=== PATIENT | female | born 1940 | race Caucasian/White ===

== ENCOUNTER 2016-09-21 10:21 | Inpatient (IN) | payer OTHER, MEDICARE ==
[~2016-09-21] VITALS: Ht 167.6 cm; Wt 81.1 kg
[2016-09-21] VITALS (14 sets, daily range): BP systolic 104–143; BP diastolic 53–82; PULSE 64–81; TEMP 36.2–36.9; O2SAT 94–100; Ht 167.6 cm; Wt 81.1 kg
[~2016-09-21 10:21] MED LIST: CTP/1 PO; DILT-119 PO; FLAXSEED OIL PO; FOLI400T41 PO; FURO40TA3 PO; LISI5TAB PO; METO-596 PO; MULTTAB PO; POTA10CA28 PO; RIVA1.5T PO; SPIR25TA89 PO; TRMCR130WC TOP
[2016-09-21] MEDS ORDERED: ONDANSETRON INJ 2 MG/ML 2 ML VIAL IV STA (10:37)
[2016-09-21] MEDS ORDERED: PANTOprazole INJ 80 MG in DEXTROSE 5% 100ML IV SCH (11:00)
[2016-09-21 11:07] LABS: INR 1.3 (0.9-1.1); PARTIAL THROMBOPLASTIN RATIO 1.5; PROTHROMBIN TIME (PATIENT) 14.5 SECONDS (9.0-12.0)
[2016-09-21 11:15] LABS: ALT/SGPT 18 U/L (12-78); AST/SGOT 12 U/L (15-37); BLOOD UREA NITROGEN 35 mg/dl (7-18); BUN/CREATININE RATIO 21.9 (10-20); CALCIUM 8.9 mg/dl (8.5-10.1); CARBON DIOXIDE 28 mmol/L (21-32); CHLORIDE 100 mmol/L (98-107); GLUCOSE 135 mg/dl (70-99); POTASSIUM 3.7 mmol/L (3.5-5.1); SODIUM 139 mmol/L (136-145)
[2016-09-21 11:20] LABS: ALKALINE PHOSPHATASE 65 U/L (45-117)
--- NOTE | 2016-09-21 11:25 | DIAGNOSTIC IMAGING REPORT ---
CHEST ONE VIEW PORTABLE CLINICAL HISTORY: EVALUATE GI BLEED dyspnea COMPARISON STUDY: 07/13/2012 FINDINGS: Improved parenchymal infiltrate left base. Minimal like atelectasis both lung bases. Lungs otherwise appear clear. Diaphragms smooth. IMPRESSION: No acute process. Electronically signed by: Everton Valle M.D. 09/21/2016 11:23 AM Dictated Date/Time: 09/21/2016 11:22 AM
[2016-09-21] MEDS ORDERED: PANTOprazole INJ 40 MG in DEXTROSE 5% 100ML IV SCH (11:30)
[2016-09-21] MEDS ORDERED: ASPI1TAB83 PO (11:38)
[2016-09-21] MEDS ORDERED: FOLI1TAB7 PO (11:38)
[2016-09-21] MEDS ORDERED: MULTCHW PO (11:38)
[2016-09-21] MEDS ORDERED: METO5TAB5 PO (11:38)
[2016-09-21] MEDS ORDERED: FLAX12003 PO (11:38)
[2016-09-21] MEDS ORDERED: CALC1CAP36 PO (11:38)
[2016-09-21 11:45] LABS: ANISOCYTOSIS PRESENT; BASO % 0.1 %; BASO ABS # 0.02 K/uL (0-0.2); COMPLETE YES; EOS % 0.5 %; HYPERSEGMENTED POLYS 1+; IG% 1.3 %; LARGE PLATELETS 1+; LYMPH % 7.4 %; LYMPH ABS # 1.12 K/uL (1.2-3.4); MEAN CELL VOLUME 95.5 fL (80-100); MEAN CORPUSCULAR HGB CONC 31.4 g/dl (32-36); MEAN PLATELET VOLUME 8.9 fL (7.4-10.4); MICROCYTOSIS PRESENT; MONO % 8.7 %; PLATELET COUNT 469 K/uL (130-400); POLYCHROMASIA 1+; WHITE BLOOD COUNT 15.19 K/uL (4.8-10.8)
[2016-09-21] MEDS ORDERED: ONDANSETRON INJ 2 MG/ML 2 ML VIAL IV PRN (13:00)
[2016-09-21] MEDS ORDERED: ALUMINUM/MAGNESIUM/SIMETH (MAALOX MAX) 30 ML UDC PO PRN (13:00)
[2016-09-21] MEDS ORDERED: ACETAMINOPHEN 325 MG TAB PO PRN (13:00)
[2016-09-21] MEDS ORDERED: MAGNESIUM HYDROXIDE SUSP 30 ML UDC PO PRN (13:00)
[2016-09-21] MEDS ORDERED: POLYETHYLENE (MIRALAX) 17 GM PACK PO PRN (13:00)
--- NOTE | 2016-09-21 13:19 | History and Physical ---
History & Physical Date & Time of Service: Sep 21, 2016 at 12:27 Chief Complaint: Weakness, Diarrhea-Blood In Stools Primary Care Physician: Michel Quintero M.D. (MEDICAL) History of Present Illness Source: patient, family Ms. 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 Patient was getting ready for taoism and had an urge to move her bowels which revealed black diarrhea. She states she didn't have many episodes but discontinued for 2 days then disappeared. This black diarrhea restarted yesterday. Her generalized weakness worsened which resulting in her collapsing to her knees when she tried to get out of her vehicle this morning. She denies further injury, hitting her head, or LOC. Associated BRBPR with wiping only which is noticed on the toilet tissue. Associated abdominal cramping that was worse yesterday and somewhat improved. Associated dry heaves without productive emesis. She has chronic anemia and has undergone 3 iron infusions last month with the most recent 2 weeks ago. Her daughter, iron stores have not improved. She is on several toe and ASA with last dose of Zaroxolyn last night and last dose of aspirin yesterday morning. Patient underwent colonoscopy in the past which was normal. She states she is normally constipated. She denies chronic NSAID use other than ASA, denies excessive alcohol use, denies known liver dysfunction. She denies personal or family history of colon cancer or known PUD. In the ED, patient is afebrile and normotensive. Hemoglobin 6.6. Leukocytosis of 15.19. Creatinine 1.6 which appears baseline. PTT 39.8. Protonix gtt initiated. She was transfused 2 units PRBCs. She will be admitted to telemetry for GI bleed. Past Medical/Surgical History Medical Problems: (1) ASCVD Status: Chronic (2) Atherosclerotic renal artery stenosis Status: Resolved (3) Benign hypertension Status: Chronic (4) Renal artery stenosis Status: Chronic Family History Heart disease Hypertension Social History Smoking Status: Current Every Day Smoker Drug Use: none Occupational Status: retired Immunizations History of Influenza Vaccine: Yes Influenza Vaccine Date: May 25, 2012 History of Tetanus Vaccine?: Yes History of Pneumococcal: No History of Hepatitis B Vaccine: No Multi-Drug Resistant Organisms History of MDRO: No Allergies Coded Allergies: Latex1 -Allergic Contact Dermititis (Verified Allergy, Mild, POWDER IN LATEX GLOVES CAUSES RED, ITCHY SKIN, 09/21/16) Home Medications Scheduled Aspirin (Aspirin), 1 TAB PO DAILY Calcitriol (Calcitriol), 1 CAP PO 2XWK Clonidine Hcl (Catapres), 0.1 MG PO HS Diltiazem Hcl Ext Rel (Tiazac), 360 MG PO DAILY Flaxseed (Linseed) (Flaxseed Oil), 450 MG PO QPM Folic Acid (Folvite), 400 MCG PO QPM Metolazone (Zaroxolyn), 5 MG PO QAM Metoprolol Tartrate (Lopressor), 0.5 TAB PO AMPM Multiple Vitamins W/ Minerals (Centrum Silver), 1 TAB PO QPM Rivaroxaban (Xarelto), 15 MG PO DAILY Spironolactone (Aldactone), 25 MG PO BID Review of Systems REVIEW OF SYSTEMS: General/Constitutional: +generalized weakness; Denies fever/chills, weight gain/ loss ENT: Denies visual changes, nasal drainage, hearing loss, sore throat, trouble swallowing Cardiovascular: Denies chest pain, palpitations, edema Respiratory: Denies cough, sputum, SOB, wheezing, orthopnea GI: +nausea, +dry heaves, +cramping abdominal pain, +melena and hematochezia; Denies vomiting, constipation, diarrhea Musculoskeletal: Denies joint/muscle aches, weakness, swelling Neurologic: Denies dizziness/lightheadedness, numbness/tingling, weakness Psychiatric: Deferred Endocrine: Deferred Hematologic/Lymphatic: Denies bleeding/clotting abnormalities Skin: Denies rash, itch, new skin changes, easy bruising Allergy/Immunologic: Deferred Physical Exam Vital Signs Date Time Temp Pulse Resp B/P Pulse Ox O2 Delivery O2 Flow Rate FiO2 09/21/16 11:37 73 20 122/65 100 Room Air 09/21/16 11:14 75 09/21/16 10:24 36.4 84 20 122/63 100 Room Air PHYSICAL EXAM:: General Appearance: WDWN in NAD who is A&O x 3 HEENT: Head is normocephalic/atraumatic; EOMI; PERRLA; Hearing grossly intact; Mucous membranes moist; Pharynx negative for exudate/lesions Neck: Supple; Trachea midline; Neg JVD; Neg lymphadenopathy Heart: Irregularly irregular with systolic murmur with radiation to upper left chest; no G/R Lungs: CTA in all lung bettencourt bilaterally; Respirations unlabored; Neg accessory muscle use Abdomen: Soft, non-tender, non-distended; Positive BS x 4 quadrants; Neg organomegaly Extremities: Capillary refill < 2 seconds; Neg cyanosis or edema Neurological: Speech clear with mild mumbling (H/O CVA - chronic) Gross motor/ sensory function intact; Neg focal neurologic deficits Psychiatric: Appropriate mood/affect Skin: Normal Color; Warm/Dry; Neg rashes, ecchymosis, lacerations/ulcerations Diagnostics Laboratory Results Results Past 24 Hours Test 09/21/16 10:45 Range/Units White Blood Count 15.19 4.8-10.8 K/uL Red Blood Count 2.20 4.2-5.4 M/uL Hemoglobin 6.6 12.0-16.0 g/dL Hematocrit 21.0 37-47 % Mean Corpuscular Volume 95.5 80-100 fL Mean Corpuscular Hemoglobin 30.0 25-34 pg Mean Corpuscular Hemoglobin Concent 31.4 32-36 g/dl Platelet Count 469 130-400 K/uL Mean Platelet Volume 8.9 7.4-10.4 fL Neutrophils (%) (Auto) 82.0 % Lymphocytes (%) (Auto) 7.4 % Monocytes (%) (Auto) 8.7 % Eosinophils (%) (Auto) 0.5 % Basophils (%) (Auto) 0.1 % Neutrophils # (Auto) 12.46 1.4-6.5 K/uL Lymphocytes # (Auto) 1.12 1.2-3.4 K/uL Monocytes # (Auto) 1.32 0.11-0.59 K/uL Eosinophils # (Auto) 0.08 0-0.5 K/uL Basophils # (Auto) 0.02 0-0.2 K/uL RDW Standard Deviation 80.8 36.4-46.3 fL RDW Coefficient of Variation 24.4 11.5-14.5 % Immature Granulocyte % (Auto) 1.3 % Immature Granulocyte # (Auto) 0.19 0.00-0.02 K/uL Nucleated RBC Absolute Count (auto) 0.09 0-0 K/uL Nucleated Red Blood Cells % 0.6 % Hypersegmented Polys 1+ Large Platelets 1+ Polychromasia 1+ Anisocytosis PRESENT Microcytosis PRESENT Prothrombin Time 14.5 9.0-12.0 SECONDS Prothromb Time International Ratio 1.3 0.9-1.1 Activated Partial Thromboplast Time 39.8 21.0-31.0 SECONDS Partial Thromboplastin Ratio 1.5 Sodium Level 139 136-145 mmol/L Potassium Level 3.7 3.5-5.1 mmol/L Chloride Level 100 98-107 mmol/L Carbon Dioxide Level 28 21-32 mmol/L Anion Gap 11.0 3-11 mmol/L Blood Urea Nitrogen 35 7-18 mg/dl Creatinine 1.60 0.60-1.20 mg/dl Estimated GFR () 35.7 Estimated GFR (Non- 30.8 BUN/Creatinine Ratio 21.9 10-20 Random Glucose 135 70-99 mg/dl Calcium Level 8.9 8.5-10.1 mg/dl Total Bilirubin 0.4 0.2-1 mg/dl Direct Bilirubin 0.1 0-0.2 mg/dl Aspartate Amino Transf (AST/SGOT) 12 15-37 U/L Alanine Aminotransferase (ALT/SGPT) 18 12-78 U/L Alkaline Phosphatase 65 45-117 U/L Troponin I < 0.015 0-0.045 ng/ml Total Protein 6.5 6.4-8.2 gm/dl Albumin 3.3 3.4-5.0 gm/dl Lipase 247 73-393 U/L Diagnostic Radiology CHEST ONE VIEW PORTABLE CLINICAL HISTORY: EVALUATE GI BLEED dyspnea COMPARISON STUDY: 07/13/2012 FINDINGS: Improved parenchymal infiltrate left base. Minimal like atelectasis both lung bases. Lungs otherwise appear clear. Diaphragms smooth. IMPRESSION: No acute process. EKG Atrial fibrillation Nonspecific ST and T wave abnormality Prolonged QT Abnormal ECG When compared with ECG of 12-SEP-2014 07:25, Atrial fibrillation has replaced Atrial flutter Impression Assessment and Plan Ms. 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 Hemoglobin 6.6. 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 Y/N: Yes Risk Level: Moderate Given or contraindicated: T.E.D. Stockings, SCD's, Contraindicated (GI Bleed)
[2016-09-21] MEDS ORDERED: ONDANSETRON INJ 2 MG/ML 2 ML VIAL ONE (14:02)
[2016-09-21] MEDS: SODIUM CHLORIDE 0.9% 1000ML 1,000 ML IV SCH (15:15)
--- NOTE | 2016-09-21 15:40 | Gastrointestinal Consultation ---
Gastrointestinal Consultation Date of Consultation: Sep 21, 2016 Attending Physician: Elva Lacey PA-C Consulting Physician: Dr. Shaw/KAYLENE Moreno Reason for Consultation: Melena History of Present Illness Patient is a 75 year old female with a history of atherosclerotic cardiovascular disease, atrial fibrillation, and renal artery stenosis on chronic anticoagulation therapy with Xarelto and ASA presenting to the ER with progressive weakness and family reports of increased respiratory effort. Upon arrival, she was noted to be profoundly anemic with a H&H of 6.6 and 21.0. BUN was noted to be 35 and creatinine 1.60. Liver panel was negative as was her troponin. She has received 1 of 2 units of PRBCs ordered. Patient has been placed on a NPO status although she has been drinking sips of clear liquids at present. In regard to symptoms, the patient reports a history of mid-abdominal discomfort associated with a "sick feeling" and intermittent "dry heaves" which has been ongoing for several weeks. The patient has been treating symptoms with Tums and saltines. She states that on Sunday, however, she developed a sudden onset of diarrhea which was very dark x 1 episode. She was okay on Sunday but on Sunday had returning diarrhea x 5 episodes. Again, the stool was very dark. Since that time, she has not had any further fecal output but was hemoccult tested in the ER as positive. The only other symptoms she reports is of the weakness as noted above. She denies any shortness of breath or CABALLERO at present, no chest pain, palpitations, melena at present, BRBPR, or hematemesis. She does have a history of chronic constipation and takes MiraLAX daily but has not taken any MiraLAX since the onset of the diarrhea. Past Medical/Surgical History Past Medical History: 1. Atherosclerotic cardiovascular disease 2. Renal artery stenosis 3. Benign hypertension 4. Atrial fibrillation Past Surgical History: 1. Complete colonoscopy 2. EGD Family History Heart disease Hypertension Negative for GI malignancy or IBD Social History Smoking Status: Never Smoker Alcohol Use: occasionally Drug Use: none Housing Status: lives with family Occupation Status: retired Allergies Coded Allergies: Latex1 -Allergic Contact Dermititis (Verified Allergy, Mild, POWDER IN LATEX GLOVES CAUSES RED, ITCHY SKIN, 09/21/16) Current Medications Home Meds and Scripts Medications Dose Route/Sig Max Daily Dose Days Date Category Dose Instructions Centrum Silver (Multiple Vitamins W/ Minerals) 1 Chw Chw 1 Tab PO QPM 09/21/16 Reported Folvite (Folic Acid) 1 Mg Tab 400 Mcg PO QPM 09/21/16 Reported Flaxseed Oil (Flaxseed (Linseed)) 1 Cap Cap 450 Mg PO QPM 09/21/16 Reported Calcitriol 0.25 Mcg Cap 1 Cap PO 2XWK 09/21/16 Reported TUES/FRI Zaroxolyn (Metolazone) 5 Mg Tab 5 Mg PO QAM 09/21/16 Reported Aspirin 81 Mg Tab 1 Tab PO DAILY 09/21/16 Reported Aldactone (Spironolactone) 25 Mg Tab 25 Mg PO BID 09/12/14 Reported Lopressor (Metoprolol Tartrate) 100 Mg Tab 0.5 Tab PO AMPM 09/12/14 Reported Catapres (Clonidine Hcl) 0.1 Mg Tab 0.1 Mg PO HS 09/12/14 Reported Xarelto (Rivaroxaban) 15 Mg Tab 15 Mg PO DAILY 09/12/14 Reported Tiazac (Diltiazem HCl) 360 Mg Capcr 360 Mg PO DAILY 09/12/14 Reported Review of Systems Constitutional: + see HPI, No chills, No fever Eyes: No problem reported ENT: No problem reported Respiratory: + see HPI Cardiac: + see HPI Abdomen: + see HPI Musculoskeletal: No problem reported Female : No problem reported Neuro: No problem reported Psych: No problem reported Endo: No problem reported Skin: No problem reported Physical Exam Date Time Temp Pulse Resp B/P Pulse Ox O2 Delivery O2 Flow Rate FiO2 09/21/16 14:21 09/21/16 13:50 36.8 76 20 135/55 98 09/21/16 13:35 36.8 74 18 135/53 94 09/21/16 13:35 36.8 75 18 135/53 94 09/21/16 13:20 36.9 72 18 123/57 97 09/21/16 12:34 77 18 136/84 99 09/21/16 11:37 73 20 122/65 100 Room Air 09/21/16 11:14 75 09/21/16 10:24 36.4 84 20 122/63 100 Room Air General Appearance: WD/WN, no apparent distress Eyes: EOMI ENT: hearing grossly normal Neck: supple Respiratory/Chest: lungs clear, normal breath sounds, no respiratory distress Cardiovascular: no gallop, no murmur, + irregularly irregular Abdomen: normal bowel sounds, non tender, soft Extremities: no pedal edema Neurologic/Psych: alert, normal mood/affect, oriented x 3 Skin: warm/dry Laboratory Results Last 24 Hours Test 09/21/16 10:45 White Blood Count 15.19 K/uL Red Blood Count 2.20 M/uL Hemoglobin 6.6 g/dL Hematocrit 21.0 % Mean Corpuscular Volume 95.5 fL Mean Corpuscular Hemoglobin 30.0 pg Mean Corpuscular Hemoglobin Concent 31.4 g/dl Platelet Count 469 K/uL Mean Platelet Volume 8.9 fL Neutrophils (%) (Auto) 82.0 % Lymphocytes (%) (Auto) 7.4 % Monocytes (%) (Auto) 8.7 % Eosinophils (%) (Auto) 0.5 % Basophils (%) (Auto) 0.1 % Neutrophils # (Auto) 12.46 K/uL Lymphocytes # (Auto) 1.12 K/uL Monocytes # (Auto) 1.32 K/uL Eosinophils # (Auto) 0.08 K/uL Basophils # (Auto) 0.02 K/uL RDW Standard Deviation 80.8 fL RDW Coefficient of Variation 24.4 % Immature Granulocyte % (Auto) 1.3 % Immature Granulocyte # (Auto) 0.19 K/uL Nucleated RBC Absolute Count (auto) 0.09 K/uL Nucleated Red Blood Cells % 0.6 % Hypersegmented Polys 1+ Large Platelets 1+ Polychromasia 1+ Anisocytosis PRESENT Microcytosis PRESENT Erythrocyte Sedimentation Rate 12 mm/hr Prothrombin Time 14.5 SECONDS Prothromb Time International Ratio 1.3 Activated Partial Thromboplast Time 39.8 SECONDS Partial Thromboplastin Ratio 1.5 Sodium Level 139 mmol/L Potassium Level 3.7 mmol/L Chloride Level 100 mmol/L Carbon Dioxide Level 28 mmol/L Anion Gap 11.0 mmol/L Blood Urea Nitrogen 35 mg/dl Creatinine 1.60 mg/dl Estimated GFR () 35.7 Estimated GFR (Non- 30.8 BUN/Creatinine Ratio 21.9 Random Glucose 135 mg/dl Calcium Level 8.9 mg/dl Total Bilirubin 0.4 mg/dl Direct Bilirubin 0.1 mg/dl Aspartate Amino Transf (AST/SGOT) 12 U/L Alanine Aminotransferase (ALT/SGPT) 18 U/L Alkaline Phosphatase 65 U/L Troponin I < 0.015 ng/ml Total Protein 6.5 gm/dl Albumin 3.3 gm/dl Lipase 247 U/L Impression Patient is a 75 year old female with a history of atherosclerotic cardiovascular disease and atrial fibrillation on chronic anticoagulation therapy admitted with profound anemia, heme positive stool and melena which has since resolved. Plan 1. Agree with holding Xarelto for now. 2. Continue supportive care with blood transfusions as ordered. 3. NPO except for sips of clears tonight and then strict NPO after midnight 4. Protonix ggt at 5 mg/hr. 5. EGD tomorrow with Dr. Shaw for further evaluation of symptoms. 6. Additional recommendations pending results of testing. Thank you for allowing us to participate in the care of this pleasant patient. If you have any questions or concerns, please do not hesitate to contact us. Agree with KAYLENE Moreno as above Abd: Soft, Tender, ND, +BS NPO after midnight EGD in AM Continue PPI gtt
[2016-09-21] MEDS: PANTOprazole INJ 40 MG in DEXTROSE 5% 100ML 100 ML IV SCH ×2 (16:18→21:25)
--- NOTE | 2016-09-21 16:52 | EMERGENCY ROOM VISIT NOTE ---
History Report prepared by Lupeibbenja: Saskia Simpson Under the Supervision of: Dr. Nixon Cabrera M.D. First contact with patient: 10:27 Chief Complaint: WEAKNESS Stated Complaint: WEAKNESS, DIARRHEA-BLOOD IN STOOLS History of Present Illness The patient is a 75 year old female who presents to the Emergency Room with complaints of worsening weakness that began 4 days ago. Her daughter states that the patient collapsed onto her knees when she got out of the vehicle this morning due to her weakness. She did not obtain any injuries or hit her head at that time. The patient also complains of dry heaves and black diarrhea. She had diarrhea 4 days ago, and started with it again yesterday. When she wiped, she noticed blood on the tissue. Her daughter states that she has not had a large amount of diarrhea. She has not had any productive emesis. Yesterday, she developed abdominal pain which she describes as cramping. Currently, she has minimal abdominal discomfort. This morning, the patient's daughter called her PCP and the patient was referred to the ED. The patient has a history of stroke and a-fib and is on Xarelto and baby aspirin. She did not take them this morning. Her most recent dose of Xarelto was last night. Her daughter states that the patient had 3 iron infusions last month, most recently two weeks ago. Denies fever, chest pain, or other complaints. She has not been on antibiotics recently. Source of History: patient, family (daughter) Onset: 4 days ago Position: other (global) Quality: other (weakness) Timing: worsening Associated Symptoms: + abdominal pain (cramping), + diarrhea (black), No chest pain, No fevers Note: Other symptoms: dry heaves Review of Systems See HPI for pertinent positives & negatives. A total of 10 systems reviewed and were otherwise negative. Past Medical & Surgical Medical Problems: (1) ASCVD (2) Asthma, Unspecified (3) Atherosclerotic renal artery stenosis (4) Atrial Fibrillation (5) Benign hypertension (6) Congestive Heart Failure Nos (7) Esophageal Reflux (8) Hypertension Nos (9) Melena (10) Renal artery stenosis Family History Heart disease Hypertension Social History Smoking Status: Current Every Day Smoker Alcohol Use: occasionally Drug Use: none Housing Status: lives with family Occupation Status: retired Current/Historical Medications Scheduled Aspirin (Aspirin), 1 TAB PO DAILY Calcitriol (Calcitriol), 1 CAP PO 2XWK Clonidine Hcl (Catapres), 0.1 MG PO HS Diltiazem Hcl Ext Rel (Tiazac), 360 MG PO DAILY Flaxseed (Linseed) (Flaxseed Oil), 450 MG PO QPM Folic Acid (Folvite), 400 MCG PO QPM Metolazone (Zaroxolyn), 5 MG PO QAM Metoprolol Tartrate (Lopressor), 0.5 TAB PO AMPM Multiple Vitamins W/ Minerals (Centrum Silver), 1 TAB PO QPM Rivaroxaban (Xarelto), 15 MG PO DAILY Spironolactone (Aldactone), 25 MG PO BID Allergies Coded Allergies: Latex1 -Allergic Contact Dermititis (Verified Allergy, Mild, POWDER IN LATEX GLOVES CAUSES RED, ITCHY SKIN, 09/21/16) Physical Exam Vital Signs Date Time Temp Pulse Resp B/P Pulse Ox O2 Delivery O2 Flow Rate FiO2 09/21/16 14:35 36.5 81 18 115/81 100 09/21/16 14:21 09/21/16 14:05 36.2 80 16 129/82 100 09/21/16 13:50 36.8 76 20 135/55 98 09/21/16 13:35 36.8 74 18 135/53 94 09/21/16 13:35 36.8 75 18 135/53 94 09/21/16 13:20 36.9 72 18 123/57 97 09/21/16 12:34 77 18 136/84 99 09/21/16 11:37 73 20 122/65 100 Room Air 09/21/16 11:14 75 09/21/16 10:24 36.4 84 20 122/63 100 Room Air Physical Exam Constitutional: Vital signs reviewed. Eyes: Pupils are equal round reactive to light. Conjunctiva are noninjected. ENT: Pharynx is clear without erythema or exudate. Mucous membranes are moist. Neck supple without meningeal signs. Respiratory: Clear to auscultation bilaterally. Breath sounds are equal bilaterally. Cardiovascular: Irregularly irregular rhythm, normal rate. No rubs or gallops. GI: Soft, nondistended and nontender. Bowel sounds are present. Rectal: Guaiac positive brown stool. Musculoskeletal: No peripheral edema. No lower extremity tenderness. Integumentary: No cyanosis. Neurological: The patient is awake and alert. No focal deficits. Psychiatric: Normal affect. Medical Decision & Procedures ER Provider Diagnostic Interpretation: Radiology results as stated below per my review and the radiologist's interpretation: CHEST ONE VIEW PORTABLE CLINICAL HISTORY: EVALUATE GI BLEED dyspnea COMPARISON STUDY: 07/13/2012 FINDINGS: Improved parenchymal infiltrate left base. Minimal like atelectasis both lung bases. Lungs otherwise appear clear. Diaphragms smooth. IMPRESSION: No acute process. Electronically signed by: Everton Valle M.D. 09/21/2016 11:23 AM Dictated Date/Time: 09/21/2016 11:22 AM Laboratory Results 09/21/16 10:45 Red Blood Count 2.20, Mean Corpuscular Volume 95.5, Mean Corpuscular Hemoglobin 30.0, Mean Corpuscular Hemoglobin Concent 31.4, Mean Platelet Volume 8.9, Neutrophils (%) (Auto) 82.0, Lymphocytes (%) (Auto) 7.4, Monocytes (%) (Auto) 8.7, Eosinophils (%) (Auto) 0.5, Basophils (%) (Auto) 0.1, Neutrophils # (Auto) 12.46, Lymphocytes # (Auto) 1.12, Monocytes # (Auto) 1.32, Eosinophils # (Auto) 0.08, Basophils # (Auto) 0.02 09/21/16 10:45 Test 09/21/16 10:45 White Blood Count 15.19 K/uL (4.8-10.8) Red Blood Count 2.20 M/uL (4.2-5.4) Hemoglobin 6.6 g/dL (12.0-16.0) Hematocrit 21.0 % (37-47) Mean Corpuscular Volume 95.5 fL (80-100) Mean Corpuscular Hemoglobin 30.0 pg (25-34) Mean Corpuscular Hemoglobin Concent 31.4 g/dl (32-36) Platelet Count 469 K/uL (130-400) Mean Platelet Volume 8.9 fL (7.4-10.4) Neutrophils (%) (Auto) 82.0 % Lymphocytes (%) (Auto) 7.4 % Monocytes (%) (Auto) 8.7 % Eosinophils (%) (Auto) 0.5 % Basophils (%) (Auto) 0.1 % Neutrophils # (Auto) 12.46 K/uL (1.4-6.5) Lymphocytes # (Auto) 1.12 K/uL (1.2-3.4) Monocytes # (Auto) 1.32 K/uL (0.11-0.59) Eosinophils # (Auto) 0.08 K/uL (0-0.5) Basophils # (Auto) 0.02 K/uL (0-0.2) RDW Standard Deviation 80.8 fL (36.4-46.3) RDW Coefficient of Variation 24.4 % (11.5-14.5) Immature Granulocyte % (Auto) 1.3 % Immature Granulocyte # (Auto) 0.19 K/uL (0.00-0.02) Nucleated RBC Absolute Count (auto) 0.09 K/uL (0-0) Nucleated Red Blood Cells % 0.6 % Hypersegmented Polys 1+ Large Platelets 1+ Polychromasia 1+ Anisocytosis PRESENT Microcytosis PRESENT Erythrocyte Sedimentation Rate 12 mm/hr (0-21) Prothrombin Time 14.5 SECONDS (9.0-12.0) Prothromb Time International Ratio 1.3 (0.9-1.1) Activated Partial Thromboplast Time 39.8 SECONDS (21.0-31.0) Partial Thromboplastin Ratio 1.5 Anion Gap 11.0 mmol/L (3-11) Estimated GFR () 35.7 Estimated GFR (Non- 30.8 BUN/Creatinine Ratio 21.9 (10-20) Calcium Level 8.9 mg/dl (8.5-10.1) Total Bilirubin 0.4 mg/dl (0.2-1) Direct Bilirubin 0.1 mg/dl (0-0.2) Aspartate Amino Transf (AST/SGOT) 12 U/L (15-37) Alanine Aminotransferase (ALT/SGPT) 18 U/L (12-78) Alkaline Phosphatase 65 U/L (45-117) Troponin I < 0.015 ng/ml (0-0.045) Total Protein 6.5 gm/dl (6.4-8.2) Albumin 3.3 gm/dl (3.4-5.0) Lipase 247 U/L (73-393) Laboratory results as reviewed by me. Medications Administered Medications (Trade) Dose Ordered Sig/Veronica Route Start Time Stop Time Status Last Admin Dose Admin Ondansetron HCl 4 mg 4 mg NOW STAT IV 09/21/16 10:37 09/21/16 10:40 DC 09/21/16 11:07 4 MG Pantoprazole Sodium 80 mg/ Dextrose 120 ml @ 480 mls/hr 1100 IV 09/21/16 11:00 09/21/16 11:14 DC 09/21/16 11:07 480 MLS/HR Pantoprazole Sodium/Dextrose (Protonix Inj/D5 100ml) 100 ml @ 20 mls/hr Q5H IV 09/21/16 11:30 09/21/16 16:29 DC 09/21/16 11:32 20 MLS/HR Ondansetron HCl (Zofran Inj) 4 mg Q6H PRN IV 09/21/16 13:00 10/21/16 12:59 09/21/16 14:18 4 MG ECG Indication: weakness Rate (beats per minute): 88 Rhythm: atrial fibrillation Findings: prolonged QT, other (some nonspecific ST-T wave changes inferiorly and laterally) Comparison ECG Date: 09/12/14 Change: no significant change ED Course 1028: The patient was evaluated in room B8. A complete history and physical exam was performed. 1037: Ordered Protonix Bolus/Drip 1 ea IV, Zofran Inj 4 mg IV. 1100: Ordered Pantoprazole Sodium 80 mg/Dextrose 120 ml @ 480 mls/hr IV. 1130: Ordered Pantoprazole Sodium 40 mg/Dextrose 100 ml @ 20 mls/hr IV. 1205: I reassessed the patient. She was hemodynamically stable. I obtained blood consent after discussing test results with the patient and her daughter. 1209: I discussed the case with Dr. Rivers - [facility] Hospitalist. The patient will be evaluated for further management. 1335: I reassessed the patient. She was receiving her first transfusion. She has no complaints at this time. Her vital signs are stable. Medical Decision This is a 75-year-old female who presents with rectal bleeding and weakness. Differential diagnosis includes GI bleed, anemia, cardiac, metabolic derangement , dehydration. I did perform a limited focused review of portions of the patient's old chart on the electronic medical record. The patient has had no recent pertinent visits to this hospital. I did evaluate the patient as noted above. Rectal examination shows guaiac positive brown stool. There was no gross blood. One portion of the stool appeared red but does not turn blue with guaiac testing. IV access was established. The patient was placed on a continuous rn cardiac. I did order and personally review the patient's 12-lead EKG and chest x-ray as described above. I did order and review the patient's blood work as noted in the electronic medical record. She is severely anemic. I did discuss the test results with the patient and her daughter. I did obtain written and verbal consent for blood. I did order 2 units of crossmatched blood for transfusion. I did reassess her. She did remain hemodynamically stable. Her transfusion was initiated in the emergency department. She did not develop any symptoms from it. I did discuss the case with the hospitalist and case loader operator. She was admitted to the hospital. Consults Time Called: 1207 Consulting Physician: Dr. Silvestre CRUZ Hospitalist Returned Call: 1209 I discussed the case with her. The patient will be evaluated for further management. Impression Primary Impression: GI bleed Additional Impressions: Symptomatic anemia A-fib Anticoagulated Critical Care I have personally spent greater than 35 minutes of critical care time in the direct management of this patient. This includes bedside care, interpretation of diagnostic studies, and testing, discussion with consultants, patient, and family members, and other required patient management activities. This 35 minutes is in excess of all separately billable procedures. Scribe Attestation The scribe's documentation has been prepared under my direct and personally reviewed by me in its entirety. I confirm that the note above accurately reflects all work, treatment, procedures, and medical decision making performed by me. Departure Information Dispostion Being Evaluated By Hospitalist Referrals Michel Quintero M.D. (MEDICAL) (PCP) Patient Instructions My [facility] Problem Qualifiers Primary Impression: GI bleed GI bleed type/associated pathology: unspecified gastrointestinal hemorrhage type Qualified Codes: K92.2 - Gastrointestinal hemorrhage, unspecified Additional Impressions: A-fib Atrial fibrillation type: chronic Qualified Codes: I48.2 - Chronic atrial fibrillation
[2016-09-21 17:09] LABS: HEMATOCRIT 23.9 % (37-47)
[2016-09-21] MEDS: FoLIC ACID TAB 400 MCG TAB PO SCH (21:24)
[2016-09-21] MEDS: METOPROLOL TARTRATE 50 MG TAB PO SCH (21:24)
[2016-09-21] MEDS: CLONIDINE HCL 0.1 MG TAB PO SCH (21:25)
[2016-09-21 23:29] LABS: HEMATOCRIT 23.5 % (37-47)
[2016-09-22] VITALS (8 sets, daily range): BP systolic 105–130; BP diastolic 62–85; PULSE 57–89; TEMP 36.4–36.8; O2SAT 94–99
[2016-09-22 00:06] LABS: URINE APPEARANCE CLOUDY (CLEAR); URINE BILIRUBIN NEG (NEG); URINE COLOR YELLOW; URINE EPITHELIAL CELL AUTO 0-5 /lpf (0-5); URINE NITRITE NEG (NEG); URINE PH 5.5 (4.5-7.5); URINE SPECIFIC GRAVITY 1.015 (1.000-1.030); UROBILINOGEN NEG (NEG); ZZUR CULT IF INDIC CLEAN CATCH YES
[2016-09-22 00:08] LABS: MANUAL MICROSCOPIC REQUIRED? NO; REVIEW REQ? NO
[2016-09-22] MEDS: PANTOprazole INJ 40 MG in DEXTROSE 5% 100ML 100 ML IV SCH ×3 (03:04→13:02)
[2016-09-22 06:01] LABS: HEMATOCRIT 24.7 % (37-47); MEAN CELL VOLUME 89.5 fL (80-100); MEAN CORPUSCULAR HGB CONC 32.4 g/dl (32-36); MEAN PLATELET VOLUME 9.2 fL (7.4-10.4); PLATELET COUNT 327 K/uL (130-400); RED BLOOD COUNT 2.76 M/uL (4.2-5.4); WHITE BLOOD COUNT 9.42 K/uL (4.8-10.8)
[2016-09-22 06:06] LABS: INR 1.1 (0.9-1.1); PARTIAL THROMBOPLASTIN RATIO 1.1; PROTHROMBIN TIME (PATIENT) 11.7 SECONDS (9.0-12.0)
[2016-09-22] MEDS: SODIUM CHLORIDE 0.9% 1000ML 1,000 ML IV SCH (06:21)
[2016-09-22 06:37] LABS: BUN/CREATININE RATIO 24.1 (10-20); CALCIUM 7.9 mg/dl (8.5-10.1); CREATININE 1.4 mg/dl (0.60-1.20); MAGNESIUM 1.8 mg/dl (1.8-2.4); POTASSIUM 3.1 mmol/L (3.5-5.1)
[2016-09-22] MEDS: DILTIAZEM HCL (TIAzac) 180 MG CAPCR PO SCH (08:03)
[2016-09-22] MEDS: METOPROLOL TARTRATE 50 MG TAB PO SCH ×2 (08:04→21:28)
[2016-09-22] MEDS ORDERED: CALCITRIOL 0.25 MCG CAP PO SCH (09:00)
--- NOTE | 2016-09-22 09:17 | Clinical Documentation Query ---
CLINICAL DOCUMENTATION QUERY 75 year old female with chronic afib on Xarelto who presents with anemia 2/2 GIB. In your clinical opinion is this patient being managed for: ( x ) possible Xarelto associated GIB treated with DC of Xarelto and 2 units of PRBC's ( ) Other explanation of clinical findings (Please Explain) ( ) Unable to determine (Please Define) ( ) Need to Discuss ( ) Not Agree The medical record reflects the following clinical findings, treatment, and risk factors. Clinical Indicators: GIB, Hgb 6.6, Hct 21.0, +FOCB Treatment: Xarelto on hold, 2 units of PRBC's, Risk Factors: anticoagulation therapy Please clarify and document your clinical opinion in the progress notes and discharge summary. Terms such as "probable", "suspected", "likely", "questionable", "possible", or "still to be ruled out" are acceptable. IF IN AGREEMENT, YOU MUST DOCUMENT ABOVE DIAGNOSTIC STATEMENT IN DAILY PROGRESS NOTES AND DISCHARGE SUMMARY. This document is not part of the patient's record. Thank You, Odin Lacey, RN [phone]
[2016-09-22] MEDS ORDERED: MIDAZOLAM HCL 1 MG/ML 2ML VIAL ONE (11:31)
[2016-09-22] MEDS ORDERED: LIDOCAINE HCL 2% 2 ML VIAL (20MG/ML) ONE (11:32)
[2016-09-22] MEDS ORDERED: ONDANSETRON INJ 2 MG/ML 2 ML VIAL ONE (11:32)
[2016-09-22] MEDS ORDERED: PROPOFOL IV EMULSION 10 MG/ML 20 ML VIAL IV ONE (11:32)
--- NOTE | 2016-09-22 11:45 | GI REPORT ---
Procedure Date: 09/22/2016 11:09 AM Procedure: Upper GI endoscopy Indications: Acute post hemorrhagic anemia, Melena Medicines: Monitored Anesthesia Care Complications: No immediate complications. Estimated Blood Loss: Estimated blood loss: none. Procedure: Pre-Anesthesia Assessment: - Prior to the procedure, a History and Physical was performed, and patient medications and allergies were reviewed. The patient's tolerance of previous anesthesia was also reviewed. The risks and benefits of the procedure and the sedation options and risks were discussed with the patient. All questions were answered, and informed consent was obtained. Prior Anticoagulants: The patient last took aspirin 2 days and Xarelto (rivaroxaban) 2 days prior to the procedure. ASA Grade Assessment: III - A patient with severe systemic disease. After reviewing the risks and benefits, the patient was deemed in satisfactory condition to undergo the procedure. After obtaining informed consent, the endoscope was passed under direct vision. Throughout the procedure, the patient's blood pressure, pulse, and oxygen saturations were monitored continuously. The scope was introduced through the mouth, and advanced to the second part of duodenum. The upper GI endoscopy was accomplished without difficulty. The patient tolerated the procedure well. Findings: The esophagus was normal. A small hiatus hernia was present. Two non-bleeding cratered gastric ulcers with no stigmata of bleeding were found in the gastric antrum. The largest lesion was 4 mm in largest dimension. Biopsies were taken with a cold forceps for Helicobacter pylori testing. The examined duodenum was normal. Impression: - Normal esophagus. - Small hiatus hernia. - Non-bleeding gastric ulcers with no stigmata of bleeding. Biopsied. - Normal examined duodenum. Recommendation: - Resume previous diet. - Continue present medications. - Await pathology results. - Return to GI office as previously scheduled. Jatin Shaw DO 09/22/2016 11:44:37 AM This report has been signed electronically. Note Initiated On: 09/22/2016 11:09 AM I attest to the content of the Intraoperative Record and orders documented therein, exceptions below
--- NOTE | 2016-09-22 12:23 | Anesthesiology Progress Note ---
Anesthesia Post Op Note Date & Time Sep 22, 2016 at 12:22 Vital Signs Pain Intensity: 0 Vital Signs Past 12 Hours Date Time Temp Pulse Resp B/P Pulse Ox O2 Delivery O2 Flow Rate FiO2 09/22/16 12:06 80 16 131/60 95 Room Air 09/22/16 11:55 80 18 128/65 95 Room Air 09/22/16 11:45 82 18 108/65 99 Room Air 09/22/16 10:55 36.6 80 20 173/79 96 Room Air 09/22/16 08:00 Room Air 09/22/16 07:24 36.8 89 16 116/75 94 Room Air 09/22/16 04:00 98 Room Air 09/22/16 04:00 36.4 69 18 127/71 98 Room Air 09/22/16 02:52 Room Air Notes Mental Status: alert / awake / arousable, participated in evaluation Pt Amnestic to Procedure: Yes Nausea / Vomiting: adequately controlled Pain: adequately controlled Airway Patency, RR, SpO2: stable & adequate BP & HR: stable & adequate Hydration State: stable & adequate Anesthetic Complications: no major complications apparent Pt doing well.
[2016-09-22] MEDS ORDERED: CEPHALEXIN MONOHYDRATE 500 MG CAP PO ONE (14:00)
[2016-09-22] MEDS ORDERED: POTASSIUM CHLORIDE 20 MEQ TABCR PO ONE (14:00)
--- NOTE | 2016-09-22 14:02 | Progress Note ---
Subjective Date of Service: Sep 22, 2016. Subjective Pt evaluation today including: conversation w/ patient, conversation w/ family , physical exam, chart review, lab review, review of studies, review of inpatient medication list Had EGD done, feeling hungry, no complaining, denied dizziness or chest pain Problem List Medical Problems: (1) A-fib Status: Acute (2) Anticoagulated Status: Acute (3) GI bleed Status: Acute (4) Symptomatic anemia Status: Acute Review of Systems Constitutional: No chills, No fatigue, No fever, No problem reported, No sweats , No weakness, No weight loss Eyes: No diplopia, No discharge, No eye pain, No redness, No worsening of vision ENT: No dental problems, No hearing loss, No nasal symptoms, No sore throat, No tinnitus, No trouble swallowing, No unusual epistaxis Respiratory: No cough, No dyspnea at rest, No dyspnea on exertion, No hemoptysis, No shortness of breath, No sputum, No wheezing Cardiac: No PND, No chest pain, No claudication, No edema, No orthopnea, No palpitations Abdomen: No constipation, No diarrhea, No nausea, No pain, No vomiting Musculoskeletal: No calf pain, No joint pain, No muscle pain, No swelling Female : No abnormal vaginal bleeding, No dysuria, No hematuria, No incontinence, No urinary frequency, No vaginal discharge Neurologic: No balance problems, No memory loss, No numbness/tingling, No paralysis, No vertigo, No weakness Psychiatric: No anhedonism, No anxiety, No depression symptoms, No insomnia, No substance abuse Heme: No abnormal bleeding/bruising, No clotting problems, No night sweats, No swollen lymph nodes Endo: No excessive thirst, No excessive urination, No fatigue Skin: No bleeding, No color change, No itch, No new/changing skin lesions, No rash Objective Vital Signs Date Time Temp Pulse Resp B/P Pulse Ox O2 Delivery O2 Flow Rate FiO2 09/22/16 13:00 36.4 86 18 130/72 96 Room Air 09/22/16 13:00 36.4 86 18 130/72 96 Room Air 09/22/16 12:06 80 16 131/60 95 Room Air 09/22/16 12:00 Room Air 09/22/16 11:55 80 18 128/65 95 Room Air 09/22/16 11:45 82 18 108/65 99 Room Air 09/22/16 10:55 36.6 80 20 173/79 96 Room Air 09/22/16 08:00 Room Air 09/22/16 07:24 36.8 89 16 116/75 94 Room Air 09/22/16 04:00 98 Room Air 09/22/16 04:00 36.4 69 18 127/71 98 Room Air 09/22/16 02:52 Room Air 09/22/16 00:00 96 Room Air 09/21/16 23:51 36.5 73 16 104/55 96 Room Air 09/21/16 20:10 36.7 78 18 134/75 96 Room Air 09/21/16 20:00 Room Air 09/21/16 18:20 36.7 71 18 143/76 95 09/21/16 17:00 36.9 69 18 125/69 97 09/21/16 16:30 36.6 74 18 135/70 100 09/21/16 16:27 36.6 67 18 130/71 Room Air 09/21/16 16:11 36.6 75 18 130/71 97 09/21/16 16:08 36.8 67 20 123/63 98 Room Air 09/21/16 15:05 36.2 64 18 127/77 100 09/21/16 14:35 36.5 81 18 115/81 100 09/21/16 14:21 09/21/16 14:05 36.2 80 16 129/82 100 Physical Exam General Appearance: WD/WN, no apparent distress Eyes: normal inspection, PERRL, EOMI, sclerae normal ENT: normal ENT inspection, hearing grossly normal, pharynx normal Neck: supple, no adenopathy, thyroid normal, no JVD, no carotid bruits, trachea midline Respiratory/Chest: chest non-tender, lungs clear, normal breath sounds, no respiratory distress, no accessory muscle use Cardiovascular: regular rate, rhythm, no edema, no gallop, no JVD, no murmur Abdomen: normal bowel sounds, non tender, soft, no organomegaly, no pulsatile mass Extremities: normal range of motion, non-tender, normal inspection, no pedal edema, no calf tenderness, normal capillary refill, pelvis stable Neurologic/Psychiatric: 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 II-XII nml as tested, no motor/sensory deficits, alert, normal mood/affect, oriented x 3 Skin: normal color, warm/dry, no rash Lymphatic: no adenopathy Laboratory Results Last 24 Hours Test 09/21/16 16:05 09/21/16 23:05 09/21/16 23:30 09/22/16 05:37 Hemoglobin 7.8 g/dL 7.8 g/dL 8.0 g/dL Hematocrit 23.9 % 23.5 % 24.7 % Urine Color YELLOW Urine Appearance CLOUDY Urine pH 5.5 Urine Specific [place] 1.015 Urine Protein NEG Urine Glucose (UA) NEG Urine Ketones NEG Urine Occult Blood NEG Urine Nitrite NEG Urine Bilirubin NEG Urine Urobilinogen NEG Urine Leukocyte Esterase LARGE Urine WBC (Auto) >30 /hpf Urine RBC (Auto) 0-4 /hpf Urine Hyaline Casts (Auto) 1-5 /lpf Urine Epithelial Cells (Auto) 0-5 /lpf Urine Bacteria (Auto) 2+ White Blood Count 9.42 K/uL Red Blood Count 2.76 M/uL Mean Corpuscular Volume 89.5 fL Mean Corpuscular Hemoglobin 29.0 pg Mean Corpuscular Hemoglobin Concent 32.4 g/dl RDW Standard Deviation 70.1 fL RDW Coefficient of Variation 21.8 % Platelet Count 327 K/uL Mean Platelet Volume 9.2 fL Nucleated RBC Absolute Count (auto) 0.03 K/uL Nucleated Red Blood Cells % 0.4 % Prothrombin Time 11.7 SECONDS Prothromb Time International Ratio 1.1 Activated Partial Thromboplast Time 29.3 SECONDS Partial Thromboplastin Ratio 1.1 Sodium Level 139 mmol/L Potassium Level 3.1 mmol/L Chloride Level 101 mmol/L Carbon Dioxide Level 32 mmol/L Anion Gap 6.0 mmol/L Blood Urea Nitrogen 34 mg/dl Creatinine 1.40 mg/dl Est Creatinine Clear Calc Drug Dose 35.9 ml/min Estimated GFR () 41.9 Estimated GFR (Non- 36.2 BUN/Creatinine Ratio 24.1 Random Glucose 99 mg/dl Calcium Level 7.9 mg/dl Magnesium Level 1.8 mg/dl Assessment and Plan 75-year-old white female with admitted on 09/21/2016 because of abd pain and melena Possible Xarelto related GI bleeding, blood transfusion 2 unit, hemoglobin improved from 6.6-8, follow-up H&H Acute blood loss anemia: Possible from GI bleeding EGD was done today 09/22/2016, results in below - Normal esophagus. - Small hiatus hernia. - Non-bleeding gastric ulcers with no stigmata of bleeding. Biopsied. - Normal examined duodenum. Recommendation: - Resume previous diet. - Continue present medications. - Await pathology results. - Return to GI office as previously scheduled. UTI with Leukocytosis which is supported by urinary studies Follow-up urine culture blood culture Start Keflex by mouth Chronic kidney disease stage III, stable in baseline Keep nothing by mouth midnight, patient was seen by Dr. 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
[2016-09-22] MEDS: CLONIDINE HCL 0.1 MG TAB PO SCH (21:28)
[2016-09-22] MEDS: CEPHALEXIN MONOHYDRATE 500 MG CAP PO SCH (21:28)
[2016-09-22] MEDS: FoLIC ACID TAB 400 MCG TAB PO SCH (21:28)
--- NOTE | 2016-09-22 22:28 | DIAGNOSTIC IMAGING REPORT ---
CT SCAN OF THE ABDOMEN AND PELVIS WITHOUT IV CONTRAST CLINICAL HISTORY: Generalized abdominal pain. Melena. COMPARISON STUDY: Renal ultrasound dated 11/26/2014. TECHNIQUE: CT scan of the abdomen and pelvis is performed from the lung bases to the proximal femora. Images are reviewed in the axial, sagittal, and coronal planes. IV contrast was not administered for this examination as per the referring clinician. Note that the examination was performed in significantly suboptimal fashion without oral and IV contrast. The examination is also degraded by motion artifact. Automated dose control exposure was utilized. CT DOSE: 462.67 mGy.cm FINDINGS: Lung bases: The heart is mildly enlarged and without pericardial effusion. The coronary arteries and mitral annulus are densely calcified. Linear atelectasis versus scarring is present the lung bases. No airspace consolidation or pleural effusion is seen. There is a tiny hiatal hernia. Liver: The unenhanced liver is normal in size, contour, and attenuation. There is no intrahepatic biliary ductal dilatation. Gallbladder: Unremarkable. Spleen: Normal in size and attenuation. Pancreas: The unenhanced pancreas is atrophic and grossly unremarkable. Adrenal glands: Unremarkable. Kidneys: The unenhanced kidneys are atrophic and without hydronephrosis. There are no renal calculi identified. There is no evidence of contour deforming renal mass lesion. Abdominal vasculature: The abdominal aorta is normal in course and caliber noting advanced atherosclerotic calcification. Bowel: The small bowel and colon are normal in course and caliber. The appendix is well-visualized and normal. Peritoneum: There is no intraperitoneal free air or abdominal ascites. There is a small fat-containing umbilical hernia. Lymphadenopathy: None. Pelvic viscera: The bladder is normal as visualized. The uterus is surgically absent. No adnexal lesion is seen. Skeletal structures: The skeletal structures are osteopenic. There is mild lumbosacral spondylosis and scoliosis. No lytic or blastic lesions are seen. IMPRESSION: 1. Significantly suboptimal examination without oral and IV contrast. The examination is also degraded by motion artifact. 2. There are no acute infectious or inflammatory findings in the abdomen or pelvis. 3. Cardiomegaly. Electronically signed by: Wilber Albarran M.D. 09/22/2016 10:26 PM Dictated Date/Time: 09/22/2016 10:21 PM
[2016-09-23 04:45] VITALS: BP 126/65; PULSE 68; TEMP 36.3; O2SAT 97
[2016-09-23 06:03] LABS: HEMATOCRIT 22.9 % (37-47); MEAN CELL VOLUME 90.5 fL (80-100); MEAN CORPUSCULAR HEMOGLOBIN 29.6 pg (25-34); MEAN CORPUSCULAR HGB CONC 32.8 g/dl (32-36); MEAN PLATELET VOLUME 9.3 fL (7.4-10.4); PLATELET COUNT 329 K/uL (130-400); RED BLOOD COUNT 2.53 M/uL (4.2-5.4); WHITE BLOOD COUNT 7.94 K/uL (4.8-10.8)
[2016-09-23 06:31] LABS: BUN/CREATININE RATIO 18.1 (10-20); CALCIUM 8.4 mg/dl (8.5-10.1); CREATININE 1.4 mg/dl (0.60-1.20); MAGNESIUM 1.8 mg/dl (1.8-2.4); POTASSIUM 3.4 mmol/L (3.5-5.1)
[2016-09-23 07:26] VITALS: BP 113/56; PULSE 59; TEMP 37.1; O2SAT 93
[2016-09-23] MEDS ORDERED: POTASSIUM CHLORIDE 10 MEQ TABCR PO STA (07:39)
[2016-09-23] MEDS: CEPHALEXIN MONOHYDRATE 500 MG CAP PO SCH ×2 (08:05→20:44)
[2016-09-23] MEDS: METOPROLOL TARTRATE 50 MG TAB PO SCH ×2 (08:06→20:44)
[2016-09-23] MEDS: DILTIAZEM HCL (TIAzac) 180 MG CAPCR PO SCH (08:06)
[2016-09-23] MEDS: PANTOprazole INJ 40 MG in SYRINGE 0 ML IV SCH (11:07)
[2016-09-23 12:06] VITALS: BP 111/62; PULSE 80; TEMP 37; O2SAT 96
--- NOTE | 2016-09-23 12:52 | Progress Note ---
Subjective Date of Service: Sep 23, 2016. Subjective Pt evaluation today including: conversation w/ patient, conversation w/ family , physical exam, chart review, lab review, review of studies, conversation w/ actuarial consultant, review of inpatient medication list Feeling well, tolerate diet, no complaining Problem List Medical Problems: (1) A-fib Status: Acute (2) Anticoagulated Status: Acute (3) GI bleed Status: Acute (4) Symptomatic anemia Status: Acute Review of Systems Constitutional: No chills, No fatigue, No fever, No problem reported, No sweats , No weakness, No weight loss Eyes: No diplopia, No discharge, No eye pain, No redness, No worsening of vision ENT: No dental problems, No hearing loss, No nasal symptoms, No sore throat, No tinnitus, No trouble swallowing, No unusual epistaxis Respiratory: No cough, No dyspnea at rest, No dyspnea on exertion, No hemoptysis, No shortness of breath, No sputum, No wheezing Cardiac: No PND, No chest pain, No claudication, No edema, No orthopnea, No palpitations Abdomen: No constipation, No diarrhea, No nausea, No pain, No vomiting Musculoskeletal: No calf pain, No joint pain, No muscle pain, No swelling Female : No abnormal vaginal bleeding, No dysuria, No hematuria, No incontinence, No urinary frequency, No vaginal discharge Neurologic: No balance problems, No memory loss, No numbness/tingling, No paralysis, No vertigo, No weakness Psychiatric: No anhedonism, No anxiety, No depression symptoms, No insomnia, No substance abuse Heme: No abnormal bleeding/bruising, No clotting problems, No night sweats, No swollen lymph nodes Endo: No excessive thirst, No excessive urination, No fatigue Skin: No bleeding, No color change, No itch, No new/changing skin lesions, No rash Objective Vital Signs Date Time Temp Pulse Resp B/P Pulse Ox O2 Delivery O2 Flow Rate FiO2 09/23/16 12:06 37.0 80 20 111/62 96 09/23/16 08:00 Room Air 09/23/16 07:26 37.1 59 18 113/56 93 CPAP 09/23/16 04:45 36.3 68 20 126/65 97 Room Air 09/23/16 04:00 Room Air 09/23/16 00:00 Room Air 09/22/16 23:56 36.7 63 18 110/71 99 Room Air 09/22/16 21:26 64 09/22/16 20:00 Room Air 09/22/16 19:47 36.5 57 20 105/62 97 Room Air 09/22/16 16:00 Room Air 09/22/16 15:39 36.6 77 18 122/85 95 Room Air 09/22/16 13:00 36.4 86 18 130/72 96 Room Air 09/22/16 13:00 36.4 86 18 130/72 96 Room Air Physical Exam General Appearance: WD/WN, no apparent distress Eyes: normal inspection, PERRL, EOMI, sclerae normal ENT: normal ENT inspection, hearing grossly normal, pharynx normal Neck: supple, no adenopathy, thyroid normal, no JVD, no carotid bruits, trachea midline Respiratory/Chest: chest non-tender, lungs clear, normal breath sounds, no respiratory distress, no accessory muscle use Cardiovascular: regular rate, rhythm, no edema, no gallop, no JVD, no murmur Abdomen: normal bowel sounds, non tender, soft, no organomegaly, no pulsatile mass Extremities: normal range of motion, non-tender, normal inspection, no pedal edema, no calf tenderness, normal capillary refill, pelvis stable Neurologic/Psychiatric: 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, no motor/sensory deficits, alert, normal mood/affect, oriented x 3 Skin: normal color, warm/dry, no rash Lymphatic: no adenopathy Laboratory Results Last 24 Hours Test 09/23/16 05:35 White Blood Count 7.94 K/uL Red Blood Count 2.53 M/uL Hemoglobin 7.5 g/dL Hematocrit 22.9 % Mean Corpuscular Volume 90.5 fL Mean Corpuscular Hemoglobin 29.6 pg Mean Corpuscular Hemoglobin Concent 32.8 g/dl RDW Standard Deviation 71.2 fL RDW Coefficient of Variation 21.4 % Platelet Count 329 K/uL Mean Platelet Volume 9.3 fL Sodium Level 141 mmol/L Potassium Level 3.4 mmol/L Chloride Level 103 mmol/L Carbon Dioxide Level 29 mmol/L Anion Gap 9.0 mmol/L Blood Urea Nitrogen 25 mg/dl Creatinine 1.40 mg/dl Est Creatinine Clear Calc Drug Dose 35.9 ml/min Estimated GFR () 41.9 Estimated GFR (Non- 36.2 BUN/Creatinine Ratio 18.1 Random Glucose 100 mg/dl Calcium Level 8.4 mg/dl Magnesium Level 1.8 mg/dl Assessment and Plan 75-year-old white female with admitted on 09/21/2016 because of abd pain and melena Possible Xarelto related GI bleeding, blood transfusion 2 unit, hemoglobin improved from 6.6 to 8 yesterday on 09/22/2016 Today's hemoglobin is 7.5 Patient has no complaint no more abdominal pain Acute blood loss anemia: Possible from GI bleeding EGD was done today 09/22/2016, results in below - Normal esophagus. - Small hiatus hernia. - Non-bleeding gastric ulcers with no stigmata of bleeding. Biopsied. - Normal examined duodenum. Recommendation: - Resume previous diet. - Continue present medications. - Await pathology results. - Return to GI office as previously scheduled. discussed Dr. Mathew on 09/22/2016, Dr. mathew recs protonix po daily, continue hold ASA, and Xarelto, for 1 days, watch for 1 days more, and can be discharge home on sunday, can restart Xarelto and asa upon discharge. Because hemoglobin drop to 7.5 this morning, I ordered for p.m. lab to see hemoglobin level, if <7.5, will consider transfusion and notified Dr. 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
[2016-09-23 15:15] VITALS: BP 137/73; PULSE 71; TEMP 36.9; O2SAT 98
[2016-09-23 16:02] LABS: HEMATOCRIT 23.7 % (37-47)
[2016-09-23 19:48] VITALS: BP 145/77; PULSE 70; TEMP 36.6; O2SAT 94
[2016-09-23] MEDS: CLONIDINE HCL 0.1 MG TAB PO SCH (20:44)
[2016-09-23] MEDS: FoLIC ACID TAB 400 MCG TAB PO SCH (20:44)
[2016-09-24 00:18] VITALS: BP 108/59; PULSE 67; TEMP 36.8; O2SAT 97
[2016-09-24 04:00] VITALS: BP 141/71; PULSE 74; TEMP 36.4; O2SAT 99
[2016-09-24 05:29] LABS: HEMATOCRIT 24.7 % (37-47); MEAN CELL VOLUME 92.2 fL (80-100); MEAN CORPUSCULAR HEMOGLOBIN 29.9 pg (25-34); MEAN CORPUSCULAR HGB CONC 32.4 g/dl (32-36); MEAN PLATELET VOLUME 9.2 fL (7.4-10.4); PLATELET COUNT 357 K/uL (130-400); RED BLOOD COUNT 2.68 M/uL (4.2-5.4)
[2016-09-24 05:52] LABS: BUN/CREATININE RATIO 15.6 (10-20); CALCIUM 8.4 mg/dl (8.5-10.1); CREATININE 1.4 mg/dl (0.60-1.20); MAGNESIUM 1.8 mg/dl (1.8-2.4); POTASSIUM 3.6 mmol/L (3.5-5.1)
[2016-09-24 07:23] VITALS: BP 138/81; PULSE 71; TEMP 36.5; O2SAT 98
[2016-09-24] MEDS: METOPROLOL TARTRATE 50 MG TAB PO SCH (08:12)
[2016-09-24] MEDS: DILTIAZEM HCL (TIAzac) 180 MG CAPCR PO SCH (08:13)
[2016-09-24] MEDS: CEPHALEXIN MONOHYDRATE 500 MG CAP PO SCH (08:13)
[2016-09-24 11:19] VITALS: BP 124/78; PULSE 74; TEMP 36.5; O2SAT 94
[2016-09-24] MEDS: PANTOprazole INJ 40 MG in SYRINGE 0 ML IV SCH (11:41)
[2016-09-24] MEDS ORDERED: KFL500 PO (14:55)
--- NOTE | 2016-09-24 14:59 | Discharge Instructions ---
Discharge Instructions Date of Service Sep 24, 2016. Admission Reason for Admission: Melena Discharge Discharge Diagnosis / Problem: Possible Xarelto related GI bleeding, gastric ulceration Discharge Goals Goal(s): Decrease discomfort, Improve function, Increase independence, Improve disease control, Improve nutritional status, Learn about illness, Diagnostic testing, Therapeutic intervention, Prevent Disease Progression, Specific goals Activity Recommendations Activity Limitations: resume your previous activity . Instructions / Follow-Up Instructions / Follow-Up you have Possible Xarelto related GI bleeding/gastric ulceration Acute blood loss anemia: Possible from GI bleeding you had EDG done, need ot follow up with Dr. Shaw in 2-3 week we resume ASA, and Xarelto, but there is risks of GI bleeding again, you need to call pcp if have dizziness, rectal bleeding, you have Escherichia coli UTI, we are giving you Keflex for 4 days more - you need to follow up with your primary care physician in 1 week, - take medication as instructed, never overdose or any misuse, or take with alcohol, because misuse of medicine may cause organ damage or , call your primary care physician if have questions of medicaitons. - call your primary care physician OR go to local emergency room if has any fever/chill, chest pain, shortness of breathing, nausea/vomiting/abdominal pain , facial droop/slurry speech/local weakness, or if has any questions. - fall precaution - diet as instructed - you need to follow up with your subspecialist - you should understand that it is important to follow up the above instruction , and "not following the above instruction" may cause delayed or missed care of your medical conditions which may cause permanent organ damage and even . Current Hospital Diet Patient's current hospital diet: AHA Diet (Heart Healthy) Discharge Diet Recommended Diet: AHA Diet (Heart Healthy) Procedures Procedures Performed: EGD Pending Studies Studies pending at discharge: no Medical Emergencies . Who to Call and When: Medical Emergencies: If at any time you feel your situation is an emergency, please call 911 immediately. . Non-Emergent Contact Non-Emergency issues call your: Primary Care Provider, Gate Clerk . . "Provider Documentation" section prepared by Amauri Raphael. VTE Core Measure Inpt VTE Proph given/why not?: T.E.D. Stockings, SCD's, Contraindicated (GI Bleed)
[2016-09-24 15:15] VITALS: BP 124/78; PULSE 74; TEMP 36.5; O2SAT 94
--- NOTE | 2016-09-27 12:38 | Discharge Summary ---
Discharge Summary Date of Service Sep 27, 2016. Discharge Summary Admission Date: Sep 21, 2016 at 14:48 Discharge Date: Sep 24, 2016 Discharge Disposition: Home Principal Diagnosis: Possible Xarelto related GI bleeding/gastric ulceration Problems/Secondary Diagnoses: Acute blood loss anemia: Possible from GI bleeding Escherichia coli UTI, Immunizations: Have You Had Influenza Vaccine: Yes Influenza Vaccine Date: May 25, 2012 History of Tetanus Vaccine?: Yes History of Pneumococcal: No History of Hepatitis B Vaccine: No Procedures: EGD Consultations: GI Medication Reconciliation New Medications: Cephalexin Monohydrate (Cephalexin) 500 Mg Cap 500 MG PO Q12@0800,2000 for 4 Days, CAP Continued Medications: Aspirin (Aspirin) 81 Mg Tab 1 TAB PO DAILY, TAB Calcitriol (Calcitriol) 0.25 Mcg Cap 1 CAP PO 2XWK TUES/FRI Clonidine Hcl (Catapres) 0.1 Mg Tab 0.1 MG PO HS, TAB Diltiazem Hcl Ext Rel (Tiazac) 360 Mg Capcr 360 MG PO DAILY, CAP Flaxseed (Linseed) (Flaxseed Oil) 1 Cap Cap 450 MG PO QPM Folic Acid (Folvite) 1 Mg Tab 400 MCG PO QPM, TAB Metolazone (Zaroxolyn) 5 Mg Tab 5 MG PO QAM, TAB Metoprolol Tartrate (Lopressor) 100 Mg Tab 0.5 TAB PO AMPM, TAB Multiple Vitamins W/ Minerals (Centrum Silver) 1 Chw Chw 1 TAB PO QPM Rivaroxaban (Xarelto) 15 Mg Tab 15 MG PO DAILY, TAB Spironolactone (Aldactone) 25 Mg Tab 25 MG PO BID, TAB Discharge Exam doing well, no c/o, no dizziness, no blood in stool Review of Systems: Constitutional: No chills, No fatigue, No fever, No problem reported, No sweats, No weakness, No weight loss Eyes: No diplopia, No discharge, No eye pain, No problem reported, No redness, No worsening of vision ENT: No dental problems, No hearing loss, No nasal symptoms, No problem reported, No sore throat, No tinnitus, No trouble swallowing, No unusual epistaxis Respiratory: No cough, No dyspnea at rest, No dyspnea on exertion, No hemoptysis, No problem reported, No shortness of breath, No sputum, No wheezing Cardiovascular: No PND, No chest pain, No claudication, No edema, No orthopnea, No palpitations, No problem reported Abdomen: No GI bleeding, No constipation, No diarrhea, No nausea, No pain, No problem reported, No vomiting Musculoskeletal: No calf pain, No joint pain, No muscle pain, No problem reported, No swelling Genitourinary - Female: No dysmenorrhea, No dysuria, No hematuria, No menorrhagia, No metrorrhagia, No , No problem reported, No rash, No urinary frequency, No urinary incontinence, No urinary retention, No urinary urgency, No vaginal bleeding, No vaginal discharge, No vaginal itching, No vulvodynia Neurologic: No balance problems, No memory loss, No numbness/tingling, No paralysis, No problem reported, No vertigo, No weakness Psychiatric: No anhedonism, No anxiety, No depression symptoms, No insomnia , No problem reported, No substance abuse Endocrine: No excessive thirst, No excessive urination, No fatigue, No problem reported Hematologic / Lymphatic: No abnormal bleeding/bruising, No clotting problems , No night sweats, No problem reported, No swollen lymph nodes Integumentary: No bleeding, No color change, No itch, No new/changing skin lesions, No problem reported, No rash Physical Exam: General Appearance: WD/WN, no apparent distress Eyes: normal inspection, PERRL, EOMI ENT: normal ENT inspection, hearing grossly normal, TMs normal Neck: supple, no adenopathy, thyroid normal Respiratory/Chest: chest non-tender, normal breath sounds, no respiratory distress, no accessory muscle use, + decreased breath sounds Cardiovascular: regular rate, rhythm, no edema, no gallop, no JVD, no murmur , normal peripheral pulses Abdomen / GI: normal bowel sounds, non tender, soft, no organomegaly, no pulsatile mass Extremities: normal inspection, no calf tenderness, normal capillary refill 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 - Small hiatus hernia. - Non-bleeding gastric ulcers with no stigmata of bleeding. Biopsied. - Normal examined duodenum. Recommendation: - Resume previous diet. - Continue present medications. - Await pathology results. - Return to GI office as previously scheduled. discussed Dr. Mathew on 09/22/2016, Dr. mathew recs protonix po daily, continue hold ASA, and Xarelto, for 1 days, watch for 1 days more, and can be discharge home on sunday, which is today can restart Xarelto and asa upon discharge. 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 Mathew in 2-3 week we resume ASA, and Xarelto, but there is risks of GI bleeding again, you need to call pcp if have dizziness, rectal bleeding, you have Escherichia coli UTI, we are giving you Keflex for 4 days more - you need to follow up with your primary care physician in 1 week, - take medication as instructed, never overdose or any misuse, or take with alcohol, because misuse of medicine may cause organ damage or , call your primary care physician if have questions of medicaitons. - call your primary care physician OR go to local emergency room if has any fever/chill, chest pain, shortness of breathing, nausea/vomiting/abdominal pain , facial droop/slurry speech/local weakness, or if has any questions. - fall precaution - diet as instructed - you need to follow up with your subspecialist - you should understand that it is important to follow up the above instruction , and "not following the above instruction" may cause delayed or missed care of your medical conditions which may cause permanent organ damage and even . Total Time Spent: Less than 30 minutes This includes examination of the patient, discharge planning, medication reconciliation, and communication with other providers. Discharge Instructions Please refer to the electronic Patient Visit Report (Discharge Instructions) for additional information. Additional Copies To Michel Quintero M.D. (MEDICAL); Jatin Mathew D.O.
== END 2016-09-24 16:00 | disposition home or self-care (01) | DRG 813 ==
LOC: ENRESERVTM → ENRESERVDT → C.EDB 10:23 → C.MED 14:48
PROVIDERS: ADMIT Hospitalist; ATTEND Hospitalist
PROC: 0DB68ZX Excision of Stomach, Via Natural or Artificial Opening Endoscopic, Diagnostic (ICD-10-PCS; principal; 2016-09-22 10:48)
DX: D68.32 Hemorrhagic disorder due to extrinsic circulating anticoagulants (principal); K92.2 Gastrointestinal hemorrhage, unspecified; D62 Acute posthemorrhagic anemia; I48.92 Unspecified atrial flutter; N39.0 Urinary tract infection, site not specified; K25.9 Gastric ulcer, unspecified as acute or chronic, without hemorrhage or perforation; J45.909 Unspecified asthma, uncomplicated; K21.9 Gastro-esophageal reflux disease without esophagitis; I48.2 Chronic atrial fibrillation; D63.1 Anemia in chronic kidney disease; D72.829 Elevated white blood cell count, unspecified; I12.9 Hypertensive chronic kidney disease with stage 1 through stage 4 chronic kidney disease, or unspecified chronic kidney disease; N18.3 Chronic kidney disease, stage 3 (moderate); I25.10 Atherosclerotic heart disease of native coronary artery without angina pectoris; I70.1 Atherosclerosis of renal artery; F17.200 Nicotine dependence, unspecified, uncomplicated; K59.00 Constipation, unspecified; B96.20 Unspecified Escherichia coli [E. coli] as the cause of diseases classified elsewhere; K44.9 Diaphragmatic hernia without obstruction or gangrene; T45.515A Adverse effect of anticoagulants, initial encounter; Y92.9 Unspecified place or not applicable

== ENCOUNTER 2017-08-19 14:39 | Emergency (ER) | payer OTHER, MEDICARE ==
[~2017-08-19] VITALS: Ht 157.5 cm; Wt 83.0 kg
[~2017-08-19 14:39] MED LIST changes: +ASPI1TAB83 PO; +CALC1CAP36 PO; +FLAX12003 PO; -FLAXSEED OIL PO; +FOLI1TAB8 PO; -FOLI400T41 PO; -FURO40TA3 PO; +KFL500 PO; -LISI5TAB PO; +METO5TAB5 PO; +MULTCHW PO; -MULTTAB PO; -POTA10CA28 PO; -TRMCR130WC TOP
[2017-08-19 14:40] VITALS: TEMP 36.6; Ht 157.5 cm; Wt 83.0 kg
[2017-08-19] MEDS ORDERED: OXYMETAZOLINE HCL 0.05% NA SPR 15 ML BTL ONE (15:00)
[2017-08-19] MEDS ORDERED: ASPI81TA28 PO (15:06)
[2017-08-19] MEDS ORDERED: SPIR50TA PO (15:06)
[2017-08-19] MEDS ORDERED: METO100T44 PO (15:06)
[2017-08-19] MEDS ORDERED: ATOR10TA82 PO (15:09)
[2017-08-19] MEDS ORDERED: ALLO100T PO (15:09)
[2017-08-19] MEDS ORDERED: DILT-115 PO (15:09)
[2017-08-19] MEDS ORDERED: METO50TA16 PO (15:09)
[2017-08-19] MEDS ORDERED: PANT40TA PO (15:10)
--- NOTE | 2017-08-19 15:38 | EMERGENCY ROOM VISIT NOTE ---
History First contact with patient: 14:53 Chief Complaint: NOSE BLEED (MINOR) Stated Complaint: BLOODY NOSE History of Present Illness The patient is a 76 year old female who presents to the Emergency Room with complaints of nosebleed. The patient states that she has been bleeding out of her left nostril for approximately 7 hours today. The patient states that stopped when she got to the emergency room. The patient is on Xaralto and a baby aspirin daily. The patient denies any trauma to her nose. The patient states that she has been getting 3-4 nosebleeds per week for the last 6 weeks. She states that her mouth also gets dry at night. Review of Systems 6 system review was performed and was negative unless stated otherwise in history of present illness. Past Medical/Surgical History Medical Problems: (1) ASCVD (2) Asthma, Unspecified (3) Atherosclerotic renal artery stenosis (4) Atrial Fibrillation (5) Benign hypertension (6) Congestive Heart Failure Nos (7) Esophageal Reflux (8) Hypertension Nos (9) Melena (10) Renal artery stenosis Family History Heart disease Hypertension Social History Smoking Status: Never Smoker Alcohol Use: occasionally Drug Use: none Housing Status: lives with family Occupation Status: retired Current/Historical Medications Scheduled Allopurinol (Zyloprim), 100 MG PO BID Aspirin (Aspirin Ec), 81 MG PO DAILY Atorvastatin (Lipitor), 10 MG PO DAILY Calcitriol (Calcitriol), 1 CAP PO 2XWK Clonidine Hcl (Catapres), 0.1 MG PO HS Diltiazem Hcl Ext Rel (Tiazac), 240 MG PO DAILY Flaxseed (Linseed) (Flaxseed Oil), 450 MG PO QPM Folic Acid (Folvite), 400 MCG PO QPM Hctz/Spironolactone 25MG/25MG (Aldactazide 25MG/25MG), 1 TAB PO BID Metolazone (Zaroxolyn), 5 MG PO QAM Metoprolol Tartrate (Lopressor) (Lopressor), 50 MG PO BID Multiple Vitamins W/ Minerals (Centrum Silver), 1 TAB PO QPM Pantoprazole (Protonix), 40 MG PO DAILY Rivaroxaban (Xarelto), 15 MG PO DAILY Physical Exam Vital Signs Date Time Temp Pulse Resp B/P (MAP) Pulse Ox O2 Delivery O2 Flow Rate FiO2 08/19/17 14:40 36.6 73 18 126/79 98 Room Air Physical Exam GENERAL: 76-year-old white female appears in no acute distress. MENTAL STATUS: Alert and oriented 3. NOSE: There was a nasal clip and placed upon evaluation of the patient. Nasal clip was removed. Left nostril with some dried blood and some fresh blood noted. Right nostril is clear. Medical Decision & Procedures ED Course Patient was evaluated. Afrin was placed in the left nostril and nasal clamp placed back on the nose. The nose clamp was removed. Using a nasal assistant auditor and a saline swab to remove the dried blood I examined the left nostril. I cannot visualize any area of active bleeding. The patient was independently evaluated by Dr. Gaxiola who agree with treatment plan. The patient was discharged home in stable condition. Medical Decision Since patient has been having recurrent nasal bleeds I feel that an ENT evaluation is warranted. The patient is in agreement. [place] Drug Monitoring Program Search Results: patient reviewed within database Medication Reconcilliation Current Medication List: was personally reviewed by me Blood Pressure Screening Patient's blood pressure: Normal blood pressure Impression Primary Impression: Epistaxis Departure Information Dispostion Home / Self-Care Condition GOOD Referrals Michel Quintero M.D. (MEDICAL) (PCP) Logan Gallardo M.D. Forms HOME CARE DOCUMENTATION FORM, IMPORTANT VISIT INFORMATION, WORK / SCHOOL INSTRUCTIONS Patient Instructions My [facility] Additional Instructions Recommend putting Neosporin or triple antibiotic ointment in each nostril in the evening daily. Also do not blow your nose forcefully. If you have any recurrent nosebleeds place the clamp on your nose for 10 minutes. If bleeding does not stop use 1 spray of the Afrin in the nostril and reapply the nasal clamp. Keep nasal Clamp in place for 15 minutes. If bleeding does not stop come to the ER. Call Dr. Gallardo tomorrow for follow-up appointment for further evaluation of your recurrent nosebleeds.
[2017-08-19 15:56] VITALS: BP 154/82; PULSE 65; O2SAT 97
[2017-08-21] MEDS ORDERED: PANT40TA PO (09:11)
== END 2017-08-19 16:00 | disposition home or self-care (01) ==
LOC: C.EDB 14:40 → C.EDD 16:00
DX: R04.0 Epistaxis (principal); I25.10 Atherosclerotic heart disease of native coronary artery without angina pectoris; I48.91 Unspecified atrial fibrillation; I11.0 Hypertensive heart disease with heart failure; I50.9 Heart failure, unspecified; J45.909 Unspecified asthma, uncomplicated; I70.1 Atherosclerosis of renal artery; K21.9 Gastro-esophageal reflux disease without esophagitis; Z79.82 Long term (current) use of aspirin; Z79.01 Long term (current) use of anticoagulants; Z82.49 Family history of ischemic heart disease and other diseases of the circulatory system

== ENCOUNTER → 2017-08-27 | Day surgery (SDC) | payer OTHER, MEDICARE ==
[2017-08-21 09:12] VITALS: BMI 29.0
[~2017-08-27] VITALS: Ht 162.6 cm; Wt 77.3 kg
[~2017-08-27] MED LIST changes: +ALLO100T PO; -ASPI1TAB83 PO; +ASPI81TA28 PO; +ATOR10TA82 PO; +DILT-115 PO; -DILT-119 PO; -KFL500 PO; +LIDOCAINE HCL 2% 2 ML VIAL (20MG/ML) ONE; -METO-596 PO; +METO50TA16 PO; +MIDAZOLAM HCL 1 MG/ML 2ML VIAL ONE; +ONDANSETRON INJ 2 MG/ML 2 ML VIAL ONE; +PANT40TA PO; +PROPOFOL IV EMULSION 10 MG/ML 20 ML VIAL IV ONE; +SODIUM CHLORIDE 0.9% 500ML 500 ML IV ONE; -SPIR25TA89 PO; +SPIR50TA PO
[2017-08-27 08:39] VITALS: Ht 162.6 cm; Wt 77.3 kg
--- NOTE | 2017-08-27 09:06 | Endo History and Physical ---
History & Physical Date of Service: Aug 27, 2017. Chief Complaint: AKI Referring Physician: DR. ROBINSON BARAKAT History of Present Illness Pt with anemia Past Medical History Atrial Fibrillation, Angioplasty/Stent, Asthma, Heart Disease, CHF, Hypertension , CVA/TIA Past Surgical History Hx Cardiac Surgery: No Hx Internal Defibrillator: No Hx Pacemaker: No Hx Abdominal Surgery: Yes (HYSTERECTOMY) Hx of Implantable Prosthesis: No Hx Post-Op Nausea and Vomiting: No Hx Cancer Surgery: No Hx Thoracic Surgery: No Hx Orthopedic: Yes (RT/LEFT TKA) Hx Urinary Tract Surgery: Yes (BLADDER REPAIR/CYSTOCELE) Family History None Social History Smoking Status: Current Some Day Smoker Hx Substance Use: No Hx Alcohol Use: Yes (OCCASIONALLY) Allergies Coded Allergies: NO KNOWN DRUG ALLERGIES (Verified Allergy, Unknown, ., 08/21/17) Current Medications Reported Home Medications Medications Dose Route/Sig Max Daily Dose Days Date Category Dose Instructions Protonix (Pantoprazole Sodium) 40 Mg Tab 40 Mg PO QAM 08/21/17 Reported Lopressor (Metoprolol Tartrate) 50 Mg Tab 50 Mg PO BID 08/19/17 Reported Tiazac (Diltiazem HCl) 240 Mg Capcr 240 Mg PO QAM 08/19/17 Reported Lipitor (Atorvastatin Calcium) 10 Mg Tab 10 Mg PO HS 08/19/17 Reported Zyloprim (Allopurinol) 100 Mg Tab 100 Mg PO BID 08/19/17 Reported Aspirin Ec (Aspirin) 81 Mg Tab 81 Mg PO QAM 08/19/17 Reported Aldactazide 25MG/25MG (HCTZ/Spironolactone) 1 Tab Tab 1 Tab PO BID 08/19/17 Reported Centrum Silver (Multiple Vitamins W/ Minerals) 1 Chw Chw 1 Tab PO QPM 09/21/16 Reported Folvite (Folic Acid) 1 Mg Tab 400 Mcg PO QPM 09/21/16 Reported Flaxseed Oil (Flaxseed (Linseed)) 1 Cap Cap 450 Mg PO QPM 09/21/16 Reported Calcitriol 0.25 Mcg Cap 1 Cap PO 2XWK 09/21/16 Reported TUES/FRI Zaroxolyn (Metolazone) 5 Mg Tab 5 Mg PO QAM 09/21/16 Reported Catapres (Clonidine Hcl) 0.1 Mg Tab 0.1 Mg PO HS 09/12/14 Reported Xarelto (Rivaroxaban) 15 Mg Tab 15 Mg PO QPM 09/12/14 Reported Vital Signs Weight (Kilograms): 77.27 Height (Feet): 5 Height (Inches): 4 Date Time Temp Pulse Resp B/P (MAP) Pulse Ox O2 Delivery O2 Flow Rate FiO2 08/27/17 08:54 36.5 73 20 159/93 (115) 99 Room Air Physical Exam General Appearance: no apparent distress Respiratory/Chest: Auscultation: breath sounds normal Cardiovascular: Heart Auscultation: RRR Abdomen: Inspection & Palpation: soft Liver: non-tender Assessment and Plan stable for colonoscopy
--- NOTE | 2017-08-27 09:52 | Discharge Instructions ---
Endoscopy Patient Instructions Date / Procedure(s) Performed Aug 27, 2017. Colonoscopy Allergy Information Coded Allergies: NO KNOWN DRUG ALLERGIES (Verified Allergy, Unknown, ., 08/21/17) Discharge Date / Findings Aug 27, 2017. small hemorrhoids Provider Instructions Activity Restrictions - No exercising or heavy lifting for 24 hours. - Do not drink alcohol the day of the procedure. - Do not drive a car or operate machinery until the day after the procedure. - Do not make any important decisions or sign important papers in 24 hours after the procedure. Following Day: - Return to full activity which may include returning to work/school. Diet Start your diet with liquids and light foods (jello, soup, juice, toast). Then eat your usual diet if not nauseated. Treatment For Common After Affects For mild abdominal pain, bloating, or excessive gas: - Rest - Eat lightly - Lie on right side Follow-Up Information Follow-up with DR. ROBINSON BARAKAT as scheduled Anesthesia Information What You Should Know You have had a procedure that required some medicine to reduce anxiety and discomfort. This treatment is called moderate sedation. After receiving the treatment, you may be sleepy, but you will be able to breathe on your own. The effects of the treatment may last for several hours. Follow these instructions along with Activity/Diet recommendations noted above: * Do NOT do anything where dizziness or clumsiness would be dangerous. * Rest quietly at home today, then you can be up and about tomorrow. * Have a responsible person stay with you the rest of today. * You may have had an I.V. today. If so, you may take the dressing off later today. Recommendations Call your doctor if: * Trouble breathing * Continuous vomiting for more than 24 hours * Temperature above 101 degrees * Severe abdominal pain or bloating * Pain not relieved by pain medicine ordered * There is increased drainage or redness from any incision * A large amount of rectal bleeding greater than 2-3 tablespoons. (If you had a polyp/s removed or have hemorrhoids, a small amount of blood - from the rectum is to be expected.) * You have any unanswered questions or concerns. IN THE EVENT OF A SERIOUS EMERGENCY, GO TO THE NEAREST EMERGENCY ROOM Your discharge instructions were prepared by provider Mike Levy. Patient Instructions Signature Page Ammy Coyle Patient (or Guardian) Signature/Date: I have read and understand the instructions given to me by my caregivers. Caregiver/RN/Doctor Signature/Date: The above-named patient and/or guardian has received patient instructions on this date. + Original Patient Signature Page (only) stays with chart. Please make copy for patient.
--- NOTE | 2017-08-27 09:52 | GI REPORT ---
Procedure Date: 08/27/2017 9:12 AM Procedure: Colonoscopy Indications: Iron deficiency anemia Medicines: See the Anesthesia note for documentation of the administered medications Complications: No immediate complications. Estimated Blood Loss: Estimated blood loss: none. Procedure: Pre-Anesthesia Assessment: - Prior to the procedure, a History and Physical was performed, and patient medications, allergies and sensitivities were reviewed. The patient's tolerance of previous anesthesia was reviewed. - The risks and benefits of the procedure and the sedation options and risks were discussed with the patient. All questions were answered and informed consent was obtained. - Patient identification and proposed procedure were verified prior to the procedure by the physician and the nurse. The procedure was verified in the pre-procedure area. - Pre-procedure physical examination revealed no contraindications to sedation. - After reviewing the risks and benefits, the patient was deemed in satisfactory condition to undergo the procedure. After I obtained informed consent, the scope was passed under direct vision. Throughout the procedure, the patient's blood pressure, pulse, and oxygen saturations were monitored continuously. The scope was introduced through the anus and advanced to the cecum, identified by appendiceal orifice and ileocecal valve. The colonoscopy was performed without difficulty. The patient tolerated the procedure well. The quality of the bowel preparation was good. Findings: The perianal and digital rectal examinations were normal. A few small-mouthed diverticula were found in the sigmoid colon. Internal hemorrhoids were found during retroflexion. The hemorrhoids were small. The exam was otherwise without abnormality on direct and retroflexion views. Impression: - Diverticulosis in the sigmoid colon. - Internal hemorrhoids. - The examination was otherwise normal on direct and retroflexion views. - No specimens collected. Recommendation: - Discharge patient to home. Mike Levy M.D. Mike Levy MD 08/27/2017 9:51:55 AM This report has been signed electronically. Note Initiated On: 08/27/2017 9:12 AM I attest to the content of the Intraoperative Record and orders documented therein, exceptions below
--- NOTE | 2017-08-27 10:16 | Anesthesiology Progress Note ---
Anesthesia Post Op Note Date & Time Aug 27, 2017 at 10:16 Vital Signs Pain Intensity: 0 Vital Signs Past 12 Hours Date Time Temp Pulse Resp B/P (MAP) Pulse Ox O2 Delivery O2 Flow Rate FiO2 08/27/17 10:05 60 16 155/71 (99) 98 Room Air 08/27/17 09:50 71 16 118/45 (69) 100 Room Air 08/27/17 08:54 36.5 73 20 159/93 (115) 99 Room Air Notes Mental Status: alert / awake / arousable, participated in evaluation Pt Amnestic to Procedure: Yes Nausea / Vomiting: adequately controlled Pain: adequately controlled Airway Patency, RR, SpO2: stable & adequate BP & HR: stable & adequate Hydration State: stable & adequate Anesthetic Complications: no major complications apparent
[2017-08-27 10:20] VITALS: BP 140/66; PULSE 62; O2SAT 98
== END | disposition home or self-care (01) ==
LOC: C.GI 08:18
PROVIDERS: ATTEND Internal Medicine Gastroenterology
DX: D50.9 Iron deficiency anemia, unspecified (principal); K64.8 Other hemorrhoids; K57.30 Diverticulosis of large intestine without perforation or abscess without bleeding; I48.91 Unspecified atrial fibrillation; J45.909 Unspecified asthma, uncomplicated; I50.9 Heart failure, unspecified; I11.0 Hypertensive heart disease with heart failure; F17.200 Nicotine dependence, unspecified, uncomplicated; Z96.653 Presence of artificial knee joint, bilateral; Z79.899 Other long term (current) drug therapy; Z79.82 Long term (current) use of aspirin; Z95.5 Presence of coronary angioplasty implant and graft

== ENCOUNTER 2019-08-05 10:44 | Inpatient (IN) ==
--- OUTSIDE RECORDS SUMMARY | 2019-08-05 10:46 | External Medical Summary | Continuity of Care Document ---
:1940 Author Name Scott Betts, Provider Address Unavailable Unavailable , Care Team Providers Name Role Phone Unavailable Unavailable Unavailable Jacquie Hidalgo Unavailable [email or web address] Wilfredo SAH, Rebecca Unavailable [email or web address] Jolly Garcia M.D. Unavailable [email or web address] JOLLY GARCIA Unavailable Unavailable Unavailable Unavailable Unavailable Assessments Assessed Problems:Intestinal metaplasia of gastric mucosa Problems Anemia (285.9) (D64.9) Depression (311) (F32.9) Hyponatremia (276.1) (E87.1) Influenza vaccine needed (V04.81) (Z23) Diarrhea (787.91) (R19.7) Epiglottitis (464.30) (J05.10) Bacteremia (790.7) (R78.81) Atrial fibrillation (427.31) (I48.91) Renal/ureteral disease (593.9) (N28.9) Renal insufficiency (593.9) (N28.9) Renal artery stenosis (440.1) (I70.1) Hypertension (401.9) (I10) 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) (I25 .10) Aortic stenosis (424.1) (I35.0) GERD without esophagitis (530.81) (K21.9) Gastritis (535.50) (K29.70) Gastric ulcer (531.90) (K25.9) Hiatal hernia (553.3) (K44.9) Intestinal metaplasia of gastric mucosa (537.89) (K31.89) Carotid artery stenosis (433.10) (I65.29) Allergies and Adverse Reactions No Known Drug Allergies (Allergy) Medications Pantoprazole Sodium 40 MG Oral Tablet De layed Release; TAKE 1 TABLET BY MOUTH EVERY DAY 30 MINUTES PRIOR TO BREAKFAST KAYLENE Simons Start: 2016 Quantity: 30 Refills: 5 dilTIAZem HCl ER Beads 360 MG Oral Capsu le Extended Release 24 Hour; TAKE (1) CAPSULE ORALLY DAILY. Roxane Garcia Start: 22-Oct-2012 Quantity: 30 Refills: 0 metOLazone 5 MG Oral Tablet; TAKE ONE TABLET BY MOUTH ONCE DAILY MIHIR Villalobos Start: 15-Dec-2014 Quantity: 30 Refills: 5 Xarelto 15 MG Oral Tablet; Take 1 tablet by mouth daily Roxane Ramirez Quantity: 90 Refills: 3 Metoprolol Tartrate 100 MG Oral Tablet; TAKE ONE-HALF TABLET BY MOUTH TWICE DAILY Roxane Garcia Start: 25-Mar-2013 Quantity: 30 Refills: 3 cloNIDine HCl - 0.1 MG Oral Tablet; TAKE ONE TABLET BY MOUTH AT BEDTIME MIHIR Villalobos Start: 28-Jan-2015 Quantity: 30 Refills: 5 Centrum Silver TABS; TAKE 1 TABLET DAILY. , M.DAngelina Refills: 0 Folic Acid 400 MCG Oral Tablet; TAKE 1 TABLET DAILY DIREC GIGI. Roxane Refills: 0 Flax Seed Oil 1000 MG Oral Capsule; TAKE 1 CAPSULE Daily , M .DAngelina Refills: 0 Spironolactone 25 MG Oral Tablet; TAKE ONE TABLET BY M OUTH TWICE DAILY Roxane Garcia Start: 22-Oct-2012 Quantity: 60 Refills: 3 Procedures Procedures not documented Immunizations Influenza (Whole) On: 07-Apr-2011 16:31 Lot #: [id number], [employer] Fluzone Quadrivalent 0.5 ML Intramuscular Suspension On: May-2014 16:28 Lot #: [id number], [employer] Social History - Smoking Status Never smoked tobacco Plan of Treatment Planned Observations Planned Goals not documented Results No Known Results Results not documented
--- OUTSIDE RECORDS SUMMARY | 2019-08-05 10:47 | External Medical Summary | Continuity of Care Document ---
:1940 Author Name Scott Betts, Provider Address Unavailable Unavailable , Care Team Providers Name Role Phone Unavailable Unavailable Unavailable Jacquie Hidalgo Unavailable [email or web address] Rebecca Villalobos PA-C Unavailable [email or web address] Jolly [email or web address] JOLLY GARCIA Unavailable Unavailable Unavailable Unavailable Unavailable [...] Reactions No Known Drug Allergies (Allergy) Medications cloNIDine HCl - 0.1 MG Oral Tablet; TAKE ONE TABLET BY MOUTH AT BEDTIME MIHIR Villalobos Start: 28-Jan-2015 Quantity: 30 Refills: 5 Centrum Silver TABS; TAKE 1 TABLET DAILY. Roxane Refills: 0 Folic Acid 400 MCG Oral Tablet; TAKE 1 TABLET DAILY DIREC GIGI. Roxane Refills: 0 Flax Seed Oil 1000 MG Oral Capsule; TAKE 1 CAPSULE Daily , M .DAngelina Refills: 0 Metoprolol Tartrate 100 MG Oral Tablet; TAKE ONE-HALF TABLET BY MOUTH TWICE DAILY Roxane Garcia Start: 25-Mar-2013 Quantity: 30 Refills: 3 Xarelto 15 MG Oral Tablet; Take 1 tablet by mouth daily Roxane Ramirez Quantity: 90 Refills: 3 Spironolactone 25 MG Oral Tablet; TAKE ONE TABLET BY M OUTH TWICE DAILY Roxane Garcia Start: 22-Oct-2012 Quantity: 60 Refills: 3 dilTIAZem HCl ER Beads 360 MG Oral Capsu le Extended Release 24 Hour; TAKE (1) CAPSULE ORALLY DAILY. Roxane Garcia Start: 22-Oct-2012 Quantity: 30 Refills: 0 metOLazone 5 MG Oral Tablet; TAKE ONE TABLET BY MOUTH ONCE DAILY MIHIR Villalobos Start: 15-Dec-2014 Quantity: 30 Refills: 5 Pantoprazole Sodium 40 MG Oral Tablet De layed Release; TAKE 1 TABLET BY MOUTH EVERY DAY 30 MINUTES PRIOR TO BREAKFAST KAYLENE Simons Start: 2016 Quantity: 30 Refills: 5 Procedures Procedures not documented Immunizations Influenza (Whole) On: 07-Apr-2011 16:31 Lot #: [id number], [employer] Fluzone Quadrivalent 0.5 ML Intramuscular Suspension On: May-2014 16:28 Lot #: [id number], [employer] PA[employer] Social History - Smoking Status Never smoked tobacco Plan of Treatment Planned Observations Planned Goals not documented Results No Known Results Results not documented
[2019-08-05] MEDS ORDERED: ALBUT/IPRATROP 3MG/0.5MG NEB 3 ML VIAL INH STA (11:06)
--- NOTE | 2019-08-05 11:16 | Emergency Department Note ---
Entered by Ange Irby acting as a scribe for History of Present Illness General Chief complaint: Shortness of Breath/Dyspnea Stated complaint: SOB,WHEEZING,COUGH Time Seen by Provider: 08/05/19 10:59 Source: patient History of Present Illness Onset (ago): day(s) 2 Location: left (lung) and right (lung) Severity: similar to prior episodes Pain Consistency: + other (persistent) Quality: + other (shortness of breath) Exacerbated By: + movement and + other (lying flat) Associated symptoms: + cough and + shortness of breath; no fever/chills The patient is an 78 year old female presenting to the Emergency Department complaining of persistent shortness of breath starting 2 days ago. The patients son reports that the patient is short of breath and has a dry cough. He states that the patient is wheezing. He explains that when the patient lies flat or exerts herself her shortness of breath worsens. He notes that the patient has experienced these symptoms before when she had pneumonia. He denies that the patients lower extremities are swollen, recent fevers and chills. Home Medications Home Medications Medication Instructions Recorded Confirmed Type allopurinol 200 mg PO DAILY 08/05/19 08/05/19 History aspirin [Aspir-81] 81 mg PO QAM 08/05/19 08/05/19 History atorvastatin 10 mg PO HS 08/05/19 08/05/19 History clonidine HCl 0.1 mg PO BID 08/05/19 08/05/19 History clotrimazole 1 applic TOPICAL BID PRN 08/05/19 08/05/19 History diltiazem HCl [DILT-XR] 180 mg PO DAILY 08/05/19 08/05/19 History ferrous sulfate 65 mg PO QAM 08/05/19 08/05/19 History flaxseed oil 1,000 mg PO QPM 08/05/19 08/05/19 History folic acid 0.4 mg PO QPM 08/05/19 08/05/19 History metolazone 5 mg PO DAILY 08/05/19 08/05/19 History metoprolol tartrate 50 mg PO BID 08/05/19 08/05/19 History yziynzvf-qfo-KC-lycopen-lutein 1 tab PO DAILY 08/05/19 08/05/19 History [Centrum Silver] nystatin [Nystop] 1 applic TOPICAL TID PRN 08/05/19 08/05/19 History pantoprazole 40 mg PO QAM 08/05/19 08/05/19 History rivaroxaban [Xarelto] 15 mg PO DAILY 08/05/19 08/05/19 History spironolacton-hydrochlorothiaz 1 tab PO BID 08/05/19 08/05/19 History triamcinolone acetonide 1 applic TOPICAL BID PRN 08/05/19 08/05/19 History Allergies Allergy/AdvReac Type Severity Reaction Status Date / Time No Known Drug Allergies Allergy Unknown . Verified 08/05/19 11:30 Past Med/Surg History Medical History A-fib (Inactive) Anticoagulated (Inactive) ASCVD (arteriosclerotic cardiovascular disease) Asthma Benign hypertension Congestive heart failure Epiglottitis (Acute) Esophageal reflux GI bleed (Inactive) Renal artery stenosis Symptomatic anemia (Inactive) Surgical History History of total knee arthroplasty Social History Feels Safe at Home: Yes Smoking Status: Current every day smoker Review of Systems See HPI for pertinent positives & negatives. and A total of 10 systems reviewed and were otherwise negative Physical Exam Vital Signs Vital Signs - 24 hr 08/05/19 10:45 08/05/19 10:56 08/05/19 11:06 Temperature 36.7 C Temperature Source Oral Oral Pulse Rate 70 Pulse Rate [Right Finger] Respiratory Rate 22 Respiratory Effort / Characteristics Short of Breath SOB on Exertion Short of Breath Respiratory Pattern Tachypnea Tachypnea Blood Pressure 135/91 Blood Pressure Mean 105 Blood Pressure Position Sitting Pulse Oximetry 96 93 Oxygen Delivery Method Room Air Room Air Room Air Sepsis Recent Fever Within 48 Hours No Sepsis Action Taken by Nursing No Action Required 08/05/19 11:17 Temperature Temperature Source Pulse Rate Pulse Rate [Right Finger] 73 Respiratory Rate Respiratory Effort / Characteristics Spontaneous Respiratory Pattern Blood Pressure Blood Pressure Mean Blood Pressure Position Pulse Oximetry 94 Oxygen Delivery Method Room Air Sepsis Recent Fever Within 48 Hours Sepsis Action Taken by Nursing CONSTITUTIONAL/VITAL SIGNS: Reviewed / noted above. GENERAL: Non-toxic in appearance. INTEGUMENTARY: Warm, dry, and [place]. HEAD: Normocephalic. EYES: without scleral icterus or trauma. ENT/OROPHARYNX: clear and moist. LYMPHADENOPATHY/NECK: Is supple without lymphadenopathy or meningismus. RESPIRATORY: Basilar crackles. Diminished breath sounds bilaterally. CARDIOVASCULAR: Regular rate and rhythm. GI/ABDOMEN: Soft and nontender. No organomegaly or pulsatile mass. No rebound or guarding. Normal bowel sounds. EXTREMITIES: Warm and well perfused. BACK: No CVA tenderness. NEUROLOGICAL: Intact without focal deficits. PSYCHIATRIC: normal affect. MUSCULOSKELETAL: Normally developed with good muscle tone. Course Course 1059: Previous medical records were reviewed. The patient was evaluated in room C5. A complete history and physical examination was performed. 1232: I discussed the patient's case with Saige Galvan PA-C[facility]. 1236: I updated the patient at this time. Administered Medications Discontinued Medications Albuterol (Duoneb) 3 ml INH NOW STA Stop: 08/05/19 11:07 Last Admin: 08/05/19 11:15 Dose: 3 ml Documented by: [id number] Medical Decision Making Differential Diagnosis Differential diagnoses includes but is not limited to pneumonia, bronchitis, COPD/Asthma exacerbation, pneumothorax, pulmonary embolism, congestive heart failure, acute coronary syndrome. Medical Records Attestation: I reviewed the patient's medical records. Home Medications Current Medication List: was personally reviewed by me Laboratory Data Attestation: I reviewed the patient's lab results. Result diagrams: 08/05/19 11:24 08/05/19 11:24 Lab Results 08/05/19 08/05/19 08/05/19 Range/Units 11:24 11:24 11:24 WBC 10.77 (4.8-10.8) K/uL RBC 3.47 L (4.2-5.4) M/uL Hgb 11.3 L (12.0-16.0) g/dL Hct 33.8 L (37-47) % MCV 97.4 (80-100) fL MCH 32.6 (25-34) pg MCHC 33.4 (32-36) g/dL RDW Std Deviation 50.7 H (36.4-46.3) fL RDW Coeff of Alejandrina 14.3 (11.5-14.5) % Plt Count 297 (130-400) K/uL MPV 10.0 (7.4-10.4) fL Immature Gran % (Auto) 0.6 % Neut % (Auto) 80.5 % Lymph % (Auto) 5.3 % [place] % (Auto) 13.6 % Eos % (Auto) 0.0 % Baso % (Auto) 0.0 % Immature Gran # (Auto) 0.07 H (0.00-0.02) K/uL Neut # (Auto) 8.67 H (1.4-6.5) K/uL Lymph # (Auto) 0.57 L (1.2-3.4) K/uL [place] # (Auto) 1.46 H (0.11-0.59) K/uL Eos # (Auto) 0.00 (0-0.5) K/uL Baso # (Auto) 0.00 (0-0.2) K/uL PT 11.9 (9.0-12.0) Seconds INR 1.2 H (0.9-1.1) APTT 44.1 H (21.0-31.0) Seconds PTT Ratio 1.6 Sodium 129 L (136-145) mmol/L Potassium 3.4 L (3.5-5.1) mmol/L Chloride 89 L (98-107) mmol/L Carbon Dioxide 30 (21-32) mmol/L Anion Gap 10.0 (3-11) BUN 20 H (7-18) mg/dl Creatinine 1.11 (0.6-1.2) mg/dl Est Cr Clr Drug Dosing Not Reportable Est GFR ( Amer) 54.3 Est GFR (Non-Af Amer) 46.9 BUN/Creatinine Ratio 17.6 (10-20) Glucose 116 H (70-99) mg/dl Calcium 9.5 (8.5-10.1) mg/dl Total Bilirubin 0.5 (0.2-1) mg/dl AST 38 H (15-37) U/L ALT 27 (12-78) U/L Alkaline Phosphatase 86 (45-117) U/L Troponin I 0.195 H* (0-0.045) ng/ml NT-Pro-B Natriuret Pep 8691 H (0-1800) pg/ml Total Protein 7.4 (6.4-8.2) gm/dl Albumin 3.4 (3.4-5.0) gm/dl Globulin 4.0 (2.5-4.0) gm/dl Albumin/Globulin Ratio 0.9 (0.9-2) Imaging Data Radiologist's Impression: Radiology results as stated below per my review and the radiologist's interpretation: XR chest 1V portable CLINICAL HISTORY: Dyspnea dyspnea COMPARISON STUDY: 09/21/2016 FINDINGS: Patchy parenchymal infiltrate left lung base. Lungs otherwise appear clear. Diaphragms are smooth. Costophrenic angles are sharp. IMPRESSION: Parenchymal infiltrate left base. ACT 112: Negative or not required by law. The above report was generated using voice recognition software. It may contain grammatical, syntax or spelling errors. Electronically signed by: Everton Valle M.D. 08/05/2019 12:20 PM ECG Data Attestation: I personally reviewed and interpreted this ECG as follows: Indication: + SOB/dyspnea Rate (beats per minute): 72 Rhythm: + atrial fibrillation ECG Intervals/blocks: + Normal QT-c ECG ST segments: no ST elevation ECG Findings: no PVCs Comparison ECG Date: from (09/22/16) Change: no significant change Blood Pressure Blood Pressure Findings: Elevated blood pressure Blood Pressure Disposition: further management by hospitalist GIOVANNI Billings This is an 78-year-old female who presents to the ED with a chief complaint of cough and shortness of breath as well as some wheezing that started on Sunday. The son reports exertional dyspnea and she also states that her dyspnea is worse with laying down flat. The patient's vital signs here are normal. She is not hypoxic. She is not febrile. Her physical exam reveals some basilar crackles/rhonchi. Exam was otherwise unremarkable. No pedal edema. The p atient's twelve-lead EKG showed atrial fibrillation at a rate of 72. The patient does have chronic history of atrial fibrillation and is on Xarelto. Chest x-ray reveals a left base parenchymal infiltrate. CBC is normal. Sodium is 129. Chloride is 89. Troponin is elevated 0.195. BNP is 8691. The patient was given aspirin p.o. She was also treated with an albuterol treatment and IV Rocephin and Zithromax. She will be seen by the hospitalist for further inpatient evaluation and care. Impression & Plan Pneumonia, Elevated troponin Discharge Plan Visit Data Chief Complaint: Shortness of Breath/Dyspnea Stated Complaint: SOB,WHEEZING,COUGH ED Provider: Juan Cortez Discharge Problem: Pneumonia, Elevated troponin Patient Disposition: Being Evaluated by Hospitalist Forms Stand Alone Forms: My [facility] Prescriptions Prescriptions: No Action clonidine HCl 0.1 mg tablet 0.1 mg PO BID RF: 0 atorvastatin 10 mg tablet 10 mg PO HS RF: 0 spironolacton-hydrochlorothiaz 25-25 mg tablet 1 tab PO BID RF: 0 metolazone 5 mg tablet 5 mg PO DAILY RF: 0 allopurinol 100 mg tablet 200 mg PO DAILY RF: 0 folic acid 400 mcg Tablet 0.4 mg PO QPM RF: 0 aspirin [Aspir-81] 81 mg Tablet,Delayed Release (Dr/Ec) 81 mg PO QAM RF: 0 triamcinolone acetonide 0.1 % Cream 1 applic TOPICAL BID PRN (Reason: Rash) RF: 0 pantoprazole 40 mg tablet,delayed release (DR/EC) 40 mg PO QAM RF: 0 ferrous sulfate 325 mg (65 mg iron) tablet 65 mg PO QAM RF: 0 metoprolol tartrate 50 mg tablet 50 mg PO BID RF: 0 nystatin [Nystop] 100,000 unit/gram powder 1 applic TOPICAL TID PRN (Reason: Skin Irritation) RF: 0 clotrimazole 1 % cream 1 applic TOPICAL BID PRN (Reason: Skin Irritation) RF: 0 diltiazem HCl [DILT-XR] 180 mg capsule,ext.rel 24h degradable 180 mg PO DAILY RF: 0 Xarelto 15 mg tablet 15 mg PO DAILY RF: 0 flaxseed oil 1,000 mg Capsule 1,000 mg PO QPM RF: 0 Centrum Silver 0.4-300-250 mg-mcg-mcg Tablet 1 tab PO DAILY RF: 0 Referrals Referrals: Rigo Christine MD [Primary Care Provider] - Discharge Problem: Pneumonia Qualifiers: Pneumonia type: due to unspecified organism Laterality: left Lung location: lower lobe of lung Qualified Code(s): J18.9 - Pneumonia, unspecified organism The scribe's documentation has been prepared under my direction and personally reviewed by me in its entirety. I confirm that the note above accurately reflects all work, treatment, procedures, and medical decision making performed by me.
[2019-08-05 11:45] LABS: Hematocrit (blood only) 33.8 % (37-47); Hemoglobin 11.3 g/dL (12.0-16.0); Immature Granulocytes # (auto) 0.07 K/uL (0.00-0.02); Immature Granulocytes % (auto) 0.6 %; Lymphocytes # (auto) 0.57 K/uL (1.2-3.4); Lymphocytes % (auto) 5.3 %; Mean Corpuscular Hemoglobin 32.6 pg (25-34); Mean Corpuscular Hgb Conc 33.4 g/dL (32-36); Mean Corpuscular Volume 97.4 fL (80-100); Monocytes # (auto) 1.46 K/uL (0.11-0.59); Monocytes % (auto) 13.6 %; Neutrophils # (auto) 8.67 K/uL (1.4-6.5); Neutrophils % (auto) 80.5 %; Platelet Count 297 K/uL (130-400); RDW Coefficient of Variation 14.3 % (11.5-14.5); RDW Standard Deviation 50.7 fL (36.4-46.3); Red Blood Count 3.47 M/uL (4.2-5.4); White Blood Count 10.77 K/uL (4.8-10.8)
[2019-08-05 11:54] LABS: Alanine Aminotransferase 27 U/L (12-78); Albumin Level 3.4 gm/dl (3.4-5.0); Aspartate Aminotransferase 38 U/L (15-37); BUN Creatinine Ratio 17.6 (10-20); Blood Urea Nitrogen 20 mg/dl (7-18); Calcium 9.5 mg/dl (8.5-10.1); Carbon Dioxide 30 mmol/L (21-32); Chloride 89 mmol/L (98-107); Est GFR (African American) 54.3; Est GFR (Non-African American) 46.9; Glucose 116 mg/dl (70-99); Potassium 3.4 mmol/L (3.5-5.1); Sodium 129 mmol/L (136-145)
[2019-08-05 11:58] LABS: INR 1.2 (0.9-1.1); Partial Thromboplastin Ratio 1.6; Partial Thromboplastin Time 44.1 Seconds (21.0-31.0); Prothrombin Time 11.9 Seconds (9.0-12.0)
[2019-08-05 12:05] LABS: Albumin Globulin Ratio 0.9 (0.9-2); Alkaline Phosphatase 86 U/L (45-117); Bilirubin,Total 0.5 mg/dl (0.2-1); NT Pro B Type Natriuretic Pept 8691 pg/ml (0-1800); Total Protein 7.4 gm/dl (6.4-8.2); Troponin I 0.195 ng/ml (0-0.045)
--- NOTE | 2019-08-05 12:21 | XRay Report ---
XR chest 1V portable CLINICAL HISTORY: Dyspnea dyspnea COMPARISON STUDY: 09/21/2016 FINDINGS: Patchy parenchymal infiltrate left lung base. Lungs otherwise appear clear. Diaphragms are smooth. Costophrenic angles are sharp. IMPRESSION: Parenchymal infiltrate left base. ACT 112: Negative or not required by law. The above report was generated using voice recognition software. It may contain grammatical, syntax or spelling errors. Electronically signed by: Everton Valle M.D. 08/05/2019 12:20 PM
[2019-08-05] MEDS ORDERED: ASPIRIN CHEW 324 MG PO STA (12:25)
[2019-08-05] MEDS ORDERED: cefTRIAXone SODIUM 1,000 MG/50 ML BAG IV STA (12:25)
[2019-08-05] MEDS ORDERED: AZITHROMYCIN 500 MG in DEXTROSE 5% 250 ML IV SCH (12:30)
[2019-08-05 12:32] LABS: Influenza B virus by PCR Neg for Influ B (Neg)
[2019-08-05] MEDS ORDERED: OSELTAMIVIR PHOSPHATE 75 MG CAP PO STA (12:49)
--- NOTE | 2019-08-05 13:28 | History & Physical Report ---
Date of Service August 05, 2019 Assessment & Plan (1) Pneumonia: (2) Influenza: Pt is 78 y/o F with PMH chronic a-fib on Xarelto, severe aortic stenosis, HTN, HLD, CKD III, CVA, chronic iron deficiency anemia, gout presented to ER with c/o SOB with exertion, wheezing, cough, rhinorrhea x 2 days. Denies CP, recent travel, ill contacts. In ER afebrile, P: 70, R: 22, BP: 135/91, 96% on RA. WBC: 10, H/H: 11.3/33.8, Na: 129, K: 3.4, Cl: 89, Troponin: 0.195, BNP: 8691. +Influenza A CXR: infiltrate left base -In ER given Rocephin, Zithromax, Duoneb, aspirin 324mg -Blood culture pending -Rocephin, Doxycycline -Tamiflu -renal dosed -Xopenex/atrovent nebs -CBC, BMP in am (3) Elevated troponin: Troponin: 0.195. EKG chronic afib, rate controlled, nonspecific ST changes. No CP reported DDX: elevated troponin secondary to underlying infection -Monitor Vitals -Repeat EKG in am -Will trend troponin -Continue aspirin & beta crow -If would develop CP or increasing troponins consider echo, cardiology consult (4) Hyponatremia: Na: 129. Baseline Na~137. Likely secondary to underlying infection and chronic diuretics -Hold home diuretics at this time -Gentle IVF -Monitor BMP (5) Hypokalemia: K: 3.4 -Replace and monitor BMP and magnesium labs in am (6) A-fib: Chronic a-fib on Xarelto -Rate controlled -Continue Xarelto, metoprolol (7) HTN (hypertension): Stable -Continue diltiazem, clonidine, metoprolol -Hold metolazone, spironolactone/HCTZ (8) CKD (chronic kidney disease), stage III: Cr: 1.1. Baseline Cr: 1.3-1.4 -Monitor renal functions -Avoid nephrotoxic agents when possible (9) Severe aortic stenosis: Echo in 2016: EF: 65%, severe aortic stenosis, severe mitral regurgitation, moderate tricuspid regurgitation, severe pulmonary HTN In past pt denied would want any surgical interventions (10) History of CVA (cerebrovascular accident): -Continue statin, Xarelto (11) Gout: -Continue allopurinol (12) Chronic iron deficiency anemia: Hgb: 11.3. Baseline Hgb: 10-11 -Continue ferrous sulfate supplement -Monitor H&H DVT Prophylaxis -On Xarelto Full Code as per discussion with pt, however reports would not want on prolonged life support if poor prognosis Follows with Dr Christine for routine care Pt was seen and care coordinated with Dr Silveira. See addendum History of Present Illness Chief Complaint: SOB Primary Care Provider: Rigo Christine MD Pt is 78 y/o F with PMH chronic a-fib on Xarelto, severe aortic stenosis, HTN, HLD, CKD III, CVA, chronic iron deficiency anemia, gout presented to ER with c/o SOB x 2 days. Reports initial rhinorrhea, and productive cough 2 days ago and now cough no longer productive. Noticed SOB with exertion for past 2 days with associated wheezing. Chronically uses 3 pillows to sleep however past 2 days has needed to sleep in recliner. Tried using cough drops at home without relief. Denies any CP. Reports had influenza vaccine this season. Denies recent travel or ill contacts. Denies fever/chills, diaphoresis, N/V/D/C, NIXON, dizziness, syncope, vision changes, neck pain, palpitations, hemoptysis, sore throat, choking, otalgia, abdominal pain, paresthesias, weakness, extremity weakness, extremity edema, rashes, urinary symptoms. History echo in 2016: EF: 65%, severe aortic stenosis, severe mitral regurgitation, moderate tricuspid regurgitation, severe pulmonary HTN Allergies Allergy/AdvReac Type Severity Reaction Status Date / Time No Known Drug Allergies Allergy Unknown . Verified 08/05/19 11:30 Home Medications Home Medications Medication Instructions Recorded Confirmed Type allopurinol 200 mg PO DAILY 08/05/19 08/05/19 History aspirin [Aspir-81] 81 mg PO QAM 08/05/19 08/05/19 History atorvastatin 10 mg PO HS 08/05/19 08/05/19 History clonidine HCl 0.1 mg PO BID 08/05/19 08/05/19 History clotrimazole 1 applic TOPICAL BID PRN 08/05/19 08/05/19 History diltiazem HCl [DILT-XR] 180 mg PO DAILY 08/05/19 08/05/19 History ferrous sulfate 65 mg PO QAM 08/05/19 08/05/19 History flaxseed oil 1,000 mg PO QPM 08/05/19 08/05/19 History folic acid 0.4 mg PO QPM 08/05/19 08/05/19 History metolazone 5 mg PO DAILY 08/05/19 08/05/19 History metoprolol tartrate 50 mg PO BID 08/05/19 08/05/19 History jhbbyyzh-xar-CE-lycopen-lutein 1 tab PO DAILY 08/05/19 08/05/19 History [Centrum Silver] nystatin [Nystop] 1 applic TOPICAL TID PRN 08/05/19 08/05/19 History pantoprazole 40 mg PO QAM 08/05/19 08/05/19 History rivaroxaban [Xarelto] 15 mg PO PM 08/05/19 08/05/19 History spironolacton-hydrochlorothiaz 1 tab PO BID 08/05/19 08/05/19 History triamcinolone acetonide 1 applic TOPICAL BID PRN 08/05/19 08/05/19 History Past Med/Surg History Medical History A-fib Anticoagulated (Inactive) ASCVD (arteriosclerotic cardiovascular disease) Asthma Benign hypertension Chronic iron deficiency anemia CKD (chronic kidney disease), stage III Congestive heart failure Epiglottitis (Inactive) Esophageal reflux GERD (gastroesophageal reflux disease) GI bleed (Inactive) Gout History of CVA (cerebrovascular accident) HLD (hyperlipidemia) HTN (hypertension) Renal artery stenosis Severe aortic stenosis Symptomatic anemia (Inactive) Surgical History History of hysterectomy History of total knee arthroplasty Social History Preferred Language: Malian Communication Ability: Effective Hadoop Analyst Required: No Beliefs That Will Affect Care: None Current Living Situation: Family Current Living Situation Comment: lives with son Other Information That Helps Us Care for You: No Feels Safe at Home: Yes Safety Concerns: Feels Safe At This Time Smoking Status: Current some day smoker Tobacco Type: cigarettes ; Cigarettes Per Day: 1-2 (10 in a week) ; Do You Dip or Chew Tobacco: No ; Second Hand Exposure: No ; Tobacco Cessation Education Requested by Patient: No Hx Alcohol Use: No Hx Substance Use: No Review of Systems Review of Systems: All systems reviewed & are unremarkable except as noted in HPI & below Physical Exam Physical Exam: General: no acute distress, WDWN Head: normocephalic, atraumatic Eyes: PERRL, EOM's intact, conjunctiva non-injected, anicteric ENT: hard of hearing, normal inspection external ears, nose, mucous membranes mildly dry Neck: supple, trachea midline Lungs: R: 22, non labored, +Diffuse wheezing throughout, lung sounds mildly diminished at bases CV: RRR, +systolic murmur, no JVD, trace pretibial edema Abd: normal BS, soft, non-tender Ext: no cyanosis, no calf tenderness Neuro: A&O x 3, no focal deficits noted, normal affect Skin: warm, dry Results & Data Vital Signs (Past 12 Hours) Vital Signs Temp Pulse Pulse Resp BP Pulse Ox 08/05/19 12:31 67 31 H 96 08/05/19 12:30 70 28 H 145/67 H 96 08/05/19 12:01 66 29 H 96 08/05/19 12:00 76 33 H 142/55 H 96 08/05/19 11:57 68 34 H 129/57 L 96 08/05/19 11:43 84 23 96 08/05/19 11:17 73 94 08/05/19 11:06 93 08/05/19 10:56 36.7 C 70 22 135/91 96 Laboratory Results Short CBC 08/05/19 Range/Units 11:24 WBC 10.77 (4.8-10.8) K/uL Hgb 11.3 L (12.0-16.0) g/dL Hct 33.8 L (37-47) % Plt Count 297 (130-400) K/uL BMP 08/05/19 11:24 Sodium 129 L Potassium 3.4 L Chloride 89 L Carbon Dioxide 30 BUN 20 H Creatinine 1.11 Glucose 116 H Calcium 9.5 Cardiac Enzymes 08/05/19 Range/Units 11:24 Troponin I 0.195 H* (0-0.045) ng/ml Liver Function 02/25/20 Range/Units 11:24 Total Bilirubin 0.5 (0.2-1) mg/dl AST 38 H (15-37) U/L ALT 27 (12-78) U/L Alkaline Phosphatase 86 (45-117) U/L Albumin 3.4 (3.4-5.0) gm/dl Diagnostic Findings CXR: IMPRESSION: Parenchymal infiltrate left base. ECG Rate (beats per minute): 72 Rhythm: atrial fibrillation Code Status & VTE Plan VTE Prophylaxis Plan VTE Prophylaxis will be ordered: Yes Supervising Physician Co-Signing Physician Notes HISTORY: Record reviewed. Patient interviewed and examined in ED. Care coordinated with Shannan Galvan PA-C. Please refer to her documentation for complete history. Briefly, 78-year-old female with history of atrial fibrillation, aortic stenosis, hypertension, and other problems. Presented to ED complaining of cough, wheezing, dyspnea. EXAM: General- no distress Lungs- diffuse moderate wheezing Cardiovascular-irregularly irregular, grade 3/6 systolic murmur at base, no gallop appreciated; no pretibial edema Abdomen- + bowel sounds, soft, nontender Extremities- no cyanosis; no calf tenderness Neuro- alert, oriented Skin- warm & dry DATA: Hemoglobin 11.3, white count 10,770, platelet count 297,000. Sodium 129, potassium 3.4, chloride 89, CO2 30, BUN 20, creatinine 1.11, glucose 116. Troponin I 0.195. proBNP 8691. Nasopharyngeal swab for influenza A positive. Other lab studies as noted. Chest x-ray reviewed and demonstrated infiltrate at left base. EKG performed at 1136 reviewed and demonstrated AF at 72 / minute, baseline artifact, inverted T-waves III. ASSESSMENT AND PLAN: Influenza A with associated pneumonia. Rx with oseltamivir, doxycycline, ceftriaxone. Elevated troponin I. Troponin I = 0.195. No anginal symptoms. No acute EKG changes. Doubt acute coronary syndrome. Elevated troponin most likely nonspecific elevation secondary to infection. Follow. Hyponatremia. May have SIADH from pulmonary infection. Hold diuretics. Follow. Restrict fluids if no improvement. Chronic AF. Rate controlled on metoprolol. Anticoagulated on rivaroxaban. Please refer to RON Galvan's documentation for discussion of other issues. (1) Pneumonia Laterality: left Lung location: lower lobe of lung Pneumonia type: due to unspecified organism Qualified Code(s): J18.9 - Pneumonia, unspecified organism
[2019-08-05] MEDS ORDERED: AZITHROMYCIN 500 MG in DEXTROSE 5% 250 ML IV ONE (13:45)
--- NOTE | 2019-08-05 15:03 | Electrocardiogram Report ---
Test Reason : Blood Pressure : / mmHG Vent. Rate : 072 BPM Atrial Rate : 052 BPM P-R Int : 000 ms QRS Dur : 080 ms QT Int : 438 ms P-R-T Axes : 000 095 002 degrees QTc Int : 479 ms Atrial fibrillation Rightward axis Nonspecific ST abnormality Abnormal ECG When compared with ECG of 22-SEP-2016 07:31, No significant change was found Confirmed by Talat Flores ([id number]) on 08/05/2019 3:02:52 PM Referred By: Confirmed By:Isaias Flores
[2019-08-05] MEDS ORDERED: ACETAMINOPHEN 325 MG TAB PO PRN (15:08)
[2019-08-05] MEDS ORDERED: NYSTATIN POWDER 15GM BTL EXT PRN (15:08)
[2019-08-05] MEDS ORDERED: SODIUM CHLORIDE 0.9% 1000ML 1,000 ML IV SCH (15:08)
[2019-08-05] MEDS ORDERED: POLYETHYLENE (MIRALAX) 17 GM PACK PO PRN (15:08)
[2019-08-05] MEDS ORDERED: POTASSIUM CHLORIDE 20 MEQ TABCR PO STA (15:16)
[2019-08-05] MEDS: RIVAROXABAN 15 MG TAB PO SCH (16:44)
[2019-08-05] MEDS ORDERED: XOPENEX/ATROVENT 1.25mg/0.5MG NEB COMBO NEB SCH (19:00)
[2019-08-05] MEDS: LEVALBUTEROL 1.25MG/0.5ML NEB INH SCH (20:35)
[2019-08-05] MEDS: IPRATROPIUM BROMIDE NEB SOLN 0.02% 2.5 ML VIAL INH SCH (20:35)
[2019-08-05] MEDS: DOXYCYCLINE HYCLATE 100 MG CAP PO SCH (20:47)
[2019-08-05] MEDS: METOPROLOL TARTRATE 50 MG TAB PO SCH (20:47)
[2019-08-05] MEDS: OSELTAMIVIR PHOSPHATE SUSP 30 MG/5 ML UDP PO SCH (20:47)
[2019-08-05] MEDS: cloNIDine HCL 0.1 MG TAB PO SCH (20:47)
[2019-08-05] MEDS: ATORVASTATIN 10 MG TAB PO SCH (20:48)
[2019-08-05] MEDS: FOLIC ACID 400 MCG TAB PO SCH (20:48)
[2019-08-06] MEDS: LEVALBUTEROL 1.25MG/0.5ML NEB INH SCH ×4 (00:47→19:55)
[2019-08-06] MEDS: IPRATROPIUM BROMIDE NEB SOLN 0.02% 2.5 ML VIAL INH SCH ×4 (00:47→19:55)
[2019-08-06 06:18] LABS: Hematocrit (blood only) 30.6 % (37-47); Hemoglobin 10.2 g/dL (12.0-16.0); Mean Corpuscular Hemoglobin 32.6 pg (25-34); Mean Corpuscular Hgb Conc 33.3 g/dL (32-36); Mean Corpuscular Volume 97.8 fL (80-100); Mean Platelet Volume 9.8 fL (7.4-10.4); Platelet Count 281 K/uL (130-400); RDW Coefficient of Variation 14.4 % (11.5-14.5); RDW Standard Deviation 51.7 fL (36.4-46.3); Red Blood Count 3.13 M/uL (4.2-5.4); White Blood Count 6.11 K/uL (4.8-10.8)
[2019-08-06 06:55] LABS: BUN Creatinine Ratio 18.3 (10-20); Calcium 8.7 mg/dl (8.5-10.1); Est GFR (African American) 55.5; Est GFR (Non-African American) 47.9; Magnesium 1.6 mg/dl (1.8-2.4); Potassium 3.6 mmol/L (3.5-5.1)
--- NOTE | 2019-08-06 07:13 | XRay Report ---
XR chest 1V portable HISTORY: 78 years-old Female SOB, +infiltrate, r/o fluid overload acute shortness of breath with flu id overload COMPARISON: Chest radiograph 08/05/2019, CT abdomen and pelvis 09/22/2016 TECHNIQUE: Portable AP view of the chest FINDINGS: Cardiac silhouette is enlarged. Calcified plaque of the thoracic aortic arch. Eventration of the righ t hemidiaphragm. Persistent linear consolidative opacities of the left lung base. Minimal right lung base densities suggest atelectasis. No pneumothorax, overt pulmonary edema or large pleural effusion. Degenerative changes of the shoulders and spine. IMPRESSION: 1. Persistent linear left lung base opacities suggestive of atelectasis/fibrosis versus pneumonitis. 2. Cardiomegaly without overt pulmonary edema. ACT 112: Negative or not required by law. The above report was generated using voice recognition software. It may contain grammatical, syntax o r spelling errors. Electronically signed by: Ramos Cui M.D. 08/06/2019 7:12 AM
[2019-08-06] MEDS: FERROUS SULFATE 325 MG TAB PO SCH (07:57)
[2019-08-06] MEDS: CEROVITE ADV FORMULA TAB PO SCH (07:57)
[2019-08-06] MEDS: cefTRIAXone SODIUM 1,000 MG in DEXTROSE 5% 50 ML IV SCH (07:57)
[2019-08-06] MEDS: cloNIDine HCL 0.1 MG TAB PO SCH ×2 (07:58→20:15)
[2019-08-06] MEDS: ASPIRIN 81 MG ECTAB PO SCH (07:58)
[2019-08-06] MEDS: DOXYCYCLINE HYCLATE 100 MG CAP PO SCH ×2 (07:59→20:15)
[2019-08-06] MEDS: OSELTAMIVIR PHOSPHATE SUSP 30 MG/5 ML UDP PO SCH ×2 (07:59→20:17)
[2019-08-06] MEDS: allopurinoL 100 MG TAB PO SCH (07:59)
[2019-08-06] MEDS: METOPROLOL TARTRATE 50 MG TAB PO SCH ×2 (07:59→20:17)
[2019-08-06] MEDS: PANTOprazole 40 MG TAB PO SCH (07:59)
[2019-08-06] MEDS ORDERED: MAGNESIUM SULFATE / D5W 1 GM/100 ML BAG IV ONE ×2 (09:00→11:45)
--- NOTE | 2019-08-06 11:40 | Hospitalist Progress Note ---
Date of Service August 06, 2019 Assessment & Plan (1) Pneumonia: (2) Influenza: Pt is 78 y/o F with PMH chronic a-fib on Xarelto, severe aortic stenosis, HTN, HLD, CKD III, CVA, chronic iron deficiency anemia, gout presented to ER with c/o SOB with exertion, wheezing, cough, rhinorrhea x 2 days. Denies CP, recent travel, ill contacts. In ER afebrile, P: 70, R: 22, BP: 135/91, 96% on RA. WBC: 10, H/H: 11.3/33.8, Na: 129, K: 3.4, Cl: 89, Troponin: 0.195, BNP: 8691. +Influenza A CXR: infiltrate left base -In ER given Rocephin, Zithromax, Duoneb, aspirin 324mg -Blood culture pending -Rocephin, Doxycycline -Tamiflu -renal dosed -Xopenex/atrovent nebs -CBC, BMP in am (3) Elevated troponin: Troponin: 0.195. EKG chronic afib, rate controlled, nonspecific ST changes. No CP reported, not likely ACS DDX: elevated troponin secondary to underlying infection -Monitor Vitals -Repeat EKG in am -Troponin trended down -Continue aspirin & beta crow -If would develop CP or increasing troponins consider echo, cardiology consult (4) Hyponatremia: Na: 129. Baseline Na~137. Likely secondary to underlying infection and chronic diuretics - poss. SIADH second. to pulm infection -Hold home diuretics at this time -may need to restrict oral fluid intake if does not improve -Monitor BMP (5) Hypokalemia: K: 3.4 -Replace and monitor BMP and magnesium labs in am (6) A-fib: Chronic a-fib on Xarelto -Rate controlled -Continue Xarelto, metoprolol (7) HTN (hypertension): Stable -Continue diltiazem, clonidine, metoprolol -Hold metolazone, spironolactone/HCTZ (8) CKD (chronic kidney disease), stage III: Cr: 1.1. Baseline Cr: 1.3-1.4 -Monitor renal functions -Avoid nephrotoxic agents when possible (9) Severe aortic stenosis: Echo in 2016: EF: 65%, severe aortic stenosis, severe mitral regurgitation, moderate tricuspid regurgitation, severe pulmonary HTN In past pt denied/would want any surgical interventions (10) History of CVA (cerebrovascular accident): -Continue statin, Xarelto (11) Gout: -Continue allopurinol (12) Chronic iron deficiency anemia: Hgb: 11.3. Baseline Hgb: 10-11 -Continue ferrous sulfate supplement -Monitor H&H DVT Prophylaxis -On Xarelto Full Code as per discussion with pt, however reports would not want on prolonged life support if poor prognosis Follows with Dr Christine for routine care Admission and Anticipated Discharge Date Admission Date: August 05, 2019 Subjective Pt is lying in bed, in NAD on room air. Continues to have cough. Denies any fever, chills, chest pain, abd. pain, nausea, or vomiting. Says she feels somewhat better overall. Review of Systems Review of Systems: All systems reviewed & are unremarkable except as noted in HPI & below Constitutional: no fever and no chills Respiratory: + cough and + dyspnea (improved) Cardiovascular: no chest pain Gastrointestinal: no abdominal pain, no nausea and no vomiting Physical Exam Physical Exam: General: elderly female sitting up in bed, in no acute distress,on RA, WDWN Head: normocephalic, atraumatic Eyes: PERRL, EOM's intact, conjunctiva non-injected, anicteric ENT: hard of hearing, normal inspection external ears, nose, mucous membranes mildly dry Neck: supple, trachea midline Lungs: +diffuse wheezing, +rhonchi, lung sounds mildly diminished at bases CV: irregularly irregular, +systolic murmur, no JVD, trace pretibial edema Abd: normal BS, soft, non-tender, nondistended Ext: moves extremities spontaneously,trace pretibial edema Neuro: A&O x 3, speech fluent, no facial asymmetry,moves extremities spont., normal affect Skin: warm, dry Results & Data ([facility]) Vital Signs (Past 12 Hours) Vital Signs Temp Pulse Pulse Resp BP BP Pulse Ox 08/06/19 08:11 18 96 08/06/19 07:22 36.8 C 75 18 152/85 H 96 08/06/19 07:17 73 08/06/19 05:49 148/84 H 08/06/19 04:24 36.6 C 80 22 171/89 H 96 08/06/19 00:53 69 02/26/20 00:47 67 16 95 08/05/19 23:55 36.7 C 73 19 126/78 97 Laboratory Results 08/06/19 08/06/19 08/05/19 Range/Units 05:56 05:56 22:58 WBC 6.11 (4.8-10.8) K/uL RBC 3.13 L (4.2-5.4) M/uL Hgb 10.2 L (12.0-16.0) g/dL Hct 30.6 L (37-47) % MCV 97.8 (80-100) fL MCH 32.6 (25-34) pg MCHC 33.3 (32-36) g/dL RDW Std Deviation 51.7 H (36.4-46.3) fL RDW Coeff of Alejandrina 14.4 (11.5-14.5) % Plt Count 281 (130-400) K/uL MPV 9.8 (7.4-10.4) fL Immature Gran % (Auto) % Neut % (Auto) % Lymph % (Auto) % Walton % (Auto) % Eos % (Auto) % Baso % (Auto) % Immature Gran # (Auto) (0.00-0.02) K/uL Neut # (Auto) (1.4-6.5) K/uL Lymph # (Auto) (1.2-3.4) K/uL Walton # (Auto) (0.11-0.59) K/uL Eos # (Auto) (0-0.5) K/uL Baso # (Auto) (0-0.2) K/uL PT (9.0-12.0) Seconds INR (0.9-1.1) APTT (21.0-31.0) Seconds PTT Ratio Sodium 130 L (136-145) mmol/L Potassium 3.6 (3.5-5.1) mmol/L Chloride 93 L (98-107) mmol/L Carbon Dioxide 30 (21-32) mmol/L Anion Gap 7.0 (3-11) BUN 20 H (7-18) mg/dl Creatinine 1.09 (0.6-1.2) mg/dl Est Cr Clr Drug Dosing 40.0 Est GFR ( Amer) 55.5 Est GFR (Non-Af Amer) 47.9 BUN/Creatinine Ratio 18.3 (10-20) Glucose 106 H (70-99) mg/dl Calcium 8.7 (8.5-10.1) mg/dl Magnesium 1.6 L (1.8-2.4) mg/dl Total Bilirubin (0.2-1) mg/dl AST (15-37) U/L ALT (12-78) U/L Alkaline Phosphatase (45-117) U/L Troponin I 0.094 H* (0-0.045) ng/ml NT-Pro-B Natriuret Pep (0-1800) pg/ml Total Protein (6.4-8.2) gm/dl Albumin (3.4-5.0) gm/dl Globulin (2.5-4.0) gm/dl Albumin/Globulin Ratio (0.9-2) Influenza Type A (PCR) (Neg) Influenza Type B (PCR) (Neg) 08/05/19 08/05/19 08/05/19 Range/Units 17:02 11:55 11:24 WBC (4.8-10.8) K/uL RBC (4.2-5.4) M/uL Hgb (12.0-16.0) g/dL Hct (37-47) % MCV (80-100) fL MCH (25-34) pg MCHC (32-36) g/dL RDW Std Deviation (36.4-46.3) fL RDW Coeff of Alejandrina (11.5-14.5) % Plt Count (130-400) K/uL MPV (7.4-10.4) fL Immature Gran % (Auto) % Neut % (Auto) % Lymph % (Auto) % Walton % (Auto) % Eos % (Auto) % Baso % (Auto) % Immature Gran # (Auto) (0.00-0.02) K/uL Neut # (Auto) (1.4-6.5) K/uL Lymph # (Auto) (1.2-3.4) K/uL Walton # (Auto) (0.11-0.59) K/uL Eos # (Auto) (0-0.5) K/uL Baso # (Auto) (0-0.2) K/uL PT (9.0-12.0) Seconds INR (0.9-1.1) APTT (21.0-31.0) Seconds PTT Ratio Sodium 129 L (136-145) mmol/L Potassium 3.4 L (3.5-5.1) mmol/L Chloride 89 L (98-107) mmol/L Carbon Dioxide 30 (21-32) mmol/L Anion Gap 10.0 (3-11) BUN 20 H (7-18) mg/dl Creatinine 1.11 (0.6-1.2) mg/dl Est Cr Clr Drug Dosing Not Reportable Est GFR ( Amer) 54.3 Est GFR (Non-Af Amer) 46.9 BUN/Creatinine Ratio 17.6 (10-20) Glucose 116 H (70-99) mg/dl Calcium 9.5 (8.5-10.1) mg/dl Magnesium (1.8-2.4) mg/dl Total Bilirubin 0.5 (0.2-1) mg/dl AST 38 H (15-37) U/L ALT 27 (12-78) U/L Alkaline Phosphatase 86 (45-117) U/L Troponin I 0.136 H* 0.195 H* (0-0.045) ng/ml NT-Pro-B Natriuret Pep 8691 H (0-1800) pg/ml Total Protein 7.4 (6.4-8.2) gm/dl Albumin 3.4 (3.4-5.0) gm/dl Globulin 4.0 (2.5-4.0) gm/dl Albumin/Globulin Ratio 0.9 (0.9-2) Influenza Type A (PCR) Pos for Influ A A* (Neg) Influenza Type B (PCR) Neg for Influ B (Neg) 08/05/19 08/05/19 Range/Units 11:24 11:24 WBC 10.77 (4.8-10.8) K/uL RBC 3.47 L (4.2-5.4) M/uL Hgb 11.3 L (12.0-16.0) g/dL Hct 33.8 L (37-47) % MCV 97.4 (80-100) fL MCH 32.6 (25-34) pg MCHC 33.4 (32-36) g/dL RDW Std Deviation 50.7 H (36.4-46.3) fL RDW Coeff of Alejandrina 14.3 (11.5-14.5) % Plt Count 297 (130-400) K/uL MPV 10.0 (7.4-10.4) fL Immature Gran % (Auto) 0.6 % Neut % (Auto) 80.5 % Lymph % (Auto) 5.3 % Walton % (Auto) 13.6 % Eos % (Auto) 0.0 % Baso % (Auto) 0.0 % Immature Gran # (Auto) 0.07 H (0.00-0.02) K/uL Neut # (Auto) 8.67 H (1.4-6.5) K/uL Lymph # (Auto) 0.57 L (1.2-3.4) K/uL Walton # (Auto) 1.46 H (0.11-0.59) K/uL Eos # (Auto) 0.00 (0-0.5) K/uL Baso # (Auto) 0.00 (0-0.2) K/uL PT 11.9 (9.0-12.0) Seconds INR 1.2 H (0.9-1.1) APTT 44.1 H (21.0-31.0) Seconds PTT Ratio 1.6 Sodium (136-145) mmol/L Potassium (3.5-5.1) mmol/L Chloride (98-107) mmol/L Carbon Dioxide (21-32) mmol/L Anion Gap (3-11) BUN (7-18) mg/dl Creatinine (0.6-1.2) mg/dl Est Cr Clr Drug Dosing Est GFR ( Amer) Est GFR (Non-Af Amer) BUN/Creatinine Ratio (10-20) Glucose (70-99) mg/dl Calcium (8.5-10.1) mg/dl Magnesium (1.8-2.4) mg/dl Total Bilirubin (0.2-1) mg/dl AST (15-37) U/L ALT (12-78) U/L Alkaline Phosphatase (45-117) U/L Troponin I (0-0.045) ng/ml NT-Pro-B Natriuret Pep (0-1800) pg/ml Total Protein (6.4-8.2) gm/dl Albumin (3.4-5.0) gm/dl Globulin (2.5-4.0) gm/dl Albumin/Globulin Ratio (0.9-2) Influenza Type A (PCR) (Neg) Influenza Type B (PCR) (Neg) Medications Administered Current Inpatient Medications Acetaminophen (Tylenol) 650 mg PO Q4H PRN PRN Reason: Pain or Fever Stop: 09/04/19 15:07 Allopurinol (Zyloprim) 200 mg PO DAILY [facility] Stop: 09/05/19 08:59 Last Admin: 08/06/19 07:59 Dose: 200 mg Documented by: Aspirin (Ecotrin Ectab) 81 mg PO QAM [facility] Stop: 09/05/19 08:59 Last Admin: 08/06/19 07:58 Dose: 81 mg Documented by: Atorvastatin Calcium (Lipitor) 10 mg PO HS [facility] Stop: 09/04/19 20:59 Last Admin: 08/05/19 20:48 Dose: 10 mg Documented by: Clonidine HCl (Catapres) 0.1 mg PO BID [facility] Stop: 09/04/19 20:59 Last Admin: 08/06/19 07:58 Dose: 0.1 mg Documented by: Diltiazem HCl (Dilacor Xr) 180 mg PO DAILY [facility] Stop: 09/05/19 08:59 Last Admin: 08/06/19 07:58 Dose: 180 mg Documented by: Doxycycline Hyclate (Vibramycin) 100 mg PO BID [facility] Stop: 08/12/19 20:59 Last Admin: 08/06/19 07:59 Dose: 100 mg Documented by: Ferrous Sulfate (Feosol) 325 mg PO QDB [facility] Stop: 09/05/19 07:29 Last Admin: 08/06/19 07:57 Dose: 325 mg Documented by: Folic Acid (Folvite) 400 mcg PO QPM [facility] Stop: 09/04/19 20:59 Last Admin: 08/05/19 20:48 Dose: 400 mcg Documented by: Ceftriaxone Sodium 1,000 mg/ (Dextrose) 60 mls @ 100 mls/hr IV DAILY [facility]; Protocol Stop: 08/12/19 08:59 Last Infusion: 08/06/19 08:33 Dose: Infused Documented by: Ipratropium [place] (Atrovent 0.02% 0.5mg/2.5ml) 0.5 mg INH Q6R [facility] Stop: 09/04/19 18:59 Last Admin: 08/06/19 08:48 Dose: 0.5 mg Documented by: Levalbuterol HCl (Xopenex 1.25mg/0.5ml Neb) 1.25 mg INH Q6R [facility] Stop: 09/04/19 18:59 Last Admin: 08/06/19 08:09 Dose: 1.25 mg Documented by: Metoprolol Tartrate (Lopressor) 50 mg PO BID [facility] Stop: 09/04/19 20:59 Last Admin: 08/06/19 07:59 Dose: 50 mg Documented by: Multivitamins/Minerals (Multivitamin W/ Minerals Tab) 1 tab PO QDB [facility] Stop: 09/05/19 07:29 Last Admin: 08/06/19 07:57 Dose: 1 tab Documented by: Nystatin (Mycostatin) 1 appln EXT TID PRN PRN Reason: Skin Irritation Stop: 09/04/19 15:07 Oseltamivir Phosphate (Tamiflu) 30 mg PO BID [facility]; Protocol Stop: 08/10/19 20:59 Last Admin: 08/06/19 07:59 Dose: 30 mg Documented by: Pantoprazole Sodium (Protonix) 40 mg PO QAM [facility] Stop: 09/05/19 08:59 Last Admin: 08/06/19 07:59 Dose: 40 mg Documented by: Polyethylene Glycol (Miralax Powder Packet) 17 gm PO DAILY PRN PRN Reason: Constipation Stop: 09/04/19 15:07 Rivaroxaban (Xarelto) 15 mg PO QDD [facility] Stop: 09/04/19 16:29 Last Admin: 08/05/19 16:44 Dose: 15 mg Documented by: (1) Pneumonia Laterality: left Lung location: lower lobe of lung Pneumonia type: due to unspecified organism Qualified Code(s): J18.9 - Pneumonia, unspecified organism
[2019-08-06] MEDS ORDERED: POTASSIUM CHLORIDE 20 MEQ TABCR PO STA (11:43)
--- NOTE | 2019-08-06 14:58 | Electrocardiogram Report ---
Test Reason : Blood Pressure : / mmHG Vent. Rate : 079 BPM Atrial Rate : 000 BPM P-R Int : 000 ms QRS Dur : 082 ms QT Int : 418 ms P-R-T Axes : 000 079 008 degrees QTc Int : 479 ms Atrial fibrillation with premature ventricular or aberrantly conducted complexes Abnormal ECG When compared with ECG of 05-AUG-2019 11:36, No significant change was found Confirmed by Talat Flores ([id number]) on 08/06/2019 2:58:17 PM Referred By: REFERRED SELF Confirmed By:Isaias Flores
[2019-08-06] MEDS: RIVAROXABAN 15 MG TAB PO SCH (16:13)
[2019-08-06] MEDS: ATORVASTATIN 10 MG TAB PO SCH (20:15)
[2019-08-06] MEDS: FOLIC ACID 400 MCG TAB PO SCH (20:15)
[2019-08-06] MEDS ORDERED: COUGH DROP (SUGAR FREE) LOZ 24 LOZ/1 BOX BUCCAL STA (20:19)
[2019-08-07] MEDS: IPRATROPIUM BROMIDE NEB SOLN 0.02% 2.5 ML VIAL INH SCH ×4 (01:17→20:21)
[2019-08-07] MEDS: LEVALBUTEROL 1.25MG/0.5ML NEB INH SCH ×4 (01:17→20:21)
[2019-08-07 07:46] LABS: Hematocrit (blood only) 31.1 % (37-47); Hemoglobin 10.3 g/dL (12.0-16.0); Mean Corpuscular Hemoglobin 32.2 pg (25-34); Mean Corpuscular Hgb Conc 33.1 g/dL (32-36); Mean Corpuscular Volume 97.2 fL (80-100); Mean Platelet Volume 9.9 fL (7.4-10.4); Platelet Count 305 K/uL (130-400); RDW Coefficient of Variation 14.3 % (11.5-14.5); RDW Standard Deviation 51.1 fL (36.4-46.3); White Blood Count 6.36 K/uL (4.8-10.8)
[2019-08-07] MEDS: FERROUS SULFATE 325 MG TAB PO SCH (07:56)
[2019-08-07] MEDS: cloNIDine HCL 0.1 MG TAB PO SCH ×2 (07:56→21:09)
[2019-08-07] MEDS: ASPIRIN 81 MG ECTAB PO SCH (07:57)
[2019-08-07] MEDS: cefTRIAXone SODIUM 1,000 MG in DEXTROSE 5% 50 ML IV SCH (07:58)
[2019-08-07] MEDS: METOPROLOL TARTRATE 50 MG TAB PO SCH ×2 (07:58→21:09)
[2019-08-07] MEDS: PANTOprazole 40 MG TAB PO SCH (07:58)
[2019-08-07] MEDS: DOXYCYCLINE HYCLATE 100 MG CAP PO SCH ×2 (07:59→21:10)
[2019-08-07] MEDS: allopurinoL 100 MG TAB PO SCH (07:59)
[2019-08-07] MEDS: OSELTAMIVIR PHOSPHATE SUSP 30 MG/5 ML UDP PO SCH ×2 (07:59→21:08)
[2019-08-07 08:26] LABS: BUN Creatinine Ratio 17.4 (10-20); Calcium 9.1 mg/dl (8.5-10.1); Creatinine Clr Calc Pharmacy 44.7 ml/min; Est GFR (African American) 62.4; Est GFR (Non-African American) 53.8; Magnesium 1.8 mg/dl (1.8-2.4); Potassium 3.5 mmol/L (3.5-5.1)
[2019-08-07] MEDS: CEROVITE ADV FORMULA TAB PO SCH (09:10)
--- NOTE | 2019-08-07 14:21 | Hospitalist Progress Note ---
Date of Service August 07, 2019 Assessment & Plan (1) Pneumonia: (2) Influenza: Pt is 78 y/o F with PMH chronic a-fib on Xarelto, severe aortic stenosis, HTN, HLD, CKD III, CVA, chronic iron deficiency anemia, gout presented to ER with c/o SOB with exertion, wheezing, cough, rhinorrhea x 2 days. Denies CP, recent travel, ill contacts. In ER afebrile, P: 70, R: 22, BP: 135/91, 96% on RA. WBC: 10, H/H: 11.3/33.8, Na: 129, K: 3.4, Cl: 89, Troponin: 0.195, BNP: 8691. +Influenza A CXR: infiltrate left base -In ER given Rocephin, Zithromax, Duoneb, aspirin 324mg -Blood culture pending -Rocephin, Doxycycline - continue -Tamiflu -renal dosed -continue -Xopenex/atrovent nebs - add guaifenesin and inc. spirometry -cont to monitor CBC, BMP (3) Elevated troponin: Troponin: 0.195. EKG chronic afib, rate controlled, nonspecific ST changes. No CP reported, not likely ACS DDX: elevated troponin secondary to underlying infection -Monitor Vitals -Troponin trended down -Continue aspirin & beta crwo -If would develop CP or increasing troponins consider echo, cardiology consult (4) Hyponatremia: Na: 129. Baseline Na~137. Likely secondary to underlying infection and chronic diuretics - poss. SIADH second. to pulm infection -Hold home diuretics at this time -may need to restrict oral fluid intake if does not improve -Monitor BMP (5) Hypokalemia: K: 3.4 -Replace and monitor BMP and magnesium labs in am (6) A-fib: Chronic a-fib on Xarelto -Rate controlled -Continue Xarelto, metoprolol (7) HTN (hypertension): Stable -Continue diltiazem, clonidine, metoprolol -Hold metolazone, spironolactone/HCTZ (8) CKD (chronic kidney disease), stage III: Cr: 1.1. Baseline Cr: 1.3-1.4 -Monitor renal functions -Avoid nephrotoxic agents when possible (9) Severe aortic stenosis: Echo in 2016: EF: 65%, severe aortic stenosis, severe mitral regurgitation, moderate tricuspid regurgitation, severe pulmonary HTN In past pt denied/would want any surgical interventions (10) History of CVA (cerebrovascular accident): -Continue statin, Xarelto (11) Gout: -Continue allopurinol (12) Chronic iron deficiency anemia: Hgb: 11.3. Baseline Hgb: 10-11 -Continue ferrous sulfate supplement -Monitor H&H DVT Prophylaxis -On Xarelto Full Code as per discussion with pt, however reports would not want on prolonged life support if poor prognosis Follows with Dr Christine for routine care Admission and Anticipated Discharge Date Admission Date: August 05, 2019 Subjective Pt is lying in bed, in NAD on room air. Continues to have cough. Denies any fever, chills, chest pain, abd. pain, nausea, or vomiting. Says she is short of breath when she walks to the bathroom. Daughter at the bedside. Review of Systems Review of Systems: All systems reviewed & are unremarkable except as noted in HPI & below Constitutional: no fever and no chills Respiratory: + cough and + dyspnea on exertion Cardiovascular: no chest pain, no palpitations and no edema Gastrointestinal: no abdominal pain, no nausea and no vomiting Physical Exam Physical Exam: General: elderly female sitting up in bed, in no acute distress,on RA, WDWN Head: normocephalic, atraumatic Eyes: PERRL, EOM's intact, conjunctiva non-injected, anicteric ENT: hard of hearing, normal inspection external ears, nose, mucous membranes mildly dry Neck: supple, trachea midline Lungs: +diffuse wheezing, +diffuse rhonchi CV: irregularly irregular, +systolic murmur, no JVD, trace pretibial edema Abd: normal BS, soft, non-tender, nondistended Ext: moves extremities spontaneously,trace pretibial edema Neuro: A&O x 3, speech fluent, no facial asymmetry,moves extremities spont., normal affect Skin: warm, dry Results & Data ([facility]) Vital Signs (Past 12 Hours) Vital Signs Temp Pulse Resp BP BP Pulse Ox 08/07/19 13:25 60 17 94 08/07/19 11:24 36.7 C 71 19 139/72 93 08/07/19 07:46 36.8 C 107 H 16 161/84 H 96 08/07/19 06:53 71 18 98 08/07/19 03:00 36.9 C 78 18 152/82 H 97 Laboratory Results 08/07/19 08/07/19 Range/Units 07:21 07:21 WBC 6.36 (4.8-10.8) K/uL RBC 3.20 L (4.2-5.4) M/uL Hgb 10.3 L (12.0-16.0) g/dL Hct 31.1 L (37-47) % MCV 97.2 (80-100) fL MCH 32.2 (25-34) pg MCHC 33.1 (32-36) g/dL RDW Std Deviation 51.1 H (36.4-46.3) fL RDW Coeff of Aeljandrina 14.3 (11.5-14.5) % Plt Count 305 (130-400) K/uL MPV 9.9 (7.4-10.4) fL Sodium 129 L (136-145) mmol/L Potassium 3.5 (3.5-5.1) mmol/L Chloride 92 L (98-107) mmol/L Carbon Dioxide 30 (21-32) mmol/L Anion Gap 7.0 (3-11) BUN 17 (7-18) mg/dl Creatinine 0.99 (0.6-1.2) mg/dl Est Cr Clr Drug Dosing 44.7 ml/min Est GFR ( Amer) 62.4 Est GFR (Non-Af Amer) 53.8 BUN/Creatinine Ratio 17.4 (10-20) Glucose 99 (70-99) mg/dl Calcium 9.1 (8.5-10.1) mg/dl Magnesium 1.8 (1.8-2.4) mg/dl Medications Administered Current Inpatient Medications Acetaminophen (Tylenol) 650 mg PO Q4H PRN PRN Reason: Pain or Fever Stop: 09/04/19 15:07 Allopurinol (Zyloprim) 200 mg PO DAILY [facility] Stop: 09/05/19 08:59 Last Admin: 08/07/19 07:59 Dose: 200 mg Documented by: Aspirin ([facility]rin Ectab) [facility] [place] Stop: 09/05/19 08:59 Last Admin: 08/07/19 07:57 Dose: 81 mg Documented by: Atorvastatin Calcium (Lipitor) 10 mg PO [facility] Stop: 09/04/19 20:59 Last Admin: 08/06/19 20:15 Dose: 10 mg Documented by: Clonidine HCl (Catapres) 0.1 mg PO BID [facility] Stop: 09/04/19 20:59 Last Admin: 08/07/19 07:56 Dose: 0.1 mg Documented by: Diltiazem HCl (Dilacor Xr) 180 mg PO DAILY [facility] Stop: 09/05/19 08:59 Last Admin: 08/07/19 07:57 Dose: 180 mg Documented by: Doxycycline Hyclate (Vibramycin) 100 mg PO BID [facility] Stop: 08/12/19 20:59 Last Admin: 08/07/19 07:59 Dose: 100 mg Documented by: Ferrous Sulfate (Feosol) 325 mg PO QDB [facility] Stop: 09/05/19 07:29 Last Admin: 08/07/19 07:56 Dose: 325 mg Documented by: Folic Acid (Folvite) 400 mcg PO QPM [facility] Stop: 09/04/19 20:59 Last Admin: 08/06/19 20:15 Dose: 400 mcg Documented by: Ceftriaxone Sodium 1,000 mg/ (Dextrose) 60 mls @ 100 mls/hr IV DAILY [facility]; Protocol Stop: 08/12/19 08:59 Last Infusion: 08/07/19 08:42 Dose: Infused Documented by: Ipratropium [place] (Atrovent 0.02% 0.5mg/2.5ml) 0.5 mg INH Q6R [facility] Stop: 09/04/19 18:59 Last Admin: 08/07/19 13:24 Dose: 0.5 mg Documented by: Levalbuterol HCl (Xopenex 1.25mg/0.5ml Neb) 1.25 mg INH Q6R [facility] Stop: 09/04/19 18:59 Last Admin: 08/07/19 13:24 Dose: 1.25 mg Documented by: Metoprolol Tartrate (Lopressor) 50 mg PO BID [facility] Stop: 09/04/19 20:59 Last Admin: 08/07/19 07:58 Dose: 50 mg Documented by: Multivitamins/Minerals (Multivitamin W/ Minerals Tab) 1 tab PO QDB [facility] Stop: 09/05/19 07:29 Last Admin: 08/07/19 09:10 Dose: 1 tab Documented by: Nystatin (Mycostatin) 1 appln EXT TID PRN PRN Reason: Skin Irritation Stop: 09/04/19 15:07 Oseltamivir Phosphate (Tamiflu) 30 mg PO BID [facility]; Protocol Stop: 08/10/19 20:59 Last Admin: 08/07/19 07:59 Dose: 30 mg Documented by: Pantoprazole Sodium (Protonix) 40 mg PO QAM [facility] Stop: 09/05/19 08:59 Last Admin: 08/07/19 07:58 Dose: 40 mg Documented by: Polyethylene Glycol (Miralax Powder Packet) 17 gm PO DAILY PRN PRN Reason: Constipation Stop: 09/04/19 15:07 Potassium Chloride (Klor-Con M20) 40 meq PO ONE ONE Stop: 08/07/19 14:31 Rivaroxaban (Xarelto) 15 mg PO QDD [facility] Stop: 09/04/19 16:29 Last Admin: 08/06/19 16:13 Dose: 15 mg Documented by: (1) Pneumonia Laterality: left Lung location: lower lobe of lung Pneumonia type: due to unspecified organism Qualified Code(s): J18.9 - Pneumonia, unspecified organism
[2019-08-07] MEDS ORDERED: POTASSIUM CHLORIDE 20 MEQ TABCR PO ONE (14:30)
[2019-08-07] MEDS ORDERED: MAGNESIUM SULFATE / D5W 1 GM/100 ML BAG IV ONE (15:00)
[2019-08-07] MEDS: RIVAROXABAN 15 MG TAB PO SCH (16:15)
[2019-08-07] MEDS: guaiFENesin 600 MG TABCR PO SCH ×2 (17:42→21:10)
[2019-08-07] MEDS: FOLIC ACID 400 MCG TAB PO SCH (21:09)
[2019-08-07] MEDS: ATORVASTATIN 10 MG TAB PO SCH (21:09)
[2019-08-07] MEDS ORDERED: PROMETHAZINE HCL 12.5 MG in SODIUM CHLORIDE 0.9% 50 ML IV PRN (22:03)
[2019-08-08] MEDS: IPRATROPIUM BROMIDE NEB SOLN 0.02% 2.5 ML VIAL INH SCH ×4 (01:11→20:35)
[2019-08-08] MEDS: LEVALBUTEROL 1.25MG/0.5ML NEB INH SCH ×5 (01:11→20:35)
[2019-08-08 06:08] LABS: Hemoglobin 10.6 g/dL (12.0-16.0); Mean Corpuscular Hemoglobin 32.2 pg (25-34); Mean Corpuscular Hgb Conc 33.1 g/dL (32-36); Mean Corpuscular Volume 97.3 fL (80-100); Mean Platelet Volume 10.1 fL (7.4-10.4); Platelet Count 280 K/uL (130-400); RDW Coefficient of Variation 14.3 % (11.5-14.5); RDW Standard Deviation 51.2 fL (36.4-46.3); Red Blood Count 3.29 M/uL (4.2-5.4); White Blood Count 5.43 K/uL (4.8-10.8)
[2019-08-08 06:43] LABS: BUN Creatinine Ratio 13.5 (10-20); Calcium 8.8 mg/dl (8.5-10.1); Creatinine Clr Calc Pharmacy 44.2 ml/min; Est GFR (African American) 61.6; Est GFR (Non-African American) 53.2; Magnesium 1.8 mg/dl (1.8-2.4); Potassium 3.4 mmol/L (3.5-5.1)
[2019-08-08] MEDS: allopurinoL 100 MG TAB PO SCH (08:07)
[2019-08-08] MEDS: DOXYCYCLINE HYCLATE 100 MG CAP PO SCH ×2 (08:07→20:26)
[2019-08-08] MEDS: CEROVITE ADV FORMULA TAB PO SCH (08:07)
[2019-08-08] MEDS: ASPIRIN 81 MG ECTAB PO SCH (08:07)
[2019-08-08] MEDS: guaiFENesin 600 MG TABCR PO SCH ×2 (08:08→20:27)
[2019-08-08] MEDS: METOPROLOL TARTRATE 50 MG TAB PO SCH ×2 (08:08→20:27)
[2019-08-08] MEDS: cloNIDine HCL 0.1 MG TAB PO SCH ×2 (08:08→20:27)
[2019-08-08] MEDS: PANTOprazole 40 MG TAB PO SCH (08:08)
[2019-08-08] MEDS: FERROUS SULFATE 325 MG TAB PO SCH (08:08)
[2019-08-08] MEDS ORDERED: POTASSIUM CHLORIDE 20 MEQ TABCR PO STA (08:56)
--- NOTE | 2019-08-08 09:00 | Hospitalist Progress Note ---
Date of Service August 08, 2019 Assessment & Plan (1) Pneumonia: (2) Influenza: Influenza A associated pneumonia Pt is 78 y/o F with PMH chronic a-fib on Xarelto, severe aortic stenosis, HTN, HLD, CKD III, CVA, chronic iron deficiency anemia, gout presented to ER with c/o SOB with exertion, wheezing, cough, rhinorrhea x 2 days. Denies CP, recent travel, ill contacts. In ER afebrile, P: 70, R: 22, BP: 135/91, 96% on RA. WBC: 10, H/H: 11.3/33.8, Na: 129, K: 3.4, Cl: 89, Troponin: 0.195, BNP: 8691. +Influenza A CXR: infiltrate left base -In ER given Rocephin, Zithromax, Duoneb, aspirin 324mg -Blood culture pending -Rocephin, Doxycycline - continue -Tamiflu -renaly dosed -continue -Xopenex/atrovent nebs -cont. guaifenesin and inc. spirometry, flutter valve, NS 7% neb, duoneb -cont to monitor CBC, BMP (3) Elevated troponin: Troponin: 0.195. EKG chronic afib, rate controlled, nonspecific ST changes. No CP reported, not likely ACS DDX: elevated troponin secondary to underlying infection -Monitor Vitals -Troponin trended down -Continue aspirin & beta crow -If would develop CP or increasing troponins consider echo, cardiology consult (4) Hyponatremia: Na: 129. Baseline Na~137. Likely secondary to underlying infection and chronic diuretics - poss. SIADH second. to pulm infection -Hold home diuretics at this time -may need to restrict oral fluid intake if does not improve -Monitor BMP (5) Hypokalemia: K: 3.4 -Replace and monitor BMP and magnesium labs in am (6) A-fib: Chronic a-fib on Xarelto -Rate controlled -Continue Xarelto, metoprolol (7) HTN (hypertension): Stable -Continue diltiazem, clonidine, metoprolol -Hold metolazone, spironolactone/HCTZ (8) CKD (chronic kidney disease), stage III: Cr: 1.1. Baseline Cr: 1.3-1.4 -Monitor renal functions -Avoid nephrotoxic agents when possible (9) Severe aortic stenosis: Echo in 2016: EF: 65%, severe aortic stenosis, severe mitral regurgitation, moderate tricuspid regurgitation, severe pulmonary HTN In past pt denied/would want any surgical interventions (10) History of CVA (cerebrovascular accident): -Continue statin, Xarelto (11) Gout: -Continue allopurinol (12) Chronic iron deficiency anemia: Hgb: 11.3. Baseline Hgb: 10-11 -Continue ferrous sulfate supplement -Monitor H&H DVT Prophylaxis -On Xarelto Full Code as per discussion with pt, however reports would not want on prolonged life support if poor prognosis Follows with Dr Christine for routine care Admission and Anticipated Discharge Date Admission Date: August 05, 2019 Subjective Pt is lying in bed, in NAD on room air. Continues to have cough. Denies any fever, chills, chest pain, abd. pain, nausea, or vomiting. Says she is short of breath when she walks to the bathroom. Daughter updated. Review of Systems Review of Systems: All systems reviewed & are unremarkable except as noted in HPI & below Constitutional: no fever and no chills Respiratory: + cough and + dyspnea on exertion Cardiovascular: no chest pain, no palpitations and no edema Gastrointestinal: no abdominal pain and no vomiting Physical Exam Physical Exam: General: elderly female sitting up in bed, in no acute distress,on RA, WDWN Head: normocephalic, atraumatic Eyes: PERRL, EOM's intact, conjunctiva non-injected, anicteric ENT: hard of hearing, normal inspection external ears, nose Neck: supple, trachea midline Lungs: +diffuse wheezing, +diffuse rhonchi (somewhat improved) CV: irregularly irregular, +systolic murmur, no JVD, trace pretibial edema Abd: normal BS, soft, non-tender, nondistended Ext: moves extremities spontaneously,trace pretibial edema Neuro: A&O x 3, speech fluent, no facial asymmetry,moves extremities spont., normal affect Skin: warm, dry Results & Data ([facility]) Vital Signs (Past 12 Hours) Vital Signs Temp Pulse Pulse Resp BP Pulse Ox 08/08/19 08:09 36.6 C 75 20 146/71 H 95 08/08/19 07:31 66 18 97 08/08/19 03:00 36.7 C 76 20 139/77 96 08/08/19 01:26 69 08/08/19 01:15 76 16 93 08/07/19 23:40 37.2 C 69 20 143/74 H 93 Laboratory Results 08/08/19 08/08/19 Range/Units 05:35 05:35 WBC 5.43 (4.8-10.8) K/uL RBC 3.29 L (4.2-5.4) M/uL Hgb 10.6 L (12.0-16.0) g/dL Hct 32.0 L (37-47) % MCV 97.3 (80-100) fL MCH 32.2 (25-34) pg MCHC 33.1 (32-36) g/dL RDW Std Deviation 51.2 H (36.4-46.3) fL RDW Coeff of Alejandrina 14.3 (11.5-14.5) % Plt Count 280 (130-400) K/uL MPV 10.1 (7.4-10.4) fL Sodium 130 L (136-145) mmol/L Potassium 3.4 L (3.5-5.1) mmol/L Chloride 94 L (98-107) mmol/L Carbon Dioxide 30 (21-32) mmol/L Anion Gap 6.0 (3-11) BUN 14 (7-18) mg/dl Creatinine 1.00 (0.6-1.2) mg/dl Est Cr Clr Drug Dosing 44.2 ml/min Est GFR ( Amer) 61.6 Est GFR (Non-Af Amer) 53.2 BUN/Creatinine Ratio 13.5 (10-20) Glucose 102 H (70-99) mg/dl Calcium 8.8 (8.5-10.1) mg/dl Magnesium 1.8 (1.8-2.4) mg/dl Medications Administered Current Inpatient Medications Acetaminophen (Tylenol) 650 mg PO Q4H PRN PRN Reason: Pain or Fever Stop: 09/04/19 15:07 Allopurinol (Zyloprim) 200 mg PO DAILY [facility] Stop: 09/05/19 08:59 Last Admin: 08/08/19 08:07 Dose: 200 mg Documented by: Aspirin (Ecotrin Ectab) 81 mg PO QAM [facility] Stop: 09/05/19 08:59 Last Admin: 08/08/19 08:07 Dose: 81 mg Documented by: Atorvastatin Calcium (Lipitor) 10 mg PO HS [facility] Stop: 09/04/19 20:59 Last Admin: 08/07/19 21:09 Dose: 10 mg Documented by: Clonidine HCl (Catapres) 0.1 mg PO BID [facility] Stop: 09/04/19 20:59 Last Admin: 08/08/19 08:08 Dose: 0.1 mg Documented by: Diltiazem HCl (Dilacor Xr) 180 mg PO DAILY [facility] Stop: 09/05/19 08:59 Last Admin: 08/08/19 08:09 Dose: 180 mg Documented by: Doxycycline Hyclate (Vibramycin) 100 mg PO BID [facility] Stop: 08/12/19 20:59 Last Admin: 08/08/19 08:07 Dose: 100 mg Documented by: Ferrous Sulfate (Feosol) 325 mg PO QDB [facility] Stop: 09/05/19 07:29 Last Admin: 08/08/19 08:08 Dose: 325 mg Documented by: Folic Acid (Folvite) 400 mcg PO QPM [facility] Stop: 09/04/19 20:59 Last Admin: 08/07/19 21:09 Dose: 400 mcg Documented by: Guaifenesin (Mucinex) 600 mg PO Q12 [facility] Stop: 09/06/19 17:29 Last Admin: 08/08/19 08:08 Dose: 600 mg Documented by: Ceftriaxone Sodium 1,000 mg/ (Dextrose) 60 mls @ 100 mls/hr IV DAILY [facility]; Protocol Stop: 08/12/19 08:59 Last Infusion: 08/07/19 08:42 Dose: Infused Documented by: Promethazine HCl 12.5 mg/ (Sodium Chloride) 50.5 mls @ 202 mls/hr IV Q6H PRN PRN Reason: Nausea And Vomiting Stop: 09/06/19 22:02 Last Infusion: 08/08/19 00:15 Dose: Infused Documented by: Magnesium Sulfate/Dextrose (Magnesium Sulfate / D5w) 1 gm in 100 mls @ 100 mls/hr IV ONE ONE Stop: 08/08/19 09:55 Ipratropium [place] (Atrovent 0.02% 0.5mg/2.5ml) 0.5 mg INH Q6R [facility] Stop: 09/04/19 18:59 Last Admin: 02/28/20 07:28 Dose: 0.5 mg Documented by: Levalbuterol HCl (Xopenex 1.25mg/0.5ml Neb) 1.25 mg INH Q6R [facility] Stop: 09/04/19 18:59 Last Admin: 08/08/19 07:29 Dose: 1.25 mg Documented by: Metoprolol Tartrate (Lopressor) 50 mg PO BID [facility] Stop: 09/04/19 20:59 Last Admin: 08/08/19 08:08 Dose: 50 mg Documented by: Multivitamins/Minerals (Multivitamin W/ Minerals Tab) 1 tab PO QDB [facility] Stop: 09/05/19 07:29 Last Admin: 08/08/19 08:07 Dose: 1 tab Documented by: Nystatin (Mycostatin) 1 appln EXT TID PRN PRN Reason: Skin Irritation Stop: 09/04/19 15:07 Oseltamivir Phosphate (Tamiflu) 30 mg PO BID [facility]; Protocol Stop: 08/10/19 20:59 Last Admin: 08/07/19 21:08 Dose: 30 mg Documented by: Pantoprazole Sodium (Protonix) 40 mg PO QAM [facility] Stop: 09/05/19 08:59 Last Admin: 08/08/19 08:08 Dose: 40 mg Documented by: Polyethylene Glycol (Miralax Powder Packet) 17 gm PO DAILY PRN PRN Reason: Constipation Stop: 09/04/19 15:07 Potassium Chloride (Klor-Con M20) 40 meq PO NOW STA Stop: 08/08/19 08:57 Rivaroxaban (Xarelto) 15 mg PO QDD [facility] Stop: 09/04/19 16:29 Last Admin: 08/07/19 16:15 Dose: 15 mg Documented by: (1) Pneumonia Laterality: left Lung location: lower lobe of lung Pneumonia type: due to unspecified organism Qualified Code(s): J18.9 - Pneumonia, unspecified organism
[2019-08-08] MEDS: cefTRIAXone SODIUM 1,000 MG in DEXTROSE 5% 50 ML IV SCH (09:07)
[2019-08-08] MEDS: OSELTAMIVIR PHOSPHATE SUSP 30 MG/5 ML UDP PO SCH ×2 (09:11→20:25)
[2019-08-08] MEDS ORDERED: MAGNESIUM SULFATE / D5W 1 GM/100 ML BAG IV ONE (09:15)
[2019-08-08] MEDS ORDERED: POTASSIUM CHLORIDE 20 MEQ/15 ML UDC PO STA (15:35)
[2019-08-08] MEDS: RIVAROXABAN 15 MG TAB PO SCH (16:28)
[2019-08-08] MEDS: SODIUM CHLORIDE 0.65% NA SOLN 45 ML (OCEAN) SCH ×2 (20:25→20:29)
[2019-08-08] MEDS: ATORVASTATIN 10 MG TAB PO SCH (20:25)
[2019-08-08] MEDS: FOLIC ACID 400 MCG TAB PO SCH (20:28)
[2019-08-08] MEDS: SODIUM CHLOR 7% 4 ML NEB NEB SCH (20:36)
[2019-08-09] MEDS: IPRATROPIUM BROMIDE NEB SOLN 0.02% 2.5 ML VIAL INH SCH ×7 (02:54→22:41)
[2019-08-09] MEDS: LEVALBUTEROL 1.25MG/0.5ML NEB INH SCH ×7 (02:54→22:40)
[2019-08-09] MEDS: SODIUM CHLOR 7% 4 ML NEB NEB SCH ×2 (06:55→20:25)
[2019-08-09 07:03] LABS: BUN Creatinine Ratio 15.8 (10-20); Creatinine Clr Calc Pharmacy 43.7 ml/min; Est GFR (African American) 60.9; Est GFR (Non-African American) 52.5; Magnesium 1.8 mg/dl (1.8-2.4); Phosphorus 2.8 mg/dl (2.5-4.9); Potassium 3.9 mmol/L (3.5-5.1)
[2019-08-09] MEDS ORDERED: MAGNESIUM SULFATE / D5W 1 GM/100 ML BAG IV ONE (07:22)
--- NOTE | 2019-08-09 07:22 | Hospitalist Progress Note ---
Date of Service August 09, 2019 Assessment & Plan (1) Pneumonia: (2) Influenza: Influenza A associated pneumonia Pt is 78 y/o F with PMH chronic a-fib on Xarelto, severe aortic stenosis, HTN, HLD, CKD III, CVA, chronic iron deficiency anemia, gout presented to ER with c/o SOB with exertion, wheezing, cough, rhinorrhea x 2 days. Denies CP, recent travel, ill contacts. In ER afebrile, P: 70, R: 22, BP: 135/91, 96% on RA. WBC: 10, H/H: 11.3/33.8, Na: 129, K: 3.4, Cl: 89, Troponin: 0.195, BNP: 8691. +Influenza A CXR: infiltrate left base -In ER given Rocephin, Zithromax, Duoneb, aspirin 324mg -Blood culture - NGTD -Rocephin, Doxycycline - continue -Tamiflu -renally dosed -continue -Xopenex/atrovent nebs -cont. guaifenesin and inc. spirometry, flutter valve, NS 7% neb, duoneb -cont to monitor CBC, BMP (3) Elevated troponin: Troponin: 0.195. EKG chronic afib, rate controlled, nonspecific ST changes. No CP reported, not likely ACS DDX: elevated troponin secondary to underlying infection -Monitor Vitals -Troponin trended down -Continue aspirin & beta crow -If would develop CP or increasing troponins consider echo, cardiology consult (4) Hyponatremia: Na: 129. Baseline Na~137. Likely secondary to underlying infection and chronic diuretics - poss. SIADH second. to pulm infection -Hold home diuretics at this time -may need to restrict oral fluid intake if does not improve -Monitor BMP (5) Hypokalemia: K: 3.4 -Replace and monitor BMP and magnesium labs in am (6) A-fib: Chronic a-fib on Xarelto -Rate controlled -Continue Xarelto, metoprolol (7) HTN (hypertension): Stable -Continue diltiazem, clonidine, metoprolol -Hold metolazone, spironolactone/HCTZ (8) CKD (chronic kidney disease), stage III: Cr: 1.1. Baseline Cr: 1.3-1.4 -Monitor renal functions -Avoid nephrotoxic agents when possible (9) Severe aortic stenosis: Echo in 2016: EF: 65%, severe aortic stenosis, severe mitral regurgitation, moderate tricuspid regurgitation, severe pulmonary HTN In past pt denied/would want any surgical interventions (10) History of CVA (cerebrovascular accident): -Continue statin, Xarelto (11) Gout: -Continue allopurinol (12) Chronic iron deficiency anemia: Hgb: 11.3. Baseline Hgb: 10-11 -Continue ferrous sulfate supplement -Monitor H&H DVT Prophylaxis -On Xarelto Full Code as per discussion with pt, however reports would not want on prolonged life support if poor prognosis Follows with Dr Christine for routine care Admission and Anticipated Discharge Date Admission Date: August 05, 2019 Subjective Pt is lying in bed, in NAD on room air. Continues to have nonproductive cough. Denies any fever, chills, chest pain, abd. pain, nausea, or vomiting. Pt walked to the bathroom and back, and then needed to rest. Son says that she looks better, week ago she would be coughing a lot doing that. Daughter and son at the bedside updated. Review of Systems Review of Systems: All systems reviewed & are unremarkable except as noted in HPI & below Constitutional: + weakness; no fever and no chills Respiratory: + cough Cardiovascular: no chest pain and no palpitations Gastrointestinal: no abdominal pain, no nausea and no vomiting Physical Exam Physical Exam: General: elderly female sitting up in bed, in no acute distress,on RA, WDWN Head: normocephalic, atraumatic Eyes: PERRL, EOM's intact, conjunctiva non-injected, anicteric ENT: hard of hearing, normal inspection external ears, nose Neck: supple, trachea midline Lungs: +diffuse wheezing (improved), +diffuse rhonchi (somewhat improved) CV: irregularly irregular, +systolic murmur, no JVD, trace pretibial edema Abd: normal BS, soft, non-tender, nondistended Ext: moves extremities spontaneously,1+ R ankle edema Neuro: A&O x 3, speech fluent, no facial asymmetry,moves extremities spontaneously, normal affect Skin: warm, dry Results & Data ([facility]) Vital Signs (Past 12 Hours) Vital Signs Temp Pulse Pulse Resp BP BP Pulse Ox 08/09/19 06:57 71 18 94 08/09/19 05:41 36.4 C L 76 20 176/77 H 93 08/09/19 02:59 77 18 94 08/09/19 01:01 69 08/09/19 00:05 36.9 C 77 20 149/83 H 94 08/08/19 21:15 76 18 93 08/08/19 21:10 77 93 08/08/19 20:39 36.4 C L 84 20 142/78 H 93 Laboratory Results 08/09/19 Range/Units 06:14 Sodium 132 L (136-145) mmol/L Potassium 3.9 (3.5-5.1) mmol/L Chloride 97 L (98-107) mmol/L Carbon Dioxide 27 (21-32) mmol/L Anion Gap 9.0 (3-11) BUN 16 (7-18) mg/dl Creatinine 1.01 (0.6-1.2) mg/dl Est Cr Clr Drug Dosing 43.7 ml/min Est GFR ( Amer) 60.9 Est GFR (Non-Af Amer) 52.5 BUN/Creatinine Ratio 15.8 (10-20) Glucose 93 (70-99) mg/dl Calcium 9.0 (8.5-10.1) mg/dl Phosphorus 2.8 (2.5-4.9) mg/dl Magnesium 1.8 (1.8-2.4) mg/dl Medications Administered Current Inpatient Medications Acetaminophen (Tylenol) 650 mg PO Q4H PRN PRN Reason: Pain or Fever Stop: 09/04/19 15:07 Allopurinol (Zyloprim) 200 mg PO DAILY [facility] Stop: 09/05/19 08:59 Last Admin: 08/08/19 08:07 Dose: 200 mg Documented by: Aspirin (Ecotrin Ectab) 81 mg PO QAM [facility] Stop: 09/05/19 08:59 Last Admin: 08/08/19 08:07 Dose: 81 mg Documented by: Atorvastatin Calcium (Lipitor) 10 mg PO HS [facility] Stop: 09/04/19 20:59 Last Admin: 08/08/19 20:25 Dose: 10 mg Documented by: Clonidine HCl (Catapres) 0.1 mg PO BID [facility] Stop: 09/04/19 20:59 Last Admin: 08/08/19 20:27 Dose: 0.1 mg Documented by: Diltiazem HCl (Dilacor Xr) 180 mg PO DAILY [facility] Stop: 09/05/19 08:59 Last Admin: 08/08/19 08:09 Dose: 180 mg Documented by: Doxycycline Hyclate (Vibramycin) 100 mg PO BID [facility] Stop: 08/12/19 20:59 Last Admin: 08/08/19 20:26 Dose: 100 mg Documented by: Ferrous Sulfate (Feosol) 325 mg PO QDB [facility] Stop: 09/05/19 07:29 Last Admin: 08/08/19 08:08 Dose: 325 mg Documented by: Folic Acid (Folvite) 400 mcg PO QPM [facility] Stop: 09/04/19 20:59 Last Admin: 08/08/19 20:28 Dose: 400 mcg Documented by: Guaifenesin (Mucinex) 600 mg PO Q12 [facility] Stop: 09/06/19 17:29 Last Admin: 08/08/19 20:27 Dose: 600 mg Documented by: HCTZ/Spironolactone (Aldactazide 25/25) 1 tab PO QAM [facility] Stop: 09/08/19 08:59 Ceftriaxone Sodium 1,000 mg/ (Dextrose) 60 mls @ 100 mls/hr IV DAILY [facility]; Protocol Stop: 08/12/19 08:59 Last Infusion: 08/08/19 10:13 Dose: Infused Documented by: Promethazine HCl 12.5 mg/ (Sodium Chloride) 50.5 mls @ 202 mls/hr IV Q6H PRN PRN Reason: Nausea And Vomiting Stop: 09/06/19 22:02 Last Infusion: 08/08/19 00:15 Dose: Infused Documented by: Ipratropium [place] (Atrovent 0.02% 0.5mg/2.5ml) 0.5 mg INH Q4R [facility] Stop: 09/07/19 18:59 Last Admin: 08/09/19 06:54 Dose: 0.5 mg Documented by: Levalbuterol HCl (Xopenex 1.25mg/0.5ml Neb) 1.25 mg INH Q4R [facility] Stop: 09/07/19 15:44 Last Admin: 08/09/19 06:55 Dose: 1.25 mg Documented by: Metoprolol Tartrate (Lopressor) 50 mg PO BID [facility] Stop: 09/04/19 20:59 Last Admin: 08/08/19 20:27 Dose: 50 mg Documented by: Multivitamins/Minerals (Multivitamin W/ Minerals Tab) 1 tab PO QDB [facility] Stop: 09/05/19 07:29 Last Admin: 08/08/19 08:07 Dose: 1 tab Documented by: Nystatin (Mycostatin) 1 appln EXT TID PRN PRN Reason: Skin Irritation Stop: 09/04/19 15:07 Oseltamivir Phosphate (Tamiflu) 30 mg PO BID [facility]; Protocol Stop: 08/10/19 20:59 Last Admin: 08/08/19 20:25 Dose: 30 mg Documented by: Pantoprazole Sodium (Protonix) 40 mg PO QAM [facility] Stop: 09/05/19 08:59 Last Admin: 08/08/19 08:08 Dose: 40 mg Documented by: Polyethylene Glycol (Miralax Powder Packet) 17 gm PO DAILY PRN PRN Reason: Constipation Stop: 09/04/19 15:07 Rivaroxaban (Xarelto) 15 mg PO QDD [facility] Stop: 09/04/19 16:29 Last Admin: 08/08/19 16:28 Dose: 15 mg Documented by: Sodium Chloride ([place] Nasal) 1 sprays NA BID [facility] Stop: 09/07/19 17:19 Last Admin: 08/08/19 20:29 Dose: Not Given Documented by: Sodium Chloride (Sodium Chlor 7% Neb Solution) 4 ml NEB BIDR [facility] Stop: 09/07/19 18:59 Last Admin: 08/09/19 06:55 Dose: Not Given Documented by: (1) Pneumonia Laterality: left Lung location: lower lobe of lung Pneumonia type: due to unspecified organism Qualified Code(s): J18.9 - Pneumonia, unspecified organism
[2019-08-09] MEDS: CEROVITE ADV FORMULA TAB PO SCH (08:19)
[2019-08-09] MEDS: FERROUS SULFATE 325 MG TAB PO SCH (08:19)
[2019-08-09] MEDS: cloNIDine HCL 0.1 MG TAB PO SCH ×2 (08:20→20:00)
[2019-08-09] MEDS: ASPIRIN 81 MG ECTAB PO SCH (08:20)
[2019-08-09] MEDS: guaiFENesin 600 MG TABCR PO SCH ×2 (08:21→20:01)
[2019-08-09] MEDS: METOPROLOL TARTRATE 50 MG TAB PO SCH ×2 (08:21→20:00)
[2019-08-09] MEDS: PANTOprazole 40 MG TAB PO SCH (08:21)
[2019-08-09] MEDS: SODIUM CHLORIDE 0.65% NA SOLN 45 ML (OCEAN) SCH ×2 (08:21→20:02)
[2019-08-09] MEDS: allopurinoL 100 MG TAB PO SCH (08:22)
[2019-08-09] MEDS: DOXYCYCLINE HYCLATE 100 MG CAP PO SCH ×2 (08:22→20:01)
[2019-08-09] MEDS: cefTRIAXone SODIUM 1,000 MG in DEXTROSE 5% 50 ML IV SCH (08:24)
[2019-08-09] MEDS: OSELTAMIVIR PHOSPHATE SUSP 30 MG/5 ML UDP PO SCH ×2 (08:24→19:59)
[2019-08-09] MEDS ORDERED: SPIRONOLACTONE/HCTZ 25-25 PO SCH (09:00)
[2019-08-09] MEDS: RIVAROXABAN 15 MG TAB PO SCH (17:02)
[2019-08-09] MEDS: SPIRONOLACTONE/HCTZ 25-25 PO SCH (17:36)
[2019-08-09] MEDS: ATORVASTATIN 10 MG TAB PO SCH (20:00)
[2019-08-09] MEDS: FOLIC ACID 400 MCG TAB PO SCH (20:00)
[2019-08-10] MEDS: IPRATROPIUM BROMIDE NEB SOLN 0.02% 2.5 ML VIAL INH SCH ×6 (02:29→23:34)
[2019-08-10] MEDS: LEVALBUTEROL 1.25MG/0.5ML NEB INH SCH ×6 (02:30→23:34)
[2019-08-10] MEDS: SODIUM CHLOR 7% 4 ML NEB NEB SCH ×2 (07:40→19:23)
[2019-08-10] MEDS: cefTRIAXone SODIUM 1,000 MG in DEXTROSE 5% 50 ML IV SCH (07:52)
[2019-08-10] MEDS: FERROUS SULFATE 325 MG TAB PO SCH (07:53)
[2019-08-10] MEDS: CEROVITE ADV FORMULA TAB PO SCH (07:53)
[2019-08-10] MEDS: ASPIRIN 81 MG ECTAB PO SCH (07:54)
[2019-08-10] MEDS: PANTOprazole 40 MG TAB PO SCH (07:54)
[2019-08-10] MEDS: guaiFENesin 600 MG TABCR PO SCH ×2 (07:55→20:28)
[2019-08-10] MEDS: cloNIDine HCL 0.1 MG TAB PO SCH ×2 (07:55→20:27)
[2019-08-10] MEDS: DOXYCYCLINE HYCLATE 100 MG CAP PO SCH ×2 (07:55→20:29)
[2019-08-10] MEDS: METOPROLOL TARTRATE 50 MG TAB PO SCH ×2 (07:55→20:28)
[2019-08-10] MEDS: allopurinoL 100 MG TAB PO SCH (07:55)
[2019-08-10] MEDS: SPIRONOLACTONE/HCTZ 25-25 PO SCH ×2 (07:56→17:18)
[2019-08-10] MEDS: SODIUM CHLORIDE 0.65% NA SOLN 45 ML (OCEAN) SCH ×2 (07:56→20:29)
[2019-08-10] MEDS: OSELTAMIVIR PHOSPHATE SUSP 30 MG/5 ML UDP PO SCH (08:04)
--- NOTE | 2019-08-10 08:31 | Hospitalist Progress Note ---
Date of Service August 10, 2019 Assessment & Plan (1) Pneumonia: (2) Influenza: Influenza A associated pneumonia Pt is 78 y/o F with PMH chronic a-fib on Xarelto, severe aortic stenosis, HTN, HLD, CKD III, CVA, chronic iron deficiency anemia, gout presented to ER with c/o SOB with exertion, wheezing, cough, rhinorrhea x 2 days. Denies CP, recent travel, ill contacts. In ER afebrile, P: 70, R: 22, BP: 135/91, 96% on RA. WBC: 10, H/H: 11.3/33.8, Na: 129, K: 3.4, Cl: 89, Troponin: 0.195, BNP: 8691. +Influenza A CXR: infiltrate left base -In ER given Rocephin, Zithromax, Duoneb, aspirin 324mg -Blood culture - NGTD -Rocephin, Doxycycline - finish course -Tamiflu -renally dosed -continue for total of 10 day -Xopenex/atrovent nebs -cont. guaifenesin and inc. spirometry, flutter valve, NS 7% neb, duoneb -cont to monitor CBC, BMP (3) Elevated troponin: Troponin: 0.195. EKG chronic afib, rate controlled, nonspecific ST changes. No CP reported, not likely ACS DDX: elevated troponin secondary to underlying infection -Monitor Vitals -Troponin trended down -Continue aspirin & beta crow -If would develop CP or increasing troponins consider echo, cardiology consult (4) Hyponatremia: Na: 129 on admission Baseline wnl. Likely secondary to underlying infection and chronic diuretics - poss. SIADH second. to pulm infection -Held home diuretics on admission - Na only improved to 132 when holding diuretics - will re-start as pt's fluid status may be worsening (weight elev., BP elev. hx od ) -may need to restrict oral fluid intake if does not improve -Monitor BMP (5) Hypokalemia: K: 3.4 -Replace and monitor BMP and magnesium labs in am (6) A-fib: Chronic a-fib on Xarelto -Rate controlled -Continue Xarelto, metoprolol (7) HTN (hypertension): Stable -Continue diltiazem, clonidine, metoprolol -Held metolazone, spironolactone/HCTZ - re-started spironolactone/ HCTZ (8) CKD (chronic kidney disease), stage III: Cr: 1.1. on admission Baseline Cr: 1.3-1.4 -Monitor renal functions -Avoid nephrotoxic agents when possible (9) Severe aortic stenosis: Echo in 2016: EF: 65%, severe aortic stenosis, severe mitral regurgitation, moderate tricuspid regurgitation, severe pulmonary HTN In past pt denied/would want any surgical interventions (10) History of CVA (cerebrovascular accident): -Continue statin, Xarelto (11) Gout: -Continue allopurinol (12) Chronic iron deficiency anemia: Hgb: 11.3. Baseline Hgb: 10-11 -Continue ferrous sulfate supplement -Monitor H&H DVT Prophylaxis -On Xarelto Full Code as per discussion with pt, however reports would not want on prolonged life support if poor prognosis Follows with Dr Christine for routine care Admission and Anticipated Discharge Date Admission Date: August 05, 2019 Subjective Pt is sitting up in the chair, in NAD on room air. Continues to have nonproductive cough but improved. Denies any fever, chills, chest pain, abd. pain, nausea, or vomiting. Review of Systems Review of Systems: All systems reviewed & are unremarkable except as noted in HPI & below Constitutional: + weakness; no fever and no chills Respiratory: + cough (improved) Cardiovascular: no chest pain and no palpitations Gastrointestinal: no abdominal pain, no nausea and no vomiting Physical Exam Physical Exam: General: elderly female sitting up in bed, in no acute distress,on RA, WDWN Head: normocephalic, atraumatic Eyes: PERRL, EOM's intact, conjunctiva non-injected, anicteric ENT: hard of hearing, normal inspection external ears, nose Neck: supple, trachea midline Lungs: no wheezing, +diffuse rhonchi (improved) CV: irregularly irregular, +systolic murmur, no JVD, trace pretibial edema Abd: normal BS, soft, non-tender, nondistended Ext: moves extremities spontaneously,no LE edema Neuro: A&O x 3, speech fluent, no facial asymmetry,moves extremities spontaneously, normal affect Skin: warm, dry Results & Data ([facility]) Vital Signs (Past 12 Hours) Vital Signs Temp Pulse Pulse Resp BP BP Pulse Ox 08/10/19 07:52 36.8 C 63 20 167/97 H 93 08/10/19 07:40 80 17 95 08/10/19 07:25 68 08/10/19 04:40 36.5 C 71 20 145/69 H 94 08/10/19 02:31 64 16 94 08/09/19 23:23 36.4 C L 60 20 133/74 93 08/09/19 22:41 67 16 94 (1) Pneumonia Laterality: left Lung location: lower lobe of lung Pneumonia type: due to unspecified organism Qualified Code(s): J18.9 - Pneumonia, unspecified organism
[2019-08-10 08:54] LABS: Hematocrit (blood only) 34.9 % (37-47); Hemoglobin 11.6 g/dL (12.0-16.0); Mean Corpuscular Hemoglobin 32.2 pg (25-34); Mean Corpuscular Hgb Conc 33.2 g/dL (32-36); Mean Corpuscular Volume 96.9 fL (80-100); Mean Platelet Volume 9.8 fL (7.4-10.4); Platelet Count 346 K/uL (130-400); RDW Coefficient of Variation 13.8 % (11.5-14.5); White Blood Count 9.79 K/uL (4.8-10.8)
[2019-08-10 09:10] LABS: BUN Creatinine Ratio 16.6 (10-20); Calcium 9.4 mg/dl (8.5-10.1); Creatinine Clr Calc Pharmacy 38.3 ml/min; Est GFR (Non-African American) 44.9; Potassium 3.5 mmol/L (3.5-5.1)
--- NOTE | 2019-08-10 09:34 | XRay Report ---
XR chest 1V portable HISTORY: 78 years-old Female follow up CXR follow-up study in a patient with acute shortness of vale th COMPARISON: Chest radiograph 08/06/2019 TECHNIQUE: Portable AP view of the chest FINDINGS: Cardiac silhouette is enlarged. The patient is rotated towards the left. No pneumothorax or large ple ural effusion or overt pulmonary edema. There is unchanged right hemidiaphragmatic elevation. Linear bibasilar densities suggest atelectasis/scarring. Calcification of the mitral annulus. Calcified plaq ue of the thoracic aortic arch. Degenerative changes of the shoulders and spine. IMPRESSION: 1. Cardiomegaly without acute process. 2. Mild bibasilar densities suggest atelectasis/scarring. ACT 112: Negative or not required by law. The above report was generated using voice recognition software. It may contain grammatical, syntax o r spelling errors. Electronically signed by: Ramos Cui M.D. 08/10/2019 9:32 AM
[2019-08-10] MEDS ORDERED: POTASSIUM CHLORIDE 20 MEQ TABCR PO STA (16:43)
[2019-08-10] MEDS: RIVAROXABAN 15 MG TAB PO SCH (17:18)
[2019-08-10] MEDS: LACTOBACILLUS ACIDOPHILUS (FLORANEX) TAB PO SCH (17:18)
[2019-08-10] MEDS: ATORVASTATIN 10 MG TAB PO SCH (20:27)
[2019-08-10] MEDS: FOLIC ACID 400 MCG TAB PO SCH (20:27)
[2019-08-11] MEDS: LEVALBUTEROL 1.25MG/0.5ML NEB INH SCH ×4 (03:07→15:24)
[2019-08-11] MEDS: IPRATROPIUM BROMIDE NEB SOLN 0.02% 2.5 ML VIAL INH SCH ×4 (03:07→15:24)
[2019-08-11] MEDS: SODIUM CHLOR 7% 4 ML NEB NEB SCH (06:50)
[2019-08-11 07:47] LABS: Hematocrit (blood only) 33.6 % (37-47); Hemoglobin 11.3 g/dL (12.0-16.0); Mean Corpuscular Hemoglobin 32.4 pg (25-34); Mean Corpuscular Hgb Conc 33.6 g/dL (32-36); Mean Corpuscular Volume 96.3 fL (80-100); Mean Platelet Volume 10.2 fL (7.4-10.4); Platelet Count 322 K/uL (130-400); RDW Standard Deviation 49.4 fL (36.4-46.3); Red Blood Count 3.49 M/uL (4.2-5.4); White Blood Count 7.55 K/uL (4.8-10.8)
[2019-08-11] MEDS: CEROVITE ADV FORMULA TAB PO SCH (07:54)
[2019-08-11] MEDS: cloNIDine HCL 0.1 MG TAB PO SCH (07:54)
[2019-08-11] MEDS: LACTOBACILLUS ACIDOPHILUS (FLORANEX) TAB PO SCH ×3 (07:54→16:33)
[2019-08-11] MEDS: ASPIRIN 81 MG ECTAB PO SCH (07:54)
[2019-08-11] MEDS: FERROUS SULFATE 325 MG TAB PO SCH (07:54)
[2019-08-11] MEDS: SPIRONOLACTONE/HCTZ 25-25 PO SCH ×2 (07:54→16:32)
[2019-08-11] MEDS: allopurinoL 100 MG TAB PO SCH (07:55)
[2019-08-11] MEDS: DOXYCYCLINE HYCLATE 100 MG CAP PO SCH (07:55)
[2019-08-11] MEDS: SODIUM CHLORIDE 0.65% NA SOLN 45 ML (OCEAN) SCH (07:55)
[2019-08-11] MEDS: PANTOprazole 40 MG TAB PO SCH (07:55)
[2019-08-11] MEDS: METOPROLOL TARTRATE 50 MG TAB PO SCH (07:55)
[2019-08-11] MEDS: guaiFENesin 600 MG TABCR PO SCH (07:55)
[2019-08-11 08:15] LABS: Calcium 9.4 mg/dl (8.5-10.1); Creatinine Clr Calc Pharmacy 44.3 ml/min; Est GFR (African American) 62.4; Est GFR (Non-African American) 53.8; Magnesium 1.5 mg/dl (1.8-2.4); Potassium 3.9 mmol/L (3.5-5.1)
[2019-08-11 08:16] LABS: Phosphorus 3.5 mg/dl (2.5-4.9)
[2019-08-11] MEDS ORDERED: metOLazone 5 MG TABLET PO SCH (09:00)
[2019-08-11] MEDS: MAGNESIUM SULFATE / D5W 1 GM/100 ML BAG IV SCH ×2 (11:38→13:41)
--- NOTE | 2019-08-11 16:20 | Discharge Summary ---
Date of Service August 11, 2019 Admission HPI Per Admitting Provider Pt is 78 y/o F with PMH chronic a-fib on Xarelto, severe aortic stenosis, HTN, HLD, CKD III, CVA, chronic iron deficiency anemia, gout presented to ER with c/o SOB x 2 days. Reports initial rhinorrhea, and productive cough 2 days ago and now cough no longer productive. Noticed SOB with exertion for past 2 days with associated wheezing. Chronically uses 3 pillows to sleep however past 2 days has needed to sleep in recliner. Tried using cough drops at home without relief. Denies any CP. Reports had influenza vaccine this season. Denies recent travel or ill contacts. Denies fever/chills, diaphoresis, N/V/D/C, NIXON, dizziness, syncope, vision changes, neck pain, palpitations, hemoptysis, sore throat, choking, otalgia, abdominal pain, paresthesias, weakness, extremity weakness, extremity edema, rashes, urinary symptoms. History echo in 2016: EF: 65%, severe aortic stenosis, severe mitral regurgitation, moderate tricuspid regurgitation, severe pulmonary HTN Discharge Data Allergies Allergy/AdvReac Type Severity Reaction Status Date / Time No Known Drug Allergies Allergy Unknown . Verified 08/05/19 11:30 Consultations 08/05/19 12:35 ED Decision to Admit Stat 08/05/19 15:08 Consult Case Management - Discharge Planning Routine Discharge Plan Discharge Items Patient Disposition: Home - Self-Care Reason For Visit: PNEUMONIA,ELEVATED TROPONIN Discharge Diagnosis: Influenza A pneumonia Activity: As commented below Non-emergency contact: Primary Care Provider Call non-emergency contact if: you have any medication questions Follow-up/Referrals: Rigo Christine MD [Primary Care Provider] - Diet: Heart Healthy Addtl Attending Provider Instructions: Follow up with primary care doctor in 1 week. You finished therapy with antibiotics and antiviral medications. Continue taking guaifenesin to help with mucus. Take probiotics to help with loose stool after taking antibiotics. Take Magnesium supplement. Recommend that your magnesium level and BMP (renal function) is re-checked when you see your primary care doctor. Pending Studies at Discharge: No Stand-Alone Forms: My [facility] [employer], Smoking Cessation Medications and DC Order Prescriptions: New Lactobacillus acidoph-L.bulgar [Floranex] 1 million cell Tablet 4 tab PO TIDM 5 Days Qty: 20 RF: 0 guaifenesin [Mucinex] 600 mg Tablet Extended Release 12hr 600 mg PO Q12 5 Days Qty: 10 RF: 0 magnesium oxide 400 mg magnesium capsule 400 mg PO DAILY Qty: 5 RF: 0 Continued clonidine HCl 0.1 mg tablet 0.1 mg PO BID RF: 0 atorvastatin 10 mg tablet 10 mg PO HS RF: 0 spironolacton-hydrochlorothiaz 25-25 mg tablet 1 tab PO BID RF: 0 metolazone 5 mg tablet 5 mg PO DAILY RF: 0 allopurinol 100 mg tablet 200 mg PO DAILY RF: 0 folic acid 400 mcg Tablet 0.4 mg PO QPM RF: 0 aspirin [Aspir-81] 81 mg Tablet,Delayed Release (Dr/Ec) 81 mg PO QAM RF: 0 triamcinolone acetonide 0.1 % Cream 1 applic TOPICAL BID PRN (Reason: Rash) RF: 0 pantoprazole 40 mg tablet,delayed release (DR/EC) 40 mg PO QAM RF: 0 ferrous sulfate 325 mg (65 mg iron) tablet 65 mg PO QAM RF: 0 metoprolol tartrate 50 mg tablet 50 mg PO BID RF: 0 nystatin [Nystop] 100,000 unit/gram powder 1 applic TOPICAL TID PRN (Reason: Skin Irritation) RF: 0 clotrimazole 1 % cream 1 applic TOPICAL BID PRN (Reason: Skin Irritation) RF: 0 diltiazem HCl [DILT-XR] 180 mg capsule,ext.rel 24h degradable 180 mg PO DAILY RF: 0 Xarelto 15 mg tablet 15 mg PO PM RF: 0 flaxseed oil 1,000 mg Capsule 1,000 mg PO QPM RF: 0 Centrum Silver 0.4-300-250 mg-mcg-mcg Tablet 1 tab PO DAILY RF: 0 Discharge Orders: Discharge Order (Routine); Ordered 08/11/19 Ordered By: Rafi Bailey Admission Data Admit Date/Time: 08/05/19 12:52 Attending Provider: Rafi Bailey Admit Provider: Ebenezer Silveira Primary Care Provider: Rigo Christine Other Providers: Ebenezer Silveira
[2019-08-11] MEDS: RIVAROXABAN 15 MG TAB PO SCH (16:33)
== END 2019-08-11 17:54 | disposition home or self-care (01) | DRG 194 ==
LOC: ED 10:44 → 2N 12:52 → SUATTDRO 12:52 → 2N 14:13 → 2W 08-10 22:07

== ENCOUNTER 2019-12-11 15:04 | Inpatient (IN) ==
[2019-12-11 16:10] LABS: Hematocrit (blood only) 36.2 % (37-47); Hemoglobin 12.3 g/dL (12.0-16.0); Mean Corpuscular Hemoglobin 33.2 pg (25-34); Mean Corpuscular Volume 97.6 fL (80-100); Mean Platelet Volume 10.1 fL (7.4-10.4); Platelet Count 393 K/uL (130-400); RDW Coefficient of Variation 13.9 % (11.5-14.5); RDW Standard Deviation 49.1 fL (36.4-46.3); Red Blood Count 3.71 M/uL (4.2-5.4); White Blood Count 8.88 K/uL (4.8-10.8)
[2019-12-11 16:17] LABS: Alanine Aminotransferase 25 U/L (12-78); Albumin Level 3.7 gm/dl (3.4-5.0); Aspartate Aminotransferase 19 U/L (15-37); BUN Creatinine Ratio 16.7 (10-20); Blood Urea Nitrogen 22 mg/dl (7-18); Calcium 9.8 mg/dl (8.5-10.1); Carbon Dioxide 29 mmol/L (21-32); Chloride 90 mmol/L (98-107); Creatinine Clr Calc Pharmacy 34.2 ml/min; Est GFR (African American) 43.7; Est GFR (Non-African American) 37.7; Glucose 97 mg/dl (70-99); Magnesium 1.9 mg/dl (1.8-2.4); Potassium 3.9 mmol/L (3.5-5.1); Sodium 126 mmol/L (136-145)
[2019-12-11] MEDS ORDERED: SODIUM CHLORIDE 0.9% 1000ML 1,000 ML IV ONE (16:19)
[2019-12-11 16:20] LABS: Alkaline Phosphatase 104 U/L (45-117); Bilirubin,Total 0.5 mg/dl (0.2-1); Globulin 3.9 gm/dl (2.5-4.0); Total Protein 7.6 gm/dl (6.4-8.2)
[2019-12-11 16:32] LABS: INR 1.2 (0.9-1.1); Partial Thromboplastin Ratio 1.7; Prothrombin Time 12.4 Seconds (9.0-12.0)
[2019-12-11 16:35] LABS: C Reactive Protein < 0.29 mg/dl (0-0.29)
--- NOTE | 2019-12-11 16:40 | XRay Report ---
XR chest 1V portable CLINICAL HISTORY: stroke alert COMPARISON STUDY: 08/10/2019 FINDINGS: Mild stable cardiomegaly. Pulmonary vasculature is unremarkable. Calcified pleural plaques are present bilaterally. These are stable. Diaphragms are smooth. IMPRESSION: No acute process. Chronic change. ACT 112: Negative or not required by law. The above report was generated using voice recognition software. It may contain grammatical, syntax or spelling errors. Electronically signed by: Everton Valle M.D. 12/11/2019 4:39 PM
[2019-12-11 16:44] LABS: Troponin I < 0.015 ng/ml (0-0.045)
[2019-12-11 16:45] LABS: Partial Thromboplastin Time 46.6 Seconds (21.0-31.0)
[2019-12-11] MEDS ORDERED: OPTIRAY 320 125ml IV PRN (17:08)
--- NOTE | 2019-12-11 17:37 | CT Scan Report ---
CT OF THE HEAD WITHOUT CONTRAST CLINICAL HISTORY: Stroke Alert. Dizzy. COMPARISON STUDY: Head CT April 30, 2011. MRI of the brain May 01, 2011. TECHNIQUE: Helical axial images of the head were obtained without IV contrast. Automated exposure con trol was utilized for the study. A dose lowering technique was utilized adhering to the principles o f ALARA. FINDINGS: No acute intracranial hemorrhage, midline shift or mass effect is present. An old infarct w ithin the right basal ganglia is noted. A suspected old lacunar infarct within left centrum semiovale ovale is noted. The basilar cisterns are patent. There are nodular axial collections. White matter h ypodensity suggests small vessel disease. There are no findings to suggest acute dural sinus thrombos is or acute territorial infarct. No significant calvarial abnormalities are present. IMPRESSION: 1. No acute intracranial findings. 2. Old right basal ganglia infarct. Suspected old lacunar infarct within the left centrum semiovale. ACT 112: Negative or not required by law. Electronically signed by: Demarco Tellez M.D. 12/11/2019 5:35 PM
--- NOTE | 2019-12-11 17:46 | CT Scan Report ---
CT ANGIOGRAPHY OF THE NECK WITH CONTRAST CLINICAL HISTORY: dizzy COMPARISON STUDY: CTA of the neck May 02, 2011. Technique: CT angiography of the carotid and vertebral arteries was obtained using [employer] 320 IV and 3D reconstruction on an independent workstation. NASCET criteria was utilized. Automated exposure c ontrol was utilized for the study. A dose lowering technique was utilized adhering to the principles of ALARA. CT DOSE: 2137.18 mGy.cm Findings: There is severe stenosis at the origin of the bilateral vertebral arteries. There is no dis section within the major vessels of the neck. There is extensive plaque within the proximal bilateral internal carotid arteries which makes evaluation for stenosis difficult. There is severe stenosis of the proximal bilateral internal carotid arteries. Severe stenosis of the proximal right internal car otid artery most pronounced 1.5 cm distal to vessel origin is noted. Vessel measures 1 mm in caliber. It measures 5.1 m distally. There is also severe stenosis of the proximal left internal carotid aisha ry that measures 0.9 mm in caliber. This vessel measures 4.2 mm distally. No cervical lymphadenopathy is present. Lung apices are unremarkable. There is no cervical spine fracture. IMPRESSION: 1. 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 Approximate 80-90% stenosis b ilaterally. This has mildly progressed since CTA of May 02, 2011. 2. 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 ACT 112: Negative or not required by law. Electronically signed by: Demarco Tellez M.D. 12/11/2019 5:44 PM
--- NOTE | 2019-12-11 17:49 | CT Scan Report ---
CTA ANGIOGRAPHY OF THE HEAD CLINICAL HISTORY: dizzy COMPARISON STUDY: MRI of the brain May 01, 2011. Head CT April 30, 2011. TECHNIQUE: Helical axial images of the head were obtained following uneventful intravenous administr ation of 120 cc of Optiray 320. Sagittal and coronal reconstructions were viewed as well as maximal i ntensity projections on an independent 3-D workstation. Automated exposure control was utilized for the study. A dose lowering technique was utilized adhering to the principles of ALARA. FINDINGS: No acute intracranial hemorrhage, midline shift or mass effect is present. Old right basal ganglia infarcts is noted. There is moderate plaque within the bilateral cavernous carotids. No intra cranial aneurysm is identified. There is no intraluminal thrombus. No abrupt vessel cut off is identi fied. There is no significant abnormality within the posterior circulation. Bilateral M1, M2, A1 and A2 segments are patent. IMPRESSION: Moderate atherosclerotic plaque within the intracranial vessels. No intraluminal thrombu s or abrupt vessel cut off. ACT 112: Negative or not required by law. Electronically signed by: Demarco Tellez M.D. 12/11/2019 5:48 PM
--- NOTE | 2019-12-11 18:00 | Emergency Department Note ---
Impression & Plan Diplopia, Hyponatremia, Dizziness, CKD (chronic kidney disease), stage III ED Provider Note Provider: Mir Cho MD DATE OF SERVICE: 12/11/2019 CHIEF COMPLAINT: Visual change, dizzy HISTORY OF PRESENT ILLNESS: Patient is a 79-year-old female with history of CVA, atrial fibrillation on Xarelto, hyperlipidemia and hypertension as well as CKD and hyponatremia presenting today with a 4-day history of some double vision and dizziness as well as some slight visual changes. Patient is quite hard of hearing and additional history is provided by the patient's son who is in the room. Seen in congestion with the resident physician. Reports that the patient's had issues where she has had more double vision with the left eye and been unsteady and almost falling. No significant falls likely have been reported. Denies any fevers, chest pain, palpitations, abdominal pain, or speech issues. Patient does have a distant history about 4 years ago for TIA. No purulent discharge or erythema the eyes has been reported. Son states he is noticed that her eyes seem disconjugate at various times over the last day or 2. REVIEW OF SYSTEMS: A total of 10 review of systems was obtained and negative except as stated above in the HPI. PAST MEDICAL HISTORY: As noted above MEDICATIONS: Reviewed home medications which do include aspirin and Xarelto SOCIAL HISTORY: Lives at home with son, smoker PHYSICAL EXAM: GENERAL: alert and oriented in no acute distress on stretcher quite hard of hea ring Head: normocephalic and atraumatic EYES: No injection, discharge or icterus. PERRL, patient does have some difficulty with abduction of the left eye although it does cross midline and some periods of disconjugate particularly when looking to the left. NECK: Trachea midline. Supple. ENT: Mucous membranes pink and moist. LUNGS: Airway patent. No retractions. Breath sounds clear HEART: Irregularly irregular rate and rhythm. No chest wall tenderness ABDOMEN: Soft and non-tender, without guarding or rebound. SKIN: Acyanotic, warm, dry, without rashes EXTREMITIES: Without swelling, tenderness or deformity NEUROLOGICAL: No focal deficits. No aphasia. No facial droop or slurred speech. EKG: Atrial fibrillation with a rate of 63 bpm. Right axis is noted. No acute ST segment elevation or depression. QTC 485 CONTINUOUS CARDIAC MONITORING: was ordered and showed a heart rate of 68 bpm in atrial fibrillation Patient's hypertension was [facility] COURSE: 1618 seen by the resident physician. 1650 Patient was first seen and H&P performed by myself 175 Patient reassessed and updated. Patient and son updated and recommendation for admission was given. Will discuss with the hospitalist. [address] Baker of the hospitalist service. Patient's laboratory studies and imaging reviewed. Differential includes Infection, dehydration, metabolic abnormality, hypo/hyperglycemia, electrolyte disturbance, anemia, hypoxia, cardiac sources, intracerebral event, toxicologic, neurologic, as well as other pathologies. IMPRESSION/MEDICAL DECISION MAKING: Patient presents with reported history of some dizziness and diplopia. Son has noted disconjugate gaze. On aspirin and anticoagulant. Outside of TPA window. Doubt this acute glaucoma. Doubt this is GCA. I doubt an iritis or uveitis. Does appear to have some difficulty with abduction of the left eye and is conjugate to the right eye at various times. CT the head with evidence of old stroke but nothing acute and no bleed. Bad vascular disease on angiogram but no acute cutoffs. You have concerns given the disconjugate gaze finding for possible occult CVA. Laboratory studies without evidence of acute cardiac injury or infection. Some mildly worsened hyponatremia is noted but I doubt this is truly significant. Function slightly worse than previous and given a IV fluid bolus. ESR slightly elevated and CRP is not significantly elevated. Did send a Lyme screen. Patient is also a fall risk given her dizziness and visual change issues. Seen in conjunction with the resident physician. Recommendation for admission for further MRI and neurological work-up. They were in agreement. Hospitalist be contacted. DIAGNOSIS: Diplopia, dizziness DISPOSITION: Hospitalist will evaluate Patient was agreeable with this plan. Past Med/Surg History Social History Preferred Language: Croatian Communication Ability: Effective [employer] Manager Required: No Beliefs That Will Affect Care: None marital status: / Current Living Situation: Family Current Living Situation Comment: lives with son Feels Safe at Home: Yes Smoking Status: Former smoker Tobacco Type: cigarettes ; Cigarettes Per Day: 1- 2 (10 in a week) ; Second Hand Exposure: No ; Hx Alcohol Use: No Hx Substance Use: No Allergies Allergies Allergy/AdvReac Type Severity Reaction Status Date / Time No Known Allergies Allergy Verified 12/11/19 16:16 Home Meds Home Medications Medication Instructions Recorded Confirmed Centrum Silver 1 tab PO DAILY 08/05/19 12/11/19 Xarelto 15 mg PO QDD 08/05/19 12/11/19 allopurinol 200 mg PO DAILY 08/05/19 12/11/19 aspirin [Aspir-81] 81 mg PO QAM 08/05/19 12/11/19 atorvastatin 10 mg PO HS 08/05/19 12/11/19 clonidine HCl 0.1 mg PO BID 08/05/19 12/11/19 clotrimazole 1 applic TOPICAL BID PRN 08/05/19 12/11/19 diltiazem HCl [DILT-XR] 180 mg PO DAILY 08/05/19 12/11/19 ferrous sulfate 65 mg PO QAM 08/05/19 12/11/19 flaxseed oil 1,000 mg PO QDD 08/05/19 12/11/19 folic acid 0.4 mg PO QDD 08/05/19 12/11/19 metolazone 5 mg PO DAILY 08/05/19 12/11/19 metoprolol tartrate 50 mg PO BID 08/05/19 12/11/19 nystatin [Nystop] 1 applic TOPICAL TID PRN 08/05/19 12/11/19 pantoprazole 40 mg PO DAILYBB 08/05/19 12/11/19 spironolacton-hydrochlorothiaz 1 tab PO BID 08/05/19 12/11/19 triamcinolone acetonide 1 applic TOPICAL BID PRN 08/05/19 12/11/19 Lactobacillus acidoph-L.bulgar 4 tab PO TID 12/11/19 12/11/19 [Floranex] benzocaine 20 % MUCOUS MEMBRANE DIRECTED 12/11/19 12/11/19 PRN guaifenesin [Mucinex] 600 mg PO Q12H PRN 12/11/19 12/11/19 Previous Rx's Medication Instructions Recorded magnesium oxide 400 mg PO DAILY #5 cap 08/11/19 Results & Data (ED) Vital Signs Vital Signs - 24 hr 12/11/19 15:13 12/11/19 17:04 Temperature 37 C Temperature Source Oral Pulse Rate 54 L Pulse Rate [Apical] 69 Respiratory Rate 18 18 Respiratory Effort / Characteristics Non-Labored Spontaneous Respiratory Depth Normal Respiratory Pattern Regular Blood Pressure 135/74 Blood Pressure [Left Arm] 183/72 H Blood Pressure Mean 94 Blood Pressure Mean [Left Arm] 109 Blood Pressure Position Sitting Pulse Oximetry 98 96 Oxygen Delivery Method Room Air Room Air Sepsis Recent Fever Within 48 Hours No Sepsis New/Unexplained Change in Mental Status No Sepsis Action Taken by Nursing No Action Required Laboratory Data Result diagrams: 12/11/19 15:55 12/11/19 15:55 Lab Results 12/11/19 12/11/19 12/11/19 Range/Units 15:55 15:55 15:55 WBC 8.88 (4.8-10.8) K/uL RBC 3.71 L (4.2-5.4) M/uL Hgb 12.3 (12.0-16.0) g/dL Hct 36.2 L (37-47) % MCV 97.6 (80-100) fL MCH 33.2 (25-34) pg MCHC 34.0 (32-36) g/dL RDW Std Deviation 49.1 H (36.4-46.3) fL RDW Coeff of Alejandrina 13.9 (11.5-14.5) % Plt Count 393 (130-400) K/uL MPV 10.1 (7.4-10.4) fL ESR (0-21) mm/hr PT 12.4 H (9.0-12.0) Seconds INR 1.2 H (0.9-1.1) APTT 46.6 H* (21.0-31.0) Seconds PTT Ratio 1.7 Sodium 126 L (136-145) mmol/L Potassium 3.9 (3.5-5.1) mmol/L Chloride 90 L (98-107) mmol/L Carbon Dioxide 29 (21-32) mmol/L Anion Gap 7.0 (3-11) BUN 22 H (7-18) mg/dl Creatinine 1.32 H (0.6-1.2) mg/dl Est Cr Clr Drug Dosing 34.2 ml/min Est GFR ( Amer) 43.7 Est GFR (Non-Af Amer) 37.7 BUN/Creatinine Ratio 16.7 (10-20) Glucose 97 (70-99) mg/dl Calcium 9.8 (8.5-10.1) mg/dl Magnesium 1.9 (1.8-2.4) mg/dl Total Bilirubin 0.5 (0.2-1) mg/dl AST 19 (15-37) U/L ALT 25 (12-78) U/L Alkaline Phosphatase 104 (45-117) U/L Troponin I < 0.015 (0-0.045) ng/ml C-Reactive Protein < 0.29 (0-0.29) mg/dl Total Protein 7.6 (6.4-8.2) gm/dl Albumin 3.7 (3.4-5.0) gm/dl Globulin 3.9 (2.5-4.0) gm/dl Albumin/Globulin Ratio 1.0 (0.9-2) Lyme Disease IgG Ab (Negative) Lyme Disease IgM Ab (Negative) 12/11/19 12/11/19 12/11/19 Range/Units 15:55 15:55 15:55 WBC (4.8-10.8) K/uL RBC (4.2-5.4) M/uL Hgb (12.0-16.0) g/dL Hct (37-47) % MCV (80-100) fL MCH (25-34) pg MCHC (32-36) g/dL RDW Std Deviation (36.4-46.3) fL RDW Coeff of Alejandrina (11.5-14.5) % Plt Count (130-400) K/uL MPV (7.4-10.4) fL ESR 40 H (0-21) mm/hr PT (9.0-12.0) Seconds INR (0.9-1.1) APTT (21.0-31.0) Seconds PTT Ratio Sodium (136-145) mmol/L Potassium (3.5-5.1) mmol/L Chloride (98-107) mmol/L Carbon Dioxide (21-32) mmol/L Anion Gap (3-11) BUN (7-18) mg/dl Creatinine (0.6-1.2) mg/dl Est Cr Clr Drug Dosing ml/min Est GFR ( Amer) Est GFR (Non-Af Amer) BUN/Creatinine Ratio (10-20) Glucose (70-99) mg/dl Calcium (8.5-10.1) mg/dl Magnesium (1.8-2.4) mg/dl Total Bilirubin (0.2-1) mg/dl AST (15-37) U/L ALT (12-78) U/L Alkaline Phosphatase (45-117) U/L Troponin I Cancelled (0-0.045) ng/ml C-Reactive Protein Cancelled (0-0.29) mg/dl Total Protein (6.4-8.2) gm/dl Albumin (3.4-5.0) gm/dl Globulin (2.5-4.0) gm/dl Albumin/Globulin Ratio (0.9-2) Lyme Disease IgG Ab Negative (Negative) Lyme Disease IgM Ab Negative (Negative) Administered Medications Ioversol (Optiray 320 125ml) 120 ml IV ONCE PRN PRN Reason: Interaction Checking Stop: 12/15/19 17:07 Last Admin: 12/11/19 17:09 Dose: 120 ml Documented by: [id number] Discontinued Medications Sodium Chloride (Nss 1000ml) 1,000 mls @ 999 mls/hr IV .Q1H1M ONE Stop: 12/11/19 17:19 Last Infusion: 12/11/19 18:04 Dose: 0 mls/hr Documented by: [id number] Admin: 12/11/19 16:57 Dose: 999 mls/hr Documented by: [id number] Discharge Plan Visit Data Chief Complaint: Dizziness Stated Complaint: DOUBLE VISION, DIZZY ED Provider: Mir Cho ED Midlevel Provider: Cj Sun Discharge Problem: Diplopia, Hyponatremia, Dizziness, CKD (chronic kidney disease), stage III Patient Disposition: Being Evaluated by Hospitalist Forms Stand Alone Forms: My [facility] Prescriptions Prescriptions: No Action clonidine HCl 0.1 mg tablet 0.1 mg PO BID RF: 0 atorvastatin 10 mg tablet 10 mg PO HS RF: 0 spironolacton-hydrochlorothiaz 25-25 mg tablet 1 tab PO BID RF: 0 metolazone 5 mg tablet 5 mg PO DAILY RF: 0 allopurinol 100 mg tablet 200 mg PO DAILY RF: 0 folic acid 400 mcg Tablet 0.4 mg PO QDD RF: 0 aspirin [Aspir-81] 81 mg Tablet,Delayed Release (Dr/Ec) 81 mg PO QAM RF: 0 triamcinolone acetonide 0.1 % Cream 1 applic TOPICAL BID PRN (Reason: Rash) RF: 0 pantoprazole 40 mg tablet,delayed release (DR/EC) 40 mg PO DAILYBB RF: 0 ferrous sulfate 325 mg (65 mg iron) tablet 65 mg PO QAM RF: 0 metoprolol tartrate 50 mg tablet 50 mg PO BID RF: 0 nystatin [Nystop] 100,000 unit/gram powder 1 applic TOPICAL TID PRN (Reason: Skin Irritation) RF: 0 clotrimazole 1 % cream 1 applic TOPICAL BID PRN (Reason: Skin Irritation) RF: 0 diltiazem HCl [DILT-XR] 180 mg capsule,ext.rel 24h degradable 180 mg PO DAILY RF: 0 Xarelto 15 mg tablet 15 mg PO QDD RF: 0 flaxseed oil 1,000 mg Capsule 1,000 mg PO QDD RF: 0 Centrum Silver 0.4-300-250 mg-mcg-mcg Tablet 1 tab PO DAILY RF: 0 magnesium oxide 400 mg magnesium capsule 400 mg PO DAILY Qty: 5 RF: 0 benzocaine 20 % Gel 20 % MUCOUS MEMBRANE DIRECTED PRN (Reason: MOUTH SORES) RF: 0 Lactobacillus acidoph-L.bulgar [Floranex] 1 million cell Tablet 4 tab PO TID RF: 0 guaifenesin [Mucinex] 600 mg Tablet Extended Release 12hr 600 mg PO Q12H PRN (Reason: Congestion) RF: 0 Referrals Referrals: Rigo Christine MD [Primary Care Provider] -
[2019-12-11 18:01] LABS: Lyme Ab IgG w/WB Rflx Negative (Negative); Lyme Ab IgM w/WB Rflx Negative (Negative)
[2019-12-11] MEDS ORDERED: MAGNESIUM SULFATE / D5W 1 GM/100 ML BAG IV STA (19:08)
[2019-12-11] MEDS ORDERED: HydrALAZINE HCL 20 MG/ML VIAL IV PRN (19:13)
--- NOTE | 2019-12-11 19:17 | History & Physical Report ---
Date of Service December 11, 2019 Assessment & Plan (1) Dysconjugate gaze: History of stroke in the past chronic atrial fibrillation chronic anticoagulation therapy chronic heart murmur -This is 79 year old female who presented to family practice Dr. Shultz with complaints of double vision and also dizziness if lifting her head up and that these symptoms started around 3 to 4 days ago and sent to ED. -son reports that when she was at home, it seemed to him that at times when she gazed eyes towards left size of her head, her right eye appeared to be turn medially to her nose. on my eye exam as hospitalist, the patient had barely noticeable saccadic right eye movements that were more pronounced when looking to the upper right. otherwise, patient did not appear to have other eye movement problems. pupils appear equal and reactive to light. -admission Head CT: No acute intracranial findings. Old right basal ganglia infarct. Suspected old lacunar infarct within the left centrum semiovale. -admission Head CTA: Moderate atherosclerotic plaque within the intracranial vessels. No intraluminal thrombus or abrupt vessel cut off -admission neck CTA: Severe stenosis of the proximal bilateral internal carotid arteries. Approximate 80-90% stenosis bilaterally. This has mildly progressed since CTA of May 02, 2011. 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 -chronic heart murmur as per patient and her son -echocardiogram to check for any atrial septal defects -continue home dose aspirin 81 mg daily, Xarelto 15 mg daily, and atorvastatin 10 mg qhs. check lipid panel and HbA1c -neurology consult for further evaluation -had advised her son Luis to schedule outpatient ophthalmology clinic for further occular evaluation Hyponatremia -serum sodium is 126 on presentation with serum sodium as low 130 in the past -may be from diuretic use of home metolazone and spirolactone/HCTZ Hypertension -hold home diuretics for now, metolazone and spirolactone/HCTZ, if need to resume consider stopping metolazone anyways because metolazone use in particular may exacerbate hyponatremia -hypertension around systolic 180s on presentation -continue home dose diltiazem 180 mg daily and metoprolol 50 mg BID - cannot titrate up because of bradcardia in the 60s -continue home dose clonidine 0.1 mg BID which suggest difficult to control blood pressures at baseline -start prn hydralazine IV if systolic blood pressure above 170/90 Tobacco Use -smokes 3 cigarettes a day as per son -start nicotine patch in hospital Full Code as per my discussion with patient and her son Luis [phone] at the bedside My colleague Dr. Suárez will be the hospitalist starting on 12/12/2019 History of Present Illness -This is 79 year old female who presented to family practice Dr. Shultz with complaints of double vision and also dizziness if lifting her head up and that these symptoms started around 3 to 4 days ago and sent to ED. -son reports that when she was at home, it seemed to him that at times when she gazed eyes towards left size of her head, her right eye appeared to be turn medially to her nose. on my eye exam as hospitalist, the patient had barely noticeable saccadic right eye movements that were more pronounced when looking to the upper right. otherwise, patient did not appear to have other eye movement problems. pupils appear equal and reactive to light. -admission Head CT: No acute intracranial findings. Old right basal ganglia infarct. Suspected old lacunar infarct within the left centrum semiovale. -admission Head CTA: Moderate atherosclerotic plaque within the intracranial vessels. No intraluminal thrombus or abrupt vessel cut off -admission neck CTA: Severe stenosis of the proximal bilateral internal carotid arteries. Approximate 80-90% stenosis bilaterally. This has mildly progressed since CTA of May 02, 2011. 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 -chronic heart murmur as per patient and her son -echocardiogram to check for any atrial septal defects -continue home dose aspirin 81 mg daily, Xarelto 15 mg daily, and atorvastatin 10 mg qhs. check lipid panel and HbA1c -neurology consult for further evaluation -had advised her son Luis to schedule outpatient ophthalmology clinic for further occular evaluation on review of systems: no headache. no dizziness. no nausea. no vomiting. no chills. no fever. no shortness of breath. no chest pain. no palpitations. no recent loss of consciousness. no fevers. no changes in bowel movements. no diarrhea. no dsyuria Primary Care Provider: Rigo Christine MD Allergies Allergy/AdvReac Type Severity Reaction Status Date / Time No Known Allergies Allergy Verified 12/11/19 16:16 Home Medications Home Medications Medication Instructions Recorded Confirmed Type Centrum Silver 1 tab PO DAILY 08/05/19 12/11/19 History Xarelto 15 mg PO QDD 08/05/19 12/11/19 History allopurinol 200 mg PO DAILY 08/05/19 12/11/19 History aspirin [Aspir-81] 81 mg PO QAM 08/05/19 12/11/19 History atorvastatin 10 mg PO HS 08/05/19 12/11/19 History clonidine HCl 0.1 mg PO BID 08/05/19 12/11/19 History clotrimazole 1 applic TOPICAL BID PRN 08/05/19 12/11/19 History diltiazem HCl [DILT-XR] 180 mg PO DAILY 08/05/19 12/11/19 History ferrous sulfate 65 mg PO QAM 08/05/19 12/11/19 History flaxseed oil 1,000 mg PO QDD 08/05/19 12/11/19 History folic acid 0.4 mg PO QDD 08/05/19 12/11/19 History metolazone 5 mg PO DAILY 08/05/19 12/11/19 History metoprolol tartrate 50 mg PO BID 08/05/19 12/11/19 History nystatin [Nystop] 1 applic TOPICAL TID PRN 08/05/19 12/11/19 History pantoprazole 40 mg PO DAILYBB 08/05/19 12/11/19 History spironolacton-hydrochlorothiaz 1 tab PO BID 08/05/19 12/11/19 History triamcinolone acetonide 1 applic TOPICAL BID PRN 08/05/19 12/11/19 History magnesium oxide 400 mg PO DAILY #5 cap 08/11/19 12/11/19 Rx Lactobacillus acidoph-L.bulgar 4 tab PO TID 12/11/19 12/11/19 History [Floranex] benzocaine 20 % MUCOUS MEMBRANE DIRECTED 12/11/19 12/11/19 History PRN guaifenesin [Mucinex] 600 mg PO Q12H PRN 12/11/19 12/11/19 History Past Med/Surg History Social History Preferred Language: Nicaraguan Communication Ability: Effective Appellate Conferee Required: No Beliefs That Will Affect Care: None marital status: / Current Living Situation: Family Current Living Situation Comment: lives with son Feels Safe at Home: Yes Smoking Status: Former smoker Tobacco Type: cigarettes ; Cigarettes Per Day: 1- 2 (10 in a week) ; Second Hand Exposure: No ; Hx Alcohol Use: No Hx Substance Use: No Review of Systems Review of Systems: All systems reviewed & are unremarkable except as noted in Subjective Physical Exam Constitutional: comfortable Eyes: on my eye exam as hospitalist, the patient had barely noticeable saccadic right eye movements that were more pronounced when looking to the upper right. otherwise, patient did not appear to have other eye movement problems. pupils appear equal and reactive to light. ENMT: external ear and nose normal, oropharynx normal Neck: normal visual inspection Respiratory: normal respiratory effort, lungs clear to auscultation Cardiovascular: Rate/Rhythm: + bradycardic Heart Sounds: + murmur Gastrointestinal (Abdomen): normal bowel sounds, soft, nontender, no hepatosplenomegaly Musculoskeletal: Head/Neck/Chest: normocephalic and head atraumatic Neurologic: CN's II-XI intact bilaterally Psychiatric: Orientation: alert, oriented x 3 and cooperative Results & Data Results & Data ([facility]) Vital Signs (Past 12 Hours) Vital Signs Temp Pulse Pulse Resp BP BP Pulse Ox 12/11/19 17:04 69 18 183/72 H 96 12/11/19 15:13 37 C 54 L 18 135/74 98 Code Status & VTE Plan VTE Prophylaxis Plan VTE Prophylaxis will be ordered: Yes
[2019-12-11] MEDS ORDERED: ONDANSETRON INJ 2 MG/ML 2 ML VIAL IV PRN (20:00)
[2019-12-11] MEDS ORDERED: ACETAMINOPHEN 325 MG TAB PO PRN (20:00)
[2019-12-11] MEDS ORDERED: SODIUM CHLORIDE 0.9% 1000ML 1,000 ML IV SCH (20:30)
[2019-12-11] MEDS ORDERED: SPIRONOLACTONE/HCTZ 25-25 PO SCH (21:00)
[2019-12-11] MEDS: ATORVASTATIN 10 MG TAB PO SCH (21:42)
[2019-12-11] MEDS: cloNIDine HCL 0.1 MG TAB PO SCH (21:42)
[2019-12-11] MEDS: METOPROLOL TARTRATE 50 MG TAB PO SCH (21:42)
[2019-12-12 01:22] LABS: Urine Potassium 32.2 mmol/L
[2019-12-12 01:26] LABS: Appearance Urine Turbid (Clear); Bacteria Urine Automated 1+ (Negative); Bilirubin Urine Negative (Negative); Blood Urine 1+ (Negative); Color Urine Yellow; Glucose Urine UA Negative (Negative); Ketones Urine Negative (Negative); Leukocyte Esterase Urine 3+ (Negative); Nitrite Urine Negative (Negative); RBC Urine Automated 0-4 /hpf (0-4); Specific Gravity Urine 1.017 (1.000-1.030); Urobilinogen Urine Negative (Negative); WBC Urine Automated >30 /hpf (0-5); pH Urine 7.5 (4.5-7.5)
[2019-12-12 01:47] LABS: Protein Urine 1+ (Negative); Sulfosalicylic Acid Urine Positive (Negative)
[2019-12-12 01:49] LABS: Cast Urine Automated 0 /lpf (0-5); Mucus Urine Present (None Prsent)
[2019-12-12] MEDS: PANTOprazole 40 MG TAB PO SCH (05:51)
[2019-12-12 06:31] LABS: Basophils # (auto) 0.01 K/uL (0-0.2); Basophils % (auto) 0.2 %; Eosinophils # (auto) 0.11 K/uL (0-0.5); Eosinophils % (auto) 1.7 %; Hematocrit (blood only) 31.7 % (37-47); Hemoglobin 10.5 g/dL (12.0-16.0); Immature Granulocytes # (auto) 0.06 K/uL (0.00-0.02); Immature Granulocytes % (auto) 0.9 %; Lymphocytes # (auto) 0.83 K/uL (1.2-3.4); Lymphocytes % (auto) 12.8 %; Mean Corpuscular Hemoglobin 32.8 pg (25-34); Mean Corpuscular Hgb Conc 33.1 g/dL (32-36); Mean Corpuscular Volume 99.1 fL (80-100); Mean Platelet Volume 10.1 fL (7.4-10.4); Monocytes % (auto) 15.5 %; Neutrophils # (auto) 4.45 K/uL (1.4-6.5); Neutrophils % (auto) 68.9 %; Platelet Count 332 K/uL (130-400); RDW Coefficient of Variation 14.1 % (11.5-14.5); RDW Standard Deviation 50.5 fL (36.4-46.3); White Blood Count 6.46 K/uL (4.8-10.8)
[2019-12-12 07:06] LABS: Albumin Level 3.1 gm/dl (3.4-5.0); BUN Creatinine Ratio 17.3 (10-20); Creatinine Clr Calc Pharmacy 40.4 ml/min; Est GFR (African American) 53.4; Magnesium 1.8 mg/dl (1.8-2.4); Potassium 3.5 mmol/L (3.5-5.1)
[2019-12-12 07:15] LABS: Bilirubin,Total 0.3 mg/dl (0.2-1); Globulin 3.1 gm/dl (2.5-4.0); Total Protein 6.2 gm/dl (6.4-8.2)
--- NOTE | 2019-12-12 07:47 | Electrocardiogram Report ---
Test Reason : Blood Pressure : / mmHG Vent. Rate : 063 BPM Atrial Rate : 037 BPM P-R Int : 000 ms QRS Dur : 088 ms QT Int : 474 ms P-R-T Axes : 000 091 021 degrees QTc Int : 485 ms Atrial fibrillation Rightward axis Abnormal ECG When compared with ECG of 06-AUG-2019 06:53, No significant change was found Confirmed by Abhinav Amaral ([id number]) on 12/12/2019 7:47:40 AM Referred By: ED Confirmed By:Abhinav Amaral
[2019-12-12 08:51] LABS: Estimated Average Glucose 105 mg/dl; Hemoglobin A1C 5.3 % (4.5-5.6)
[2019-12-12] MEDS: NICOTINE 14 MG/24 HR PATCH TD SCH (08:51)
[2019-12-12] MEDS: cloNIDine HCL 0.1 MG TAB PO SCH ×2 (08:51→20:58)
[2019-12-12] MEDS: FERROUS SULFATE 325 MG TAB PO SCH (08:52)
[2019-12-12] MEDS: allopurinoL 100 MG TAB PO SCH (08:52)
[2019-12-12] MEDS: METOPROLOL TARTRATE 50 MG TAB PO SCH ×2 (08:52→20:59)
[2019-12-12] MEDS: ASPIRIN 81 MG ECTAB PO SCH (08:52)
[2019-12-12] MEDS ORDERED: metOLazone 5 MG TABLET PO SCH (09:00)
[2019-12-12] MEDS ORDERED: LORazepam 0.5 MG TAB PO ONE (09:59)
--- NOTE | 2019-12-12 11:20 | Communication Note ---
Date of Service: December 12, 2019 I saw Mrs. Coyle today reviewed her imaging studies and laboratory studies and have dictated full consultation note which will be delayed due to the need for test cell technician. 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 I cannot exclude however a ventral midbrain infarction or Duarte's syndrome as she does have an incomplete left lateral rectus and a mild right hemiparesis. I suspect however the right hemiparesis is old and reflects the effects of the old left basal ganglia infarction seen on CT scan. The deep right frontal centrum semiovale infarction is pretty much asymptomatic other than the fact that might be producing some of her dysarthria which is chronic and of which she is unaware She does have 80 to 90% bilateral internal carotid artery stenoses and vertebral artery disease so cerebral perfusion pressure is probably very tenuous at this point and hypotension should be avoided and blood pressure perhaps should be maintained little higher than the ideal range perhaps with systolics in the 150 diastolics at least 90 I believe these stenoses are currently asymptomatic but could have produced the centrum semiovale infarction in the past and could have contributed leads to the basal ganglia infarction so she does have bilateral middle cerebral artery distribution infarctions of indeterminate age. Because of this I think she really should have a vascular surgical opinion rendered although I am not sure it needs to be done acutely on a holiday weekend She does need imaging studies to exclude the brainstem infarction that I doubt we will find and I would not change her anticoagulation pattern at this point. She does need to see ophthalmology on an outpatient basis and perhaps a vascular surgery consultation could be obtained on an outpatient basis as well If she does have an acute infarction however we may need to observe her for a day or 2 and in that setting perhaps vascular surgery can render a consultation of the MRI is negative and she is asymptomatic except for the diplopia I think she probably could be discharged with outpatient management as described above Neurology could of course look at her again in about 4 to 6 weeks Ebenezer Huynh MD
--- NOTE | 2019-12-12 12:26 | Consultation Report ---
DATE OF CONSULTATION: 12/12/[address] Suárez. HISTORY OF PRESENT ILLNESS: The patient is an 79 years old and is a known patient of Dr. Shultz of [facility]. She has a past history of chronic iron deficiency anemia, hypokalemia, hyponatremia, severe aortic stenosis, history of remote cerebrovascular accident involving the deep portions of her left and right hemispheres without recalled symptoms on her part, she has chronic atrial fibrillation, gastroesophageal reflux, dyslipidemia, hypertension, stage III renal disease, and has a history of pneumonia and an elevated troponin in the past. In this setting, she presented to the Emergency Room with a 4-day history of diplopia, which according to the history I can obtain from her (she is very hearing impaired and no family members are present today), she awakened in the morning with a feeling that her vision in the left eye was somehow altered and thought she had developed a "cataract" overnight. It then became clear to her that she had double vision and it seemingly was worse on gaze to the left and worse at a distance. This was coupled by some vague sensation of disequilibrium when she tried to raise her head, but no overt ataxia, no sensory loss, no change in speech or swallowing, no change in her chronic severe sensorineural hearing loss and no real development of ataxia or falling. She does use a cane for ambulation, probably should use a walker, but in her home, she simply careens from one furniture object to another and seems to get around. There have been no real change in her medications. She has had no recent fevers, sweats, chills, weight loss, weight gain, new cardiovascular problems, new pulmonary problems, new gastroenterology issues, new arthritic complaints and neurologically she has a chronic low-grade gait disturbance, probably some mild dysarthric speech that she is unaware of and despite the location of the infarcts, does not talk about much in the way of a hemiparesis. MEDICATION: List is as per the EMR and includes at home Xarelto and baby aspirin, allopurinol, atorvastatin, clonidine, clotrimazole, diltiazem, ferrous sulfate, flaxseed oil, folic acid, metolazone, metoprolol, nystatin, pantoprazole, spironolactone, triamcinolone, magnesium oxide, Floranex, benzocaine, guaifenesin. ALLERGIES: He has allergies to no known agents. PAST SURGICAL HISTORY: Reveals no clear recent procedures. She does not have a pacemaker on board. She is known to have bilateral internal carotid artery stenoses, last evaluated in 2010. Laboratory studies which have been done of importance to her current complaints include imaging studies of the brain limited to CAT scan showing only the old areas of infarction in the right frontal subcortical white matter and the left deep basal ganglia with some generalized atrophy and leukoencephalopathy. An intracranial CT angiogram shows some minor atheromatous changes, but the cervical CTA shows bilateral severe 80%-90% internal carotid artery stenosis at the origins and significant vertebrobasilar arterial stenoses as per the reports. Images and reports were reviewed and have been described in detail. REVIEW OF SYSTEMS: Basically is included above and includes no recent significant systemic issues, only the lateral gaze diplopia to the left which is a 4 days' duration, chronic sensorineural hearing loss, no other visual disturbances, no problems with speech or swallowing and no new cardiovascular, pulmonary, gastrointestinal, genitourinary, musculoskeletal, dermatologic or hematologic issues. PHYSICAL EXAMINATION: VITAL SIGNS: Recorded last night revealed blood pressure 135/74 with an initial blood pressure 183/72, pulse was 54 and slightly irregular, temperature was 37. HEAD, EYES, EARS, NOSE AND THROAT: Unremarkable. Dr. Baker thought that she had some minor abnormal ocular oscillations and slow movements of the left eye. Dentition and mucosa were unremarkable. There were no audible carotid bruits. HEART: Rate with bradykinetic and slightly irregular and there was a soft systolic murmur. ABDOMEN: Described as unremarkable. There was no organomegaly. EXTREMITIES: Mildly edematous with slightly reduced peripheral pulses, but no cyanosis. NEUROLOGIC: Today, she is awake, alert and oriented, but very hearing impaired and many questions had to be repeated at increasing volumes for her to comprehend and then she was able to follow commands. Her visual acuity at a distance was grossly about 20-30 and asymmetric. I did not notice any relative afferent pupillary defect. The ocular fundi were poorly seen. I thought she had mild incomplete left lateral rectus paresis. She certainly could not abduct the left eye fully whereas the right eye was easily placed on full abduction. I did not notice any nystagmoid jerks. Upward gaze seemed to be fine. Downward gaze was normal and conjugate. She certainly had wider diplopia at a distance than she did at near. There were no other abnormal findings in the cranial nerves including a lack of facial asymmetry say for perhaps a very subtle right upper motor neuron facial paresis and some slight dysarthria of her speech. Sensory examination of the face was normal. Palate moved in the midline. Lingual movements were normal. Neck was supple. I did not notice any neck flexor weakness. Gait was tested in a limited fashion. She did not have an assistive device, but she had no cerebellar dysmetria on [id number], [id number] testing. She could stand, move slowly away from the bed, but I did not let her move that far. Reflexes were absent in the lower extremities except for the knees which were trace at most and were normal in the upper extremities. Toes were downgoing. No Avani signs were seen. Muscle strength testing was normal and sensory examination according to the patient was intact, although there probably was a little reduction in vibratory sense distally consistent with her age. Proprioception was intact. 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 One has to be certain; however, that there is not a CVA involving the brain stem. This woman has some mild dysarthria, has a slight right-sided weakness syndrome that I think are old, but a new event in the region of the cerebral peduncle on the left could produce a similar problem. This symptom complex is known as a Duarte's syndrome, but I really doubt that this is the case. I have recommended an MRI be done with and without contrast if possible. I think she should have a Vascular-Surgical evaluation while here in the hospital. If this is not possible, this should be done on an outpatient basis to address the high-grade, currently minimally symptomatic internal carotid artery stenoses. I will check back on her MRI this afternoon, but frankly if there is no infarction and no other issues emerge and Vascular Surgery is off for the holiday weekend, then I think we can probably have her discharge to home care on her current anticoagulation profile and program and have a Vascular Surgery consultation on an outpatient basis. Neurology will see her in four to six weeks and follow up on the antiacetylcnoline receptor antibody MTDD
[2019-12-12] MEDS ORDERED: GADOBUTROL 65ML VIAL IV PRN (12:47)
--- NOTE | 2019-12-12 13:13 | Magnetic Resonance Report ---
Brain MRI WITH AND WITHOUT CONTRAST HISTORY: Dizziness. TECHNIQUE: Multiplanar multisequence MRI of the brain was performed both before and after the intrave nous administration of contrast. COMPARISON STUDY: Head CT 12/11/2019. Brain MRI 05/01/2011. FINDINGS: There is no mass, hematoma, midline shift, or acute infarct. The paranasal sinuses are kenzie r. Trace left mastoid effusion. The ventricles and sulci demonstrate mild age-related involutional ch anges. Moderate periventricular white matter T2 hyperintensity is nonspecific but favors microvascula r ischemic change. Old bilateral basal ganglia lacunar infarcts are again noted. The major vascular flow voids at the skull base are well-maintained. No abnormal enhancement. IMPRESSION: 1. No acute intracranial abnormality. 2. T2 hyperintensity seen within the periventricular and subcortical white matter is nonspecific but favors moderate microvascular ischemic change. 3. Old lacunar infarcts seen within the bilateral basal ganglia. 4. Trace left mastoid effusion. ACT 112: Negative or not required by law. Electronically signed by: Maco Sanchez M.D. 12/12/2019 1:11 PM
--- NOTE | 2019-12-12 14:43 | Nephrology Consultation ---
Date of Consultation December 12, 2019 Assessment & Plan (1) Hyponatremia: Patient with hyponatremia since August 2019. urine SG was 1.017 and serum osmolarity was 269. 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 She is also on metolazone, aldactone and HCTz. All these meds can cause hyponatremia. -Recommend stopping metolazone, aldactone and HCTz. -Start torsemide 40mg daily -Start potassium chloride 40meq daily -Monitor Na daily (2) Hypokalemia: Due to diuretics. will start kcl po 40meq daily (3) CKD (chronic kidney disease), stage III: Due to vascular disease. She has had renal stenting in the past. Baseline cr 1.2. -Avoid contrast during imaging studies. -Daily BMP (4) HTN (hypertension): BP is controlled on clonidine and metoprolol History of Present Illness Reason for Consultation: Hyponatremia Requesting Physician: Jama Suárez MD Attending Physician: Jama Suárez MD History of Present Illness This is 79yoF with PMH of CKD stage 3 baseline cr of 1.2, chronic hyponatremia with Na in the 130's since August 2019, severe , carotid stenosis, HTN and CVA in 2016 who was admitted on 12/10 with diplopia. She is being evaluated for CVA. She was also found to have Na of 126 and this morning it is up to 132. She takes metolazone 5mg daily, HCTz 25mg and aldactone 25mg daily. She does not know her meds well. Daughter takes care of her meds. She cant quantify amount of water intake. today still c/o diplopia. Legs are not swollen. She wears compression stockings at home. cr was 1.3 now at 1.1 after holding her diuretics. Allergies Allergy/AdvReac Type Severity Reaction Status Date / Time No Known Allergies Allergy Verified 12/11/19 16:16 Home Medications Home Medications Medication Instructions Recorded Confirmed Type Centrum Silver 1 tab PO DAILY 08/05/19 12/11/19 History Xarelto 15 mg PO QDD 08/05/19 12/11/19 History allopurinol 200 mg PO DAILY 08/05/19 12/11/19 History aspirin [Aspir-81] 81 mg PO QAM 08/05/19 12/11/19 History atorvastatin 10 mg PO HS 08/05/19 12/11/19 History clonidine HCl 0.1 mg PO BID 08/05/19 12/11/19 History clotrimazole 1 applic TOPICAL BID PRN 08/05/19 12/11/19 History diltiazem HCl [DILT-XR] 180 mg PO DAILY 08/05/19 12/11/19 History ferrous sulfate 65 mg PO QAM 08/05/19 12/11/19 History flaxseed oil 1,000 mg PO QDD 08/05/19 12/11/19 History folic acid 0.4 mg PO QDD 08/05/19 12/11/19 History metolazone 5 mg PO DAILY 08/05/19 12/11/19 History metoprolol tartrate 50 mg PO BID 08/05/19 12/11/19 History nystatin [Nystop] 1 applic TOPICAL TID PRN 08/05/19 12/11/19 History pantoprazole 40 mg PO DAILYBB 08/05/19 12/11/19 History spironolacton-hydrochlorothiaz 1 tab PO BID 08/05/19 12/11/19 History triamcinolone acetonide 1 applic TOPICAL BID PRN 08/05/19 12/11/19 History magnesium oxide 400 mg PO DAILY #5 cap 08/11/19 12/11/19 Rx Lactobacillus acidoph-L.bulgar 4 tab PO TID 12/11/19 12/11/19 History [Floranex] benzocaine 20 % MUCOUS MEMBRANE DIRECTED 12/11/19 12/11/19 History PRN guaifenesin [Mucinex] 600 mg PO Q12H PRN 12/11/19 12/11/19 History Patient History Social History Preferred Language: Slovenian Communication Ability: Effective Nutrition Partner Required: No Beliefs That Will Affect Care: None marital status: / Current Living Situation: Family Current Living Situation Comment: lives with son Feels Safe at Home: Yes Smoking Status: Former smoker Tobacco Type: cigarettes ; Cigarettes Per Day: 1- 2 (10 in a week) ; Second Hand Exposure: No ; Hx Alcohol Use: No Hx Substance Use: No Review of Systems Review of Systems: All systems reviewed & are unremarkable except as noted in HPI & below Physical Exam Physical Exam: General exam: Appears comfortable, no acute distress HEENT: Pupils are equal and reactive to light Neck: No JVD, neck is supple trachea is midline Respiratory system: Clear breath sounds bilaterally. Gastrointestinal: Abdomen is soft, non distended, non tender, bowel sounds are present CVS: Regular rate and rhythm. No murmurs, rubs or gallops Musculoskeletal: No joint or muscle tenderness Extremities: Non tender, no edema, peripheral pulses are present Neuro: Oriented, no tremors, no focal neurological deficits Skin: No rashes Results & Data Vital Signs (Past 12 Hours) Vital Signs Temp Pulse Pulse Resp BP Pulse Ox 12/12/19 11:47 36.8 C 64 18 124/70 97 12/12/19 07:31 36.4 C L 63 17 133/61 98 12/12/19 04:40 63 12/12/19 03:37 36.7 C 63 18 131/71 97 Laboratory Results 12/12/19 05:30 12/11/19 12/11/19 12/12/19 15:55 15:55 05:30 WBC 8.88 6.46 RBC 3.71 L 3.20 L MCV 97.6 99.1 MCH 33.2 32.8 MCHC 34.0 33.1 RDW Std Deviation 49.1 H 50.5 H RDW Coeff of Alejandrina 13.9 14.1 Plt Count 393 332 MPV 10.1 10.1 Albumin 3.7 12/12/19 05:30 WBC RBC MCV MCH MCHC RDW Std Deviation RDW Coeff of Alejandrina Plt Count MPV Albumin 3.1 L
[2019-12-12] MEDS: POTASSIUM CHLORIDE PWD 20 MEQ PACK PO SCH (15:44)
[2019-12-12] MEDS: RIVAROXABAN 15 MG TAB PO SCH (15:44)
[2019-12-12] MEDS: FOLIC ACID 400 MCG TAB PO SCH (15:44)
--- NOTE | 2019-12-12 16:50 | Hospitalist Progress Note ---
Date of Service December 12, 2019 Assessment & Plan (1) Dysconjugate gaze: Left lateral rectus palsy H/O CVA -MRI Brain:No acute intracranial abnormality. T2 hyperintensity seen within the periventricular and subcortical white matter is nonspecific but favors moderate microvascular ischemic change. Old lacunar infarcts seen within the bilateral basal ganglia. Trace left mastoid effusion. -Neck CTA: Severe stenosis of the proximal bilateral internal carotid arteries. Approximate 80-90% stenosis bilaterally. This has mildly progressed since CTA of May 02, 2011. 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 -Head CTA:Moderate atherosclerotic plaque within the intracranial vessels. No intraluminal thrombus or abrupt vessel cut off. -ECHO: Normal LV chamber size with moderate concentric LVH, sigmoid appearing septum. EF 65 to 70%. No segmental left ventricular wall motion abnormality. Mildly reduced RV systolic function. Grade 3 diastolic dysfunction consistent with restrictive physiology. Aortic valve sclerosis moderate, without significant aortic valvular stenosis. Mild aortic regurgitation. Moderate mitral regurgitation. Moderate to severe tricuspid regurgitation. Severe left atrial enlargement. Pulmonary hypertension is present with PA systolic pressure 39 mmHg assuming a right atrial pressure of 3 mmHg. Will get antiacetylcholine receptor antibody to r/o Myasthenia Continue Aspirin, statin Also on Xarelto for chronic atrial fibrillation Lipid panel within normal limits HbA1c 5.3 Appreciate Neurology Input Advised Eye patch: Cover 1 eye for a day and then the other until seen by offender employment specialist Needs follow up with Ophthalmology and vascular surgery as outpatient Needs follow up with Neurology in 4-6 weeks PT/OT Eval Fall precautions Acute on Chronic hyponatremia Likely SIADH Diuretics could be contributing as well Metaxalone, Aldactone, hydrochlorothiazide discontinued Started on torsemide 20 mg daily Continue potassium chloride 40 mg daily Monitor sodium levels Appreciate nephrology input CKD III H/O renal artery stent Baseline creatinine 1.2 Monitor renal function Peripheral artery disease Continue aspirin, statin Needs follow-up with vascular surgery as outpatient Patient prefers no surgical intervention currently. 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 Review of Systems Review of Systems: All systems reviewed & are unremarkable except as noted in HPI & below Physical Exam Physical Exam: Physical Exam: Vitals signs as noted above General Appearance:Moderately built and nourished, no apparent distress, +Hearing impairment Head: normocephalic, Atraumatic Eyes: normal inspection, + Diplopia, Left lateral rectus paresis Neck: supple, Trachea midline Respiratory/Chest: Decreased breath sounds, CTA, No accessory muscle use Cardiovascular: S1, S2, +systolic murmur Abdomen/GI:Soft, Non tender, Bowel sounds present Extremities/Musculoskelatal:normal inspection, Trace edema Neurologic/Psych:AAOX3, grossly no focal neurological deficits other than + Diplopia, Left lateral rectus paresis Skin: normal color, warm Results & Data Results & Data ([facility]) Vital Signs (Past 12 Hours) Vital Signs Temp Pulse Pulse Resp BP BP Pulse Ox 12/12/19 15:09 36.6 C 53 L 17 126/54 L 96 12/12/19 11:47 36.8 C 64 18 124/70 97 12/12/19 07:31 36.4 C L 63 17 133/61 98 12/12/19 04:40 63 Laboratory Results Short CBC 12/12/19 Range/Units 05:30 WBC 6.46 (4.8-10.8) K/uL Hgb 10.5 L (12.0-16.0) g/dL Hct 31.7 L (37-47) % Plt Count 332 (130-400) K/uL BMP 12/12/19 05:30 Sodium 132 L Potassium 3.5 Chloride 96 L Carbon Dioxide 31 BUN 19 H Creatinine 1.12 Glucose 94 Calcium 9.0 Cardiac Enzymes 12/11/19 12/11/19 Range/Units 15:55 15:55 Troponin I < 0.015 Cancelled (0-0.045) ng/ml Liver Function 12/12/19 Range/Units 05:30 Total Bilirubin 0.3 (0.2-1) mg/dl AST 18 (15-37) U/L ALT 22 (12-78) U/L Alkaline Phosphatase 85 (45-117) U/L Albumin 3.1 L (3.4-5.0) gm/dl Urine 12/11/19 Range/Units 17:30 Urine Color Yellow Urine Appearance Turbid A (Clear) Urine pH 7.5 (4.5-7.5) Ur Specific [place] 1.017 (1.000-1.030) Urine Protein 1+ H (Negative) Urine Glucose (UA) Negative (Negative)
[2019-12-12] MEDS: ATORVASTATIN 10 MG TAB PO SCH (20:59)
[2019-12-13] MEDS: PANTOprazole 40 MG TAB PO SCH (05:27)
[2019-12-13 07:14] LABS: Hematocrit (blood only) 33.7 % (37-47); Mean Corpuscular Hemoglobin 32.3 pg (25-34); Mean Corpuscular Hgb Conc 32.6 g/dL (32-36); Mean Corpuscular Volume 98.8 fL (80-100); Mean Platelet Volume 9.9 fL (7.4-10.4); Platelet Count 318 K/uL (130-400); RDW Coefficient of Variation 13.9 % (11.5-14.5); RDW Standard Deviation 49.5 fL (36.4-46.3); Red Blood Count 3.41 M/uL (4.2-5.4); White Blood Count 6.27 K/uL (4.8-10.8)
[2019-12-13 07:49] LABS: BUN Creatinine Ratio 13.4 (10-20); Calcium 9.4 mg/dl (8.5-10.1); Creatinine Clr Calc Pharmacy 39.5 ml/min; Est GFR (African American) 51.7; Est GFR (Non-African American) 44.6; Magnesium 1.6 mg/dl (1.8-2.4); Potassium 4.1 mmol/L (3.5-5.1)
[2019-12-13] MEDS ORDERED: MAGNESIUM SULFATE / D5W 1 GM/100 ML BAG IV ONE (08:30)
[2019-12-13] MEDS: METOPROLOL TARTRATE 50 MG TAB PO SCH ×2 (08:39→20:07)
[2019-12-13] MEDS: POTASSIUM CHLORIDE PWD 20 MEQ PACK PO SCH (08:39)
[2019-12-13] MEDS: FERROUS SULFATE 325 MG TAB PO SCH (08:39)
[2019-12-13] MEDS: allopurinoL 100 MG TAB PO SCH (08:39)
[2019-12-13] MEDS: ASPIRIN 81 MG ECTAB PO SCH (08:39)
[2019-12-13] MEDS: TORSEMIDE 20 MG TAB PO SCH (08:39)
[2019-12-13] MEDS: NICOTINE 14 MG/24 HR PATCH TD SCH (08:40)
[2019-12-13] MEDS: cloNIDine HCL 0.1 MG TAB PO SCH ×2 (09:45→20:08)
[2019-12-13] MEDS: UREA (URE-NA) 15 GM PACK PO SCH ×2 (09:45→20:07)
--- NOTE | 2019-12-13 09:56 | Nephrology Progress Note ---
Date of Service December 13, 2019 Assessment & Plan (1) Hyponatremia: Patient with hyponatremia since August 2019. urine SG was 1.017 and serum osmolarity was 269. 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 She is also on metolazone, aldactone and HCTz. All these meds can cause hyponatremia. -Recommend stopping metolazone, aldactone and HCTz. -Continue torsemide 20 mg daily -Start urea 15 g twice daily -Continue potassium chloride 40meq daily -Monitor Na daily -Fluid restriction 1.2 L daily. (2) Hypokalemia: Due to diuretics. will continue potassium chloride po 40meq daily (3) CKD (chronic kidney disease), stage III: Due to vascular disease. She has had renal stenting in the past. Baseline cr 1.2. -Avoid contrast during imaging studies. -Daily BMP (4) HTN (hypertension): BP is controlled on clonidine and metoprolol Admission and Anticipated Discharge Date Admission Date: December 12, 2019 Subjective Patient feels about the same. She is eager to be discharged. Sodium downtrending today at 129. She still has double vision. Spoke to her son on phone as well. Review of Systems Review of Systems: All systems reviewed & are unremarkable except as noted in HPI & below Physical Exam Physical Exam: General exam: Appears comfortable, no acute distress HEENT: Pupils are equal and reactive to light Neck: No JVD, neck is supple trachea is midline Respiratory system: Clear breath sounds bilaterally. Gastrointestinal: Abdomen is soft, non distended, non tender, bowel sounds are present CVS: Regular rate and rhythm. No murmurs, rubs or gallops Musculoskeletal: No joint or muscle tenderness Extremities: Non tender, no edema, peripheral pulses are present Neuro: Oriented, no tremors, has diplopia Skin: No rashes has Results & Data ([facility]) Vital Signs (Past 12 Hours) Vital Signs Temp Pulse Resp BP Pulse Ox 12/13/19 08:36 36.5 C 73 16 149/86 H 97 12/13/19 03:49 36.6 C 73 20 171/70 H 97 12/12/19 23:35 36.6 C 66 18 124/61 97 Laboratory Results 12/13/19 06:41 12/13/19 06:41 WBC 6.27 RBC 3.41 L MCV 98.8 MCH 32.3 MCHC 32.6 RDW Std Deviation 49.5 H RDW Coeff of Alejandrina 13.9 Plt Count 318 MPV 9.9
[2019-12-13] MEDS: RIVAROXABAN 15 MG TAB PO SCH (16:16)
[2019-12-13] MEDS: FOLIC ACID 400 MCG TAB PO SCH (16:16)
--- NOTE | 2019-12-13 16:20 | Hospitalist Progress Note ---
Date of Service December 13, 2019 Assessment & Plan (1) Dysconjugate gaze: Left lateral rectus palsy H/O CVA -MRI Brain:No acute intracranial abnormality. T2 hyperintensity seen within the periventricular and subcortical white matter is nonspecific but favors moderate microvascular ischemic change. Old lacunar infarcts seen within the bilateral basal ganglia. Trace left mastoid effusion. -Neck CTA: Severe stenosis of the proximal bilateral internal carotid arteries. Approximate 80-90% stenosis bilaterally. This has mildly progressed since CTA of May 02, 2011. 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 -Head CTA:Moderate atherosclerotic plaque within the intracranial vessels. No intraluminal thrombus or abrupt vessel cut off. -ECHO: Normal LV chamber size with moderate concentric LVH, sigmoid appearing septum. EF 65 to 70%. No segmental left ventricular wall motion abnormality. Mildly reduced RV systolic function. Grade 3 diastolic dysfunction consistent with restrictive physiology. Aortic valve sclerosis moderate, without significant aortic valvular stenosis. Mild aortic regurgitation. Moderate mitral regurgitation. Moderate to severe tricuspid regurgitation. Severe left atrial enlargement. Pulmonary hypertension is present with PA systolic pressure 39 mmHg assuming a right atrial pressure of 3 mmHg. Antiacetylcholine receptor antibody:pending Continue Aspirin, statin Also on Xarelto for chronic atrial fibrillation Lipid panel within normal limits HbA1c 5.3 Appreciate Neurology Input Advised Eye patch: Cover 1 eye for a day and then the other until seen by director systems Needs follow up with Ophthalmology and vascular surgery as outpatient Needs follow up with Neurology in 4-6 weeks PT/OT Eval Fall precautions Acute on Chronic hyponatremia Likely SIADH Diuretics could be contributing as well Metaxalone, Aldactone, hydrochlorothiazide discontinued Continue Torsemide 20 mg daily Continue potassium chloride 40 mg daily Monitor sodium levels:129 Appreciate nephrology input Started on Urea 15mg BID Fluid restriction:1.2 L /day Possible UTI Urine Cx:pending Asymptomatic Started on Rocephin CKD III H/O renal artery stent Baseline creatinine 1.2 Monitor renal function Peripheral artery disease Continue aspirin, statin Needs follow-up with vascular surgery as outpatient Patient prefers no surgical intervention currently. 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 Code Status Full Code Disposition Likely discharge home when medically stable Admission and Anticipated Discharge Date Admission Date: December 12, 2019 Subjective Patient is seen and examined at bedside Eager to get discharged Continues to have double vision No new focal weakness Patient's son at bedside Sodium levels dropped to 129 Discussed with nephrology today Offers no other complaints Denies any chest pain, shortness of breath, dizziness, nausea, abdominal pain Review of Systems Review of Systems: All systems reviewed & are unremarkable except as noted in HPI & below Physical Exam Physical Exam: Physical Exam: Vitals signs as noted above General Appearance:Moderately built and nourished, no apparent distress, +Hearing impairment Head: normocephalic, Atraumatic Eyes: normal inspection, + Diplopia, Left lateral rectus paresis Neck: supple, Trachea midline Respiratory/Chest: Decreased breath sounds, CTA, No accessory muscle use Cardiovascular: S1, S2, +systolic murmur Abdomen/GI:Soft, Non tender, Bowel sounds present Extremities/Musculoskelatal:normal inspection, Trace edema Neurologic/Psych:AAOX3, grossly no focal neurological deficits other than + Diplopia, Left lateral rectus paresis Skin: normal color, warm Results & Data Results & Data ([facility]) Vital Signs (Past 12 Hours) Vital Signs Temp Pulse Pulse Resp BP Pulse Ox 12/13/19 15:49 55 L 12/13/19 15:00 36.3 C L 60 18 122/67 99 12/13/19 11:00 36.7 C 57 L 18 101/49 L 96 12/13/19 08:36 36.5 C 73 16 149/86 H 97 12/13/19 07:00 67 Laboratory Results Short CBC 12/13/19 Range/Units 06:41 WBC 6.27 (4.8-10.8) K/uL Hgb 11.0 L (12.0-16.0) g/dL Hct 33.7 L (37-47) % Plt Count 318 (130-400) K/uL BMP 12/13/19 06:41 Sodium 129 L Potassium 4.1 D Chloride 94 L Carbon Dioxide 30 BUN 15 Creatinine 1.15 Glucose 96 Calcium 9.4
[2019-12-13] MEDS ORDERED: cefTRIAXone SODIUM 2,000 MG in DEXTROSE 5% 50 ML IV SCH (16:30)
[2019-12-13] MEDS: ATORVASTATIN 10 MG TAB PO SCH (20:08)
[2019-12-14] MEDS: PANTOprazole 40 MG TAB PO SCH (05:34)
[2019-12-14 08:09] LABS: BUN Creatinine Ratio 35.9 (10-20); Calcium 9.7 mg/dl (8.5-10.1); Est GFR (African American) 37.5; Est GFR (Non-African American) 32.3; Magnesium 1.9 mg/dl (1.8-2.4); Potassium 3.1 mmol/L (3.5-5.1)
[2019-12-14] MEDS: NICOTINE 14 MG/24 HR PATCH TD SCH (08:24)
[2019-12-14] MEDS: POTASSIUM CHLORIDE PWD 20 MEQ PACK PO SCH (08:29)
[2019-12-14] MEDS: UREA (URE-NA) 15 GM PACK PO SCH ×2 (08:29→20:47)
[2019-12-14] MEDS: FERROUS SULFATE 325 MG TAB PO SCH (08:32)
[2019-12-14] MEDS: TORSEMIDE 20 MG TAB PO SCH (08:32)
[2019-12-14] MEDS: ASPIRIN 81 MG ECTAB PO SCH (08:32)
[2019-12-14] MEDS: cloNIDine HCL 0.1 MG TAB PO SCH ×2 (08:32→20:47)
[2019-12-14] MEDS: allopurinoL 100 MG TAB PO SCH (08:32)
[2019-12-14] MEDS: METOPROLOL TARTRATE 50 MG TAB PO SCH ×2 (08:33→20:47)
[2019-12-14] MEDS ORDERED: POTASSIUM CHLORIDE 20 MEQ/15 ML UDC PO STA (08:54)
--- NOTE | 2019-12-14 10:03 | Nephrology Progress Note ---
Date of Service December 14, 2019 Assessment & Plan (1) Hyponatremia: Patient with hyponatremia since August 2019. urine SG was 1.017 and serum osmolarity was 269. 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 She is also on metolazone, aldactone and HCTz. All these meds can cause hyponatremia. -Recommend stopping metolazone, aldactone and HCTz. -Stop torsemide. -Continue urea 15 g twice daily -Continue potassium chloride 40meq daily -Monitor Na daily -Fluid restriction 1.2 L daily. (2) Hypokalemia: Due to diuretics. will continue potassium chloride po 40meq daily will give additional 40 mEq and repeat BMP at 2 PM (3) CKD (chronic kidney disease), stage III: Due to vascular disease. She has had renal stenting in the past. Baseline cr 1.2. Creatinine now up to 1.5 likely due to diuresis although it appears fairly stable since admission. No accurate input output. We will stop her torsemide. -Avoid contrast during imaging studies. -Daily BMP (4) HTN (hypertension): BP is controlled on clonidine and metoprolol Admission and Anticipated Discharge Date Admission Date: December 12, 2019 Subjective Feels fine. Still has diplopia. No shortness of breath or leg swelling. Sodium is stable at 129 but she has hypokalemia this morning. Creatinine uptrending. Review of Systems Review of Systems: All systems reviewed & are unremarkable except as noted in HPI & below Physical Exam Physical Exam: General exam: Appears comfortable, no acute distress HEENT: Pupils are equal and reactive to light Neck: No JVD, neck is supple trachea is midline Respiratory system: Clear breath sounds bilaterally. Gastrointestinal: Abdomen is soft, non distended, non tender, bowel sounds are present CVS: Regular rate and rhythm. No murmurs, rubs or gallops Musculoskeletal: No joint or muscle tenderness Extremities: Non tender, no edema, peripheral pulses are present Neuro: Oriented, no tremors, diplopia Skin: No rashes Results & Data ([facility]) Vital Signs (Past 12 Hours) Vital Signs Temp Pulse Pulse Resp BP Pulse Ox 12/14/19 07:20 59 L 12/14/19 07:06 36.4 C L 64 17 133/57 L 97 12/14/19 03:24 36.3 C L 64 18 109/68 100 12/13/19 23:11 36.6 C 58 L 18 112/54 L 98 12/13/19 22:58 58 L Laboratory Results 12/14/19 07:30
[2019-12-14] MEDS: AMOXICILLIN/CLAVULANATE 500 MG TAB PO SCH ×2 (14:13→20:47)
[2019-12-14 14:26] LABS: BUN Creatinine Ratio 37.3 (10-20); Calcium 9.4 mg/dl (8.5-10.1); Creatinine Clr Calc Pharmacy 22.8 ml/min; Est GFR (African American) 26.8; Est GFR (Non-African American) 23.1; Potassium 3.8 mmol/L (3.5-5.1)
--- NOTE | 2019-12-14 16:36 | Hospitalist Progress Note ---
Date of Service December 14, 2019 Assessment & Plan (1) Dysconjugate gaze: Left lateral rectus palsy H/O CVA -MRI Brain:No acute intracranial abnormality. T2 hyperintensity seen within the periventricular and subcortical white matter is nonspecific but favors moderate microvascular ischemic change. Old lacunar infarcts seen within the bilateral basal ganglia. Trace left mastoid effusion. -Neck CTA: Severe stenosis of the proximal bilateral internal carotid arteries. Approximate 80-90% stenosis bilaterally. This has mildly progressed since CTA of May 02, 2011. 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 -Head CTA:Moderate atherosclerotic plaque within the intracranial vessels. No intraluminal thrombus or abrupt vessel cut off. -ECHO: Normal LV chamber size with moderate concentric LVH, sigmoid appearing septum. EF 65 to 70%. No segmental left ventricular wall motion abnormality. Mildly reduced RV systolic function. Grade 3 diastolic dysfunction consistent with restrictive physiology. Aortic valve sclerosis moderate, without significant aortic valvular stenosis. Mild aortic regurgitation. Moderate mitral regurgitation. Moderate to severe tricuspid regurgitation. Severe left atrial enlargement. Pulmonary hypertension is present with PA systolic pressure 39 mmHg assuming a right atrial pressure of 3 mmHg. Antiacetylcholine receptor antibody:pending Continue Aspirin, statin Also on Xarelto for chronic atrial fibrillation Lipid panel within normal limits HbA1c 5.3 Appreciate Neurology Input Advised Eye patch: Cover 1 eye for a day and then the other until seen by customer service advisor Needs follow up with Ophthalmology and vascular surgery as outpatient Needs follow up with Neurology in 4-6 weeks PT/OT Eval Fall precautions Acute on Chronic hyponatremia Likely SIADH Diuretics could be contributing as well Metaxalone, Aldactone, hydrochlorothiazide discontinued Torsemide held Continue potassium chloride 40 mg daily Monitor sodium levels:129 Appreciate nephrology input Continue Urea 15mg BID Fluid restriction:1.2 L /day Diuretics held secondary to DOUG UTI-POA Urine Cx:Enterococcus faecalis Asymptomatic Continue Antibiotics Acute Kidney Injury on CKD III H/O renal artery stent Likely secondary to diuretics Baseline creatinine 1.2 Monitor renal function Cr: 1.98 Avoid nephrotoxic agents as able Nephrology on board Hypokalemia Hypomagnesemia Secondary to diuretics Replete electrolytes as needed Peripheral artery disease Continue aspirin, statin Needs follow-up with vascular surgery as outpatient Patient prefers no surgical intervention currently. Chronic atrial fibrillation Rate controlled Continue diltiazem, metoprolol On Xarelto for anticoagulation Hypertension Stable Continue home medication Diastolic heart failure Valvular heart disease Resume diuretics as able Monitor volume status Tobacco Use smokes 3 cigarettes a day as per son Nicotine patch [place] [employer] to quit Code Status Full Code Disposition Likely discharge home when medically stable Admission and Anticipated Discharge Date Admission Date: December 12, 2019 Subjective Patient is seen and examined at bedside Reports double vision No new complaints Sodium levels 129 Cr levels trended up Discussed with patient's family today Denies any chest pain, shortness of breath, dizziness, nausea, abdominal pain Review of Systems Review of Systems: All systems reviewed & are unremarkable except as noted in HPI & below Physical Exam Physical Exam: Physical Exam: Vitals signs as noted above General Appearance:Moderately built and nourished, no apparent distress, +Hearing impairment Head: normocephalic, Atraumatic Eyes: normal inspection, + Diplopia, Left lateral rectus paresis Neck: supple, Trachea midline Respiratory/Chest: Decreased breath sounds, CTA, No accessory muscle use Cardiovascular: S1, S2, +systolic murmur Abdomen/GI:Soft, Non tender, Bowel sounds present Extremities/Musculoskelatal:normal inspection, Trace edema Neurologic/Psych:AAOX3, grossly no focal neurological deficits other than + Diplopia, Left lateral rectus paresis Skin: normal color, warm Results & Data Results & Data ([facility]) Vital Signs (Past 12 Hours) Vital Signs Temp Pulse Pulse Resp BP Pulse Ox 12/14/19 07:20 59 L 12/14/19 07:06 36.4 C L 64 17 133/57 L 97 Laboratory Results BMP 12/14/19 12/14/19 07:30 13:49 Sodium 129 L 132 L Potassium 3.1 L D 3.8 D Chloride 89 L 93 L Carbon Dioxide 32 29 BUN 54 H D 74 H Creatinine 1.50 H D 1.98 H D Glucose 106 H 126 H Calcium 9.7 9.4
[2019-12-14] MEDS: RIVAROXABAN 15 MG TAB PO SCH (17:03)
[2019-12-14] MEDS: FOLIC ACID 400 MCG TAB PO SCH (17:03)
[2019-12-14] MEDS: ATORVASTATIN 10 MG TAB PO SCH (20:48)
[2019-12-15] MEDS: PANTOprazole 40 MG TAB PO SCH (05:43)
[2019-12-15 06:26] LABS: BUN Creatinine Ratio 37.3 (10-20); Calcium 9.3 mg/dl (8.5-10.1); Creatinine Clr Calc Pharmacy 26.2 ml/min; Est GFR (African American) 32.2; Est GFR (Non-African American) 27.8; Magnesium 1.9 mg/dl (1.8-2.4)
[2019-12-15] MEDS ORDERED: POTASSIUM CHLORIDE 20 MEQ TABCR PO ONE ×2 (08:28→21:00)
[2019-12-15] MEDS: POTASSIUM CHLORIDE PWD 20 MEQ PACK PO SCH (08:57)
[2019-12-15] MEDS: cloNIDine HCL 0.1 MG TAB PO SCH (08:58)
[2019-12-15] MEDS: ASPIRIN 81 MG ECTAB PO SCH (08:58)
[2019-12-15] MEDS: METOPROLOL TARTRATE 50 MG TAB PO SCH (08:58)
[2019-12-15] MEDS: AMOXICILLIN/CLAVULANATE 500 MG TAB PO SCH (08:58)
[2019-12-15] MEDS: FERROUS SULFATE 325 MG TAB PO SCH (08:58)
[2019-12-15] MEDS: UREA (URE-NA) 15 GM PACK PO SCH (08:59)
[2019-12-15] MEDS: NICOTINE 14 MG/24 HR PATCH TD SCH (08:59)
[2019-12-15] MEDS: allopurinoL 100 MG TAB PO SCH (09:47)
[2019-12-15] MEDS ORDERED: POTASSIUM CHLORIDE 20 MEQ TABCR PO SCH (10:45)
--- NOTE | 2019-12-15 11:37 | Progress Notes ---
DATE: 12/15/2019 SUBJECTIVE: At this time, the patient appears very sad and desperately wants to go home. She denies any acute symptoms. Denies nausea, vomiting, chest pain, shortness of breath. OBJECTIVE: VITAL SIGNS: Blood pressure 126/59, temperature 36.7, 95% on room air. HEENT: Mucous membranes moist. NECK: Supple. No jugular venous distention. CHEST: Bilateral clear to auscultation. CARDIOVASCULAR: S1, S2 regular. ABDOMEN: Soft, nontender. EXTREMITIES: Shows no edema. LABORATORY TESTS: Blood work from this morning shows sodium 135, potassium 3.0, BUN 63, creatinine 1.7, calcium 9.3, magnesium 1.9, hemoglobin 11. ASSESSMENT AND PLAN: Hyponatremia. She has had hyponatremia for the last 3-4 months secondary to combination of syndrome of inappropriate antidiuretic hormone secretion. However, she was also on too many diuretics. I would strongly recommend not to use four different diuretics as this makes the management extremely complicated. She should only be on loop diuretics if needed. In any case, at this time, she does not appear to be in any fluid overload. We will recommend not to use any diuretics at the time of discharge. However, if she starts to get edema, the one and only diuretic she should be on is a loop diuretic and nothing else. Potassium is low and will give another 40 mEq now. At this time, sodium is at acceptable range. The patient is desperately eager to go home. Given that renal function as well as electrolytes are fairly acceptable level, I am okay for discharge.
--- NOTE | 2019-12-15 12:10 | Hospitalist Progress Note ---
Date of Service December 15, 2019 Assessment & Plan (1) Dysconjugate gaze: Left lateral rectus palsy H/O CVA -MRI Brain:No acute intracranial abnormality. T2 hyperintensity seen within the periventricular and subcortical white matter is nonspecific but favors moderate microvascular ischemic change. Old lacunar infarcts seen within the bilateral basal ganglia. Trace left mastoid effusion. -Neck CTA: Severe stenosis of the proximal bilateral internal carotid arteries. Approximate 80-90% stenosis bilaterally. This has mildly progressed since CTA of May 02, 2011. 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 -Head CTA:Moderate atherosclerotic plaque within the intracranial vessels. No intraluminal thrombus or abrupt vessel cut off. -ECHO: Normal LV chamber size with moderate concentric LVH, sigmoid appearing septum. EF 65 to 70%. No segmental left ventricular wall motion abnormality. Mildly reduced RV systolic function. Grade 3 diastolic dysfunction consistent with restrictive physiology. Aortic valve sclerosis moderate, without significant aortic valvular stenosis. Mild aortic regurgitation. Moderate mitral regurgitation. Moderate to severe tricuspid regurgitation. Severe left atrial enlargement. Pulmonary hypertension is present with PA systolic pressure 39 mmHg assuming a right atrial pressure of 3 mmHg. Antiacetylcholine receptor antibody:pending Continue Aspirin, statin Also on Xarelto for chronic atrial fibrillation Lipid panel within normal limits HbA1c 5.3 Appreciate Neurology Input Advised Eye patch: Cover 1 eye for a day and then the other until seen by bridge operator Needs follow up with Ophthalmology and vascular surgery as outpatient Needs follow up with Neurology in 4-6 weeks PT/OT Eval Fall precautions Acute on Chronic hyponatremia Likely SIADH Diuretics could be contributing as well Metolazone, Aldactone, hydrochlorothiazide discontinued Continue potassium chloride 40 mg BID Monitor sodium levels:129>>>135 Appreciate nephrology input Plan to discontinue Urea 15mg BID upon discharge Fluid restriction:1.5 L /day Diuretics to be discontinued upon discharge as well Patient might require to be restarted on torsemide eventually. No diuretics to be used until follow-up with her club waiter/waitress as outpatient. UTI-POA Urine Cx:Enterococcus faecalis Asymptomatic Continue Antibiotics Acute Kidney Injury on CKD III H/O renal artery stent Likely secondary to diuretics Baseline creatinine 1.2 Monitor renal function Cr: 1.98>> 1.7 Avoid nephrotoxic agents as able Nephrology on board Hypokalemia Hypomagnesemia Secondary to diuretics Replete electrolytes as needed Peripheral artery disease Continue aspirin, statin Needs follow-up with vascular surgery as outpatient Patient prefers no surgical intervention currently. 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 Larson today Also updated patient's son Sodium levels improved Still have low potassium levels Denies double vision while wearing eye patch. Denies any chest pain, shortness of breath, dizziness, nausea, abdominal pain Review of Systems Review of Systems: All systems reviewed & are unremarkable except as noted in HPI & below Physical Exam Physical Exam: Physical Exam: Vitals signs as noted above General Appearance:Moderately built and nourished, no apparent distress, +Hearing impairment Head: normocephalic, Atraumatic Eyes: normal inspection, + Diplopia, Left lateral rectus paresis Neck: supple, Trachea midline Respiratory/Chest: Decreased breath sounds, CTA, No accessory muscle use Cardiovascular: S1, S2, +systolic murmur Abdomen/GI:Soft, Non tender, Bowel sounds present Extremities/Musculoskelatal:normal inspection, Trace edema Neurologic/Psych:AAOX3, grossly no focal neurological deficits other than + Diplopia, Left lateral rectus paresis Skin: normal color, warm Results & Data Results & Data ([facility]) Vital Signs (Past 12 Hours) Vital Signs Temp Pulse Pulse Resp BP Pulse Ox 12/15/19 07:50 67 12/15/19 07:00 36.7 C 74 16 126/59 L 95 12/15/19 03:03 36.8 C 81 19 145/79 H 95 Laboratory Results BMP 12/14/19 12/15/19 13:49 05:24 Sodium 132 L 135 L Potassium 3.8 D 3.0 L D Chloride 93 L 94 L Carbon Dioxide 29 34 H BUN 74 H 63 H Creatinine 1.98 H D 1.70 H Glucose 126 H 132 H Calcium 9.4 9.3
--- NOTE | 2019-12-15 12:35 | Discharge Summary ---
Date of Service December 15, 2019 Admission HPI Per Admitting Provider This is 79 year old female who presented to family practice Dr. Shultz with complaints of double vision and also dizziness if lifting her head up and that these symptoms started around 3 to 4 days ago and sent to ED. -son reports that when she was at home, it seemed to him that at times when she gazed eyes towards left size of her head, her right eye appeared to be turn medially to her nose. on my eye exam as hospitalist, the patient had barely noticeable saccadic right eye movements that were more pronounced when looking to the upper right. otherwise, patient did not appear to have other eye movement problems. pupils appear equal and reactive to light. -admission Head CT: No acute intracranial findings. Old right basal ganglia infarct. Suspected old lacunar infarct within the left centrum semiovale. -admission Head CTA: Moderate atherosclerotic plaque within the intracranial vessels. No intraluminal thrombus or abrupt vessel cut off -admission neck CTA: Severe stenosis of the proximal bilateral internal carotid arteries. Approximate 80-90% stenosis bilaterally. This has mildly progressed since CTA of May 02, 2011. 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 -chronic heart murmur as per patient and her son -echocardiogram to check for any atrial septal defects -continue home dose aspirin 81 mg daily, Xarelto 15 mg daily, and atorvastatin 10 mg qhs. check lipid panel and HbA1c -neurology consult for further evaluation -had advised her son Luis to schedule outpatient ophthalmology clinic for further occular evaluation on review of systems: no headache. no dizziness. no nausea. no vomiting. no chills. no fever. no shortness of breath. no chest pain. no palpitations. no recent loss of consciousness. no fevers. no changes in bowel movements. no diarrhea. no dsyuria Primary Care Provider: Rigo Christine MD Admission Exam Per Admitting Provider Physical Exam Constitutional: comfortable Eyes: on my eye exam as hospitalist, the patient had barely noticeable saccadic right eye movements that were more pronounced when looking to the upper right. otherwise, patient did not appear to have other eye movement problems. pupils appear equal and reactive to light. ENMT: external ear and nose normal, oropharynx normal Neck: normal visual inspection Respiratory: normal respiratory effort, lungs clear to auscultation Cardiovascular: Rate/Rhythm: + bradycardic Heart Sounds: + murmur Gastrointestinal (Abdomen): normal bowel sounds, soft, nontender, no hepatosplenomegaly Musculoskeletal: Head/Neck/Chest: normocephalic and head atraumatic Neurologic: CN's II-XI intact bilaterally Psychiatric: Orientation: alert, oriented x 3 and cooperative Principal Diagnosis Left lateral rectus palsy Hyponatremia Hypokalemia Urinary Tract Infection Acute Kidney Injury Discharge Data Allergies Allergy/AdvReac Type Severity Reaction Status Date / Time No Known Allergies Allergy Verified 12/11/19 16:16 Consultations 12/11/19 18:32 ED Decision to Admit Stat 12/11/19 19:09 Consult Neurology Routine 12/12/19 08:59 Consult Nephrology Routine Procedures Performed -MRI Brain:No acute intracranial abnormality. T2 hyperintensity seen within the periventricular and subcortical white matter is nonspecific but favors moderate microvascular ischemic change. Old lacunar infarcts seen within the bilateral basal ganglia. Trace left mastoid effusion. -Neck CTA: Severe stenosis of the proximal bilateral internal carotid arteries. Approximate 80-90% stenosis bilaterally. This has mildly progressed since CTA of May 02, 2011. 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 -Head CTA:Moderate atherosclerotic plaque within the intracranial vessels. No intraluminal thrombus or abrupt vessel cut off. -ECHO: Normal LV chamber size with moderate concentric LVH, sigmoid appearing septum. EF 65 to 70%. No segmental left ventricular wall motion abnormality. Mildly reduced RV systolic function. Grade 3 diastolic dysfunction consistent with restrictive physiology. Aortic valve sclerosis moderate, without significant aortic valvular stenosis. Mild aortic regurgitation. Moderate mitral regurgitation. Moderate to severe tricuspid regurgitation. Severe left atrial enlargement. Pulmonary hypertension is present with PA systolic pressure 39 mmHg assuming a right atrial pressure of 3 mmHg. Ordered Studies 12/11/19 16:02 CT head/brain wo con Stat 12/11/19 16:19 CT angio head w con Stat CT angio neck with con Stat 12/12/19 08:41 MR brain wo/w con Urgent Hospital Course (1) Dysconjugate gaze: Left lateral rectus palsy H/O CVA -MRI Brain:No acute intracranial abnormality. T2 hyperintensity seen within the periventricular and subcortical white matter is nonspecific but favors moderate microvascular ischemic change. Old lacunar infarcts seen within the bilateral basal ganglia. Trace left mastoid effusion. -Neck CTA: Severe stenosis of the proximal bilateral internal carotid arteries. Approximate 80-90% stenosis bilaterally. This has mildly progressed since CTA of May 02, 2011. 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 -Head CTA:Moderate atherosclerotic plaque within the intracranial vessels. No intraluminal thrombus or abrupt vessel cut off. -ECHO: Normal LV chamber size with moderate concentric LVH, sigmoid appearing septum. EF 65 to 70%. No segmental left ventricular wall motion abnormality. Mildly reduced RV systolic function. Grade 3 diastolic dysfunction consistent with restrictive physiology. Aortic valve sclerosis moderate, without significant aortic valvular stenosis. Mild aortic regurgitation. Moderate mitral regurgitation. Moderate to severe tricuspid regurgitation. Severe left atrial enlargement. Pulmonary hypertension is present with PA systolic pressure 39 mmHg assuming a right atrial pressure of 3 mmHg. Antiacetylcholine receptor antibody:pending Continue Aspirin, statin Also on Xarelto for chronic atrial fibrillation Lipid panel within normal limits HbA1c 5.3 Appreciate Neurology Input Advised Eye patch: Cover 1 eye for a day and then the other until seen by top stop attacher Needs follow up with Ophthalmology and vascular surgery as outpatient Needs follow up with Neurology in 4-6 weeks PT/OT Eval Fall precautions Acute on Chronic hyponatremia Likely SIADH Diuretics could be contributing as well Metolazone, Aldactone, hydrochlorothiazide discontinued Continue potassium chloride 40 mg BID Monitor sodium levels:129>>>135 Appreciate nephrology input Plan to discontinue Urea 15mg BID upon discharge Fluid restriction:1.5 L /day Diuretics to be discontinued upon discharge as well Patient might require to be restarted on torsemide eventually. No diuretics to be used until follow-up with her music instructor as outpatient. UTI-POA Urine Cx:Enterococcus faecalis Asymptomatic Continue Antibiotics Acute Kidney Injury on CKD III H/O renal artery stent Likely secondary to diuretics Baseline creatinine 1.2 Monitor renal function Cr: 1.98>> 1.7 Avoid nephrotoxic agents as able Nephrology on board Hypokalemia Hypomagnesemia Secondary to diuretics Replete electrolytes as needed Peripheral artery disease Continue aspirin, statin Needs follow-up with vascular surgery as outpatient Patient prefers no surgical intervention currently. 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 Code Status Full Code Disposition Plan to discharge home today Total Time Total Time Spent Total Time Spent (In Minutes): 40 minutes Total Time Includes: Examination of the Patient, Discharge Planning, Medication Reconciliation, Communication With Other Providers and Other Discharge Plan Discharge Items Patient Disposition: Home - Self-Care Reason For Visit: HYPONATREMIA, DISCONJUGATE GAZ VS RIGHT EYE SACCAD Discharge Diagnosis: Left lateral rectus palsy Hyponatremia Hypokalemia Urinary Tract Infection Acute Kidney Injury Activity: Per Instructions section Exercise/Sports: Wait until after follow-up appointment Non-emergency contact: Primary Care Provider, Chief Innovation Officer, Neurologist and Manager Ship Call non-emergency contact if: you have any medication questions, your symptoms worsen, your pain is not controlled, your pain is worsening, your pain is unusual for you, your pain is concerning for you and you have a fever Follow-up/Referrals: Rigo Christine MD [Primary Care Provider] - 12/23/19 11:00 am (If you need to change this appointment, please call [phone].) Diet: Heart Healthy Fluids: 1500ml (6 cups) Ambulatory Orders: Renal Function Panel (Routine) Timeframe: [id number] Location: Determined by Patient Ordered By: Jama Campos Attending Provider Instructions: Follow up with your Primary Care Physician in 1 week Follow-up with your neurologist Dr. Huynh on Jan 26, 2020 at [facility] office Follow-up with your music instructor Dr. Owens on December 17 at 12:10 PM at [facility] office Follow-up with your top stop attacher in 2 weeks Complete antibiotic course, Augmentin as prescribed for urinary tract infection Your oral fluid intake is restricted to 1.5 L/day as recommended by your music instructor Get blood test--Renal function panel in 3 days and follow-up with your music instructor with results Your blood test: Acetylcholine Receptor antibody is pending at the time of discharge. Follow-up with your physician for results. Seek immediate medical attention if your symptoms reoccur or worsen Pending Studies at Discharge: Yes Studies:: Acetylcholine Receptor antibody Stand-Alone Forms: [employer], Smoking Cessation Medications and DC Order Prescriptions: New amoxicillin-pot clavulanate 500-125 mg Tablet 1 tab PO BIDM Qty: 7 RF: 0 potassium chloride 20 mEq tablet extended release 40 meq PO BID Qty: 10 RF: 0 Continued clonidine HCl 0.1 mg tablet 0.1 mg PO BID RF: 0 atorvastatin 10 mg tablet 10 mg PO HS RF: 0 allopurinol 100 mg tablet 200 mg PO DAILY RF: 0 folic acid 400 mcg Tablet 0.4 mg PO QDD RF: 0 aspirin [Aspir-81] 81 mg Tablet,Delayed Release (Dr/Ec) 81 mg PO QAM RF: 0 triamcinolone acetonide 0.1 % Cream 1 applic TOPICAL BID PRN (Reason: Rash) RF: 0 pantoprazole 40 mg tablet,delayed release (DR/EC) 40 mg PO DAILYBB RF: 0 ferrous sulfate 325 mg (65 mg iron) tablet 65 mg PO QAM RF: 0 metoprolol tartrate 50 mg tablet 50 mg PO BID RF: 0 nystatin [Nystop] 100,000 unit/gram powder 1 applic TOPICAL TID PRN (Reason: Skin Irritation) RF: 0 clotrimazole 1 % cream 1 applic TOPICAL BID PRN (Reason: Skin Irritation) RF: 0 diltiazem HCl [DILT-XR] 180 mg capsule,ext.rel 24h degradable 180 mg PO DAILY RF: 0 Xarelto 15 mg tablet 15 mg PO QDD RF: 0 flaxseed oil 1,000 mg Capsule 1,000 mg PO QDD RF: 0 Centrum Silver 0.4-300-250 mg-mcg-mcg Tablet 1 tab PO DAILY RF: 0 magnesium oxide 400 mg magnesium capsule 400 mg PO DAILY Qty: 5 RF: 0 benzocaine 20 % Gel 20 % MUCOUS MEMBRANE DIRECTED PRN (Reason: MOUTH SORES) RF: 0 Lactobacillus acidoph-L.bulgar [Floranex] 1 million cell Tablet 4 tab PO TID RF: 0 guaifenesin [Mucinex] 600 mg Tablet Extended Release 12hr 600 mg PO Q12H PRN (Reason: Congestion) RF: 0 Discontinued spironolacton-hydrochlorothiaz 25-25 mg tablet 1 tab PO BID RF: 0 metolazone 5 mg tablet 5 mg PO DAILY RF: 0 Discharge Orders: Discharge Order (Routine); Ordered 12/15/19 Ordered By: Jama Suárez Admission Data Admit Date/Time: 12/12/19 15:08 Attending Provider: Jama Suárez Admit Provider: Chuy Baker Primary Care Provider: Rigo Christine Other Providers: Chuy Baker ; Ayanna Lance ; Julianne Del Toro Other Interventions: Discharge Summary Assessment (RN) Last Done: 12/15/19 13:05 DC Date/Time DO NOT enter until pt leaves facility: 12/15/19 13:47
[2019-12-16] MEDS ORDERED: POTASSIUM CHLORIDE 20 MEQ TABCR PO SCH (09:00)
== END 2019-12-15 13:47 | disposition home or self-care (01) | DRG 74 ==
LOC: ED 15:04 → 2N 15:04 → SUATTDRO 19:11 → 2N 19:43

== ENCOUNTER 2021-12-07 14:59 | Inpatient (IN) ==
[2021-12-07] MEDS ORDERED: SODIUM CHLORIDE 0.9% 500 ML IV ONE (15:18)
[2021-12-07 15:41] LABS: Basophils # (auto) 0.02 K/uL (0-0.2); Basophils % (auto) 0.1 %; Eosinophils # (auto) 0.07 K/uL (0-0.5); Eosinophils % (auto) 0.5 %; Hematocrit (blood only) 45.5 % (37-47); Hemoglobin 15.3 g/dL (12.0-16.0); Immature Granulocytes # (auto) 0.05 K/uL (0.00-0.02); Immature Granulocytes % (auto) 0.4 %; Lymphocytes # (auto) 1.22 K/uL (1.2-3.4); Lymphocytes % (auto) 8.7 %; Mean Corpuscular Hemoglobin 33.1 pg (25-34); Mean Corpuscular Hgb Conc 33.6 g/dL (32-36); Mean Corpuscular Volume 98.5 fL (80-100); Mean Platelet Volume 11.1 fL (7.4-10.4); Monocytes % (auto) 7.8 %; Neutrophils # (auto) 11.62 K/uL (1.4-6.5); Neutrophils % (auto) 82.5 %; Platelet Count 333 K/uL (130-400); RDW Coefficient of Variation 13.6 % (11.5-14.5); RDW Standard Deviation 48.7 fL (36.4-46.3); Red Blood Count 4.62 M/uL (4.2-5.4); White Blood Count 14.08 K/uL (4.8-10.8)
[2021-12-07] MEDS ORDERED: methylPREDNISolone 125 MG/2 ML VIAL IV STA (15:42)
[2021-12-07] MEDS ORDERED: ALBUT/IPRATROP 3MG/0.5MG NEB 3 ML VIAL NEB STA ×2 (15:42→16:40)
[2021-12-07 15:58] LABS: Albumin Globulin Ratio 1.4 (0.9-2); Albumin Level 4.4 gm/dl (3.4-5.0); BUN Creatinine Ratio 30.5 (10-20); Bilirubin,Total 0.6 mg/dl (0.2-1.0); Calcium 9.6 mg/dl (8.5-10.1); Creatinine Clr Calc Pharmacy 43.4 ml/min; Est GFR (African American) 64.2 ml/min; Est GFR (Non-African American) 55.4 ml/min; Globulin 3.1 gm/dl (2.5-4.0); Phosphorus 3.5 mg/dl (2.5-4.9); Potassium 4.2 mmol/L (3.5-5.1); Total Protein 7.5 gm/dl (6.0-8.3)
[2021-12-07 16:02] LABS: Troponin I High Sensitivity 22.2 pg/ml (0-14)
--- NOTE | 2021-12-07 16:27 | Electrocardiogram Report ---
Test Reason : Blood Pressure : / mmHG Vent. Rate : 087 BPM Atrial Rate : 093 BPM P-R Int : 000 ms QRS Dur : 080 ms QT Int : 388 ms P-R-T Axes : 000 073 -80 degrees QTc Int : 466 ms Atrial fibrillation Septal infarct , age undetermined Abnormal ECG When compared with ECG of 11-DEC-2019 15:35, T wave inversion now evident in Inferior leads T wave inversion now evident in Lateral leads Confirmed by Abhinav Amaral ([id number]) on 12/07/2021 4:27:00 PM Referred By: Confirmed By:Abhinav Amaral
--- NOTE | 2021-12-07 16:33 | XRay Report ---
XR chest 1V portable HISTORY: 81 years-old Female Chest Pain COMPARISON: 12/11/2019 TECHNIQUE: AP view of the chest FINDINGS: Cardiac silhouette is enlarged. Mitral annular and thoracic aortic calcifications. Pulmonary vascular congestion with mild interstitial coarsening. No pneumothorax. Trace pleural effusions with mild bib asilar densities. Degenerative changes of the shoulders and spine. IMPRESSION: 1. Cardiomegaly with pulmonary vascular congestion. 2. Trace pleural effusions with mild bibasilar opacities. ACT 112: Negative or not required by law. The above report was generated using voice recognition software. It may contain grammatical, syntax o r spelling errors. Electronically signed by: Regan Cui M.D. 12/07/2021 4:32 PM
[2021-12-07] MEDS ORDERED: PIPERACILLIN/TAZOBACTAM 4.5 GM/120 ML BAG IV ONE (16:41)
[2021-12-07] MEDS ORDERED: FUROSEMIDE 40 MG/4 ML VIAL IV ONE (17:49)
[2021-12-07] MEDS: guaiFENesin 600 MG TABCR PO STA ×2 (18:20→18:31)
--- NOTE | 2021-12-07 18:21 | History & Physical Report ---
Date of Service December 07, 2021 Assessment & Plan (1) Acute respiratory failure: (2) Acute on chronic diastolic CHF (congestive heart failure): Plan: Admit to telemetry Patient presenting from home with reports of shortness of breath, cough, wheezing x 4 days In the ED, WBC 14 K, proBNP 1200, negative procalcitonin. Patient also became acutely short of breath and tachypneic and was subsequently placed on BiPAP however no hypoxia has been reported. CXR shows pulmonary vascular congestion and trace pleural effusions Lasix 40 mg IV daily Echo 12/2019-EF 65 to 70%, grade 3 diastolic dysfunction, pulmonary hypertension, moderate mitral regurgitation, moderate to severe tricuspid regurgitation Update echo Due to elevated BP, will add nitro paste [place] placed for strict I's and O's, low Na+ diet, daily weights Cardiology consult Was seen by PCP 2 days ago and placed on Augmentin for suspected bronchitis, will continue given leukocytosis CT chest to further evaluate for possible pneumonia Given patient's lifelong smoking history, suspect underlying COPD s/p IV Solu-Medrol in the ED, continue prednisone 40 mg daily Pulmonary toilet with nebs, incentive spirometer, flutter valve (3) Elevated troponin: Plan: HS trop 22.2 No reports of chest pain, EKG shows new T wave inversions in the inferior lateral leads Trend troponin Resting echo (4) HTN (hypertension): Plan: BP elevated Diuresing and adding nitro paste as above Continue lisinopril, metoprolol, clonidine (5) Chronic atrial fibrillation: Plan: Rate controlled on metoprolol Anticoagulated on Xarelto (6) History of CVA (cerebrovascular accident): Plan: Continue ASA and statin (7) DVT prophylaxis: Plan: On Xarelto History of Present Illness Chief Complaint: Shortness of breath, cough, wheeze Primary Care Provider: Rigo Christine MD 81-year-old female PMH dyslipidemia, chronic atrial fibrillation anticoagulated on Xarelto, HTN, history of CVA, CKD stage III, chronic diastolic CHF, remote history of renal artery stenosis s/p stenting, and other problems listed below who presents to the ED for evaluation of shortness of breath, cough, wheezing. Patient is very hard of hearing, therefore history is obtained from patient son who is the bedside. He reports the patient symptoms began about 4 days ago and have been progressively getting worse. He reports the patient is short of breat h with minimal exertion. Patient was seen at PCPs office 2 days ago and was started on a course of Augmentin. COVID testing was negative at that time. Patient's cough is minimally productive. Shortness of breath, cough, wheezing seem to be worse with lying flat. Patient has some lower extremity edema on exam and son reports " this is normal for this time of year". No chest pain. Denies lightheadedness, dizziness, diaphoresis, syncopal events. No fevers or chills. Denies abdominal pain, nausea, vomiting, diarrhea. No urinary symptoms. In the ED, patient became acutely short of breath and tachypneic and was subsequently placed on BiPAP. No hypoxia is reported. Labs show WBC 14 K,HS troponin 22.2, proBNP 1200. CXR shows pulmonary vascular congestion and trace pleural effusions. Patient was given nebulizer treatment, IV Solu-Medrol, IV Zosyn, IVF. Allergies Allergy/AdvReac Type Severity Reaction Status Date / Time No Known Allergies Allergy Verified 12/07/21 16:03 Home Medications Medication Instructions Recorded Confirmed Type allopurinol 100 mg tablet 200 mg PO DAILY 08/05/19 12/07/21 History atorvastatin 10 mg tablet 10 mg PO HS 08/05/19 12/07/21 History clonidine HCl 0.1 mg tablet 0.1 mg PO BID 08/05/19 12/07/21 History clotrimazole 1 % topical cream 1 applic TOPICAL BID PRN 08/05/19 12/07/21 History diltiazem HCl 180 mg 180 mg PO QAM 08/05/19 12/07/21 History capsule,extended release 24 hr, controlled (DILT-XR) ferrous sulfate 325 mg (65 mg 65 mg PO QAM 08/05/19 12/07/21 History iron) tablet folic acid 400 mcg tablet 400 mcg PO QDD 08/05/19 12/07/21 History metoprolol tartrate 50 mg tablet 50 mg PO BID 08/05/19 12/07/21 History ixauzlxo-ydf-onmyf acid 0.4 1 tab PO DAILY 08/05/19 12/07/21 History mg-lycopene 300 mcg-lutein 250 mcg tablet (Centrum Silver) rivaroxaban 15 mg tablet (Xarelto) 15 mg PO QDD 08/05/19 12/07/21 History magnesium oxide 400 mg PO DAILY #5 cap 08/11/19 12/07/21 Rx lisinopril 2.5 mg tablet 2.5 mg PO QAM 09/20/20 12/07/21 History amoxicillin 875 mg-potassium 1 tab PO BID 12/07/21 12/07/21 History clavulanate 125 mg tablet aspirin 81 mg tablet,delayed 162 mg PO DAILY 12/07/21 12/07/21 History release flaxseed oil 1 ea MISCELLANEOUS QDD 12/07/21 12/07/21 History nystatin 100,000 unit/gram topical 1 applic TOPICAL TID PRN 12/07/21 12/07/21 History powder (Nystop) pantoprazole 20 mg tablet,delayed 20 mg PO QAM 12/07/21 12/07/21 History release triamcinolone acetonide 0.1 % 1 applic TOPICAL BID PRN 12/07/21 12/07/21 History topical cream Past Med/Surg History Medical History A-fib dx 4 yr ago/no hx cardioversion Age related osteoporosis Anticoagulated ASCVD (arteriosclerotic cardiovascular disease) Asthma DENIES Chronic diastolic CHF (congestive heart failure) Chronic iron deficiency anemia NO KNOWN CURRENT PROBLEMS WITH CKD (chronic kidney disease), stage III DENIES Epiglottitis PT SON REPORTS PT HAS TROUBLE SWALLOWING HER PILLS WITHOUT A SIGNIFICANT AMOUNT OF WATER GERD (gastroesophageal reflux disease) GI bleed HX Gout HX History of CVA (cerebrovascular accident) "MINI STROKES" 2016 - AFFECTED SPEECH AT THAT TIME HLD (hyperlipidemia) HTN (hypertension) Renal artery stenosis NARROWING ARTERIES , KIDNEY STENT PLACED IN 2000 Severe aortic stenosis UNKNOWN, NOT REPORTED BY PT SON UPON PAT INTERVIEW Surgical History History of cataract surgery RT History of colonoscopy History of endoscopy History of hysterectomy History of total left knee replacement BLADDER TAC History of total right knee replacement History of urologic surgery STENT PLACED IN KIDNEY 2000 FOR NARROWING OF ARTERIES Family History Mother Hypertension Social History Smoking Status: Current every day smoker Tobacco Type: Cigarettes Cigarettes Per Day: 2-3 CIG; Second Hand Exposure: No; Hx Alcohol Use: Yes Hx Substance Use: No Preferred Language: Spanish Communication Ability: Effective Food Service Clerk Required: No Beliefs That Will Affect Care: None marital status: / Current Living Situation: Family Current Living Situation Comment: lives with son Feels Safe at Home: Yes Assistive Devices: Cane, Denture - Upper, Denture - Lower and Glasses Review of Systems Review of Systems: ROS per HPI, all other systems reviewed and negative Physical Exam Constitutional: WD/WN, vitals as above Eyes: PERRL, conjunctivae normal, anicteric sclerae ENMT: external ear and nose normal, oropharynx normal Ears: + hearing impairment Respiratory: normal respiratory effort; no respiratory distress Auscultation: + diminished lung sounds, + rhonchi (Scattered bilaterally) and + wheezes (Bilateral, expiratory) On BiPAP Cardiovascular: Rate/Rhythm: regular rate and + irregularly irregular Vessels: normal peripheral pulses Extremities: + edema (+1 to +2 edema BLE) Gastrointestinal (Abdomen): normal bowel sounds, soft, nontender, no hepatosplenomegaly Musculoskeletal: no cyanosis or clubbing, extremities motor strength 5/5 Skin: no rashes, warm and dry Neurologic: PERRL, EOMI, accommodation nl, no face palsy, no dysarthria Psychiatric: A+Ox3, euthymic affect Results & Data Results & Data ([facility]) Vital Signs (Past 12 Hours) Vital Signs Temp Pulse Pulse Resp BP BP Pulse Ox 12/07/21 18:00 98 H 22 176/100 H 98 12/07/21 16:59 102 H 20 170/98 H 99 12/07/21 16:45 100 H 103 H 28 H 100 12/07/21 15:50 95 12/07/21 15:09 36.4 C L 86 18 136/70 94 Laboratory Results Short CBC 12/07/21 Range/Units 15:30 WBC 14.08 H (4.8-10.8) K/uL Hgb 15.3 (12.0-16.0) g/dL Hct 45.5 (37-47) % Plt Count 333 (130-400) K/uL BMP 12/07/21 15:30 Sodium 142 Potassium 4.2 Chloride 104 Carbon Dioxide 28 BUN 29 H Creatinine 0.95 Glucose 131 H Calcium 9.6 Liver Function 12/07/21 Range/Units 15:30 Total Bilirubin 0.6 (0.2-1.0) mg/dl AST 24 (13-39) U/L ALT 19 (7-52) U/L Alkaline Phosphatase 95 (34-104) U/L Albumin 4.4 (3.4-5.0) gm/dl Diagnostic Findings Chest X-Ray 12/07/21 15:16 XR chest 1V portable HISTORY: 81 years-old Female Chest Pain COMPARISON: 12/11/2019 TECHNIQUE: AP view of the chest FINDINGS: Cardiac silhouette is enlarged. Mitral annular and thoracic aortic calcifications. Pulmonary vascular congestion with mild interstitial coarsening. No pneumothorax. Trace pleural effusions with mild bibasilar densities. Degenerative changes of the shoulders and spine. IMPRESSION: 1. Cardiomegaly with pulmonary vascular congestion. 2. Trace pleural effusions with mild bibasilar opacities. ACT 112: Negative or not required by law. The above report was generated using voice recognition software. It may contain grammatical, syntax or spelling errors. Electronically signed by: Regan Cui M.D. 12/07/2021 4:32 PM Code Status & VTE Plan Code Status Patient is a full code as per my discussion with patient's son, Luis, who is the bedside. He states that him and his sister would be patient's decision makers in the event she were to be unable to. VTE Prophylaxis Plan VTE Prophylaxis will be ordered: No Supervising Physician Co-Signing Physician Notes I saw this patient with the Nurse Practitioner, I participated in the history, physical, review of systems, and physical exam. I reviewed the medications with the patient and the Nurse Practitioner and helped reconcile the medications. I helped take a detailed family and social history as well. I formulated the assessment and plan personally with the Nurse Practitioner went over it with the patient. ROS-No Headache, No Visual Changes, No Nausea, No Vomiting, No Fever, No Chills, No Neck Pain or Stiffness, No Chest Pain, No Palpitations, + SOB, + [place], + Cough, No Sputum, + Wheezing, No Abdominal Pain, No Diarrhea, No Hematemesis, No Hemoptysis, No Unexpected Weight Loss, No Flank pain, No Melena, No Hematochezia, No Frequency, No Urgency, No Burning, No Hematuria, No Rashes, No Diaphoresis. Appetite is Normal, Weakness Physical Exam Gen-AAO x 3, Mod Resp Distress, Afebrile, On BIPAP, Obese Head-NCAT, EOMI, PERRLA, Anicteric Sclera, No Posterior Pharyngeal Erythema Neck-Supple, No JVD, No Thyromegaly, No Masses, No LAD, No Bruits Lungs-B/L Wheezing, No Crepitus, +Rales, No Rhonchi Chest-No S4, +S1, +S2, No S3, No Murmurs, No Rubs, No Gallops, No Ectopy Abdomen-Soft, Bowel Sounds Present, Non Tender, Non Distended, No Hepatomegaly, No Splenomegaly, No Palpable Masses, No Rebound, No Rigidity, No Guarding Musculoskeletal-Full Range of Motion Bilaterally, No CVAT Extremities-No Cyanosis, No Clubbing, No Edema Nuero-Cranial Nerves II-XII grossly intact, Motor WNL, DTRs WNL, Strength WNL, Non Focal Psych-Anxious
[2021-12-07 18:32] LABS: Base Excess ABG 1.5 mEq/L (-9-1.8); HCO3 ABG 27 mmol/L (19-24); Oxygen Saturation ABG 99.5 % (90-95); PCO2 ABG 43 mmHg (35-46); PO2 ABG 104 mmHg (80-95)
[2021-12-07 18:41] LABS: Allen Test POS (Pos)
--- NOTE | 2021-12-07 18:46 | Emergency Department Note ---
Impression & Plan Acute respiratory failure, Elevated troponin, Chronic atrial fibrillation, CHF (congestive heart failure), Pneumonia ED Provider Note NAME: ELI FONG AGE: 81 SEX: F ARRIVES VIA: Walk-In INFORMANT: Patient, Son ED PROVIDER(S): Patricio Clemens MD CHIEF COMPLAINT: Cough, SOB. PLAN: Disposition: Admit MEDICAL DECISION MAKING: The patient is a pleasant 81-year-old woman with a past medical history of diastolic and right-sided heart failure, pulmonary hypertension, hypertension, atrial fibrillation on Xarelto, everyday smoker who presents to the emergency department accompanied by her son for evaluation of worsening cough, congestion shortness of breath over the past couple of days. They deny any fevers, nausea, vomiting, diarrhea or urinary symptoms. Patient is vaccinated for COVID-19. They deny any known COVID-19 exposures. On arrival the patient is uncomfortable mildly dyspneic initially no acute distress, afebrile with stable vital signs. She has scant BLE edema, which is her baseline per her son and otherwise appears euvolemic to dry. Exam demonstrated diffuse bilateral wheezes and rhonchi with prolonged expiratory phase. EKG demonstrates atrial fibrillation without overt acute ischemia. Chest x-ray with vascular congestion and nonspecific interstitial thickening with presence of bibasilar densities which given the patient's presentation is suspicious for pneumonia. WBC 14K with neutrophil predominance. H/H and platelets within normal limits. Chemistry without metabolic acidosis. BUN/creatinine> 30. Lactic acid 2.0, within normal limits. LFTs unremarkable. High-sensitivity troponin 22, nonspecific. BNP 1200, nonspecific and without prior values for comparison but in the setting of the patient's known diastolic dysfunction and pulmonary hypertension. Lipase is not elevated. Procalcitonin is undetectable. Covid-19 PCR negative. Patient was initially ordered for Solu-Medrol and DuoNeb for component of bronchospasm however prior to receiving her nebulizer treatment the patient did develop increasing respiratory distress and upon reevaluation the patient had significant work of breathing with accessory muscle use. She was placed on BiPAP and immediately responded with resolution of work of breathing and resolution of diffuse wheezing. Blood cultures were drawn and the patient was ordered for empiric antibiotic treatment with Zosyn. The patient and her son at the bedside agree with plan for admission for further management. April Farmer PAC, with Dr. Shanika Chen hospitalist who will evaluate the patient for admission. Triage Nursing notes reviewed and agree them. Prior medical records reviewed Vital Signs: reviewed and remarkable for tachypnea. Differential diagnosis: Reactive airway disease, pneumonia, pneumothorax, COPD, CHF, infections, cardiac ischemia, pulmonary embolism, musculoskeletal, gastrointestinal, as well as other pathologies. ER treatment provided: See below. Diagnostics interpreted by me: ECG: Atrial fibrillation, 87 bpm, no ectopy, ST and T wave abnormality, no overt ST elevation, QTC 466, QRS 80. Cardiac Monitoring: An order for continuous cardiac monitoring was placed and demonstrated Atrial fibrillation, 87 bpm, no ectopy. Laboratory studies: See below Imaging studies: See below Consultation(s): April Farmer, with Dr. Shanika castillo who will evaluate the patient for admission. HPI: The patient is a pleasant 81-year-old woman with a past medical history of diastolic and right-sided heart failure, pulmonary hypertension, hypertension, atrial fibrillation on Xarelto, everyday smoker who presents to the emergency department accompanied by her son for evaluation of worsening cough, congestion shortness of breath over the past couple of days. They deny any fevers, nausea, vomiting, diarrhea or urinary symptoms. Patient is vaccinated for COVID-19. They deny any known COVID-19 exposures. ROS: See above HPI for pertinent positives & negatives. A total of 10 systems reviewed and were otherwise negative. VITALS:See Below PHYSICAL EXAMINATION: GENERAL: Awake, alert, uncomfortable-appearing, in no distress HENT: Normocephalic, atraumatic. Oropharynx with dry mucous membranes and otherwise unremarkable. EYES: Normal conjunctiva. Sclera non-icteric. NECK: Supple. No nuchal rigidity. FROM. No JVD. RESPIRATORY: Diffuse bilateral wheezes and rhonchi with prolonged expiratory phase. CARDIAC: Regular rate, irregular rhythm. Extremities warm and well perfused. Pulses equal. ABDOMEN: Soft, non-distended. No tenderness to palpation. No rebound or guarding. No masses. RECTAL: Deferred. MUSCULOSKELETAL: Chest examination reveals no tenderness. The back is symmetrical on inspection without obvious abnormality. There is no CVA te nderness to palpation. No joint edema. LOWER EXTREMITIES: Calves are equal size bilaterally and non-tender. Scant BLE edema. No discoloration. NEURO: Normal sensorium. No sensory or motor deficits noted. SKIN: No rash or jaundice noted. ED COURSE: Critical Care: I have personally spent greater than 75 minutes of critical care time in the direct management of this patient. This includes bedside care, interpretation of diagnostic studies, and testing, discussion with consultants, patient, and family members, and other required patient management activities. This 75 minutes is in excess of all separately billable procedures. Patricio Clemens MD Past Med/Surg History Medical History A-fib dx 4 yr ago/no hx cardioversion Age related osteoporosis Anticoagulated ASCVD (arteriosclerotic cardiovascular disease) Asthma DENIES Chronic diastolic CHF (congestive heart failure) Chronic iron deficiency anemia NO KNOWN CURRENT PROBLEMS WITH CKD (chronic kidney disease), stage III DENIES Epiglottitis PT SON REPORTS PT HAS TROUBLE SWALLOWING HER PILLS WITHOUT A SIGNIFICANT AMOUNT OF WATER GERD (gastroesophageal reflux disease) GI bleed HX Gout HX History of CVA (cerebrovascular accident) "MINI STROKES" 2015 - AFFECTED SPEECH AT THAT TIME HLD (hyperlipidemia) HTN (hypertension) Renal artery stenosis NARROWING ARTERIES , KIDNEY STENT PLACED IN 2000 Severe aortic stenosis UNKNOWN, NOT REPORTED BY PT SON UPON PAT INTERVIEW Surgical History History of cataract surgery RT History of colonoscopy History of endoscopy History of hysterectomy History of total left knee replacement BLADDER TAC History of total right knee replacement History of urologic surgery STENT PLACED IN KIDNEY 2000 FOR NARROWING OF ARTERIES Family History Mother Hypertension Social History Smoking Status: Light tobacco smoker Tobacco Type: Cigarettes Cigarettes Per Day: 2-3 CIG; Second Hand Exposure: No; Do You Dip or Chew Tobacco: No; Tobacco Cessation Education Requested by Patient: No Hx Alcohol Use: Yes Alcohol type: wine Hx Substance Use: No Preferred Language: Venezuelan Communication Ability: Effective Weapons Engineer Required: No Beliefs That Will Affect Care: None marital status: / Current Living Situation: Family Current Living Situation Comment: lives with son Other Information That Helps Us Care for You: No Feels Safe at Home: Yes Safety Concerns: Feels Safe At This Time Assistive Devices: Cane Allergies Allergies Allergy/AdvReac Type Severity Reaction Status Date / Time No Known Allergies Allergy Verified 12/07/21 16:03 Home Meds Home Medications Medication Instructions Recorded Confirmed allopurinol 100 mg tablet 200 mg PO DAILY 08/05/19 12/07/21 atorvastatin 10 mg tablet 10 mg PO HS 08/05/19 12/07/21 clonidine HCl 0.1 mg tablet 0.1 mg PO BID 08/05/19 12/07/21 clotrimazole 1 % topical cream 1 applic TOPICAL BID PRN 08/05/19 12/07/21 diltiazem HCl 180 mg 180 mg PO QAM 08/05/19 12/07/21 capsule,extended release 24 hr, controlled (DILT-XR) ferrous sulfate 325 mg (65 mg 65 mg PO QAM 08/05/19 12/07/21 iron) tablet folic acid 400 mcg tablet 400 mcg PO QDD 08/05/19 12/07/21 metoprolol tartrate 50 mg tablet 50 mg PO BID 08/05/19 12/07/21 suabiigw-[id number]-[id number] acid 0.4 1 tab PO DAILY 08/05/19 12/07/21 mg-lycopene 300 mcg-lutein 250 mcg tablet (Centrum Silver) rivaroxaban 15 mg tablet (Xarelto) 15 mg PO QDD 08/05/19 12/07/21 lisinopril 2.5 mg tablet 2.5 mg PO QAM 09/20/20 12/07/21 amoxicillin 875 mg-potassium 1 tab PO BID 12/07/21 12/07/21 clavulanate 125 mg tablet aspirin 81 mg tablet,delayed 162 mg PO DAILY 12/07/21 12/07/21 release flaxseed oil 1 ea MISCELLANEOUS QDD 12/07/21 12/07/21 nystatin 100,000 unit/gram topical 1 applic TOPICAL TID PRN 12/07/21 12/07/21 powder (Nystop) pantoprazole 20 mg tablet,delayed 20 mg PO QAM 12/07/21 12/07/21 release triamcinolone acetonide 0.1 % 1 applic TOPICAL BID PRN 12/07/21 12/07/21 topical cream Previous Rx's Medication Instructions Recorded magnesium oxide 400 mg PO DAILY #5 cap 08/11/19 Results & Data (ED) Vital Signs Vital Signs - 24 hr 12/07/21 15:09 12/07/21 15:50 12/07/21 16:45 Temperature 36.4 C L Temperature Source Temporal Artery Scan Pulse Rate 86 100 H Pulse Rate [Apical] 103 H Pulse Rhythm Regular Respiratory Rate 18 28 H Respiratory Effort / Characteristics Non-Labored Accessory Muscle Use Labored Short of Breath Respiratory Depth Normal Deep Respiratory Pattern Tachypnea Blood Pressure 136/70 Blood Pressure [Left Arm] Blood Pressure Mean 92 Blood Pressure Mean [Left Arm] Blood Pressure Position Sitting Pulse Oximetry 94 95 100 Oxygen Delivery Method Room Air Room Air BiPAP Fraction of Inspired Oxygen 30 Sepsis Recent Fever Within 48 Hours No Sepsis New/Unexplained Change in Mental Status N/A Sepsis Action Taken by Nursing No Action Required 12/07/21 16:59 Temperature Temperature Source Pulse Rate Pulse Rate [Apical] 102 H Pulse Rhythm Respiratory Rate 20 Respiratory Effort / Characteristics Respiratory Depth Respiratory Pattern Blood Pressure Blood Pressure [Left Arm] 170/98 H Blood Pressure Mean Blood Pressure Mean [Left Arm] 122 Blood Pressure Position Pulse Oximetry 99 Oxygen Delivery Method BiPAP Fraction of Inspired Oxygen Sepsis Recent Fever Within 48 Hours Sepsis New/Unexplained Change in Mental Status Sepsis Action Taken by Nursing Laboratory Data Attestation: I reviewed the patient's lab results. Result diagrams: 12/07/21 15:30 12/07/21 15:30 Lab Results 12/07/21 12/07/21 12/07/21 Range/Units 15:30 15:30 15:54 WBC 14.08 H (4.8-10.8) K/uL RBC 4.62 (4.2-5.4) M/uL Hgb 15.3 (12.0-16.0) g/dL Hct 45.5 (37-47) % MCV 98.5 (80-100) fL MCH 33.1 (25-34) pg MCHC 33.6 (32-36) g/dL RDW Std Deviation 48.7 H (36.4-46.3) fL RDW Coeff of Alejandrina 13.6 (11.5-14.5) % Plt Count 333 (130-400) K/uL MPV 11.1 H (7.4-10.4) fL Immature Gran % (Auto) 0.4 % Neut % (Auto) 82.5 % Lymph % (Auto) 8.7 % Yell % (Auto) 7.8 % Eos % (Auto) 0.5 % Baso % (Auto) 0.1 % Neut # (Auto) 11.62 H (1.4-6.5) K/uL Lymph # (Auto) 1.22 (1.2-3.4) K/uL Yell # (Auto) 1.10 H (0.11-0.59) K/uL Eos # (Auto) 0.07 (0-0.5) K/uL Baso # (Auto) 0.02 (0-0.2) K/uL Immature Gran # (Auto) 0.05 H (0.00-0.02) K/uL ABG pH (7.35-7.45) ABG pCO2 (35-46) mmHg ABG pO2 (80-95) mmHg ABG HCO3 (19-24) mmol/L ABG O2 Saturation (90-95) % ABG Base Excess (-9-1.8) mEq/L Alhaji Test (Pos) Oxygen Given Sodium 142 (136-145) mmol/L Potassium 4.2 (3.5-5.1) mmol/L Chloride 104 (98-107) mmol/L Carbon Dioxide 28 (21-32) mmol/L Anion Gap 10 (3-11) BUN 29 H (6-23) mg/dl Creatinine 0.95 (0.6-1.2) mg/dl Est Cr Clr Drug Dosing 43.4 ml/min Est GFR ( Amer) 64.2 ml/min Est GFR (Non-Af Amer) 55.4 ml/min BUN/Creatinine Ratio 30.5 H (10-20) Glucose 131 H (70-99(Fasting)) mg/dl Lactate (0.4-2.0) mmol/L Calcium 9.6 (8.5-10.1) mg/dl Phosphorus 3.5 (2.5-4.9) mg/dl Magnesium 2.0 (1.7-2.4) mg/dl Total Bilirubin 0.6 (0.2-1.0) mg/dl AST 24 (13-39) U/L ALT 19 (7-52) U/L Alkaline Phosphatase 95 (34-104) U/L Troponin I High Sens 22.2 H (0-14) pg/ml B-Natriuretic Peptide 1288 H (0-100) pg/ml Total Protein 7.5 (6.0-8.3) gm/dl Albumin 4.4 (3.4-5.0) gm/dl Globulin 3.1 (2.5-4.0) gm/dl Albumin/Globulin Ratio 1.4 (0.9-2) Lipase 34 (11-82) U/L Procalcitonin (0-0.5) ng/ml SARS-CoV-2 (PCR) (Negative) 12/07/21 12/07/21 12/07/21 Range/Units 16:41 17:03 17:05 WBC (4.8-10.8) K/uL RBC (4.2-5.4) M/uL Hgb (12.0-16.0) g/dL Hct (37-47) % MCV (80-100) fL MCH (25-34) pg MCHC (32-36) g/dL RDW Std Deviation (36.4-46.3) fL RDW Coeff of Alejandrina (11.5-14.5) % Plt Count (130-400) K/uL MPV (7.4-10.4) fL Immature Gran % (Auto) % Neut % (Auto) % Lymph % (Auto) % Yell % (Auto) % Eos % (Auto) % Baso % (Auto) % Neut # (Auto) (1.4-6.5) K/uL Lymph # (Auto) (1.2-3.4) K/uL Yell # (Auto) (0.11-0.59) K/uL Eos # (Auto) (0-0.5) K/uL Baso # (Auto) (0-0.2) K/uL Immature Gran # (Auto) (0.00-0.02) K/uL ABG pH (7.35-7.45) ABG pCO2 (35-46) mmHg ABG pO2 (80-95) mmHg ABG HCO3 (19-24) mmol/L ABG O2 Saturation (90-95) % ABG Base Excess (-9-1.8) mEq/L Alhaji Test (Pos) Oxygen Given Sodium (136-145) mmol/L Potassium (3.5-5.1) mmol/L Chloride (98-107) mmol/L Carbon Dioxide (21-32) mmol/L Anion Gap (3-11) BUN (6-23) mg/dl Creatinine (0.6-1.2) mg/dl Est Cr Clr Drug Dosing ml/min Est GFR ( Amer) ml/min Est GFR (Non-Af Amer) ml/min BUN/Creatinine Ratio (10-20) Glucose (70-99(Fasting)) mg/dl Lactate 2.0 (0.4-2.0) mmol/L Calcium (8.5-10.1) mg/dl Phosphorus (2.5-4.9) mg/dl Magnesium (1.7-2.4) mg/dl Total Bilirubin (0.2-1.0) mg/dl AST (13-39) U/L ALT (7-52) U/L Alkaline Phosphatase (34-104) U/L Troponin I High Sens (0-14) pg/ml B-Natriuretic Peptide (0-100) pg/ml Total Protein (6.0-8.3) gm/dl Albumin (3.4-5.0) gm/dl Globulin (2.5-4.0) gm/dl Albumin/Globulin Ratio (0.9-2) Lipase (11-82) U/L Procalcitonin < 0.05 (0-0.5) ng/ml SARS-CoV-2 (PCR) NEGATIVE (Negative) 12/07/21 Range/Units 17:42 WBC (4.8-10.8) K/uL RBC (4.2-5.4) M/uL Hgb (12.0-16.0) g/dL Hct (37-47) % MCV (80-100) fL MCH (25-34) pg MCHC (32-36) g/dL RDW Std Deviation (36.4-46.3) fL RDW Coeff of Alejandrina (11.5-14.5) % Plt Count (130-400) K/uL MPV (7.4-10.4) fL Immature Gran % (Auto) % Neut % (Auto) % Lymph % (Auto) % Yell % (Auto) % Eos % (Auto) % Baso % (Auto) % Neut # (Auto) (1.4-6.5) K/uL Lymph # (Auto) (1.2-3.4) K/uL Yell # (Auto) (0.11-0.59) K/uL Eos # (Auto) (0-0.5) K/uL Baso # (Auto) (0-0.2) K/uL Immature Gran # (Auto) (0.00-0.02) K/uL ABG pH 7.40 (7.35-7.45) ABG pCO2 43 (35-46) mmHg ABG pO2 104 H (80-95) mmHg ABG HCO3 27 H (19-24) mmol/L ABG O2 Saturation 99.5 H (90-95) % ABG Base Excess 1.5 (-9-1.8) mEq/L Alhaji Test POS (Pos) Oxygen Given 30% Sodium (136-145) mmol/L Potassium (3.5-5.1) mmol/L Chloride (98-107) mmol/L Carbon Dioxide (21-32) mmol/L Anion Gap (3-11) BUN (6-23) mg/dl Creatinine (0.6-1.2) mg/dl Est Cr Clr Drug Dosing ml/min Est GFR ( Amer) ml/min Est GFR (Non-Af Amer) ml/min BUN/Creatinine Ratio (10-20) Glucose (70-99(Fasting)) mg/dl Lactate (0.4-2.0) mmol/L Calcium (8.5-10.1) mg/dl Phosphorus (2.5-4.9) mg/dl Magnesium (1.7-2.4) mg/dl Total Bilirubin (0.2-1.0) mg/dl AST (13-39) U/L ALT (7-52) U/L Alkaline Phosphatase (34-104) U/L Troponin I High Sens (0-14) pg/ml B-Natriuretic Peptide (0-100) pg/ml Total Protein (6.0-8.3) gm/dl Albumin (3.4-5.0) gm/dl Globulin (2.5-4.0) gm/dl Albumin/Globulin Ratio (0.9-2) Lipase (11-82) U/L Procalcitonin (0-0.5) ng/ml SARS-CoV-2 (PCR) (Negative) Administered Medications Albuterol (Albut/Ipratrop 3mg/0.5mg Neb 3 Ml Vial) 3 ml NEB QIDR ZACH; Protocol Stop: 01/06/22 19:34 Last Admin: 12/07/21 19:56 Dose: 3 ml Documented by: [id number] Atorvastatin Calcium (Atorvastatin 10 Mg Tab) 10 mg PO HS ZACH Stop: 01/06/22 20:59 Last Admin: 12/07/21 20:19 Dose: 10 mg Documented by: [id number] Clonidine HCl (Clonidine Hcl 0.1 Mg Tab) 0.1 mg PO BID ZACH Stop: 01/06/22 20:59 Last Admin: 12/07/21 20:12 Dose: 0.1 mg Documented by: [id number] Ceftriaxone Sodium 1,000 mg/ (Dextrose) 60 mls @ 100 mls/hr IV Q24H [facility]; Protocol Stop: 12/14/21 21:59 Last Admin: 12/07/21 22:34 Dose: 100 mls/hr Documented by: [id number] Azithromycin 500 mg/ Dextrose 255 mls @ 125 mls/hr IV Q24H [facility] Stop: 12/14/21 21:59 Last Admin: 12/07/21 22:54 Dose: 125 mls/hr Documented by: [id number] Metoprolol Tartrate (Metoprolol Tartrate 50 Mg Tab) 50 mg PO BID ZACH Stop: 01/06/22 20:59 Last Admin: 12/07/21 20:12 Dose: 50 mg Documented by: [id number] Nitroglycerin (Nitroglycerin 2% Ointment 30gm Tube) 0.5 inch EXT Q6H [facility] Stop: 01/06/22 18:44 Last Admin: 12/07/21 19:06 Dose: 0.5 inch Documented by: [id number] Rivaroxaban (Rivaroxaban 15 Mg Tab) 15 mg PO QDD ZACH Stop: 01/06/22 20:59 Last Admin: 12/07/21 20:19 Dose: 15 mg Documented by: [id number] Discontinued Medications Albuterol (Albut/Ipratrop 3mg/0.5mg Neb 3 Ml Vial) 3 ml NEB NOW STA; Protocol Stop: 12/07/21 15:43 Last Admin: 12/07/21 16:19 Dose: 3 ml Documented by: [id number] Albuterol (Albut/Ipratrop 3mg/0.5mg Neb 3 Ml Vial) 3 ml NEB NOW STA; Protocol Stop: 12/07/21 16:41 Last Admin: 12/07/21 16:45 Dose: 3 ml Documented by: [id number] Amoxicillin/Clavulanate Potassium (Amoxicillin/Clavulanate 875 Mg Tab) 1 tab PO BID ZACH Stop: 12/14/21 20:59 Last Admin: 12/07/21 20:19 Dose: 1 tab Documented by: [id number] Furosemide (Furosemide 40 Mg/4 Ml Vial) 40 mg IV ONE ONE Stop: 12/07/21 17:50 Last Admin: 12/07/21 18:28 Dose: 40 mg Documented by: [id number] Guaifenesin (Guaifenesin 600 Mg Tabcr) 600 mg PO NOW STA Stop: 12/07/21 15:43 Last Admin: 12/07/21 18:31 Dose: 600 mg Documented by: [id number] Sodium Chloride (Nss) 500 mls @ 999 mls/hr IV .Q31M ONE Stop: 12/07/21 15:48 Last Infusion: 12/07/21 16:53 Dose: 0 mls/hr Documented by: [id number] Admin: 12/07/21 16:21 Dose: 999 mls/hr Documented by: [id number] Piperacillin Sod/Tazobactam Sod (Zosyn) 4.5 gm in 120 mls @ 240 mls/hr IV NOW ONE Stop: 12/07/21 17:10 Last Infusion: 12/07/21 18:06 Dose: 0 mls/hr Documented by: [id number] Admin: 12/07/21 17:19 Dose: 240 mls/hr Documented by: [id number] Methylprednisolone (Methylprednisolone 125 Mg/2 Ml Vial) 125 mg IV NOW STA Stop: 12/07/21 15:43 Last Admin: 12/07/21 16:19 Dose: 125 mg Documented by: [id number] Imaging Data Radiologist's Impression: Chest X-Ray 12/07/21 15:16 XR chest 1V portable HISTORY: 81 years-old Female Chest Pain COMPARISON: 12/11/2019 TECHNIQUE: AP view of the chest FINDINGS: Cardiac silhouette is enlarged. Mitral annular and thoracic aortic calcifications. Pulmonary vascular congestion with mild interstitial coarsening. No pneumothorax. Trace pleural effusions with mild bibasilar densities. Degenerative changes of the shoulders and spine. IMPRESSION: 1. Cardiomegaly with pulmonary vascular congestion. 2. Trace pleural effusions with mild bibasilar opacities. ACT 112: Negative or not required by law. The above report was generated using voice recognition software. It may contain grammatical, syntax or spelling errors. Electronically signed by: Regan Cui M.D. 12/07/2021 4:[address] 12/07/21 17:50 CT chest diagnostic wo con CT DOSE: 208.41 mGy.cm CLINICAL HISTORY: 81 years-old Female with shortness of breath. Acute shortness of breath with weakness TECHNIQUE: Multiaxial CT images of the chest were performed without contrast. A dose lowering technique was utilized adhering to the principles of ALARA. COMPARISON: Chest radiograph of same day, CTA chest 05/01/2011, CT soft tissue neck 12/11/2019. FINDINGS: No thyroid nodule identified. Mildly enlarged paratracheal lymph nodes measure up to 12 mm. Subcarinal adenopathy measures up to 1.3 cm. Findings are similar to the prior study and are favored to be reactive. Moderate cardiomegaly. Extensive coronary artery calcifications. Atherosclerosis of the thoracic aorta without aneurysm. No pneumothorax, pleural effusion or overt pulmonary edema. Respiratory motion a rtifact limits evaluation of the lungs. There is an ill-defined 8 mm groundglass nodular opacity of the right lung apex on image 64. This is new from the 2020 exam. Bibasilar mucous plugging. Intralobular septal thickening with left greater than right tree-in-bud nodules and mild linear subsegmental consolidation. Tracheobronchial secretions. Unremarkable soft tissues. No acute fracture. Degenerative changes of the shoulders and spine. IMPRESSION: 1. Tracheobronchial secretions with bibasilar mucous plugging. 2. Left greater than right reticular nodular opacities are suggestive of an associated infectious or inflammatory bronchiolitis/pneumonitis. 3. Mediastinal adenopathy is likely reactive. 4. Cardiomegaly. 5. 8 mm groundglass nodular opacity of the right lung apex. 6 month follow-up chest CT is recommended to exclude an adenomatous pulmonary lesion. ACT 112: Negative or not required by law. Electronically signed by: Regan Cui M.D. 12/07/2021 7:29 PM Discharge Plan Visit Data Chief Complaint: Shortness of Breath/Dyspnea Stated Complaint: SOB, WHEEZING, COUGH, WEAKNESS ED Provider: Patricio Clemens Discharge Problem: Acute respiratory failure, Elevated troponin, Chronic atrial fibrillation, CHF (congestive heart failure), Pneumonia Patient Disposition: Admitted As Inpatient Discharge Instructions Interventions: ED Discharge Assessment Last Done: 12/07/21 19:14 Discharge Problem: Acute respiratory failure Qualifiers: Respiratory failure complication: unspecified whether with hypoxia or hypercapnia Qualified Code(s): J96.00 - Acute respiratory failure, unspecified whether with hypoxia or hypercapnia CHF (congestive heart failure) Qualifiers: Heart failure type: unspecified Heart failure chronicity: chronic Qualified Code(s): I50.9 - Heart failure, unspecified Pneumonia Qualifiers: Pneumonia type: due to unspecified organism Laterality: bilateral Lung location: lower lobe of lung Qualified Code(s): J18.9 - Pneumonia, unspecified organism
[2021-12-07] MEDS: NITROGLYCERIN 2% OINTMENT 30GM TUBE EXT SCH (19:06)
--- NOTE | 2021-12-07 19:31 | CT Scan Report ---
CT chest diagnostic wo con CT DOSE: 208.41 mGy.cm CLINICAL HISTORY: 81 years-old Female with shortness of breath. Acute shortness of breath with weakn ess TECHNIQUE: Multiaxial CT images of the chest were performed without contrast. A dose lowering techni que was utilized adhering to the principles of ALARA. COMPARISON: Chest radiograph of same day, CTA chest 05/01/2011, CT soft tissue neck 12/11/2019. FINDINGS: No thyroid nodule identified. Mildly enlarged paratracheal lymph nodes measure up to 12 mm. Subcarinal adenopathy measures up to 1.3 cm. Findings are similar to the prior study and are favored to be reactive. Moderate cardiomegaly. Extensive coronary artery calcifications. Atherosclerosis of the thoracic aorta without aneurysm. No pneumothorax, pleural effusion or overt pulmonary edema. Respiratory motion artifact limits evalua tion of the lungs. There is an ill-defined 8 mm groundglass nodular opacity of the right lung apex on image 64. This is new from the 2020 exam. Bibasilar mucous plugging. Intralobular septal thickening with left greater than right tree-in-bud nodules and mild linear subsegmental consolidation. Tracheob ronchial secretions. Unremarkable soft tissues. No acute fracture. Degenerative changes of the should ers and spine. IMPRESSION: 1. Tracheobronchial secretions with bibasilar mucous plugging. 2. Left greater than right reticular nodular opacities are suggestive of an associated infectious or inflammatory bronchiolitis/pneumonitis. 3. Mediastinal adenopathy is likely reactive. 4. Cardiomegaly. 5. 8 mm groundglass nodular opacity of the right lung apex. 6 month follow-up chest CT is recommended to exclude an adenomatous pulmonary lesion. ACT 112: Negative or not required by law. Electronically signed by: Regan Cui M.D. 12/07/2021 7:29 PM
[2021-12-07] MEDS ORDERED: ACETAMINOPHEN 325 MG TAB PO PRN (19:35)
[2021-12-07] MEDS ORDERED: ALBUT/IPRATROP 3MG/0.5MG NEB 3 ML VIAL NEB PRN (19:44)
[2021-12-07] MEDS: ALBUT/IPRATROP 3MG/0.5MG NEB 3 ML VIAL NEB SCH (19:56)
[2021-12-07] MEDS: cloNIDine HCL 0.1 MG TAB PO SCH (20:12)
[2021-12-07] MEDS: METOPROLOL TARTRATE 50 MG TAB PO SCH (20:12)
[2021-12-07] MEDS: ATORVASTATIN 10 MG TAB PO SCH (20:19)
[2021-12-07] MEDS: RIVAROXABAN 15 MG TAB PO SCH (20:19)
[2021-12-07] MEDS ORDERED: AMOXICILLIN/CLAVULANATE 875 MG TAB PO SCH (21:00)
[2021-12-07] MEDS: cefTRIAXone SODIUM 1,000 MG in DEXTROSE 5% 50 ML IV SCH (22:34)
[2021-12-07] MEDS: AZITHROMYCIN 500 MG in DEXTROSE 5% 250 ML IV SCH (22:54)
[2021-12-08] MEDS: NITROGLYCERIN 2% OINTMENT 30GM TUBE EXT SCH ×2 (00:59→06:39)
[2021-12-08 03:39] LABS: Hemoglobin 14.5 g/dL (12.0-16.0); Mean Corpuscular Hemoglobin 33.1 pg (25-34); Mean Corpuscular Hgb Conc 33.7 g/dL (32-36); Mean Corpuscular Volume 98.2 fL (80-100); Mean Platelet Volume 10.8 fL (7.4-10.4); Platelet Count 267 K/uL (130-400); RDW Coefficient of Variation 13.5 % (11.5-14.5); RDW Standard Deviation 48.1 fL (36.4-46.3); Red Blood Count 4.38 M/uL (4.2-5.4); White Blood Count 8.32 K/uL (4.8-10.8)
[2021-12-08 04:03] LABS: BUN Creatinine Ratio 27.6 (10-20); Creatinine Clr Calc Pharmacy 39.7 ml/min; Est GFR (African American) 56.9 ml/min; Est GFR (Non-African American) 49.1 ml/min; Magnesium 1.9 mg/dl (1.7-2.4); Potassium 3.8 mmol/L (3.5-5.1)
[2021-12-08] MEDS: ALBUT/IPRATROP 3MG/0.5MG NEB 3 ML VIAL NEB SCH ×4 (07:15→19:30)
[2021-12-08] MEDS ORDERED: lisinopril 2.5 MG TAB PO SCH (09:00)
[2021-12-08] MEDS ORDERED: FUROSEMIDE 40 MG/4 ML VIAL IV SCH (09:00)
[2021-12-08] MEDS: FERROUS SULFATE 325 MG TAB PO SCH (09:16)
[2021-12-08] MEDS: PANTOprazole 40 MG TAB PO SCH (09:16)
[2021-12-08] MEDS: cloNIDine HCL 0.1 MG TAB PO SCH ×2 (09:16→19:49)
[2021-12-08] MEDS: allopurinoL 100 MG TAB PO SCH (09:16)
[2021-12-08] MEDS: ASPIRIN 81 MG ECTAB PO SCH (09:16)
[2021-12-08] MEDS: METOPROLOL TARTRATE 50 MG TAB PO SCH ×2 (09:32→19:49)
[2021-12-08] MEDS: predniSONE 20 MG TAB PO SCH (09:33)
--- NOTE | 2021-12-08 11:16 | Cardiology Consultation ---
Date of Consultation December 08, 2021 Assessment & Plan (1) Acute respiratory failure: (2) Chronic atrial fibrillation: (3) CHF (congestive heart failure): (4) Elevated troponin: (5) Aortic stenosis: Patient's presentation appears to be most consistent with an acute on chronic obstructive pulmonary disease exacerbation complicated by mild acute decompensated diastolic congestive heart failure, in the setting of severe valvular heart disease, severe aortic valve stenosis. The patient's volume status appears to have promptly resolved after receiving 2 doses of 40 mg IV Lasix. She appears to be normovolemic by examination this morning. I think we need to be cautious in regards to further diuresis. I would continue IV furosemide today, likely switching to oral diuretics in the morning. The patient's blood pressure has significantly improved. Recommend discontinuation of Nitropaste, adding low-dose isosorbide with caution. The present rate lowering regimen is appropriate and should be continued as prescribed, along with the chronic anticoagulation. Further recommendations pending evaluation by Dr. Leon as well as her ongoing hospital course. Supervising Physician Co-Signing Physician Notes I have reviewed the medical record and examined the patient. I discussed the case with Mr. Ma. I agree with his assessment that this is most likely combination of underlying lung disease from longstanding cigarette smoking and heart failure on the basis of valvular heart disease. Patient has markedly improved with IV Lasix and I agree with continuing IV Lasix through today with reassessment tomorrow. History of Present Illness Reason for Consultation: CHF Requesting Physician: Donya Attending Physician: Garth History of Present Illness Ms. Ammy Coyle is a pleasant 81-year-old female who, for the past 4 to 5 days, has experienced an acute cough productive of phlegm that was worse at night, associated with expiratory wheezing, chest congestion, worsening shortness of breath. Patient evaluated in the [facility] on December 05, 2021. She notes that the doctor was primarily concerned regarding the possibility of COVID however testing was negative. She was advised to utilize symptomatic care with Tylenol/ibuprofen, fluids, rest, and was prescribed Augmentin. Due to worsening symptoms, especially a worsening cough at night, the patient's son, with whom she lives, brought the patient to the ER. In the emergency room she was notably acutely dyspneic and tachypneic, without observed hypoxia, and required BiPAP therapy. White blood cell count was elevated at 14.08 K/uL. Initial imaging included a chest x-ray revealing cardiomegaly with pulmonary vascular congestion and trace pleural effusions with mild bibasilar opacities. CT scan of the chest without contrast then revealed tracheobronchial secretions with bibasilar mucous plugging, left greater than right reticular nodular opacities suggestive of of an associated infectious or inflammatory bronchiolitis/pnemonitis with probable reactive mediastinal adenopathy. There was an 8 mm groundglass nodular opacity in the right lung apex for which a 6-month follow-up CT scan was recommended. Patient received a nebulizer treatment, IV Solu-Medrol, IV Zosyn, and IV fluids with improvement in presenting symptoms. Pulmonary evaluation is pending. She notes enjoying a cigarette from time to time. The patient has been a smoker since around the age of 18 and continues to smoke cigarettes, typically around 2 or 3 per day. This morning, patient notes feeling considerably better as compared to yesterday. She denies chest pain suggestive of angina. Her breathing has returned to baseline. She continues to cough, without overt orthopnea or PND. She notes no worsening of her chronic lower extremity peripheral edema, abdominal bloating, or abrupt weight change. Patient followed by Dr. Ford with a history of longstanding hypertension, hypertensive heart disease, renovascular disease status post remote renal artery stenting, severe calcific aortic valve disease, severe aortic valve stenosis, moderate or greater bilateral carotid artery disease, chronic atrial fibrillation, prior left basal ganglion stroke, hyperlipidemia, chronic iron deficiency anemia. Patient notably lives a sedentary lifestyle and has declined consideration for surgical intervention, requesting conservative medical management in regards to her cardiac issues. Allergies Allergy/AdvReac Type Severity Reaction Status Date / Time No Known Allergies Allergy Verified 12/07/21 16:03 Home Medications Medication Instructions Recorded Confirmed Type allopurinol 100 mg tablet 200 mg PO DAILY 08/05/19 12/07/21 History atorvastatin 10 mg tablet 10 mg PO HS 08/05/19 12/07/21 History clonidine HCl 0.1 mg tablet 0.1 mg PO BID 08/05/19 12/07/21 History clotrimazole 1 % topical cream 1 applic TOPICAL BID PRN 08/05/19 12/07/21 History diltiazem HCl 180 mg 180 mg PO QAM 08/05/19 12/07/21 History capsule,extended release 24 hr, controlled (DILT-XR) ferrous sulfate 325 mg (65 mg 65 mg PO QAM 08/05/19 12/07/21 History iron) tablet folic acid 400 mcg tablet 400 mcg PO QDD 08/05/19 12/07/21 History metoprolol tartrate 50 mg tablet 50 mg PO BID 08/05/19 12/07/21 History [id number]-zos-qubwr acid 0.4 1 tab PO DAILY 08/05/19 12/07/21 History mg-lycopene 300 mcg-lutein 250 mcg tablet (Centrum Silver) rivaroxaban 15 mg tablet (Xarelto) 15 mg PO QDD 08/05/19 12/07/21 History magnesium oxide 400 mg PO DAILY #5 cap 08/11/19 12/07/21 Rx lisinopril 2.5 mg tablet 2.5 mg PO QAM 09/20/20 12/07/21 History amoxicillin 875 mg-potassium 1 tab PO BID 12/07/21 12/07/21 History clavulanate 125 mg tablet aspirin 81 mg tablet,delayed 162 mg PO DAILY 12/07/21 12/07/21 History release flaxseed oil 1 ea MISCELLANEOUS QDD 12/07/21 12/07/21 History nystatin 100,000 unit/gram topical 1 applic TOPICAL TID PRN 12/07/21 12/07/21 History powder (Nystop) pantoprazole 20 mg tablet,delayed 20 mg PO QAM 12/07/21 12/07/21 History release triamcinolone acetonide 0.1 % 1 applic TOPICAL BID PRN 12/07/21 12/07/21 History topical cream Patient History Medical History A-fib dx 4 yr ago/no hx cardioversion Age related osteoporosis Anticoagulated ASCVD (arteriosclerotic cardiovascular disease) Asthma DENIES Chronic diastolic CHF (congestive heart failure) Chronic iron deficiency anemia NO KNOWN CURRENT PROBLEMS WITH CKD (chronic kidney disease), stage III DENIES Epiglottitis PT SON REPORTS PT HAS TROUBLE SWALLOWING HER PILLS WITHOUT A SIGNIFICANT AMOUNT OF WATER GERD (gastroesophageal reflux disease) GI bleed HX Gout HX History of CVA (cerebrovascular accident) "MINI STROKES" 2016 - AFFECTED SPEECH AT THAT TIME HLD (hyperlipidemia) HTN (hypertension) Renal artery stenosis NARROWING ARTERIES , KIDNEY STENT PLACED IN 2000 Severe aortic stenosis UNKNOWN, NOT REPORTED BY PT SON UPON PAT INTERVIEW Surgical History History of cataract surgery RT History of colonoscopy History of endoscopy History of hysterectomy History of total left knee replacement BLADDER TAC History of total right knee replacement History of urologic surgery STENT PLACED IN KIDNEY 2000 FOR NARROWING OF ARTERIES Family History Mother Hypertension Social History Smoking Status: Light tobacco smoker Tobacco Type: Cigarettes Cigarettes Per Day: 2-3 CIG; Second Hand Exposure: No; Do You Dip or Chew Tobacco: No; Tobacco Cessation Education Requested by Patient: No Hx Alcohol Use: Yes Alcohol type: wine Hx Substance Use: No Preferred Language: Mosotho Communication Ability: Effective Epidemiology Internship Required: No Beliefs That Will Affect Care: None marital status: / Current Living Situation: Family Current Living Situation Comment: lives with son Other Information That Helps Us Care for You: No Feels Safe at Home: Yes Safety Concerns: Feels Safe At This Time Assistive Devices: Cane Review of Systems Review of Systems: Hard of hearing. Status post cataract extraction. History of GI bleeding. Bladder repair, hysterectomy. Complete Review of Systems is as stated above, negative, or noncontributory. Physical Exam Physical Exam: General: A&Ox3. NAD. Hard of hearing. HENT: Normocephalic. Atraumatic. Eyes: PER. Conjunctiva pink, sclera clear. Neck: Bilateral carotid bruits. No JVD. Heart: Irregularly irregular around 100 bpm. Systolic ejection murmur. Lungs: Diminished. Decreased. Scattered rhonchi and expiratory wheezing. Abdomen: +BS. Soft. Nontender. No masses or organomegaly. Extremities: No clubbing, cyanosis, or significant edema. Limited neurological examination is without focal deficits. Pulses: radial=2/4, posterior tibial=0/4. Results & Data ([facility]) Vital Signs (Past 12 Hours) Vital Signs Temp Pulse Pulse Resp BP BP Pulse Ox 12/08/21 10:46 91 H 19 96 12/08/21 08:33 36.5 C 99 H 16 117/76 97 12/08/21 07:50 36.5 C 103 H 18 143/88 H 98 12/08/21 07:15 90 20 95 12/08/21 06:38 87 131/83 12/08/21 03:45 36.7 C 90 12 143/92 H 96 Laboratory Results Laboratory Results - last 48 hr 12/07/21 12/07/21 12/07/21 15:30 15:30 15:54 WBC 14.08 H RBC 4.62 Hgb 15.3 Hct 45.5 MCV 98.5 MCH 33.1 MCHC 33.6 RDW Std Deviation 48.7 H RDW Coeff of Alejandrina 13.6 Plt Count 333 MPV 11.1 H Immature Gran % (Auto) 0.4 Neut % (Auto) 82.5 Lymph % (Auto) 8.7 [place] % (Auto) 7.8 Eos % (Auto) 0.5 Baso % (Auto) 0.1 Neut # (Auto) 11.62 H Lymph # (Auto) 1.22 [place] # (Auto) 1.10 H Eos # (Auto) 0.07 Baso # (Auto) 0.02 Immature Gran # (Auto) 0.05 H ABG pH ABG pCO2 ABG pO2 ABG HCO3 ABG O2 Saturation ABG Base Excess [place] Test Oxygen Given Sodium 142 Potassium 4.2 Chloride 104 Carbon Dioxide 28 Anion Gap 10 BUN 29 H Creatinine 0.95 Est Cr Clr Drug Dosing 43.4 Est GFR ( Amer) 64.2 Est GFR (Non-Af Amer) 55.4 BUN/Creatinine Ratio 30.5 H Glucose 131 H Lactate Calcium 9.6 Phosphorus 3.5 Magnesium 2.0 Total Bilirubin 0.6 AST 24 ALT 19 Alkaline Phosphatase 95 Troponin I High Sens 22.2 H B-Natriuretic Peptide 1288 H Total Protein 7.5 Albumin 4.4 Globulin 3.1 Albumin/Globulin Ratio 1.4 Lipase 34 Procalcitonin SARS-CoV-2 (PCR) 12/07/21 12/07/21 12/07/21 16:41 17:03 17:05 WBC RBC Hgb Hct MCV MCH MCHC RDW Std Deviation RDW Coeff of Alejandrina Plt Count MPV Immature Gran % (Auto) Neut % (Auto) Lymph % (Auto) [place] % (Auto) Eos % (Auto) Baso % (Auto) Neut # (Auto) Lymph # (Auto) [place] # (Auto) Eos # (Auto) Baso # (Auto) Immature Gran # (Auto) ABG pH ABG pCO2 ABG pO2 ABG HCO3 ABG O2 Saturation ABG Base Excess [place] Test Oxygen Given Sodium Potassium Chloride Carbon Dioxide Anion Gap BUN Creatinine Est Cr Clr Drug Dosing Est GFR ( Amer) Est GFR (Non-Af Amer) BUN/Creatinine Ratio Glucose Lactate 2.0 Calcium Phosphorus Magnesium Total Bilirubin AST ALT Alkaline Phosphatase Troponin I High Sens B-Natriuretic Peptide Total Protein Albumin Globulin Albumin/Globulin Ratio Lipase Procalcitonin < 0.05 SARS-CoV-2 (PCR) NEGATIVE 12/07/21 12/07/21 12/08/21 17:42 21:14 03:24 WBC RBC Hgb Hct MCV MCH MCHC RDW Std Deviation RDW Coeff of Alejandrina Plt Count MPV Immature Gran % (Auto) Neut % (Auto) Lymph % (Auto) [place] % (Auto) Eos % (Auto) Baso % (Auto) Neut # (Auto) Lymph # (Auto) [place] # (Auto) Eos # (Auto) Baso # (Auto) Immature Gran # (Auto) ABG pH 7.40 ABG pCO2 43 ABG pO2 104 H ABG HCO3 27 H ABG O2 Saturation 99.5 H ABG Base Excess 1.5 [place] Test POS Oxygen Given 30% Sodium Potassium Chloride Carbon Dioxide Anion Gap BUN Creatinine Est Cr Clr Drug Dosing Est GFR ( Amer) Est GFR (Non-Af Amer) BUN/Creatinine Ratio Glucose Lactate Calcium Phosphorus Magnesium Total Bilirubin AST ALT Alkaline Phosphatase Troponin I High Sens 26.3 H 29.0 H B-Natriuretic Peptide Total Protein Albumin Globulin Albumin/Globulin Ratio Lipase Procalcitonin SARS-CoV-2 (PCR) 12/08/21 12/08/21 03:24 03:24 WBC 8.32 RBC 4.38 Hgb 14.5 Hct 43.0 MCV 98.2 MCH 33.1 MCHC 33.7 RDW Std Deviation 48.1 H RDW Coeff of Alejandrina 13.5 Plt Count 267 MPV 10.8 H Immature Gran % (Auto) Neut % (Auto) Lymph % (Auto) [place] % (Auto) Eos % (Auto) Baso % (Auto) Neut # (Auto) Lymph # (Auto) [place] # (Auto) Eos # (Auto) Baso # (Auto) Immature Gran # (Auto) ABG pH ABG pCO2 ABG pO2 ABG HCO3 ABG O2 Saturation ABG Base Excess [place] Test Oxygen Given Sodium 140 Potassium 3.8 Chloride 101 Carbon Dioxide 28 Anion Gap 11 BUN 29 H Creatinine 1.05 Est Cr Clr Drug Dosing 39.7 Est GFR ( Amer) 56.9 Est GFR (Non-Af Amer) 49.1 BUN/Creatinine Ratio 27.6 H Glucose 152 H Lactate Calcium 9.0 Phosphorus Magnesium 1.9 Total Bilirubin AST ALT Alkaline Phosphatase Troponin I High Sens B-Natriuretic Peptide Total Protein Albumin Globulin Albumin/Globulin Ratio Lipase Procalcitonin SARS-CoV-2 (PCR) Diagnostic Findings December 08, 2021 TTE Interpretation Summary ([facility], Dr. Leon): Moderate concentric LVH. Normal LV systolic function. Ejection fraction 55 to 60%. Normal RV function. Severely dilated left atrium. Mildly dilated right atrium. Severe calcific aortic valve stenosis. Mild mitral regurgitation. Moderate tricuspid regurgitation. Estimated pulmonary artery systolic pressure 35 to 40 mmHg. Continuous telemetry monitoring reveals the patient's known chronic atrial fibrillation. Her ventricular rate appears to be adequately controlled, currently in the 90s. (1) Acute respiratory failure Respiratory failure complication: unspecified whether with hypoxia or hypercapnia Qualified Code(s): J96.00 - Acute respiratory failure, unspecified whether with hypoxia or hypercapnia (2) CHF (congestive heart failure) Heart failure chronicity: chronic Heart failure type: unspecified Qualified Code(s): I50.9 - Heart failure, unspecified
[2021-12-08] MEDS: ISOSORBIDE MONO EXTENDED REL 30 MG TABCR PO SCH (13:46)
--- NOTE | 2021-12-08 14:59 | Hospitalist Progress Note ---
Date of Service December 08, 2021 Assessment & Plan (1) Acute respiratory failure: (2) Acute on chronic diastolic CHF (congestive heart failure): Plan: Patient presenting from home with reports of shortness of breath, cough, wheezing x 4 days In the ED, WBC 14 K, proBNP 1200, negative procalcitonin. Patient also became acutely short of breath and tachypneic and was subsequently placed on BiPAP however no hypoxia has been reported. CXR shows pulmonary vascular congestion and trace pleural effusions Lasix 40 mg IV x 2 doses given and euvolemia achieved. Echo 12/2019-EF 65 to 70%, grade 3 diastolic dysfunction, pulmonary hypertension, moderate mitral regurgitation, moderate to severe Due to elevated BP, will add nitro paste--after diuresis and other known antihypertensives, she is hypotensive today [place] placed for strict I's and O's, low Na+ diet, daily weights Cardiology consulted and ok with transition to oral diuretic in am. (3) Pneumonia: Plan: Was seen by PCP 2 days ago and placed on Augmentin for suspected bronchitis, will continue given leukocytosis CT chest to further evaluate for possible pneumonia Given patient's lifelong smoking history, suspect underlying COPD but she has no h/o PFTs Discussed the importance of the PFTs for a secure diagnosis with daughter who verbalized understanding. s/p IV Solu-Medrol in the ED, continue prednisone 40 mg daily Pulmonary toilet with nebs, incentive spirometer, flutter valve She is overall better with this initial treatment. Will continue. (4) Elevated troponin: Plan: HS trop 22.2 No reports of chest pain, EKG shows new T wave inversions in the inferior lateral leads Likely related to demand ischemia in setting of CHF exacerbation with valve disease. (5) HTN (hypertension): Plan: BP elevated yesterday, but now hypotensive. Caution wtih any continued diuresis which is on hold. Nitro paste was removed. Continue lisinopril, metoprolol, clonidine per home regimen with hold parameters. (6) Chronic atrial fibrillation: Plan: Rate controlled on metoprolol Anticoagulated on Xarelto (7) History of CVA (cerebrovascular accident): Plan: Continue ASA and statin for secondary prevention. (8) DVT prophylaxis: Plan: On Xarelto Full Code Dispo-pending PT/OT assessment. [facility] Admission and Anticipated Discharge Date Admission Date: December 07, 2021 Subjective 81-year-old female with critical aortic stenosis presents with shortness of breath Daughter at bedside and reports significant wheezing along with shortness of br eath and cough for several days. Daughter states patient looks better Review of systems is limited from patient as she is hard of hearing but she does feel better Patient is oriented and is able to express that she is not in any pain, shortness of breath is improved, she is still using oxygen today but is not typically on oxygen at baseline Noted hypotension after IV diuresis, discussed with nurse threshold for giving fluids back. Review of Systems Review of Systems: All systems reviewed negative except as indicated above. Physical Exam Physical Exam: CONSTITUTIONAL: WNWD, vitals as above, generally well-a ppearing, NAD EYES: normal conjunctivae, no scleral icterus ENT: external ear and nose normal, MMM NECK: trachea midline RESPIRATORY: +wheezes at bases, normal respiratory effort, no increased resp iratory effort. CARDIOVASCULAR: 3/6 [place] on left anterior chest laterally, no gallops or rubs, no JVD, no peripheral edema CHEST: inspection of chest was normal GASTROINTESTINAL: soft, nontender, ND, no guarding MUSCULOSKELETAL: strength 5/5 throughout, head is normocephalic and atraumatic SKIN: warm and dry NEUROLOGIC: CN 2-12 grossly intact, no sensory deficit, normal cognition, normal speech, no tremor, [place] [facility]: alert cooperative and oriented to person, place and time. Euthymic mood, makes good eye contact, language grossly intact, recent and remote memory grossly intact. Results & Data Results & Data ([facility]) Vital Signs (Past 12 Hours) Vital Signs Temp Pulse Pulse Pulse Resp BP BP 12/08/21 14:41 89 19 12/08/21 14:19 12/08/21 12:02 36.4 C L 62 17 95/64 L 12/08/21 10:46 91 H 19 12/08/21 08:33 36.5 C 99 H 16 117/76 12/08/21 07:50 36.5 C 103 H 18 143/88 H 12/08/21 07:15 90 20 12/08/21 06:45 89 12/08/21 06:38 87 131/83 12/08/21 03:45 36.7 C 90 12 143/92 H Pulse Ox 12/08/21 14:41 96 12/08/21 14:19 99 12/08/21 12:02 95 12/08/21 10:46 96 12/08/21 08:33 97 12/08/21 07:50 98 12/08/21 07:15 95 12/08/21 06:45 12/08/21 06:38 12/08/21 03:45 96 Laboratory Results Short CBC 12/07/21 12/08/21 Range/Units 15:30 03:24 WBC 14.08 H 8.32 (4.8-10.8) K/uL Hgb 15.3 14.5 (12.0-16.0) g/dL Hct 45.5 43.0 (37-47) % Plt Count 333 267 (130-400) K/uL BMP 12/07/21 12/08/21 15:30 03:24 Sodium 142 140 Potassium 4.2 3.8 Chloride 104 101 Carbon Dioxide 28 28 BUN 29 H 29 H Creatinine 0.95 1.05 Glucose 131 H 152 H Calcium 9.6 9.0 Liver Function 12/07/21 Range/Units 15:30 Total Bilirubin 0.6 (0.2-1.0) mg/dl AST 24 (13-39) U/L ALT 19 (7-52) U/L Alkaline Phosphatase 95 (34-104) U/L Albumin 4.4 (3.4-5.0) gm/dl Medications Administered Current Inpatient Medications Acetaminophen (Acetaminophen 325 Mg Tab) 650 mg PO Q4H PRN PRN Reason: pain/fever Stop: 01/06/22 19:34 Albuterol (Albut/Ipratrop 3mg/0.5mg Neb 3 Ml Vial) 3 ml NEB QIDR ZACH; Protocol Stop: 01/06/22 19:34 Last Admin: 12/08/21 14:39 Dose: 3 ml Documented by: Albuterol (Albut/Ipratrop 3mg/0.5mg Neb 3 Ml Vial) 3 ml NEB Q2H PRN; Protocol PRN Reason: SOB/WHEEZING Stop: 01/06/22 19:43 Allopurinol (Allopurinol 100 Mg Tab) 200 mg PO DAILY ZACH Stop: 01/07/22 08:59 Last Admin: 12/08/21 09:16 Dose: 200 mg Documented by: Aspirin (Aspirin 81 Mg Ectab) 162 mg PO DAILY [facility] Stop: 01/07/22 08:59 Last Admin: 12/08/21 09:16 Dose: 162 mg Documented by: Atorvastatin Calcium (Atorvastatin 10 Mg Tab) 10 mg PO HS [facility] Stop: 01/06/22 20:59 Last Admin: 12/07/21 20:19 Dose: 10 mg Documented by: Clonidine HCl (Clonidine Hcl 0.1 Mg Tab) 0.1 mg PO BID [facility] Stop: 01/06/22 20:59 Last Admin: 12/08/21 09:16 Dose: 0.1 mg Documented by: Diltiazem HCl (Diltiazem Hcl 180 Mg Er Cap) 180 mg PO QAM [facility] Stop: 01/07/22 08:59 Last Admin: 12/08/21 09:17 Dose: 180 mg Documented by: Ferrous Sulfate (Ferrous Sulfate 325 Mg Tab) 325 mg PO QAM [facility] Stop: 01/07/22 08:59 Last Admin: 12/08/21 09:16 Dose: 325 mg Documented by: Furosemide (Furosemide 40 Mg/4 Ml Vial) 40 mg IV DAILY [facility] Stop: 01/07/22 08:59 Last Admin: 12/08/21 09:16 Dose: 40 mg Documented by: Guaifenesin (Guaifenesin 600 Mg Tabcr) 600 mg PO Q12 [facility] Stop: 01/07/22 20:59 Ceftriaxone Sodium 1,000 mg/ (Dextrose) 60 mls @ 100 mls/hr IV Q24H [facility]; Protocol Stop: 12/14/21 21:59 Last Infusion: 12/07/21 23:15 Dose: Infused Documented by: Azithromycin 500 mg/ Dextrose 255 mls @ 125 mls/hr IV Q24H [facility] Stop: 12/14/21 21:59 Last Infusion: 12/08/21 01:10 Dose: Infused Documented by: Isosorbide Mononitrate (Isosorbide [place] Extended Rel 30 Mg Tabcr) 30 mg PO QAM [facility] Stop: 01/07/22 11:44 Last Admin: 12/08/21 13:46 Dose: 30 mg Documented by: Lisinopril (Lisinopril 2.5 Mg Tab) 2.5 mg PO QAM [facility] Stop: 01/07/22 08:59 Last Admin: 12/08/21 09:17 Dose: 2.5 mg Documented by: Metoprolol Tartrate (Metoprolol Tartrate 50 Mg Tab) 50 mg PO BID [facility] Stop: 01/06/22 20:59 Last Admin: 12/08/21 09:32 Dose: 50 mg Documented by: Pantoprazole Sodium (Pantoprazole 40 Mg Tab) 40 mg PO QAM [facility] Stop: 01/07/22 08:59 Last Admin: 12/08/21 09:16 Dose: 40 mg Documented by: Prednisone (Prednisone 20 Mg Tab) 40 mg PO DAILY [facility] Stop: 01/07/22 08:59 Last Admin: 12/08/21 09:33 Dose: 40 mg Documented by: Rivaroxaban (Rivaroxaban 15 Mg Tab) 15 mg PO QDD [facility] Stop: 01/06/22 20:59 Last Admin: 12/07/21 20:19 Dose: 15 mg Documented by: Sodium Chloride (Sodium Chlor 7% 4 Ml Neb) 4 ml NEB BIDR [facility] Stop: 01/07/22 18:59 (1) Acute respiratory failure Respiratory failure complication: unspecified whether with hypoxia or hypercapnia Qualified Code(s): J96.00 - Acute respiratory failure, unspecified whether with hypoxia or hypercapnia (2) Pneumonia Laterality: bilateral Lung location: lower lobe of lung Pneumonia type: due to unspecified organism Qualified Code(s): J18.9 - Pneumonia, unspecified organism
[2021-12-08] MEDS: RIVAROXABAN 15 MG TAB PO SCH (16:39)
--- NOTE | 2021-12-08 18:09 | Pulmonary Consultation ---
Date of Consultation December 08, 2021 Assessment & Plan (1) Pneumonia: Laterality: bilateral Lung location: lower lobe of lung Pneumonia type: due to unspecified organism Qualified Code(s): J18.9 - Pneumonia, unspecified organism (2) Abnormal CT of the chest: Attending: Dr. Bermudez Impression: 81-year-old female with history of CVA and tobacco abuse. Admitted 12/07/2021 with shortness of breath and 4-day history of increasing cough. No hemoptysis. No documented hypoxia although patient did seem to improve with use of supplemental oxygen. No prior pulmonary function testing or pulmonary visits discovered on chart review. Patient unable to give complete review of systems. No respiratory distress. Recommendations: 1. Pneumonia: * Patient with history of CVA. CT scan shows tree-in-bud opacities consistent with aspiration. * Check sputum for culture and sensitivity * No evidence of previous swallow study or evaluation. We will consult speech- language pathology for evaluation for aspiration * Titrate supplemental oxygen to maintain SaO2 greater than 90% * Although patient is a reported lifelong smoker, no documented history of COPD * Patient does have bronchospasm on examination. Would continue steroids for now and then taper it down * Patient currently is on ceftriaxone as well as azithromycin. This should be adequate to cover pulmonary sources 2. Mucous plugging: * Most likely secondary to acute pneumonia event * Continue with flutter valve as tolerated * Continue with Mucinex twice daily * Will add hypertonic saline nebulizer treatments every 12 hours * Out of bed to chair as tolerated. Ambulate as tolerated * Nebulized treatments 4 times daily scheduled and as needed * Repeat chest x-ray tomorrow morning * No indication for bronchoscopy at this time 3. Abnormal CT scan: * Patient with tree-in-bud opacities * Lifelong history of smoking as an adult reported * Due to question of aspiration and past history, would repeat CT scan without contrast in 3 months to follow for resolution of current pneumonitis * No lesions identified is suspicious for malignancy 4. Tobacco abuse: * Patient's review of systems was unreliable. She does report 3 to 5 cigarettes daily. * Would further investigate with family and encourage complete abstention from tobacco products Thank you for including us in the care of this patient. We will follow along with her at this time. Please refer to Dr. Bermudez's addendum for further recommendations. Supervising Physician Co-Signing Physician Notes I saw and evaluated the patient with Wilber Kroner, and agree with findings and plan as documented in the note. 81-year-old female with history of CVA and active smoker presents to the hospital with complaints of cough. Pulmonary consult because of the CAT scan of the chest CT chest 12/07/2021 personally reviewed: Centrilobular emphysema appreciated Tree-in-bud opacities appreciated bilateral lower lobes more on the left side. Cardiomegaly Minimal mediastinal lymphadenopathy At the time of examination patient's daughter was in the room. Patient stated she is feeling well. There is no difficulty swallowing when she eats as per the daughter. Patient is able to bring up phlegm. Denies any hemoptysis Constitutional: No acute distress HEENT: EOMI, PERRLA Respiratory system: Decreased air entry bilaterally, no wheeze, rhonchi, positive crackles appreciated bilaterally CVS: S1-S2 positive, no murmurs or gallops Abdomen: Soft, nontender, nondistended, positive bowel sounds x4 Extremities: +2 pulses bilaterally radialis/ dorsalis pedis, no cyanosis, + edema bilateral lower extremity Neuro: Awake alert oriented x3 Psych: Normal mood and affect G/U: No [place] Plan: Patient seems to have bilateral lower lobe pneumonia more on the left side Aspiration pneumonia should be ruled out. Continue with antibiotics. Start tapering prednisone in the next day or so. Hypertonic saline nebulized along with Mucinex and flutter valve No indication for bronc Please note the above document was generated using voice recognition software. It may contain grammatical, syntax or spelling errors.Any formal questions or concerns about the content, text or information contained within the body of this dictation should be directly addressed to the provider for clarification. History of Present Illness Reason for Consultation: Mucous plugging Attending Physician: Gabriela Liang DO History of Present Illness Attending: Dr. Bermudez There is an 81-year-old female that follows with Dr. Yaron Akins from [facility]. She has a past history including CVA with some cognitive Anuja, hypertension, chronic atrial fibrillation, congestive heart failure, aortic stenosis, heart murmur. She was admitted for shortness of breath and cough at home x4 days. WBC was elevated at 14,000. Procalcitonin was negative. proBNP was elevated at 1200. Chest CT was performed and patient was found to have bibasilar mucous plugging. There is also evidence of left greater than right reticulonodular opacities suggestive associated infectious inflammatory bronchiolitis or pneumonitis. Patient's pattern does appear to represent aspiration. Patient was placed on and subsequently placed on supplemental oxygen although there is no record of hypoxia and review of vital signs. Due to elevated proBNP patient did receive diuretics. On examination, patient does not have any specific decrease in breath sounds at the bilateral bases although she does have scattered bronchospasm. Patient was encouraged to use the flutter valve in my presence. She had little production of sputum and a weak cough. Patient does state that she smokes 3 to 5 cigarettes/day but is unable to give me any specifics on how many years she smoked or whether she has previous pulmonary evaluation. Review of the [employer] system with [facility] showed no pulm onary visits and no use of chronic bronchodilators. Patient has not had any pulmonary function testing that I can locate in the [facility] or [facility] medical record The patient is unable to provide me with review of systems. She does follow simple commands. I am unsure as to what the etiology of her impairment is but suspect it is most likely residual from her CVA. All other information was obtained from chart review Allergies Allergy/AdvReac Type Severity Reaction Status Date / Time No Known Allergies Allergy Verified 12/07/21 16:03 Home Medications Medication Instructions Recorded Confirmed Type allopurinol 100 mg tablet 200 mg PO DAILY 08/05/19 12/07/21 History atorvastatin 10 mg tablet 10 mg PO HS 08/05/19 12/07/21 History clonidine HCl 0.1 mg tablet 0.1 mg PO BID 08/05/19 12/07/21 History clotrimazole 1 % topical cream 1 applic TOPICAL BID PRN 08/05/19 12/07/21 History diltiazem HCl 180 mg 180 mg PO QAM 08/05/19 12/07/21 History capsule,extended release 24 hr, controlled (DILT-XR) ferrous sulfate 325 mg (65 mg 65 mg PO QAM 08/05/19 12/07/21 History iron) tablet folic acid 400 mcg tablet 400 mcg PO QDD 08/05/19 12/07/21 History metoprolol tartrate 50 mg tablet 50 mg PO BID 08/05/19 12/07/21 History xjctvfui-pni-qxkrs acid 0.4 1 tab PO DAILY 08/05/19 12/07/21 History mg-lycopene 300 mcg-lutein 250 mcg tablet (Centrum Silver) rivaroxaban 15 mg tablet (Xarelto) 15 mg PO QDD 08/05/19 12/07/21 History magnesium oxide 400 mg PO DAILY #5 cap 08/11/19 12/07/21 Rx lisinopril 2.5 mg tablet 2.5 mg PO QAM 09/20/20 12/07/21 History amoxicillin 875 mg-potassium 1 tab PO BID 12/07/21 12/07/21 History clavulanate 125 mg tablet aspirin 81 mg tablet,delayed 162 mg PO DAILY 12/07/21 12/07/21 History release flaxseed oil 1 ea MISCELLANEOUS QDD 12/07/21 12/07/21 History nystatin 100,000 unit/gram topical 1 applic TOPICAL TID PRN 12/07/21 12/07/21 History powder (Nystop) pantoprazole 20 mg tablet,delayed 20 mg PO QAM 12/07/21 12/07/21 History release triamcinolone acetonide 0.1 % 1 applic TOPICAL BID PRN 12/07/21 12/07/21 History topical cream Patient History Medical History (Updated 12/08/21 @ 18:02 by Wilber Aden PA-C) A-fib dx 4 yr ago/no hx cardioversion Abnormal CT of the chest Tree-in-bud opacity consistent with aspiration pneumonia. No evidence of underlying emphysema. CT scan 12/07/2021 at [facility] Age related osteoporosis Anticoagulated ASCVD (arteriosclerotic cardiovascular disease) Asthma DENIES Chronic diastolic CHF (congestive heart failure) Chronic iron deficiency anemia NO KNOWN CURRENT PROBLEMS WITH CKD (chronic kidney disease), stage III DENIES Epiglottitis PT SON REPORTS PT HAS TROUBLE SWALLOWING HER PILLS WITHOUT A SIGNIFICANT AMOUNT OF WATER GERD (gastroesophageal reflux disease) GI bleed HX Gout HX History of CVA (cerebrovascular accident) "MINI STROKES" 2015 - AFFECTED SPEECH AT THAT TIME HLD (hyperlipidemia) HTN (hypertension) Renal artery stenosis NARROWING ARTERIES , KIDNEY STENT PLACED IN 2000 Severe aortic stenosis UNKNOWN, NOT REPORTED BY PT SON UPON PAT INTERVIEW Surgical History History of cataract surgery RT History of colonoscopy History of endoscopy History of hysterectomy History of total left knee replacement BLADDER TAC History of total right knee replacement History of urologic surgery STENT PLACED IN KIDNEY 2000 FOR NARROWING OF ARTERIES Family History Mother Hypertension Social History Smoking Status: Light tobacco smoker Tobacco Type: Cigarettes Cigarettes Per Day: 2-3 CIG; Second Hand Exposure: No; Do You Dip or Chew Tobacco: No; Tobacco Cessation Education Requested by Patient: No Hx Alcohol Use: Yes Alcohol type: wine Hx Substance Use: No Preferred Language: Icelandic Communication Ability: Effective Sand Control Worker Required: No Beliefs That Will Affect Care: None marital status: / Current Living Situation: Family Current Living Situation Comment: lives with son Other Information That Helps Us Care for You: No Feels Safe at Home: Yes Safety Concerns: Feels Safe At This Time Assistive Devices: Cane and Walker Review of Systems Review of Systems: Unobtainable due to cognitive status Physical Exam Physical Exam: GENERAL : No acute distress. Patient appears to be pleasant. Unable to provide complete review of systems. EYES: No icterus, gaze conjugate NOSE: No evidence of epistaxis MOUTH: No lesions or candidiasis NECK: Supple LUNGS: CTA B/L, no wheezes, rales or rhonchi HEART: Regular, rate controlled ABDOMEN: Soft, NT, ND, BS Present EXTREMITIES: No LE edema, pedal pulses intact NEURO: A&OX3 Results & Data Results & Data ([facility]) Vital Signs (Past 12 Hours) Vital Signs Temp Pulse Pulse Pulse Resp BP BP 12/08/21 16:56 36.3 C L 84 17 91/61 L 12/08/21 14:41 89 19 12/08/21 14:35 71 12/08/21 14:19 12/08/21 12:02 36.4 C L 62 17 95/64 L 12/08/21 10:46 91 H 19 12/08/21 08:33 36.5 C 99 H 16 117/76 12/08/21 07:50 36.5 C 103 H 18 143/88 H 12/08/21 07:15 90 20 12/08/21 06:45 89 12/08/21 06:38 87 131/83 Pulse Ox 12/08/21 16:56 96 12/08/21 14:41 96 12/08/21 14:35 12/08/21 14:19 99 12/08/21 12:02 95 12/08/21 10:46 96 12/08/21 08:33 97 12/08/21 07:50 98 12/08/21 07:15 95 12/08/21 06:45 12/08/21 06:38 Critical Care Results & Data Vital Signs (Past 12 Hours) Vital Signs Temp Pulse Pulse Pulse Resp BP BP 12/08/21 16:56 36.3 C L 84 17 91/61 L 12/08/21 14:41 89 19 12/08/21 14:35 71 12/08/21 14:19 12/08/21 12:02 36.4 C L 62 17 95/64 L 12/08/21 10:46 91 H 19 12/08/21 08:33 36.5 C 99 H 16 117/76 12/08/21 07:50 36.5 C 103 H 18 143/88 H 12/08/21 07:15 90 20 12/08/21 06:45 89 12/08/21 06:38 87 131/83 Pulse Ox 12/08/21 16:56 96 12/08/21 14:41 96 12/08/21 14:35 12/08/21 14:19 99 12/08/21 12:02 95 12/08/21 10:46 96 12/08/21 08:33 97 12/08/21 07:50 98 12/08/21 07:15 95 12/08/21 06:45 12/08/21 06:38 Lab & Micro Results (Past 24 Hours) RBC 3.68 M/uL (4.2-5.4) L 12/09/21 WBC 19.78 K/uL (4.8-10.8) H 12/09/21 Hgb 12.1 g/dL (12.0-16.0) 12/09/21 Hct 35.4 % (37-47) L 12/09/21 MCV 96.2 fL (80-100) 12/09/21 MCH 32.9 pg (25-34) 12/09/21 MCHC 34.2 g/dL (32-36) 12/09/21 RDW Standard Deviation 46.8 fL (36.4-46.3) H 12/09/21 RDW Coefficient of Variation 13.4 % (11.5-14.5) 12/09/21 Plt Count 260 K/uL (130-400) 12/09/21 MPV 10.7 fL (7.4-10.4) H 12/09/21 Neutrophils (%) (Auto) 90.2 % 12/09/21 Lymphocytes (%) (Auto) 6.3 % 12/09/21 Monocytes # (Auto) 0.61 K/uL (0.11-0.59) H 12/09/21 Eosinophils # (Auto) 0.00 K/uL (0-0.5) 12/09/21 Immature Granulocyte % (Auto) 0.4 % 12/09/21 Neutrophils # (Auto) 17.85 K/uL (1.4-6.5) H 12/09/21 Lymphocytes # (Auto) 1.25 K/uL (1.2-3.4) 12/09/21 Monocytes # (Auto) 0.61 K/uL (0.11-0.59) H 12/09/21 Eosinophils # (Auto) 0.00 K/uL (0-0.5) 12/09/21 Basophils # (Auto) 0.00 K/uL (0-0.2) 12/09/21 Immature Granulocyte # (Auto) 0.07 K/uL (0.00-0.02) H 12/09/21 Na 134 mmol/L (136-145) L 12/09/21 K 3.8 mmol/L (3.5-5.1) 12/09/21 Cl 96 mmol/L (98-107) L 12/09/21 CO2 26 mmol/L (21-32) 12/09/21 Anion Gap 12 (3-11) H 12/09/21 BUN 52 mg/dl (6-23) H 12/09/21 Creatinine 1.85 mg/dl (0.6-1.2) H 12/09/21 Estimated GFR ( Amer) 28.7 ml/min 12/09/21 Estimated GFR (Non-Af Amer) 24.7 ml/min 12/09/21 BUN/Creatinine Ratio 28.1 (10-20) H 12/09/21 Glu 126 mg/dl (70-99(Fasting)) H 12/09/21 Ca 8.7 mg/dl (8.5-10.1) 12/09/21 Calcium Level 8.7 mg/dl (8.5-10.1) 12/09/21 03:58 12/09/21 Microbiology 12/07/21 17:05 Anaerobic Blood Culture - Preliminary Blood No growth in Anaerobic bottle after 24 hours. 12/07/21 16:41 Aerobic Blood Culture - Preliminary Blood No growth in Aerobic bottle after 24 hours. Anaerobic Blood Culture - Preliminary No growth in Anaerobic bottle after 24 hours. Diagnostic Findings (Past 24 Hours) Chest CT 12/07/21 17:50 CT chest diagnostic wo con CT DOSE: 208.41 mGy.cm CLINICAL HISTORY: 81 years-old Female with shortness of breath. Acute shortness of breath with weakness TECHNIQUE: Multiaxial CT images of the chest were performed without contrast. A dose lowering technique was utilized adhering to the principles of ALARA. COMPARISON: Chest radiograph of same day, CTA chest 05/01/2011, CT soft tissue neck 12/11/2019. FINDINGS: No thyroid nodule identified. Mildly enlarged paratracheal lymph nodes measure up to 12 mm. Subcarinal adenopathy measures up to 1.3 cm. Findings are similar to the prior study and are favored to be reactive. Moderate cardiomegaly. Extensive coronary artery calcifications. Atherosclerosis of the thoracic aorta without aneurysm. No pneumothorax, pleural effusion or overt pulmonary edema. Respiratory motion artifact limits evaluation of the lungs. There is an ill-defined 8 mm groundglass nodular opacity of the right lung apex on image 64. This is new from the 2020 exam. Bibasilar mucous plugging. Intralobular septal thickening with left greater than right tree-in-bud nodules and mild linear subsegmental consolidation. Tracheobronchial secretions. Unremarkable soft tissues. No acute fracture. Degenerative changes of the shoulders and spine. IMPRESSION: 1. Tracheobronchial secretions with bibasilar mucous plugging. 2. Left greater than right reticular nodular opacities are suggestive of an associated infectious or inflammatory bronchiolitis/pneumonitis. 3. Mediastinal adenopathy is likely reactive. 4. Cardiomegaly. 5. 8 mm groundglass nodular opacity of the right lung apex. 6 month follow-up chest CT is recommended to exclude an adenomatous pulmonary lesion. ACT 112: Negative or not required by law. Electronically signed by: Regan Cui M.D. 12/07/2021 7:29 PM I & O Totals 24 Hours 12/07/21 12/08/21 12/09/21 06:59 06:59 06:59 Intake Total 935 / 935 Output Total 1050 / 1050 240 / 240 Balance -115 / -115 -240 / -240 Cumulative 12/07/21 14:59 thru 12/08/21 17:44 Intake Total 935 Output Total 1290 Balance -355 RT Ventilator Mngmt (Last Documented) Ventilator Ordered Settings Respiratory Rate 17 12/08/21 16:56 Fraction of Inspired Oxygen 12/07/21 19:13 Ventilator - PT Measurements Respiratory Rate 17 PG Care Time/CCT Total # of Minutes Spent Total Time Spent with Patient: Total time spent is greater than 50% in coordination of care (as documented) at patient's floor/unit and/or counseling patient: 50 minutes Coding Level of Care Code 98289 Initial Inpt Care Lvl 3 Diagnoses Pneumonia J18.9 Laterality: bilateral Lung location: lower lobe of lung Pneumonia type: due to unspecified organism Abnormal CT of the chest R93.89
[2021-12-08] MEDS: SODIUM CHLOR 7% 4 ML NEB NEB SCH (19:30)
[2021-12-08] MEDS: guaiFENesin 600 MG TABCR PO SCH (19:49)
[2021-12-08] MEDS: ATORVASTATIN 10 MG TAB PO SCH (19:50)
[2021-12-08] MEDS: cefTRIAXone SODIUM 1,000 MG in DEXTROSE 5% 50 ML IV SCH (21:32)
[2021-12-08] MEDS ORDERED: ALBUMIN 25% 100 mL 25 GM/100 ML VIAL IV ONE (21:55)
[2021-12-08] MEDS ORDERED: MAGNESIUM SULFATE / D5W 1 GM/100 ML BAG IV ONE (21:56)
[2021-12-08] MEDS: AZITHROMYCIN 500 MG in DEXTROSE 5% 250 ML IV SCH (22:28)
[2021-12-09 04:13] LABS: Hematocrit (blood only) 35.4 % (37-47); Hemoglobin 12.1 g/dL (12.0-16.0); Immature Granulocytes # (auto) 0.07 K/uL (0.00-0.02); Immature Granulocytes % (auto) 0.4 %; Lymphocytes # (auto) 1.25 K/uL (1.2-3.4); Lymphocytes % (auto) 6.3 %; Mean Corpuscular Hemoglobin 32.9 pg (25-34); Mean Corpuscular Hgb Conc 34.2 g/dL (32-36); Mean Corpuscular Volume 96.2 fL (80-100); Mean Platelet Volume 10.7 fL (7.4-10.4); Monocytes # (auto) 0.61 K/uL (0.11-0.59); Monocytes % (auto) 3.1 %; Neutrophils # (auto) 17.85 K/uL (1.4-6.5); Neutrophils % (auto) 90.2 %; Platelet Count 260 K/uL (130-400); RDW Coefficient of Variation 13.4 % (11.5-14.5); RDW Standard Deviation 46.8 fL (36.4-46.3); Red Blood Count 3.68 M/uL (4.2-5.4); White Blood Count 19.78 K/uL (4.8-10.8)
[2021-12-09 04:28] LABS: BUN Creatinine Ratio 28.1 (10-20); Calcium 8.7 mg/dl (8.5-10.1); Creatinine Clr Calc Pharmacy 22.6 ml/min; Est GFR (African American) 28.7 ml/min; Est GFR (Non-African American) 24.7 ml/min; Potassium 3.8 mmol/L (3.5-5.1)
[2021-12-09] MEDS: SODIUM CHLOR 7% 4 ML NEB NEB SCH ×2 (07:18→20:01)
[2021-12-09] MEDS: ALBUT/IPRATROP 3MG/0.5MG NEB 3 ML VIAL NEB SCH ×2 (07:18→11:02)
[2021-12-09] MEDS: allopurinoL 100 MG TAB PO SCH (08:44)
[2021-12-09] MEDS: guaiFENesin 600 MG TABCR PO SCH ×2 (08:45→20:36)
[2021-12-09] MEDS: cloNIDine HCL 0.1 MG TAB PO SCH ×3 (08:45→20:35)
[2021-12-09] MEDS: ASPIRIN 81 MG ECTAB PO SCH (08:45)
[2021-12-09] MEDS: FERROUS SULFATE 325 MG TAB PO SCH (08:45)
[2021-12-09] MEDS: ISOSORBIDE MONO EXTENDED REL 30 MG TABCR PO SCH (08:45)
[2021-12-09] MEDS: METOPROLOL TARTRATE 50 MG TAB PO SCH ×2 (08:45→20:35)
[2021-12-09] MEDS: predniSONE 20 MG TAB PO SCH (08:46)
[2021-12-09] MEDS: PANTOprazole 40 MG TAB PO SCH (08:46)
--- NOTE | 2021-12-09 09:51 | Cardiology Progress Note ---
Date of Service December 09, 2021 Assessment & Plan (1) Acute respiratory failure: (2) Chronic atrial fibrillation: (3) CHF (congestive heart failure): (4) Elevated troponin: (5) Aortic stenosis: Plan: Patient's presentation appears to be most consistent with an acute on chronic obstructive pulmonary disease exacerbation complicated by mild acute decompensated diastolic congestive heart failure, in the setting of severe aortic valve stenosis. The patient's volume overload reported on presentation promptly resolved after receiving 2 doses of 40 mg IV Lasix. Metabolic panel this morning with acute on chronic renal dysfunction likely as a manifestation of diuresis and perhaps the mild intermittent hypotension. IV Furosemide discontinued (last dose was in the AM of 12/08/2021). Hold off on implementing a oral diuretic regimen at this point, reconsidering need for low dose diuretic therapy a few days per week as an outpatient. She was not prescribed diuretic therapy prior to admission. Lisinopril discontinued due to hypotension. Low-dose isosorbide added. I would continue the present rate lowering regimen along with the chronic anticoagulation. Arrangements will be made for outpatient cardiology follow-up post discharge in 3-4 weeks. Please contact with any questions or concerns. Admission and Anticipated Discharge Date Admission Date: December 07, 2021 Supervising Physician Co-Signing Physician Notes I reviewed the medical record and seen the patient. Discussed case with Mr. Ma and I agree with his plan as outlined above. The patient wants no aggressive treatment regarding her aortic stenosis so the best medical management is the treatment of choice. Subjective Patient seen and examined. Chart, medications, and telemetry reviewed. "I want to go home." No chest pain. No palpitations. Stable shortness of breath. Ongoing cough, without orthopnea, PND, or peripheral edema. Telemetry: Atrial fibrillation (known, chronic) averaging in the 90's, ranging from 80 to 110 bpm. December 08, 2021 TTE Interpretation Summary ([facility], Dr. Leon): Moderate concentric LVH. Normal LV systolic function. Ejection fraction 55 to 60%. Normal RV function. Severely dilated left atrium. Mildly dilated right atrium. Severe calcific aortic valve stenosis. Mild mitral regurgitation. Moderate tricuspid regurgitation. Estimated pulmonary artery systolic pressure 35 to 40 mmHg. Review of Systems Review of Systems: Complete Review of Systems is as stated above, negative, or noncontributory. Physical Exam Physical Exam: General: A&Ox3. NAD. Hard of hearing. HENT: Normocephalic. Atraumatic. Eyes: PER. Conjunctiva pink, sclera clear. Neck: Bilateral carotid bruits. No JVD. Heart: Irregularly irregular around 100 bpm. Systolic ejection murmur. Lungs: Diminished. Decreased. Scattered rhonchi. No wheeze. Abdomen: +BS. Soft. Nontender. No masses or organomegaly. Extremities: No clubbing, cyanosis, or significant edema. Limited neurological examination is without focal deficits. Pulses: radial=2/4, posterior tibial=0/4. Results & Data ([facility]) Vital Signs (Past 12 Hours) Vital Signs Temp Pulse Pulse Resp BP Pulse Ox 12/09/21 07:18 100 H 18 94 12/09/21 07:01 36.8 C 96 H 18 133/83 95 12/09/21 03:05 36.7 C 87 18 119/72 95 12/09/21 00:00 85 12/08/21 23:11 36.5 C 88 18 106/64 95 Laboratory Results Laboratory Results - last 24 hr 12/08/21 12/09/21 12/09/21 22:25 03:58 03:58 WBC 19.78 H RBC 3.68 L Hgb 12.1 Hct 35.4 L MCV 96.2 MCH 32.9 MCHC 34.2 RDW Std Deviation 46.8 H RDW Coeff of Alejandrina 13.4 Plt Count 260 MPV 10.7 H Immature Gran % (Auto) 0.4 Neut % (Auto) 90.2 Lymph % (Auto) 6.3 Schuyler % (Auto) 3.1 Eos % (Auto) 0.0 Baso % (Auto) 0.0 Neut # (Auto) 17.85 H Lymph # (Auto) 1.25 Schuyler # (Auto) 0.61 H Eos # (Auto) 0.00 Baso # (Auto) 0.00 Immature Gran # (Auto) 0.07 H Sodium 134 L Potassium 3.8 Chloride 96 L Carbon Dioxide 26 Anion Gap 12 H BUN 52 H D Creatinine 1.85 H D Est Cr Clr Drug Dosing 22.6 Est GFR ( Amer) 28.7 Est GFR (Non-Af Amer) 24.7 BUN/Creatinine Ratio 28.1 H Glucose 126 H Lactate 3.0 H* Calcium 8.7 12/09/21 03:58 WBC RBC Hgb Hct MCV MCH MCHC RDW Std Deviation RDW Coeff of Alejandrina Plt Count MPV Immature Gran % (Auto) Neut % (Auto) Lymph % (Auto) Schuyler % (Auto) Eos % (Auto) Baso % (Auto) Neut # (Auto) Lymph # (Auto) Schuyler # (Auto) Eos # (Auto) Baso # (Auto) Immature Gran # (Auto) Sodium Potassium Chloride Carbon Dioxide Anion Gap BUN Creatinine Est Cr Clr Drug Dosing Est GFR ( Amer) Est GFR (Non-Af Amer) BUN/Creatinine Ratio Glucose Lactate 1.6 Calcium (1) Acute respiratory failure Respiratory failure complication: unspecified whether with hypoxia or hypercapnia Qualified Code(s): J96.00 - Acute respiratory failure, unspecified whether with hypoxia or hypercapnia (2) CHF (congestive heart failure) Heart failure chronicity: chronic Heart failure type: unspecified Qualified Code(s): I50.9 - Heart failure, unspecified
--- NOTE | 2021-12-09 11:22 | XRay Report ---
SINGLE VIEW CHEST CLINICAL HISTORY: Hypoxia. Mucus plugging FINDINGS: An AP, portable, upright chest radiograph is compared to chest x-ray and chest CT dated 11/10. The heart is enlarged noting atherosclerotic calcification of the thoracic aorta. The pulmona ry vasculature is noncongested. Chronic interstitial thickening is similar to previous. There are lef t basilar opacities. No large pleural effusion or pneumothorax is seen. The skeletal structures are o steopenic. The bony thorax is grossly intact. IMPRESSION: 1. Cardiomegaly without radiographic evidence of congestive failure. 2. Left basilar opacities could represent scarring/atelectasis versus a mild infectious/inflammatory pneumonitis. Clinical correlation will be required. ACT 112: Negative or not required by law. Electronically signed by: Wilber Albarran M.D. 12/09/2021 11:20 AM
[2021-12-09] MEDS ORDERED: ALBUT/IPRATROP 3MG/0.5MG NEB 3 ML VIAL NEB PRN (12:07)
--- NOTE | 2021-12-09 15:47 | Pulmonology Progress Note ---
Date of Service December 09, 2021 Assessment & Plan (1) Pneumonia: Laterality: bilateral Lung location: lower lobe of lung Pneumonia type: due to unspecified organism Qualified Code(s): J18.9 - Pneumonia, unspecified organism (2) Abnormal CT of the chest: Plan: Attending: Dr. Bermudez Impression: 81-year-old female with history of CVA and tobacco abuse. Admitted 12/07/2021 with shortness of breath and 4-day history of increasing cough. No hemoptysis. No documented hypoxia although patient did seem to improve with use of supplemental oxygen. No prior pulmonary function testing or pulmonary visits discovered on chart review. Patient unable to give complete review of systems. No respiratory distress. Recommendations: 1. Pneumonia: * CT scan shows tree-in-bud opacities consistent with aspiration. * Sputum for culture and sensitivity ordered - patient unable to produce adequate sample even with the vest * Speech-language pathology for evaluation for aspiration. This was negative with no findings of aspiration * Continue aspiration precautions (as a precaution) and maintain strict oral hygiene * Titrate supplemental oxygen to maintain SaO2 greater than 90% * Although patient is a reported lifelong smoker, no documented history of COPD * Bronchospasm significantly improved. Would begin steroid taper at this time. * Patient currently is on ceftriaxone as well as azithromycin. This should be adequate to cover pulmonary sources 2. Mucous plugging: * Most likely secondary to acute pneumonia event * Continue with flutter valve as tolerated * Continue with Mucinex twice daily * Continue hypertonic saline nebulizer treatments every 12 hours as tolerated * Encourage out of bed to chair. Ambulate as tolerated * Nebulized treatments 4 times daily scheduled and as needed * Repeat chest x-ray tomorrow morning ordered * No indication for bronchoscopy at this time 3. Abnormal CT scan: * Patient with tree-in-bud opacities * Lifelong history of smoking as an adult reported * Due to question of aspiration and past history, would repeat CT scan without contrast in 3 months to follow for resolution of current pneumonitis * No lesions identified is suspicious for malignancy 4. Tobacco abuse: * Patient's review of systems was unreliable. She does report 3 to 5 cigarettes daily. * Would further investigate with family and encourage complete abstention from tobacco products Thank you for including us in the care of this patient. We will sign off at this time. Please feel free to call with any further questions Admission and Anticipated Discharge Date Admission Date: December 07, 2021 Supervising Physician Co-Signing Physician Notes I saw and evaluated the patient with Wilber Aden, and agree with findings and plan as documented in the note. Patient seen and examined at bedside. No acute distress, no delusions overnight. Patient says she is feeling much better after coming to the hospital Denies any chest pain. Has been using flutter valve bringing occasional phlegm. No hemoptysis Fair appetite. Constitutional: No acute distress HEENT: EOMI, PERRLA Respiratory system: Decreased air entry bilaterally, appreciated bilaterally, minimal expiratory wheeze bilaterally CVS: S1-S2 positive, no murmurs or gallops Abdomen: Soft, nontender, nondistended, positive bowel sounds x4 Extremities: +2 pulses bilaterally radialis/ dorsalis pedis, no cyanosis, + edema bilateral lower extremity Neuro: Awake alert oriented x3 Psych: Normal mood and affect G/U: No [place] Plan: Continue with antibiotics Patient is having minimal wheezing even today. I am going to start the patient on Anoro inhaler to be used on a daily basis Continue with tapering prednisone. No further recommendations from pulmonary perspective. We will sign off. Please call directly with any questions. Please note the above document was generated using voice recognition software. It may contain grammatical, syntax or spelling errors.Any formal questions or concerns about the content, text or information contained within the body of this dictation should be directly addressed to the provider for clarification. Subjective Attending: Dr. Bermudez Patient seen and examined in room 230 bed 2. She is much more alert today she is alert and oriented x3. She states that she does not have any significant shortness of breath. Her cough is resolved. She is not sure why she is still in the hospital. She has no acute complaints. She denies fever. No sputum production per nursing staff. Review of Systems Review of Systems: A total of 10 systems was reviewed and is negative other than as listed in the HPI Physical Exam Physical Exam: GENERAL : No acute distress. Pleasant EYES: No icterus, gaze conjugate NOSE: No evidence of epistaxis MOUTH: No lesions or candidiasis NECK: Supple LUNGS: Rales at the bases and rhonchi in the mid lung [place]. No appreciation of bronchospasm HEART: Regular, rate controlled ABDOMEN: Soft, NT, ND, BS Present EXTREMITIES: No LE edema, pedal pulses intact NEURO: A&OX3 Results & Data Results & Data ([facility]) Vital Signs (Past 12 Hours) Vital Signs Temp Pulse Pulse Resp BP BP Pulse Ox 12/09/21 15:18 36.3 C L 64 18 106/65 96 12/09/21 11:11 36.7 C 81 19 99/63 L 97 12/09/21 11:02 74 18 95 12/09/21 07:18 100 H 18 94 12/09/21 07:01 36.8 C 96 H 18 133/83 95 12/09/21 06:45 93 H Critical Care Results & Data Vital Signs (Past 12 Hours) Vital Signs Temp Pulse Pulse Resp BP BP Pulse Ox 12/09/21 15:18 36.3 C L 64 18 106/65 96 12/09/21 11:11 36.7 C 81 19 99/63 L 97 12/09/21 11:02 74 18 95 12/09/21 07:18 100 H 18 94 12/09/21 07:01 36.8 C 96 H 18 133/83 95 12/09/21 06:45 93 H Lab & Micro Results (Past 24 Hours) RBC 3.68 M/uL (4.2-5.4) L 12/09/21 WBC 19.78 K/uL (4.8-10.8) H 12/09/21 Hgb 12.1 g/dL (12.0-16.0) 12/09/21 Hct 35.4 % (37-47) L 12/09/21 MCV 96.2 fL (80-100) 12/09/21 MCH 32.9 pg (25-34) 12/09/21 MCHC 34.2 g/dL (32-36) 12/09/21 RDW Standard Deviation 46.8 fL (36.4-46.3) H 12/09/21 RDW Coefficient of Variation 13.4 % (11.5-14.5) 12/09/21 Plt Count 260 K/uL (130-400) 12/09/21 MPV 10.7 fL (7.4-10.4) H 12/09/21 Neutrophils (%) (Auto) 90.2 % 12/09/21 Lymphocytes (%) (Auto) 6.3 % 12/09/21 Monocytes # (Auto) 0.61 K/uL (0.11-0.59) H 12/09/21 Eosinophils # (Auto) 0.00 K/uL (0-0.5) 12/09/21 Immature Granulocyte % (Auto) 0.4 % 12/09/21 Neutrophils # (Auto) 17.85 K/uL (1.4-6.5) H 12/09/21 Lymphocytes # (Auto) 1.25 K/uL (1.2-3.4) 12/09/21 Monocytes # (Auto) 0.61 K/uL (0.11-0.59) H 12/09/21 Eosinophils # (Auto) 0.00 K/uL (0-0.5) 12/09/21 Basophils # (Auto) 0.00 K/uL (0-0.2) 12/09/21 Immature Granulocyte # (Auto) 0.07 K/uL (0.00-0.02) H 12/09/21 Na 134 mmol/L (136-145) L 12/09/21 K 3.8 mmol/L (3.5-5.1) 12/09/21 Cl 96 mmol/L (98-107) L 12/09/21 CO2 26 mmol/L (21-32) 12/09/21 Anion Gap 12 (3-11) H 12/09/21 BUN 52 mg/dl (6-23) H 12/09/21 Creatinine 1.85 mg/dl (0.6-1.2) H 12/09/21 Estimated GFR ( Amer) 28.7 ml/min 12/09/21 Estimated GFR (Non-Af Amer) 24.7 ml/min 12/09/21 BUN/Creatinine Ratio 28.1 (10-20) H 12/09/21 Glu 126 mg/dl (70-99(Fasting)) H 12/09/21 Ca 8.7 mg/dl (8.5-10.1) 12/09/21 Calcium Level 8.7 mg/dl (8.5-10.1) 12/09/21 03:58 12/09/21 Microbiology 12/07/21 17:05 Aerobic Blood Culture - Preliminary Blood No growth in Aerobic bottle after 24 hours. Anaerobic Blood Culture - Preliminary No growth in Anaerobic bottle after 24 hours. 12/07/21 16:41 Aerobic Blood Culture - Preliminary Blood No growth in Aerobic bottle after 24 hours. Anaerobic Blood Culture - Preliminary No growth in Anaerobic bottle after 24 hours. Diagnostic Findings (Past 24 Hours) Chest X-Ray 12/09/21 10:34 SINGLE VIEW CHEST CLINICAL HISTORY: Hypoxia. Mucus plugging FINDINGS: An AP, portable, upright chest radiograph is compared to chest x-ray and chest CT dated 12/07/2021. The heart is enlarged noting atherosclerotic calcification of the thoracic aorta. The pulmonary vasculature is noncongested. Chronic interstitial thickening is similar to previous. There are left basilar opacities. No large pleural effusion or pneumothorax is seen. The skeletal structures are osteopenic. The bony thorax is grossly intact. IMPRESSION: 1. Cardiomegaly without radiographic evidence of congestive failure. 2. Left basilar opacities could represent scarring/atelectasis versus a mild infectious/inflammatory pneumonitis. Clinical correlation will be required. ACT 112: Negative or not required by law. Electronically signed by: Wilber Albarran M.D. 12/09/2021 11:20 AM I & O Totals 24 Hours 12/08/21 12/09/21 12/10/21 06:59 06:59 06:59 Intake Total 935 / 935 665 / 665 480 / 480 Output Total 1050 / 1050 740 / 740 300 / 300 Balance -115 / -115 -75 / -75 180 / 180 Cumulative 12/07/21 14:59 thru 12/09/21 14:54 Intake Total 2080 Output Total 2090 Balance -10 RT Ventilator Mngmt (Last Documented) Ventilator Ordered Settings Respiratory Rate 18 12/09/21 15 :18 Fraction of Inspired Oxygen 30 12/07/21 19:13 Ventilator - PT Measurements Respiratory Rate 18 PG Care Time/CCT Total # of Minutes Spent Total Time Spent with Patient: Total time spent is greater than 50% in coordination of care (as documented) at patient's floor/unit and/or counseling patient:20 Coding Level of Care Code 99976 Subseq Hosp Care Lvl 2 Diagnoses Pneumonia J18.9 Laterality: bilateral Lung location: lower lobe of lung Pneumonia type: due to unspecified organism Abnormal CT of the chest R93.89
[2021-12-09] MEDS: RIVAROXABAN 15 MG TAB PO SCH (17:23)
[2021-12-09] MEDS: ATORVASTATIN 10 MG TAB PO SCH (20:35)
--- NOTE | 2021-12-09 20:43 | Hospitalist Progress Note ---
Date of Service December 09, 2021 Assessment & Plan (1) Acute respiratory failure: (2) Acute on chronic diastolic CHF (congestive heart failure): Plan: Patient presenting from home with reports of shortness of breath, cough, wheezing x 4 days In the ED, WBC 14 K, proBNP 1200, negative procalcitonin. Patient also became acutely short of breath and tachypneic and was subsequently placed on BiPAP however no hypoxia has been reported. CXR shows pulmonary vascular congestion and trace pleural effusions Lasix 40 mg IV x 2 doses given and euvolemia achieved. Echo 12/2019-EF 65 to 70%, grade 3 diastolic dysfunction, pulmonary hypertension, moderate mitral regurgitation, moderate to severe Due to elevated BP, will add nitro paste--after diuresis and other known antihypertensives, she is hypotensive today [place] placed for strict I's and O's, low Na+ diet, daily weights Noted low BP trend in afternoon of 12/08 and into following morning-diuretics held MPer cardiology may consider a TIW approach. Cont long acting nitrate and other home meds. (3) Pneumonia: Plan: Was seen by PCP 2 days ago and placed on Augmentin for suspected bronchitis, will continue given leukocytosis CT chest to further evaluate for possible pneumonia Given patient's lifelong smoking history, suspect underlying COPD but she has no h/o PFTs Discussed the importance of the PFTs for a secure diagnosis with daughter who verbalized understanding. s/p IV Solu-Medrol in the ED, continue prednisone 40 mg daily Pulmonary toilet with nebs, incentive spirometer, flutter valve She is overall better with this initial treatment. Will continue. (4) Elevated troponin: Plan: HS trop 22.2 No reports of chest pain, EKG shows new T wave inversions in the inferior lateral leads Likely related to demand ischemia in setting of CHF exacerbation with valve disease. (5) HTN (hypertension): Plan: BP elevated yesterday, but now hypotensive. Caution wtih any continued diuresis which is on hold. Nitro paste was removed. Continue lisinopril, metoprolol, clonidine per home regimen with hold para meters. (6) Chronic atrial fibrillation: Plan: Rate controlled on metoprolol Anticoagulated on Xarelto (7) History of CVA (cerebrovascular accident): Plan: Continue ASA and statin for secondary prevention. (8) DVT prophylaxis: Plan: On Xarelto Full Code Dispo-home with 24/7 family support in next 2-3 days pending complete resolution of hypoxia. DO Fredy Stevens Hospitalist Admission and Anticipated Discharge Date Admission Date: December 07, 2021 Subjective 81-year-old female with critical aortic stenosis presents with shortness of breath she is feeling well today off oxygen denies chest pain or SOB no wheezing son is at bedside and says she looks much better Review of Systems Review of Systems: All systems reviewed negative except as indicated above. Physical Exam Physical Exam: CONSTITUTIONAL: WNWD, vitals as above, generally well- appearing, NAD EYES: normal conjunctivae, no scleral icterus ENT: external ear and nose normal, MMM NECK: trachea midline RESPIRATORY: clear to auscultation throughout, normal respiratory effort, no increased respiratory effort. CARDIOVASCULAR: 3/6 HANNAH on left anterior chest laterally, no gallops or rubs, no JVD, no peripheral edema CHEST: inspection of chest was normal GASTROINTESTINAL: soft, nontender, ND, no guarding MUSCULOSKELETAL: strength 5/5 throughout, head is normocephalic and atraumatic SKIN: warm and dry NEUROLOGIC: CN 2-12 grossly intact, no sensory deficit, normal cognition, normal speech, no tremor, [facility]: alert cooperative and oriented to person, place and time. Euthymic mood, makes good eye contact, language grossly intact, recent and remote memory grossly intact. Results & Data Results & Data ([facility]) Vital Signs (Past 12 Hours) Vital Signs Temp Pulse Pulse Resp BP BP Pulse Ox 12/09/21 20:01 85 18 94 12/09/21 19:18 36.9 C 83 18 113/67 95 12/09/21 15:18 36.3 C L 64 18 106/65 96 12/09/21 14:11 64 12/09/21 11:11 36.7 C 81 19 99/63 L 97 12/09/21 11:02 74 18 95 Laboratory Results Short CBC 12/09/21 Range/Units 03:58 WBC 19.78 H (4.8-10.8) K/uL Hgb 12.1 (12.0-16.0) g/dL Hct 35.4 L (37-47) % Plt Count 260 (130-400) K/uL BMP 12/09/21 03:58 Sodium 134 L Potassium 3.8 Chloride 96 L Carbon Dioxide 26 BUN 52 H D Creatinine 1.85 H D Glucose 126 H Calcium 8.7 Diagnostic Findings Chest X-Ray 12/09/21 10:34 SINGLE VIEW CHEST CLINICAL HISTORY: Hypoxia. Mucus plugging FINDINGS: An AP, portable, upright chest radiograph is compared to chest x-ray and chest CT dated 12/07/2021. The heart is enlarged noting atherosclerotic calcification of the thoracic aorta. The pulmonary vasculature is noncongested. Chronic interstitial thickening is similar to previous. There are left basilar opacities. No large pleural effusion or pneumothorax is seen. The skeletal structures are osteopenic. The bony thorax is grossly intact. IMPRESSION: 1. Cardiomegaly without radiographic evidence of congestive failure. 2. Left basilar opacities could represent scarring/atelectasis versus a mild infectious/inflammatory pneumonitis. Clinical correlation will be required. ACT 112: Negative or not required by law. Electronically signed by: Wilber Albarran M.D. 12/09/2021 11:20 AM Medications Administered Current Inpatient Medications Acetaminophen (Acetaminophen 325 Mg Tab) 650 mg PO Q4H PRN PRN Reason: pain/fever Stop: 01/06/22 19:34 Albuterol (Albut/Ipratrop 3mg/0.5mg Neb 3 Ml Vial) 3 ml NEB QIDR PRN; Protocol PRN Reason: SOB/wheezing Stop: 01/06/22 19:34 Last Admin: 12/09/21 14:59 Dose: 3 ml Documented by: Allopurinol (Allopurinol 100 Mg Tab) 200 mg PO DAILY [facility] Stop: 01/07/22 08:59 Last Admin: 12/09/21 08:44 Dose: 200 mg Documented by: Aspirin (Aspirin 81 Mg Ectab) 162 mg PO DAILY [facility] Stop: 01/07/22 08:59 Last Admin: 12/09/21 08:45 Dose: 162 mg Documented by: Atorvastatin Calcium (Atorvastatin 10 Mg Tab) 10 mg PO HS [facility] Stop: 01/06/22 20:59 Last Admin: 12/09/21 20:35 Dose: 10 mg Documented by: Clonidine HCl (Clonidine Hcl 0.1 Mg Tab) 0.1 mg PO BID [facility] Stop: 01/06/22 20:59 Last Admin: 12/09/21 20:35 Dose: 0.1 mg Documented by: Diltiazem HCl (Diltiazem Hcl 180 Mg Er Cap) 180 mg PO QAM [facility] Stop: 01/07/22 08:59 Last Admin: 12/09/21 08:45 Dose: 180 mg Documented by: Ferrous Sulfate (Ferrous Sulfate 325 Mg Tab) 325 mg PO QAM [facility] Stop: 01/07/22 08:59 Last Admin: 12/09/21 08:45 Dose: 325 mg Documented by: Guaifenesin (Guaifenesin 600 Mg Tabcr) 600 mg PO Q12 [facility] Stop: 01/07/22 20:59 Last Admin: 12/09/21 20:36 Dose: 600 mg Documented by: Ceftriaxone Sodium 1,000 mg/ (Dextrose) 60 mls @ 100 mls/hr IV Q24H [facility]; Protocol Stop: 12/14/21 21:59 Last Infusion: 12/08/21 22:16 Dose: Infused Documented by: Azithromycin 500 mg/ Dextrose 255 mls @ 125 mls/hr IV Q24H [facility] Stop: 12/14/21 21:59 Last Infusion: 12/09/21 00:40 Dose: Infused Documented by: Isosorbide Mononitrate (Isosorbide [place] Extended Rel 30 Mg Tabcr) 30 mg PO QAM [facility] Stop: 01/07/22 11:44 Last Admin: 12/09/21 08:45 Dose: 30 mg Documented by: Metoprolol Tartrate (Metoprolol Tartrate 50 Mg Tab) 50 mg PO BID [facility] Stop: 01/06/22 20:59 Last Admin: 12/09/21 20:35 Dose: 50 mg Documented by: Pantoprazole Sodium (Pantoprazole 40 Mg Tab) 40 mg PO QAM [facility] Stop: 01/07/22 08:59 Last Admin: 12/09/21 08:46 Dose: 40 mg Documented by: Prednisone (Prednisone 20 Mg Tab) 40 mg PO DAILY [facility] Stop: 01/07/22 08:59 Last Admin: 12/09/21 08:46 Dose: 40 mg Documented by: Rivaroxaban (Rivaroxaban 15 Mg Tab) 15 mg PO QDD [facility] Stop: 01/06/22 20:59 Last Admin: 12/09/21 17:23 Dose: 15 mg Documented by: Sodium Chloride (Sodium Chlor 7% 4 Ml Neb) 4 ml NEB BIDR [facility] Stop: 01/07/22 18:59 Last Admin: 12/09/21 20:01 Dose: 4 ml Documented by: Umeclidinium/Vilanterol (Umeclidinium/Vilanterol 62.5/25mcg 7 Puffs/Inhaler) 1 puffs INH DAILY [facility] Stop: 01/09/22 08:59 (1) Acute respiratory failure Respiratory failure complication: unspecified whether with hypoxia or hypercapnia Qualified Code(s): J96.00 - Acute respiratory failure, unspecified whether with hypoxia or hypercapnia (2) Pneumonia Laterality: bilateral Lung location: lower lobe of lung Pneumonia type: due to unspecified organism Qualified Code(s): J18.9 - Pneumonia, unspecified organism
[2021-12-09] MEDS: cefTRIAXone SODIUM 1,000 MG in DEXTROSE 5% 50 ML IV SCH (21:42)
[2021-12-09] MEDS: AZITHROMYCIN 500 MG in DEXTROSE 5% 250 ML IV SCH (22:26)
[2021-12-10] MEDS: SODIUM CHLOR 7% 4 ML NEB NEB SCH ×2 (07:07→19:57)
--- NOTE | 2021-12-10 07:20 | XRay Report ---
XR chest 1V portable CLINICAL HISTORY: Hypoxia COMPARISON STUDY: Chest CT December 07, 2021. Chest radiograph December 09, 2021. FINDINGS: There is no pneumothorax or pleural effusion. Cardiomegaly is noted. There is mild residual thickening. Mild left basilar opacity persists. Incidental note is made of mitral annular and aortic valvular calcification. IMPRESSION: 1. Mild left basilar opacity and interstitial thickening. This favors an infectious process. Mild pul monary edema could appear similar. 2. No significant change in appearance of the chest. ACT 112: Negative or not required by law. Electronically signed by: Demarco Tellez M.D. 12/10/2021 7:19 AM
[2021-12-10 08:26] LABS: Hematocrit (blood only) 37.2 % (37-47); Hemoglobin 12.8 g/dL (12.0-16.0); Mean Corpuscular Hemoglobin 33.2 pg (25-34); Mean Corpuscular Hgb Conc 34.4 g/dL (32-36); Mean Corpuscular Volume 96.4 fL (80-100); Mean Platelet Volume 11.3 fL (7.4-10.4); Platelet Count 317 K/uL (130-400); RDW Coefficient of Variation 13.3 % (11.5-14.5); RDW Standard Deviation 45.7 fL (36.4-46.3); Red Blood Count 3.86 M/uL (4.2-5.4); White Blood Count 16.98 K/uL (4.8-10.8)
[2021-12-10 08:36] LABS: BUN Creatinine Ratio 37.6 (10-20); Calcium 8.9 mg/dl (8.5-10.1); Creatinine Clr Calc Pharmacy 28.5 ml/min; Est GFR (African American) 37.3 ml/min; Est GFR (Non-African American) 32.1 ml/min; Magnesium 2.5 mg/dl (1.7-2.4); Potassium 3.6 mmol/L (3.5-5.1)
[2021-12-10] MEDS: UMECLIDINIUM/VILANTEROL 62.5/25MCG 7 PUFFS/INHALER INH SCH (10:18)
[2021-12-10] MEDS: ASPIRIN 81 MG ECTAB PO SCH (10:20)
[2021-12-10] MEDS: cloNIDine HCL 0.1 MG TAB PO SCH ×2 (10:20→21:05)
[2021-12-10] MEDS: allopurinoL 100 MG TAB PO SCH (10:20)
[2021-12-10] MEDS: FERROUS SULFATE 325 MG TAB PO SCH (10:21)
[2021-12-10] MEDS: METOPROLOL TARTRATE 50 MG TAB PO SCH ×2 (10:21→21:05)
[2021-12-10] MEDS: PANTOprazole 40 MG TAB PO SCH (10:21)
[2021-12-10] MEDS: ISOSORBIDE MONO EXTENDED REL 30 MG TABCR PO SCH (10:21)
[2021-12-10] MEDS: guaiFENesin 600 MG TABCR PO SCH ×2 (10:21→21:05)
[2021-12-10] MEDS: CEFDINIR 300 MG CAP PO SCH (11:14)
--- NOTE | 2021-12-10 11:57 | Cardiology Progress Note ---
Date of Service December 10, 2021 Assessment & Plan (1) Acute respiratory failure: (2) Aortic stenosis: (3) Chronic atrial fibrillation: Plan: Echo this admission, reveals severe aortic stenosis, velocity 4 m/s , although there is a typing error in report with regards to describing the degree of . Agree with holding diurectics. Continue furosemide 20 mg three days per week at time of discharge. Continue Xarelto. Admission and Anticipated Discharge Date Admission Date: December 07, 2021 Subjective Pt seen on follow up. Notes no acute complaints. Telemetry reveals rate controlled atrial fibrillation. Physical Exam Constitutional: WD/WN, vitals as above Respiratory: mild inspiratory wheezing Cardiovascular: Rate/Rhythm: + irregularly irregular Heart Sounds: + murmur (2/6 SM ) Extremities: no edema Gastrointestinal (Abdomen): normal bowel sounds, soft, nontender, no hepatosplenomegaly Neurologic: hard of hearing. No focal deficits Results & Data ([facility]) Vital Signs (Past 12 Hours) Vital Signs Temp Pulse Pulse Resp BP BP Pulse Ox 12/10/21 11:04 36.7 C 88 19 148/83 H 96 12/10/21 07:10 36.7 C 100 H 20 145/87 H 95 12/10/21 07:07 101 H 18 95 12/10/21 06:45 79 12/10/21 03:05 36.6 C 92 H 18 125/71 96 12/10/21 00:00 77 Laboratory Results CBC 12/10/21 Range/Units 07:38 WBC 16.98 H (4.8-10.8) K/uL RBC 3.86 L (4.2-5.4) M/uL Hgb 12.8 (12.0-16.0) g/dL Hct 37.2 (37-47) % Plt Count 317 (130-400) K/uL Comprehensive Metabolic Panel 12/10/21 Range/Units 07:38 Sodium 135 L (136-145) mmol/L Potassium 3.6 (3.5-5.1) mmol/L Chloride 98 (98-107) mmol/L Carbon Dioxide 27 (21-32) mmol/L BUN 56 H (6-23) mg/dl Creatinine 1.49 H D (0.6-1.2) mg/dl Glucose 87 (70-99(Fasting)) mg/dl Calcium 8.9 (8.5-10.1) mg/dl Intake and Output 12/09/21 12/10/21 12/10/21 22:59 06:59 14:59 Intake Total 260 / 995 255 / 995 Output Total 950 / 1250 350 / 350 Balance 260 / -255 -695 / -255 -350 / -350 Intake: IV 60 / 315 255 / 315 Azithromycin 500 mg In Dextrose 255 / 255 5% 250 ml @ 125 mls/hr IV Q24H [facility] Rx#:[id number] cefTRIAXone SODIUM 1,000 mg In 60 / 60 Dextrose 5% 50 ml @ 100 mls/hr IV Q24H [facility] Rx#:[id number] Oral 200 / 680 Output: Urine 950 / 950 350 / 350 Other: # Unmeasured Voids 1 Weight 78.9 kg Weight Measurement Method Built in [facility] (1) Acute respiratory failure Respiratory failure complication: unspecified whether with hypoxia or hypercapnia Qualified Code(s): J96.00 - Acute respiratory failure, unspecified whether with hypoxia or hypercapnia
[2021-12-10] MEDS: RIVAROXABAN 15 MG TAB PO SCH (17:32)
[2021-12-10] MEDS ORDERED: AZITHROMYCIN 250 MG TAB PO SCH (21:00)
[2021-12-10] MEDS: ATORVASTATIN 10 MG TAB PO SCH (21:05)
[2021-12-11 06:25] LABS: BUN Creatinine Ratio 37.5 (10-20); Calcium 8.8 mg/dl (8.5-10.1); Creatinine Clr Calc Pharmacy 32.4 ml/min; Est GFR (African American) 44.8 ml/min; Est GFR (Non-African American) 38.6 ml/min; Magnesium 2.4 mg/dl (1.7-2.4); Potassium 3.6 mmol/L (3.5-5.1)
[2021-12-11] MEDS: SODIUM CHLOR 7% 4 ML NEB NEB SCH (07:03)
[2021-12-11] MEDS: METOPROLOL TARTRATE 50 MG TAB PO SCH (08:28)
[2021-12-11] MEDS: PANTOprazole 40 MG TAB PO SCH (08:28)
[2021-12-11] MEDS: FERROUS SULFATE 325 MG TAB PO SCH (08:28)
[2021-12-11] MEDS: ISOSORBIDE MONO EXTENDED REL 30 MG TABCR PO SCH (08:28)
[2021-12-11] MEDS: guaiFENesin 600 MG TABCR PO SCH (08:28)
[2021-12-11] MEDS: allopurinoL 100 MG TAB PO SCH (08:28)
[2021-12-11] MEDS: cloNIDine HCL 0.1 MG TAB PO SCH (08:28)
[2021-12-11] MEDS: CEFDINIR 300 MG CAP PO SCH (08:29)
[2021-12-11] MEDS: ASPIRIN 81 MG ECTAB PO SCH (08:29)
[2021-12-11] MEDS: UMECLIDINIUM/VILANTEROL 62.5/25MCG 7 PUFFS/INHALER INH SCH (08:29)
--- NOTE | 2021-12-11 10:20 | Hospitalist Progress Note ---
Date of Service December 11, 2021 Assessment & Plan (1) Acute respiratory failure: Plan: resolved (2) Acute on chronic diastolic CHF (congestive heart failure): Plan: Patient presenting from home with reports of shortness of breath, cough, wheezing x 4 days In the ED, WBC 14 K, proBNP 1200, negative procalcitonin. Patient also became acutely short of breath and tachypneic and was subsequently placed on BiPAP however no hypoxia has been reported. CXR shows pulmonary vascular congestion and trace pleural effusions Lasix 40 mg IV x 2 doses given and euvolemia achieved. Echo 12/2019-EF 65 to 70%, grade 3 diastolic dysfunction, pulmonary hypertension, moderate mitral regurgitation, moderate to severe Due to elevated BP, will add nitro paste--after diuresis and other known antihypertensives, she is hypotensive today [place] placed for strict I's and O's, low Na+ diet, daily weights Noted low BP trend in afternoon of 12/08 and into following morning-diuretics held Per cardiology may consider a TIW approach. Cont long acting nitrate and other home meds. With improved creatinine today and reports of some heaviness in her breath with exertion will go ahead and restart lasix now and give today and continue q2days. Close followup is recommended both with cardiology and her primary care provider. Cont low salt diet and weighing herself daily (3) Pneumonia: Plan: Was seen by PCP 2 days prior to arrival and placed on Augmentin for suspected bronchitis, will continue given leukocytosis CT chest to further evaluate for possible pneumonia Given patient's lifelong smoking history, suspect underlying COPD but she has no h/o PFTs Discussed the importance of the PFTs for a secure diagnosis with daughter who verbalized understanding. s/p IV Solu-Medrol in the ED, continue prednisone 40 mg daily Pulmonary toilet with nebs, incentive spirometer, flutter valve She is overall better with this initial treatment. Received 5 days of abx in the hospital. Will give an additional 5 days to go home with. Repeat CXR in 4 weeks is recommended and PFTs with history of smoking. Leukocytosis is likely related to short course of steroids. Repeat CBC recommended on followup with PCP. (4) Acute kidney failure: Plan: Worsened 2/2 over diuresis. Improved with holding ACEI and Lasix. Restart Lasix every other day as above. Repeat BMP and CBC as outpatient on followup with PCP. (5) Aortic stenosis: (6) Elevated troponin: Plan: HS trop 22.2 No reports of chest pain, EKG shows new T wave inversions in the inferior lateral leads Likely related to demand ischemia in setting of CHF exacerbation with valve disease. No further chest pain issues or workup needed at this time. (7) HTN (hypertension): Plan: BP elevated on admission--became hypotensive after IV furosemide and nitro. Nitro paste was removed. IV diuretic was placed on hold. BP is mildly elevated giving room to give additional diuretic now that creatinine is improving. Will cont holding lisinopril given creat 1.3 and start lasix, continue other home medications. (8) Chronic atrial fibrillation: Plan: Rate controlled on metoprolol Anticoagulated on Xarelto (9) History of CVA (cerebrovascular accident): Plan: Continue ASA and statin for secondary prevention. (10) DVT prophylaxis: Plan: On Xarelto Full Code Dispo-home with 01/01 family support today if ok with son with whom she lives. Will contact him by phone today. Gabriela Liang DO [facility] Hospitalist Admission and Anticipated Discharge Date Admission Date: December 07, 2021 Subjective 81-year-old female with critical aortic stenosis presents with shortness of breath she is feeling well today except for a little heaviness to breathing with walking to the bathroom creatinine is coming down off oxygen very minimal coarse breath sounds at bases great air movement on exam she feels ready to go home and is very interested in this today she remains off oxygen and there is no wheezing she examines as euvolemic. Review of Systems Review of Systems: All systems reviewed negative except as indicated above. Physical Exam Physical Exam: CONSTITUTIONAL: WNWD, vitals as above, generally well- appearing, NAD EYES: normal conjunctivae, no scleral icterus ENT: external ear and nose normal, MMM NECK: trachea midline RESPIRATORY: clear to auscultation throughout except for minimal intermittent rhonchi at bases bilaterally, no wheezing or rales, normal respiratory effort, no increased respiratory effort. CARDIOVASCULAR: 3/6 HANNAH on left anterior chest laterally, no gallops or rubs, no JVD, no peripheral edema CHEST: inspection of chest was normal GASTROINTESTINAL: soft, nontender, ND, no guarding MUSCULOSKELETAL: strength 5/5 throughout, head is normocephalic and atraumatic SKIN: warm and dry NEUROLOGIC: CN 2-12 grossly intact, no sensory deficit, normal cognition, normal speech, no tremor, [place] [facility]: alert cooperative and oriented to person, place and time. Euthymic mood, makes good eye contact, language grossly intact, recent and remote memory grossly intact. Results & Data Results & Data ([facility]) Vital Signs (Past 12 Hours) Vital Signs Temp Pulse Resp BP Pulse Ox 12/11/21 08:12 36.7 C 73 16 148/80 H 95 12/11/21 07:04 77 17 96 12/10/21 22:23 36.5 C 79 18 158/79 H 94 Laboratory Results [facility] 12/11/21 05:33 Sodium 139 Potassium 3.6 Chloride 103 Carbon Dioxide 28 BUN 48 H Creatinine 1.28 H Glucose 85 Calcium 8.8 Medications Administered Current Inpatient Medications Acetaminophen (Acetaminophen 325 Mg Tab) 650 mg PO Q4H PRN PRN Reason: pain/fever Stop: 01/06/22 19:34 Albuterol (Albut/Ipratrop 3mg/0.5mg Neb 3 Ml Vial) 3 ml NEB QIDR PRN; Protocol PRN Reason: SOB/wheezing Stop: 01/06/22 19:34 Last Admin: 12/09/21 14:59 Dose: 3 ml Documented by: Allopurinol (Allopurinol 100 Mg Tab) 200 mg PO DAILY [facility] Stop: 01/07/22 08:59 Last Admin: 12/11/21 08:28 Dose: 200 mg Documented by: Aspirin (Aspirin 81 Mg Ectab) 162 mg PO DAILY [facility] Stop: 01/07/22 08:59 Last Admin: 12/11/21 08:29 Dose: 162 mg Documented by: Atorvastatin Calcium (Atorvastatin 10 Mg Tab) 10 mg PO [facility] Stop: 01/06/22 20:59 Last Admin: 12/10/21 21:05 Dose: 10 mg Documented by: Azithromycin (Azithromycin 250 Mg Tab) 500 mg PO [facility] Stop: 12/12/21 21:01 Last Admin: 12/10/21 21:05 Dose: 500 mg Documented by: Cefdinir (Cefdinir 300 Mg Cap) 300 mg PO DAILY [facility]; Protocol Stop: 12/17/21 08:59 Last Admin: 12/11/21 08:29 Dose: 300 mg Documented by: Clonidine HCl (Clonidine Hcl 0.1 Mg Tab) 0.1 mg PO BID [facility] Stop: 01/06/22 20:59 Last Admin: 12/11/21 08:28 Dose: 0.1 mg Documented by: Diltiazem HCl (Diltiazem Hcl 180 Mg Er Cap) 180 mg PO QAM [facility] Stop: 01/07/22 08:59 Last Admin: 12/11/21 08:29 Dose: 180 mg Documented by: Ferrous Sulfate (Ferrous Sulfate 325 Mg Tab) 325 mg PO QAM [facility] Stop: 01/07/22 08:59 Last Admin: 12/11/21 08:28 Dose: 325 mg Documented by: Guaifenesin (Guaifenesin 600 Mg Tabcr) 600 mg PO Q12 [facility] Stop: 01/07/22 20:59 Last Admin: 12/11/21 08:28 Dose: 600 mg Documented by: Isosorbide Mononitrate (Isosorbide [place]ahan Extended Rel 30 Mg Tabcr) 30 mg PO QAM [facility] Stop: 01/07/22 11:44 Last Admin: 12/11/21 08:28 Dose: 30 mg Documented by: Metoprolol Tartrate (Metoprolol Tartrate 50 Mg Tab) 50 mg PO BID [facility] Stop: 01/06/22 20:59 Last Admin: 12/11/21 08:28 Dose: 50 mg Documented by: Pantoprazole Sodium (Pantoprazole 40 Mg Tab) 40 mg PO QAM [facility] Stop: 01/07/22 08:59 Last Admin: 12/11/21 08:28 Dose: 40 mg Documented by: Rivaroxaban (Rivaroxaban 15 Mg Tab) 15 mg PO QDD [facility] Stop: 01/06/22 20:59 Last Admin: 12/10/21 17:32 Dose: 15 mg Documented by: Sodium Chloride (Sodium Chlor 7% 4 Ml Neb) 4 ml NEB BIDR [facility] Stop: 01/07/22 18:59 Last Admin: 12/11/21 07:03 Dose: 4 ml Documented by: Umeclidinium/Vilanterol (Umeclidinium/Vilanterol 62.5/25mcg 7 Puffs/Inhaler) 1 puffs INH DAILY [facility] Stop: 01/09/22 08:59 Last Admin: 12/11/21 08:29 Dose: 1 puffs Documented by: (1) Acute respiratory failure Respiratory failure complication: unspecified whether with hypoxia or hypercapnia Qualified Code(s): J96.00 - Acute respiratory failure, unspecified whether with hypoxia or hypercapnia (2) Pneumonia Laterality: bilateral Lung location: lower lobe of lung Pneumonia type: due to unspecified organism Qualified Code(s): J18.9 - Pneumonia, unspecified or ganism
[2021-12-11] MEDS ORDERED: FUROSEMIDE 20 MG TAB PO SCH (10:30)
--- NOTE | 2021-12-11 13:53 | Discharge Summary ---
Date of Service December 11, 2021 Admission HPI Per Admitting Provider 81-year-old female PMH dyslipidemia, chronic atrial fibrillation anticoagulated on Xarelto, HTN, history of CVA, CKD stage III, chronic diastolic CHF, remote history of renal artery stenosis s/p stenting, and other problems listed below who presents to the ED for evaluation of shortness of breath, cough, wheezing. Patient is very hard of hearing, therefore history is obtained from patient son who is the bedside. He reports the patient symptoms began about 4 days ago and have been progressively getting worse. He reports the patient is short of breath with minimal exertion. Patient was seen at PCPs office 2 days ago and was started on a course of Augmentin. COVID testing was negative at that time. Patient's cough is minimally productive. Shortness of breath, cough, wheezing seem to be worse with lying flat. Patient has some lower extremity edema on exam and son reports " this is normal for this time of year". No chest pain. Denies lightheadedness, dizziness, diaphoresis, syncopal events. No fevers or chills. Denies abdominal pain, nausea, vomiting, diarrhea. No urinary symptoms. In the ED, patient became acutely short of breath and tachypneic and was subsequently placed on BiPAP. No hypoxia is reported. Labs show WBC 14 K,HS troponin 22.2, proBNP 1200. CXR shows pulmonary vascular congestion and trace pleural effusions. Patient was given nebulizer treatment, IV Solu-Medrol, IV Zosyn, IVF. Principal Diagnosis Acute respiratory failure-resolved Acute on chronic diastolic heart failure Pneumonia Abnormal CT chest-repeat in 3 months Acute kidney failure Aortic stenosis Chronic atrial fibrillation on Xarelto, history of CVA Discharge Exam CONSTITUTIONAL: WNWD, vitals as above, generally well-appearing, NAD EYES: normal conjunctivae, no scleral icterus ENT: external ear and nose normal, MMM NECK: trachea midline RESPIRATORY: clear to auscultation throughout except for minimal intermittent rhonchi at bases bilaterally, no wheezing or rales, normal respiratory effort, no increased respiratory effort. CARDIOVASCULAR: 3/6 HANNAH on left anterior chest laterally, no gallops or rubs, no JVD, no peripheral edema CHEST: inspection of chest was normal GASTROINTESTINAL: soft, nontender, ND, no guarding MUSCULOSKELETAL: strength 5/5 throughout, head is normocephalic and atraumatic SKIN: warm and dry NEUROLOGIC: CN 2-12 grossly intact, no sensory deficit, normal cognition, normal speech, no tremor, [place] [facility]: alert cooperative and oriented to person, place and time. Euthymic mood, makes good eye contact, language grossly intact, recent and remote memory grossly intact. Discharge Data Allergies Allergy/AdvReac Type Severity Reaction Status Date / Time No Known Allergies Allergy Verified 12/07/21 16:03 Consultations 12/07/21 17:02 ED Decision to Admit Stat 12/07/21 19:35 Consult Cardiology Routine 12/07/21 21:48 Consult Pulmonology Routine Ordered Studies 12/07/21 17:50 CT chest diagnostic wo con Urgent Hospital Course (1) Acute respiratory failure: resolved (2) Acute on chronic diastolic CHF (congestive heart failure): (3) Pneumonia: (4) Acute kidney failure: (5) Aortic stenosis: (6) Elevated troponin: (7) HTN (hypertension): (8) Chronic atrial fibrillation: (9) History of CVA (cerebrovascular accident): 81-year-old female with a history of right-sided heart failure, pulmonary hypertension, atrial fibrillation on Xarelto and daily smoking presented for evaluation of cough shortness of breath and wheezing for several days. On arrival she was uncomfortable and mildly dyspneic. Exam demonstrated diffuse bilateral wheezes and rhonchi with prolonged expiratory phase. EKG revealed atrial fibrillation without overt acute ischemia. Chest x-ray revealed vascular congestion and nonspecific interstitial thickening with presence of bibasilar densities suspicious for pneumonia. White blood cell was 14,000 with neutrophil predominance. H&H and platelets were within normal limits and chemistry was without metabolic acidosis. BUN to creatinine ratio was greater than 30 and lactic acid was 2. LFTs were unremarkable. Highly sensitive troponin was 22. BNP was 1200. Procalcitonin was undetectable and COVID-19 PCR was negative. Lipase was also not elevated. She was given Solu-Medrol and DuoNeb for component of bronchospasm however prior to receiving her nebulizer treatment the patient did develop increasing respiratory distress and upon reevaluation she had significant work of breathing with accessory muscle use. She was placed on BiPAP and immediately responded with resolution of work of breathing and resolution of diffuse wheezing. Blood cultures were drawn and empiric Zosyn was started. She was admitted to the hospitalist service. A CT of her chest revealed bibasilar mucous plugging with left greater than right reticular nodular opacities suggestive of associated infectious or inflammatory bronchiolitis/pneumonitis. Mediastinal adenopathy was seen and likely reactive. There was an 8 mm groundglass nodule opacity of the right lung apex and a 6- month follow-up of CT chest was recommended to exclude an adenomatous pulmonary lesion. She was continued on IV ceftriaxone and IV azithromycin and pulmonary was consulted due to mucous plugging and CT findings. Per pulmonary observations CT scan revealed tree-in-bud opacities consistent with aspiration. As it was no documentation of COPD outpatient pulmonary function studies are recommended, however she did have bronchospasm on examination and steroids were continued for a few days. She was placed on Anoro inhaler as she has a lifelong history of smoking. Smoking cessation was strongly recommended. Mucous plugging was considered likely secondary to acute pneumonia and she continued with flutter valve, Mucinex, hypertonic saline nebulizer treatments and ambulation as tolerated. There was no indication for bronchoscopy. Cardiology was also consulted and felt her presentation was most consistent with an acute on chronic obstructive pulmonary disease exacerbation complicated by mild acute decompensated diastolic congestive heart failure in the setting of severe aortic valve stenosis. She did receive 2 doses of 40 mg IV Lasix. As a result of this she became hypotensive the following morning and developed an acute kidney injury with an elevation of creatinine to 1.8. Lisinopril and Lasix were thus held and her kidney function resolved after 2 days. She was placed on Imdur during her hospital stay and a low-dose diuretic was prescribed closer to discharge. During her stay she was evaluated by Occupational Therapy who felt she was at or near her baseline level of function. Physical therapy also evaluated her and felt she was safe to return home with her 's 01/01 support. Speech therapy evaluated her after CT findings consistent with aspiration. Based on the findings at the bedside chronic aspiration was not suspected if patient's repeat imaging worsens or she shows overt signs of aspiration in the future then a video swallow study may be completed at that time. At time of discharge she was mentating and ambulating at baseline and tolerating p.o. She was hemodynamically stable and afebrile and stable for discharge to home with family. Close primary care follow-up was recommended. Important to follow will be a repeat CBC with evidence of leukocytosis likely secondary to steroids, also reactive thrombocytosis in setting of infection, both resolving prior to discharge. Additionally she will need a repeat BMP given the addition of Lasix to her regimen and not quite normalized creatinine at time of discharge (creatinine 1.3 at discharge, baseline 1.0) Total Time Total Time Spent Total Time Spent (In Minutes): 60 Discharge Plan Discharge Items Patient Disposition: Home - Self-Care Reason For Visit: CHF Discharge Diagnosis: Acute respiratory failure-resolved Acute on chronic diastolic heart failure Pneumonia Abnormal CT chest-repeat in 3 months Acute kidney failure Aortic stenosis Chronic atrial fibrillation on Xarelto, history of CVA Condition on Discharge: Good Activity: Resume your previous activity Non-emergency contact: Primary Care Provider Call non-emergency contact if: you have any medication questions, your symptoms worsen, your pain is not controlled, your pain is worsening, your pain is unusual for you, your pain is concerning for you and you have a fever Follow-up/Referrals: Rigo Christine MD [Primary Care Provider] - (Date & Time 12/15/2021 10:20 AM Provider Eduardo Salas MD [facility] ) Diet: Heart Healthy Addtl Attending Provider Instructions: Please take all medications as instructed on discharge list below. Your kidney function is still slightly lower than your baseline, but it is improving. Please hold your lisinopril for the time being because of this. Repeat non-fasting bloodwork may be ordered by your primary care physician on followup next week. Please followup with your PCP at the time and date above. At this visit, repeat blood work may be considered and a repeat noncontrast chest CT should be ordered to ensure complete resolution of her pneumonia. This visit will also be important to monitor how you are doing after new medication changes. This is per the firestopper technician who saw you in the hospital. You were placed on a daily inhaler to continue at home. It is strongly recommended to quit smoking as this is terrible for your health and can increase your risk of lung disease, heart attacks or a repeat stroke. Please complete the remaining antibiotic which was sent to your outpatient pharmacy today. As a result of a leaky heart valve, you have a higher risk of fluid backing up into the lungs. To combat this, you have been placed on a low dose diuretic to take every other day. Bloodwork in 1-2 weeks is recommended for monitoring of your kidney function and electrolytes after starting this. It was a pleasure taking care of you! Please call if you have any questions or problems. You can reach a [facility] hospitalist on duty at [facility] 24 hours a day by calling [phone]. Take care of yourself. Gabriela Liang DO [facility] Hospitalist Pending Studies at Discharge: No Stand-Alone Forms: My [facility], Smoking Cessation Medications and DC Order Prescriptions: New cefdinir 300 mg Capsule 300 mg PO BID Qty: 10 RF: 0 isosorbide mononitrate 30 mg Tablet Extended Release 24 Hr 30 mg PO QAM Qty: 30 RF: 0 furosemide 20 mg Tablet 20 mg PO Q2D@0900 Qty: 30 RF: 0 Anoro Ellipta 62.5-25 mcg/actuation Blister With Device 1 ea inhalation DAILY Qty: 60 RF: 0 Continued clonidine HCl 0.1 mg tablet 0.1 mg PO BID RF: 0 atorvastatin 10 mg tablet 10 mg PO HS RF: 0 allopurinol 100 mg tablet 200 mg PO DAILY RF: 0 folic acid 400 mcg Tablet 400 mcg PO QDD RF: 0 ferrous sulfate 325 mg (65 mg iron) tablet 65 mg PO QAM RF: 0 metoprolol tartrate 50 mg tablet 50 mg PO BID RF: 0 clotrimazole 1 % cream 1 applic TOPICAL BID PRN (Reason: Skin Irritation) RF: 0 diltiazem HCl [DILT-XR] 180 mg capsule,ext.rel 24h degradable 180 mg PO QAM RF: 0 Xarelto 15 mg tablet 15 mg PO QDD RF: 0 Centrum Silver 0.4-300-250 mg-mcg-mcg Tablet 1 tab PO DAILY RF: 0 magnesium oxide 400 mg magnesium capsule 400 mg PO DAILY Qty: 5 RF: 0 pantoprazole 20 mg tablet,delayed release (DR/EC) 20 mg PO QAM RF: 0 aspirin [Aspirin Low-Strength] 81 mg Tablet,Delayed Release (Dr/Ec) 162 mg PO DAILY RF: 0 nystatin [Nystop] 100,000 unit/gram Powder 1 applic TOPICAL TID PRN (Reason: affected area) RF: 0 triamcinolone acetonide 0.1 % Cream 1 applic TOPICAL BID PRN (Reason: Rash) RF: 0 flaxseed oil Oil 1 ea MISCELLANEOUS QDD RF: 0 Discontinued amoxicillin-pot clavulanate 875-125 mg tablet 1 tab PO BID RF: 0 lisinopril 2.5 mg Tablet 2.5 mg PO QAM RF: 0 Discharge Orders: Discharge Order (Routine); Ordered 12/11/21 Ordered By: Gabriela Bang/Other Patient Handouts: Heart Failure: Tracking Your Weight, Heart Failure Make Changes Diet, Low Salt Diet Dc Admission Data Admit Date/Time: 12/07/21 17:53 Attending Provider: Gabriela Liang Admit Provider: Chuy Voss Primary Care Provider: Rigo Christine Other Providers: Carson Guzman ; Teddy Leon ; Ly Bermudez
== END 2021-12-11 15:12 | disposition home or self-care (01) | DRG 291 ==
LOC: ED 14:59 → SUATTDRO 17:53 → 2S 17:53 → 3E 12-10 13:56

== ENCOUNTER 2022-06-05 10:02 | Inpatient (IN) ==
--- NOTE | 2022-06-05 12:27 | XRay Report ---
XR chest 2V PA/lateral CLINICAL HISTORY: Shortness of breath. COMPARISON STUDY: Chest CT December 07, 2021 and chest radiograph December 10, 2021. FINDINGS: There is no pneumothorax. Moderate left and small right pleural effusions have developed si nce prior chest radiograph. There are associated bibasilar opacities. There is no evidence for pulmon darcie edema. Cardiomegaly is unchanged. Mediastinal contours are stable. IMPRESSION: 1. Interval development of moderate left and small right pleural effusions with associated bibasilar opacities. 2. Cardiomegaly. No radiographic evidence for pulmonary edema. ACT 112: Negative or not required by law. Electronically signed by: Demarco Tellez M.D. 06/05/2022 12:26 PM
[2022-06-05 12:38] LABS: Basophils # (auto) 0.05 K/uL (0-0.2); Basophils % (auto) 0.4 %; Eosinophils # (auto) 0.06 K/uL (0-0.50); Eosinophils % (auto) 0.4 %; Hematocrit (blood only) 37.8 % (34.1-44.9); Hemoglobin 12.8 g/dl (12.0-16.0); Immature Granulocytes # (auto) 0.08 K/uL (0.00-0.02); Immature Granulocytes % (auto) 0.6 %; Lymphocytes # (auto) 1.06 K/uL (1.2-3.4); Lymphocytes % (auto) 7.6 %; Mean Corpuscular Hemoglobin 33.3 pg (25.0-34.0); Mean Corpuscular Hgb Conc 33.9 g/dL (32.0-36.0); Mean Corpuscular Volume 98.4 fL (80.0-100.0); Mean Platelet Volume 10.8 fL (9.4-12.3); Monocytes # (auto) 1.31 K/uL (0.24-0.82); Monocytes % (auto) 9.4 %; Neutrophils # (auto) 11.44 K/uL (1.4-6.5); Neutrophils % (auto) 81.6 %; Nucleated RBC # (auto) 0.02 K/uL (0-0); Nucleated RBC % (auto) 0.1 %; Platelet Count 354 K/uL (130-400); RDW Coefficient of Variation 14.1 % (11.5-14.5); RDW Standard Deviation 50.6 fL (36.4-46.3); Red Blood Count 3.84 M/uL (3.93-5.22)
[2022-06-05 12:47] LABS: INR 1.3 (0.9-1.1); Partial Thromboplastin Ratio 1.6; Partial Thromboplastin Time 43.8 Seconds (21.0-31.0); Prothrombin Time 13.8 Seconds (9.0-12.0)
[2022-06-05 13:03] LABS: Albumin Globulin Ratio 1.5 (0.9-2); Albumin Level 4.2 gm/dl (3.4-5.0); BUN Creatinine Ratio 25.7 (10-20); Bilirubin,Total 0.9 mg/dl (0.2-1.0); Calcium 9.2 mg/dl (8.5-10.1); Creatinine Clr Calc Pharmacy 39.3 ml/min; Est GFR (African American) 56.9 ml/min; Est GFR (Non-African American) 49.1 ml/min; Globulin 2.8 gm/dl (2.5-4.0); Magnesium 2.1 mg/dl (1.7-2.4); Potassium 4.2 mmol/L (3.5-5.1)
[2022-06-05 13:05] LABS: Troponin I High Sensitivity 30.5 pg/ml (0-14)
[2022-06-05 13:25] LABS: Influenza A virus by PCR Negative (Neg); Influenza B virus by PCR Negative (Neg); RSV by PCR Negative (Neg); SARS CoV2 RNA(COVID-19) Ceph NEGATIVE (Negative)
[2022-06-05] MEDS ORDERED: ALBUT/IPRATROP 3MG/0.5MG NEB 3 ML VIAL NEB STA ×2 (16:43→17:34)
[2022-06-05] MEDS ORDERED: methylPREDNISolone 125 MG/2 ML VIAL IV STA (16:43)
[2022-06-05] MEDS ORDERED: DOXYCYCLINE HYCLATE 100 MG in DEXTROSE 5% 100 ML IV STA (16:50)
--- NOTE | 2022-06-05 17:20 | Emergency Department Note ---
History of Present Illness General Chief complaint: Shortness of Breath/Dyspnea Stated complaint: SOB Time Seen by Provider: 06/05/22 16:34 Source: patient and family Mode of arrival: ambulatory Limitations: no limitations History of Present Illness Provider complaint: Increased shortness of breath This is an 81-year-old female presents emergency department with family at bedside due to concern for increased shortness of breath over the course of the last week with frequent cough. Patient is a smoker. She does not wear home oxygen. She does have an inhaler she uses occasionally at home. Family bedside states patient also has a history of heart problems and takes a blood thinner daily. Patient states she did notice increased lower extremity edema also which she states is from not elevating her legs. She denies fevers or chills. She states her cough is mostly nonproductive. She does not have any coming chest pain or abdominal pain. Patient states this does feel different than a prior episode of pneumonia which required inpatient hospitalization approximately 6 months ago. Home Medications Medication Instructions Recorded Confirmed Type allopurinol 100 mg tablet 200 mg PO DAILY 08/05/19 06/05/22 History atorvastatin 10 mg tablet 10 mg PO HS 08/05/19 06/05/22 History clonidine HCl 0.1 mg tablet 0.1 mg PO BID 08/05/19 06/05/22 History clotrimazole 1 % topical cream 1 applic topical BID PRN Skin 08/05/19 06/05/22 History Irritation diltiazem HCl 180 mg 180 mg PO QAM 08/05/19 06/05/22 History capsule,extended release 24 hr, controlled (DILT-XR) ferrous sulfate 325 mg (65 mg 65 mg PO QAM 08/05/19 06/05/22 History iron) tablet folic acid 400 mcg tablet 400 mcg PO QDD 08/05/19 06/05/22 History metoprolol tartrate 50 mg tablet 50 mg PO BID 08/05/19 06/05/22 History uhxvrepj-ine-htftz acid 0.4 1 tab PO DAILY 08/05/19 06/05/22 History mg-lycopene 300 mcg-lutein 250 mcg tablet (Centrum Silver) rivaroxaban 15 mg tablet (Xarelto) 15 mg PO QDD 08/05/19 06/05/22 History magnesium oxide 400 mg PO DAILY #5 caps 08/11/19 06/05/22 Rx aspirin 81 mg tablet,delayed 162 mg PO DAILY 12/07/21 06/05/22 History release flaxseed oil 1 ea miscellaneous QDD 12/07/21 06/05/22 History nystatin 100,000 unit/gram topical 1 applic topical TID PRN affected 12/07/21 06/05/22 History powder (Nystop) area pantoprazole 20 mg tablet,delayed 20 mg PO QAM 12/07/21 06/05/22 History release triamcinolone acetonide 0.1 % 1 applic topical BID PRN Rash 12/07/21 06/05/22 History topical cream furosemide 20 mg tablet 20 mg PO Q2D@0900 #30 tabs 12/11/21 06/05/22 Rx isosorbide mononitrate 30 mg 30 mg PO QAM #30 tabs 12/11/21 06/05/22 Rx tablet,extended release 24 hr umeclidinium 62.5 mcg-vilanterol 1 ea inhalation QAM 06/05/22 06/05/22 History 25 mcg/actuation powdr for inhalation (Anoro Ellipta) Allergies Allergy/AdvReac Type Severity Reaction Status Date / Time sulfamethoxazole AdvReac Photosensit Verified 06/05/22 19:30 [From ivity Sulfamethoxazole-Trimethoprim] trimethoprim AdvReac Photosensit Verified 06/05/22 19:30 [From ivity Sulfamethoxazole-Trimethoprim] Past Med/Surg History Medical History Abnormal CT of the chest Tree-in-bud opacity consistent with aspiration pneumonia. No evidence of underlying emphysema. CT scan 12/07/2021 at [facility] Age related osteoporosis Anticoagulated Aortic stenosis ASCVD (arteriosclerotic cardiovascular disease) Asthma DENIES Chronic atrial fibrillation Chronic diastolic CHF (congestive heart failure) Chronic iron deficiency anemia NO KNOWN CURRENT PROBLEMS WITH CKD (chronic kidney disease), stage III DENIES Epiglottitis PT SON REPORTS PT HAS TROUBLE SWALLOWING HER PILLS WITHOUT A SIGNIFICANT AMOUNT OF WATER GERD (gastroesophageal reflux disease) GI bleed HX Gout HX History of CVA (cerebrovascular accident) "MINI STROKES" 2016 - AFFECTED SPEECH AT THAT TIME HLD (hyperlipidemia) HTN (hypertension) Renal artery stenosis NARROWING ARTERIES , KIDNEY STENT PLACED IN 2000 Severe aortic stenosis UNKNOWN, NOT REPORTED BY PT SON UPON PAT INTERVIEW Surgical History History of cataract surgery RT History of colonoscopy History of endoscopy History of hysterectomy History of total left knee replacement BLADDER TAC History of total right knee replacement History of urologic surgery STENT PLACED IN KIDNEY 2000 FOR NARROWING OF ARTERIES Family History Mother Hypertension Social History Smoking Status: Light tobacco smoker Tobacco Type: Cigarettes Cigarettes Per Day: 2-3 CIG; Second Hand Exposure: No; Do You Dip or Chew Tobacco: No; Tobacco Cessation Education Requested by Patient: No Hx Alcohol Use: Yes Alcohol type: wine Hx Substance Use: No Preferred Language: Tajik Communication Ability: Impaired Pediatric Critical Care Nurse Required: No Beliefs That Will Affect Care: None marital status: / Current Living Situation: Family Current Living Situation Comment: lives with son Other Information That Helps Us Care for You: No Feels Safe at Home: Yes Safety Concerns: Feels Safe At This Time Assistive Devices: Cane and Walker Review of Systems A total of 10 systems reviewed and were otherwise negative All systems reviewed & are unremarkable except as noted in HPI & below Physical Exam Vital Signs Vital Signs - 24 hr 06/05/22 10:02 Temperature 36.8 C Temperature Source Temporal Artery Scan Pulse Rate 80 Respiratory Rate 18 Blood Pressure 114/68 Blood Pressure Mean 83 Pulse Oximetry 95 Sepsis Recent Fever Within 48 Hours No Sepsis New/Unexplained Change in Mental Status N/A Sepsis Action Taken by Nursing No Action Required GENERAL: alert, well appearing, well nourished, no distress, non-toxic EYE EXAM: normal conjunctiva, PERRL and EOM's grossly intact OROPHARYNX: no exudate, no erythema, lips, buccal mucosa, and tongue normal and mucous membranes are moist NECK: supple, no nuchal rigidity, no adenopathy, non-tender LUNGS: Diminished bilaterally to auscultation. Normal chest wall mechanics, tachypnea, scattered expiratory wheeze and rales/rhonchi noted at right base posteriorly HEART: no murmurs, S1 normal and S2 normal ABDOMEN: abdomen soft, non-tender, normo-active bowel sounds, no masses, no rebound or guarding. BACK: Back is symmetrical on inspection and there is no deformity, no midline tenderness, no CVA tenderness. SKIN: no rashes and no bruising UPPER EXTREMITIES: upper extremities are grossly normal. FROM, nml pulses b/l. LOWER EXTREMITIES: No pitting edema. FROM, nml pulses b/l. NEURO EXAM: Normal sensorium, cranial nerves II-XII grossly intact, normal speech, no gross weakness of arms, no gross weakness of legs. Gross sensation intact. Course Course 1735: Slightly decreased work of breathing noted, mildly improved examine auscultation. 1808: Patient with slightly improved work of breathing. Administered Medications Allopurinol (Allopurinol 100 Mg Tab) 200 mg PO DAILY [facility] Stop: 07/06/22 08:59 Last Admin: 06/06/22 08:03 Dose: 200 mg Documented By: DIETER Aspirin (Aspirin 81 Mg Ectab) 162 mg PO DAILY [facility] Stop: 07/06/22 08:59 Last Admin: 06/06/22 08:03 Dose: 162 mg Documented By: DIETER Atorvastatin Calcium (Atorvastatin 10 Mg Tab) 10 mg PO HS [facility] Stop: 07/05/22 21:44 Last Admin: 06/06/22 20:52 Dose: 10 mg Documented By: Admin: 06/06/22 02:02 Dose: 10 mg Documented By: ANICETO Clonidine HCl (Clonidine Hcl 0.1 Mg Tab) 0.1 mg PO BID Z[facility] Stop: 07/05/22 21:44 Last Admin: 06/06/22 20:52 Dose: 0.1 mg Documented By: Admin: 06/06/22 08:03 Dose: 0.1 mg Documented By: Admin: 06/06/22 03:35 Dose: 0.1 mg Documented By: ZEUS Diltiazem HCl (Diltiazem Hcl 180 Mg Capcr) 180 mg PO QAM [facility] Stop: 07/06/22 08:59 Last Admin: 06/06/22 08:05 Dose: 180 mg Documented By: DIETER Ferrous Sulfate (Ferrous Sulfate 325 Mg Tab) 325 mg PO QAM [facility] Stop: 07/06/22 08:59 Last Admin: 06/06/22 08:03 Dose: 325 mg Documented By: DIETER Folic Acid (Folic Acid 400 Mcg Tab) 400 mcg PO QDD [facility] Stop: 07/06/22 16:29 Last Admin: 06/06/22 18:08 Dose: 400 mcg Documented By: DIETER Furosemide (Furosemide 40 Mg/4 Ml Vial) 20 mg IV DAILY [facility] Stop: 07/06/22 08:59 Last Admin: 06/06/22 08:05 Dose: 20 mg Documented By: DIETER Guaifenesin (Guaifenesin 600 Mg Tabcr) 1,200 mg PO Q12 [facility] Stop: 07/06/22 08:59 Last Admin: 06/06/22 20:52 Dose: 1,200 mg Documented By: Admin: 06/06/22 08:03 Dose: 1,200 mg Documented By: DIETER Ceftriaxone Sodium 1,000 mg/ (Dextrose) 50 mls @ 100 mls/hr IV Q24H [facility]; Protocol Stop: 06/12/22 19:59 Last Admin: 06/06/22 21:05 Dose: 100 mls/hr Documented By: Infusion: 06/05/22 21:36 Dose: 0 mls/hr Documented By: Admin: 06/05/22 20:46 Dose: 100 mls/hr Documented By: ANICETO Isosorbide Mononitrate (Isosorbide [place] Extended Rel 30 Mg Tabcr) [facility] [place] Stop: 07/06/22 08:59 Last Admin: 06/06/22 08:02 Dose: 30 mg Documented By: DIETER Magnesium Oxide (Magnesium Oxide 400 Mg Tab) 400 mg PO DAILY [facility] Stop: 07/06/22 08:59 Last Admin: 06/06/22 08:03 Dose: 400 mg Documented By: DIETER Metoprolol Tartrate (Metoprolol Tartrate 50 Mg Tab) 50 mg PO BID [facility] Stop: 07/05/22 21:59 Last Admin: 06/06/22 20:52 Dose: 50 mg Documented By: Admin: 06/06/22 08:04 Dose: Not Given Documented By: Admin: 06/06/22 02:02 Dose: 50 mg Documented By: ANICETO Pantoprazole Sodium (Pantoprazole 40 Mg Tab) 40 mg PO QAM [facility] Stop: 07/06/22 08:59 Last Admin: 06/06/22 08:03 Dose: 40 mg Documented By: DIETER Rivaroxaban (Rivaroxaban 15 Mg Tab) 15 mg PO QDD [facility] Stop: 07/06/22 16:29 Last Admin: 06/06/22 18:08 Dose: 15 mg Documented By: DIETER Umeclidinium/Vilanterol (Umeclidinium/Vilanterol 62.5/25mcg 7 Puffs/Inhaler) 1 puffs INH QAM [facility] Stop: 07/06/22 08:59 Last Admin: 06/06/22 08:02 Dose: 1 puffs Documented By: DIETRE Discontinued Medications Albuterol (Albut/Ipratrop 3mg/0.5mg Neb 3 Ml Vial) 3 ml NEB NOW STA; Protocol Stop: 06/05/22 16:44 Last Admin: 06/05/22 17:01 Dose: 3 ml Documented By: QGV Albuterol (Albut/Ipratrop 3mg/0.5mg Neb 3 Ml Vial) 3 ml NEB NOW STA; Protocol Stop: 06/05/22 17:35 Last Admin: 06/05/22 17:52 Dose: 3 ml Documented By: QGV Albuterol (Albut/Ipratrop 3mg/0.5mg Neb 3 Ml Vial) Confirm Administered Dose 3 ml .ROUTE .STK-MED ONE Stop: 06/05/22 21:10 Last Admin: 06/05/22 21:11 Dose: 3 ml Documented By: EMB Albuterol (Albut/Ipratrop 3mg/0.5mg Neb 3 Ml Vial) 3 ml NEB Q4R [facility]; Protocol Stop: 07/05/22 22:59 Last Admin: 06/06/22 06:14 Dose: 3 ml Documented By: Admin: 06/06/22 04:19 Dose: 3 ml Documented By: Admin: 06/06/22 00:02 Dose: 3 ml Documented By: AMOS Furosemide (Furosemide 40 Mg/4 Ml Vial) 40 mg IV ONE ONE Stop: 06/05/22 19:29 Last Admin: 06/05/22 19:46 Dose: 40 mg Documented By: ANICETO Doxycycline Hyclate 100 mg/ (Dextrose) 110 mls @ 50 mls/hr IV NOW STA Stop: 06/05/22 19:01 Last Infusion: 06/05/22 20:15 Dose: 0 mls/hr Documented By: Admin: 06/05/22 17:26 Dose: 50 mls/hr Documented By: QGV Methylprednisolone 40 mg/ (Syringe) 0.64 mls @ 1.5 mls/min IV Q8H [facility] Stop: 07/06/22 00:59 Last Admin: 06/06/22 08:05 Dose: 1.5 mls/min Documented By: Admin: 06/06/22 01:07 Dose: 1.5 mls/min Documented By: ANICETO Methylprednisolone (Methylprednisolone 125 Mg/2 Ml Vial) 60 mg IV NOW STA Stop: 06/05/22 16:44 Last Admin: 06/05/22 17:01 Dose: 60 mg Documented By: QGV Methylprednisolone (Methylprednisolone 125 Mg/2 Ml Vial) Confirm Administered Dose 125 mg .ROUTE .STK-MED ONE Stop: 06/05/22 21:10 Last Admin: 06/05/22 22:57 Dose: Not Given Documented By: ANICETO Methylprednisolone (Methylprednisolone 40 Mg/Ml Vial) Confirm Administered Dose 40 mg .ROUTE .STK-MED ONE Stop: 06/06/22 00:59 Last Admin: 06/06/22 02:02 Dose: Not Given Documented By: ANICETO Medical Decision Making Differential Diagnosis Differential diagnoses includes but is not limited to pneumonia, bronchitis, COPD/Asthma exacerbation, pneumothorax, pulmonary embolism, congestive heart failure, acute coronary syndrome Medical Records Attestation: I reviewed the patient's medical records. Home Medications Current Medication List: was personally reviewed by me Laboratory Data Attestation: I reviewed the patient's lab results. Result diagrams: 06/06/22 03:17 06/06/22 03:17 Lab Results 06/05/22 06/05/22 06/05/22 Range/Units 12:13 12:13 12:13 WBC 14.00 H (4.8-10.8) K/ul RBC 3.84 L (3.93-5.22) M/uL Hgb 12.8 (12.0-16.0) g/dl Hct 37.8 (34.1-44.9) % MCV 98.4 (80.0-100.0) fL MCH 33.3 (25.0-34.0) pg MCHC 33.9 (32.0-36.0) g/dL RDW Std Deviation 50.6 H (36.4-46.3) fL RDW Coeff of Alejandrina 14.1 (11.5-14.5) % Plt Count 354 (130-400) K/uL MPV 10.8 (9.4-12.3) fL Immature Gran % (Auto) 0.6 % Neut % (Auto) 81.6 % Lymph % (Auto) 7.6 % Roosevelt % (Auto) 9.4 % Eos % (Auto) 0.4 % Baso % (Auto) 0.4 % Neut # (Auto) 11.44 H (1.4-6.5) K/uL Lymph # (Auto) 1.06 L (1.2-3.4) K/uL Roosevelt # (Auto) 1.31 H (0.24-0.82) K/uL Eos # (Auto) 0.06 (0-0.50) K/uL Baso # (Auto) 0.05 (0-0.2) K/uL Immature Gran # (Auto) 0.08 H (0.00-0.02) K/uL Absolute Nucleated RBC 0.02 H (0-0) K/uL Nucleated RBC % (auto) 0.1 % PT 13.8 H (9.0-12.0) Seconds INR 1.3 H (0.9-1.1) APTT 43.8 H (21.0-31.0) Seconds PTT Ratio 1.6 Sodium 138 (136-145) mmol/L Potassium 4.2 (3.5-5.1) mmol/L Chloride 103 (98-107) mmol/L Carbon Dioxide 24 (21-32) mmol/L Anion Gap 11 (3-11) BUN 27 H (6-23) mg/dl Creatinine 1.05 (0.6-1.2) mg/dl Est Cr Clr Drug Dosing 39.3 ml/min Est GFR ( Amer) 56.9 ml/min Est GFR (Non-Af Amer) 49.1 ml/min BUN/Creatinine Ratio 25.7 H (10-20) Glucose 115 H (70-99(Fasting)) mg/dl Calcium 9.2 (8.5-10.1) mg/dl Magnesium 2.1 (1.7-2.4) mg/dl Total Bilirubin 0.9 (0.2-1.0) mg/dl AST 28 (13-39) U/L ALT 20 (7-52) U/L Alkaline Phosphatase 82 (34-104) U/L Troponin I High Sens 30.5 H (0-14) pg/ml Total Protein 7.0 (6.0-8.3) gm/dl Albumin 4.2 (3.4-5.0) gm/dl Globulin 2.8 (2.5-4.0) gm/dl Albumin/Globulin Ratio 1.5 (0.9-2) SARS-CoV-2 (PCR) (Negative) Influenza Type A (PCR) (Neg) Influenza Type B (PCR) (Neg) RSV (RT-PCR) (Neg) 06/05/22 Range/Units 12:13 WBC (4.8-10.8) K/ul RBC (3.93-5.22) M/uL Hgb (12.0-16.0) g/dl Hct (34.1-44.9) % MCV (80.0-100.0) fL MCH (25.0-34.0) pg MCHC (32.0-36.0) g/dL RDW Std Deviation (36.4-46.3) fL RDW Coeff of Alejandrina (11.5-14.5) % Plt Count (130-400) K/uL MPV (9.4-12.3) fL Immature Gran % (Auto) % Neut % (Auto) % Lymph % (Auto) % Roosevelt % (Auto) % Eos % (Auto) % Baso % (Auto) % Neut # (Auto) (1.4-6.5) K/uL Lymph # (Auto) (1.2-3.4) K/uL Roosevelt # (Auto) (0.24-0.82) K/uL Eos # (Auto) (0-0.50) K/uL Baso # (Auto) (0-0.2) K/uL Immature Gran # (Auto) (0.00-0.02) K/uL Absolute Nucleated RBC (0-0) K/uL Nucleated RBC % (auto) % PT (9.0-12.0) Seconds INR (0.9-1.1) APTT (21.0-31.0) Seconds PTT Ratio Sodium (136-145) mmol/L Potassium (3.5-5.1) mmol/L Chloride (98-107) mmol/L Carbon Dioxide (21-32) mmol/L Anion Gap (3-11) BUN (6-23) mg/dl Creatinine (0.6-1.2) mg/dl Est Cr Clr Drug Dosing ml/min Est GFR ( Amer) ml/min Est GFR (Non-Af Amer) ml/min BUN/Creatinine Ratio (10-20) Glucose (70-99(Fasting)) mg/dl Calcium (8.5-10.1) mg/dl Magnesium (1.7-2.4) mg/dl Total Bilirubin (0.2-1.0) mg/dl AST (13-39) U/L ALT (7-52) U/L Alkaline Phosphatase (34-104) U/L Troponin I High Sens (0-14) pg/ml Total Protein (6.0-8.3) gm/dl Albumin (3.4-5.0) gm/dl Globulin (2.5-4.0) gm/dl Albumin/Globulin Ratio (0.9-2) SARS-CoV-2 (PCR) NEGATIVE (Negative) Influenza Type A (PCR) Negative (Neg) Influenza Type B (PCR) Negative (Neg) RSV (RT-PCR) Negative (Neg) Imaging Data Radiologist's Impression: Chest X-Ray 06/05/22 11:53 XR chest 2V PA/lateral CLINICAL HISTORY: Shortness of breath. COMPARISON STUDY: Chest CT December 07, 2021 and chest radiograph December 10, 2021. FINDINGS: There is no pneumothorax. Moderate left and small right pleural effusions have developed since prior chest radiograph. There are associated bibasilar opacities. There is no evidence for pulmonary edema. Cardiomegaly is unchanged. Mediastinal contours are stable. IMPRESSION: 1. Interval development of moderate left and small right pleural effusions with associated bibasilar opacities. 2. Cardiomegaly. No radiographic evidence for pulmonary edema. ACT 112: Negative or not required by law. Electronically signed by: Demarco Tellez M.D. 06/05/2022 12:26 PM ECG Data Attestation: I personally reviewed and interpreted this ECG as follows: Indication: + SOB/dyspnea Rate (beats per minute): 83 Rhythm: + atrial fibrillation ECG Intervals/blocks: + Normal QRS and + Prolonged QT ECG [place]: + Normal ECG ST segments: + Nonspecific ST abnormalities MDM Narrative An order was placed for continuous cardiac monitoring. The monitor shows a rate of _88_ with _normal sinus_ rhythm. CURB 65 score moderate risk This is an 81-year-old female presents emergency department due to increased shortness of breath. Patient with significant past medical history, although she was hemodynamically stable while in the emergency room. Order started by nursing staff prior to my evaluation as she was seen on the day of high volume and acuity. Patient found to have a mild leukocytosis of 14, and elevated troponin of 30, and evidence of pleural effusions as well as infiltrate on x- ray. Patient does have a prior history of underlying atrial fibrillation, COPD, CHF, and aortic stenosis. Patient given nebulizer treatment, antibiotics and steroids for likely COPD exacerbation and possible evolving pneumonia. Case discussed with hospitalist for additional evaluation and management. Patient's exam not consistent with acute CHF. I suspect elevated troponin likely demand related to increased work of breathing. Patient is anticoagulated with history of atrial fibrillation, I do not suspect occult PE. Impression & Plan Dyspnea, Pneumonia, Pleural effusion, Elevated troponin, COPD exacerbation Discharge Plan Visit Data Chief Complaint: Shortness of Breath/Dyspnea Stated Complaint: SOB ED Provider: Lauren Almonte Discharge Problem: Dyspnea, Pneumonia, Pleural effusion, Elevated troponin, COPD exacerbation Patient Disposition: Admitted As Inpatient Discharge Instructions Interventions: ED Discharge Assessment Last Done: 06/05/22 21:36
[2022-06-05] MEDS ORDERED: FUROSEMIDE 40 MG/4 ML VIAL IV ONE (19:28)
--- NOTE | 2022-06-05 19:33 | Communication Note ---
Date of Service: June 05, 2022 History and physical exam performed by me History notable for 81-year-old woman with history of Chronic A. fib, diastolic heart failure, hypertension, CVA, CKD and other medical problems who presented with worsening shortness of breath over the past week. Patient has hearing deficit. History provided by patient and son was at bedside. Worsening shortness of breath over the past week, worse with exertion. Started having cough last night. Reports worsening leg swelling as well. Denied fevers, chills. Physical exam: General: Elderly woman, no acute distress Eyes: PERRL, conjunctivae normal, not pale, anicteric sclerae, EOM intact bilaterally ENMT: External ear and nose normal, oropharynx normal, + hearing deficits Respiratory: Normal respiratory effort, no respiratory distress, diminished breath sounds lung bases, mild basilar crackles, no wheeze Cardiovascular: Irregularly irregular S1 S2, systolic murmur Gastrointestinal (Abdomen): Abdomen is not distended, soft, non-tender to palpation, no guarding, no palpable hepatosplenomegaly, normal bowel sounds Musculoskeletal: +pedal edema Neurologic: No focal weakness, sensation grossly intact Psychiatric: Alert and oriented x 3, euthymic affect Labs notable for WBC of 14,000, troponin of 30.5 Chest x-ray notable for moderate left and small right pleural effusion with associated basilar opacities. Acute on chronic diastolic heart failure. Possible pneumonia considering leukocytosis, cough and opacities. Start IV Lasix Monitor I's and O's Daily weights Cardiology consult Continue ceftriaxone and doxycycline for now. Check procalcitonin. Other plans as detailed by Shanita MAURICE
[2022-06-05] MEDS: cefTRIAXone SODIUM 1,000 MG in DEXTROSE 5% AD-VAN 50 ML IV SCH (20:46)
--- NOTE | 2022-06-05 21:06 | History & Physical Report ---
Date of Service June 05, 2022 Assessment & Plan (1) Acute on chronic diastolic CHF (congestive heart failure): (2) Aortic stenosis: Plan: Admit to [facility] w/ telemetry Patient presenting from home with reports of worsening cough, shortness of breath, lower extremity edema x 1 week. In the ED, patient is hemodynamically stable and saturating well on room air. CXR shows bilateral pleural effusions with bibasilar opacities. proBNP 2100. IV Lasix 40 mg now, followed by IV Lasix 20 mg daily. Typically managed on Lasix 20 mg PO every other day at home. Echo 11/2021-EF 55 to 60%, severe aortic stenosis, mild mitral regurgitation, moderate tricuspid regurgitation Strict I's and O's, low Na+ diet, daily weights Cardiology consult Possible pneumonia given leukocytosis and cough. Also suspected underlying COPD given extensive smoking history. No wheezing on exam, procalcitonin negative S/p IV doxycycline in the ED, continue with empirically and add ceftriaxone. Hold on steroids Pulmonary toilet with nebs, Mucinex, flutter valve, incentive spirometer (3) Chronic atrial fibrillation: Plan: Rate controlled on metoprolol and diltiazem Anticoagulated on Xarelto (4) History of CVA (cerebrovascular accident): Plan: Continue ASA and statin (5) Renal artery stenosis: Plan: Remote history of stenting (6) HTN (hypertension): Plan: BP controlled, continue diltiazem, metoprolol, clonidine, isosorbide DVT prophylaxis On Xarelto History of Present Illness Chief Complaint: Cough, shortness of breath Primary Care Provider: Rigo Christine MD 81-year-old female H dyslipidemia, chronic atrial fibrillation anticoagulated on Xarelto, HTN, history of CVA, CKD stage III, chronic diastolic CHF, remote history of renal artery stenosis s/p stenting, aortic stenosis, and other problems listed below who presents the ED for evaluation of cough and shortness of breath. Patient son is the bedside who provides some history. He reports that over the past 1 week, patient has had progressive worsening shortness of breath and cough. Cough has been dry and nonproductive. There is also worsening lower extremity edema. Patient denies chest pain and palpitations. No fevers or chills. Denies lightheadedness, dizziness, diaphoresis, syncopal events. No abdominal pain, nausea, vomiting, diarrhea. Denies urinary symptoms. In the ED, patient is hemodynamically stable. Labs show WBC 14 K, HS troponin 24.6, proBNP 2100. CXR showing bilateral pleural effusions with bibasilar opacities. Patient was given nebulizer treatment, IV doxycycline, IV Solu-Medrol. Allergies Allergy/AdvReac Type Severity Reaction Status Date / Time sulfamethoxazole AdvReac Photosensit Verified 06/05/22 19:30 [From ivity Sulfamethoxazole-Trimethoprim] trimethoprim AdvReac Photosensit Verified 06/05/22 19:30 [From ivity Sulfamethoxazole-Trimethoprim] Home Medications Medication Instructions Recorded Confirmed Type allopurinol 100 mg tablet 200 mg PO DAILY 08/05/19 06/05/22 History atorvastatin 10 mg tablet 10 mg PO HS 08/05/19 06/05/22 History clonidine HCl 0.1 mg tablet 0.1 mg PO BID 08/05/19 06/05/22 History clotrimazole 1 % topical cream 1 applic topical BID PRN Skin 08/05/19 06/05/22 History Irritation diltiazem HCl 180 mg 180 mg PO QAM 08/05/19 06/05/22 History capsule,extended release 24 hr, controlled (DILT-XR) ferrous sulfate 325 mg (65 mg 65 mg PO QAM 08/05/19 06/05/22 History iron) tablet folic acid 400 mcg tablet 400 mcg PO QDD 08/05/19 06/05/22 History metoprolol tartrate 50 mg tablet 50 mg PO BID 08/05/19 06/05/22 History chzbbiyk-dpu-qbjaa acid 0.4 1 tab PO DAILY 08/05/19 06/05/22 History mg-lycopene 300 mcg-lutein 250 mcg tablet (Centrum Silver) rivaroxaban 15 mg tablet (Xarelto) 15 mg PO QDD 08/05/19 06/05/22 History magnesium oxide 400 mg PO DAILY #5 caps 08/11/19 06/05/22 Rx aspirin 81 mg tablet,delayed 162 mg PO DAILY 12/07/21 06/05/22 History release flaxseed oil 1 ea miscellaneous QDD 12/07/21 06/05/22 History nystatin 100,000 unit/gram topical 1 applic topical TID PRN affected 12/07/21 06/05/22 History powder (Nystop) area pantoprazole 20 mg tablet,delayed 20 mg PO QAM 12/07/21 06/05/22 History release triamcinolone acetonide 0.1 % 1 applic topical BID PRN Rash 12/07/21 06/05/22 History topical cream furosemide 20 mg tablet 20 mg PO Q2D@0900 #30 tabs 12/11/21 06/05/22 Rx isosorbide mononitrate 30 mg 30 mg PO QAM #30 tabs 12/11/21 06/05/22 Rx tablet,extended release 24 hr umeclidinium 62.5 mcg-vilanterol 1 ea inhalation QAM 06/05/22 06/05/22 History 25 mcg/actuation powdr for inhalation (Anoro Ellipta) Past Med/Surg History Medical History Abnormal CT of the chest Tree-in-bud opacity consistent with aspiration pneumonia. No evidence of underlying emphysema. CT scan 12/07/2021 at [facility] Age related osteoporosis Anticoagulated Aortic stenosis ASCVD (arteriosclerotic cardiovascular disease) Asthma DENIES Chronic atrial fibrillation Chronic diastolic CHF (congestive heart failure) Chronic iron deficiency anemia NO KNOWN CURRENT PROBLEMS WITH CKD (chronic kidney disease), stage III DENIES Epiglottitis PT SON REPORTS PT HAS TROUBLE SWALLOWING HER PILLS WITHOUT A SIGNIFICANT AMOUNT OF WATER GERD (gastroesophageal reflux disease) GI bleed HX Gout HX History of CVA (cerebrovascular accident) "MINI STROKES" 2016 - AFFECTED SPEECH AT THAT TIME HLD (hyperlipidemia) HTN (hypertension) Renal artery stenosis NARROWING ARTERIES , KIDNEY STENT PLACED IN 2000 Severe aortic stenosis UNKNOWN, NOT REPORTED BY PT SON UPON PAT INTERVIEW Surgical History History of cataract surgery RT History of colonoscopy History of endoscopy History of hysterectomy History of total left knee replacement BLADDER TAC History of total right knee replacement History of urologic surgery STENT PLACED IN KIDNEY 2000 FOR NARROWING OF ARTERIES Family History Mother Hypertension Social History Smoking Status: Former smoker Tobacco Type: Cigarettes Cigarettes Per Day: 2-3 CIG; Second Hand Exposure: No; Hx Alcohol Use: Yes Alcohol type: wine Hx Substance Use: No Preferred Language: Maori Communication Ability: Effective Marketing Project Coordinator Required: No Beliefs That Will Affect Care: None marital status: / Current Living Situation: Family Current Living Situation Comment: lives with son Feels Safe at Home: Yes Assistive Devices: Cane and Walker Review of Systems Review of Systems: ROS per HPI, all other systems reviewed and negative Physical Exam Physical Exam: please refer to Dr. Knight's addendum for physical exam Results & Data Results & Data ([facility]) Vital Signs (Past 12 Hours) Vital Signs Temp Pulse Pulse Resp BP BP Pulse Ox 06/05/22 20:00 90 22 176/83 H 94 06/05/22 10:02 36.8 C 80 18 114/68 95 O2 Del Method 06/05/22 20:00 Room Air 06/05/22 10:02 Laboratory Results Short CBC 06/05/22 Range/Units 12:13 WBC 14.00 H (4.8-10.8) K/ul Hgb 12.8 (12.0-16.0) g/dl Hct 37.8 (34.1-44.9) % Plt Count 354 (130-400) K/uL BMP 06/05/22 12:13 Sodium 138 Potassium 4.2 Chloride 103 Carbon Dioxide 24 BUN 27 H Creatinine 1.05 Glucose 115 H Calcium 9.2 Liver Function 06/05/22 Range/Units 12:13 Total Bilirubin 0.9 (0.2-1.0) mg/dl AST 28 (13-39) U/L ALT 20 (7-52) U/L Alkaline Phosphatase 82 (34-104) U/L Albumin 4.2 (3.4-5.0) gm/dl Diagnostic Findings Chest X-Ray 06/05/22 11:53 XR chest 2V PA/lateral CLINICAL HISTORY: Shortness of breath. COMPARISON STUDY: Chest CT December 07, 2021 and chest radiograph December 10, 2021. FINDINGS: There is no pneumothorax. Moderate left and small right pleural effusions have developed since prior chest radiograph. There are associated bibasilar opacities. There is no evidence for pulmonary edema. Cardiomegaly is unchanged. Mediastinal contours are stable. IMPRESSION: 1. Interval development of moderate left and small right pleural effusions with associated bibasilar opacities. 2. Cardiomegaly. No radiographic evidence for pulmonary edema. ACT 112: Negative or not required by law. Electronically signed by: Demarco Tellez M.D. 06/05/2022 12:26 PM Code Status & VTE Plan VTE Prophylaxis Plan VTE Prophylaxis will be ordered: No Supervising Physician Co-Signing Physician Notes Date of Service: June 05, 2022 History and physical exam performed by tn History notable for 81-year-old woman with history of Chronic A. fib, diastolic heart failure, hypertension, CVA, CKD and other medical problems who presented with worsening shortness of breath over the past week. Patient has hearing deficit. History provided by patient and son was at bedside. Worsening shortness of breath over the past week, worse with exertion. Started having cough last night. Reports worsening leg swelling as well. Denied fevers, chills. Physical exam: General: Elderly woman, no acute distress Eyes: PERRL, conjunctivae normal, not pale, anicteric sclerae, EOM intact bilaterally ENMT: External ear and nose normal, oropharynx normal, + hearing deficits Respiratory: Normal respiratory effort, no respiratory distress, diminished breath sounds lung bases, mild basilar crackles, no wheeze Cardiovascular: Irregularly irregular S1 S2, systolic murmur Gastrointestinal (Abdomen): Abdomen is not distended, soft, non-tender to palpation, no guarding, no palpable hepatosplenomegaly, normal bowel sounds Musculoskeletal: +pedal edema Neurologic: No focal weakness, sensation grossly intact Psychiatric: Alert and oriented x 3, euthymic affect Labs notable for WBC of 14,000, troponin of 30.5 Chest x-ray notable for moderate left and small right pleural effusion with associated basilar opacities. Acute on chronic diastolic heart failure. Possible pneumonia considering leukocytosis, cough and opacities. Start IV Lasix Monitor I's and O's Daily weights Cardiology consult Continue ceftriaxone and doxycycline for now. Check procalcitonin. Other plans as detailed by Shanita MAURICE
[2022-06-05] MEDS ORDERED: ALBUT/IPRATROP 3MG/0.5MG NEB 3 ML VIAL ONE (21:09)
[2022-06-05] MEDS ORDERED: methylPREDNISolone 125 MG/2 ML VIAL ONE (21:09)
[2022-06-05] MEDS ORDERED: ACETAMINOPHEN 325 MG TAB PO PRN (21:36)
[2022-06-05] MEDS ORDERED: ALBUT/IPRATROP 3MG/0.5MG NEB 3 ML VIAL NEB PRN (21:36)
[2022-06-06] MEDS: ALBUT/IPRATROP 3MG/0.5MG NEB 3 ML VIAL NEB SCH ×3 (00:02→06:14)
[2022-06-06] MEDS: methylPREDNISolone 40 MG in SYRINGE 0 ML IV SCH ×2 (01:07→08:05)
[2022-06-06] MEDS: ATORVASTATIN 10 MG TAB PO SCH ×2 (02:02→20:52)
[2022-06-06] MEDS: METOPROLOL TARTRATE 50 MG TAB PO SCH ×3 (02:02→20:52)
[2022-06-06 03:29] LABS: Hemoglobin 12.6 g/dl (12.0-16.0); Mean Corpuscular Hemoglobin 33.6 pg (25.0-34.0); Mean Corpuscular Hgb Conc 34.1 g/dL (32.0-36.0); Mean Corpuscular Volume 98.7 fL (80.0-100.0); Mean Platelet Volume 10.7 fL (9.4-12.3); Platelet Count 298 K/uL (130-400); RDW Coefficient of Variation 13.9 % (11.5-14.5); RDW Standard Deviation 49.8 fL (36.4-46.3); Red Blood Count 3.75 M/uL (3.93-5.22)
[2022-06-06] MEDS: cloNIDine HCL 0.1 MG TAB PO SCH ×3 (03:35→20:52)
[2022-06-06 03:59] LABS: BUN Creatinine Ratio 23.1 (10-20); Calcium 9.1 mg/dl (8.5-10.1); Creatinine Clr Calc Pharmacy 39.6 ml/min; Est GFR (African American) 57.5 ml/min; Est GFR (Non-African American) 49.6 ml/min; Potassium 3.6 mmol/L (3.5-5.1)
[2022-06-06] MEDS ORDERED: ALBUT/IPRATROP 3MG/0.5MG NEB 3 ML VIAL NEB PRN (07:53)
[2022-06-06] MEDS: ISOSORBIDE MONO EXTENDED REL 30 MG TABCR PO SCH (08:02)
[2022-06-06] MEDS: UMECLIDINIUM/VILANTEROL 62.5/25MCG 7 PUFFS/INHALER INH SCH (08:02)
[2022-06-06] MEDS: FERROUS SULFATE 325 MG TAB PO SCH (08:03)
[2022-06-06] MEDS: allopurinoL 100 MG TAB PO SCH (08:03)
[2022-06-06] MEDS: guaiFENesin 600 MG TABCR PO SCH ×2 (08:03→20:52)
[2022-06-06] MEDS: MAGNESIUM OXIDE 400 MG TAB PO SCH (08:03)
[2022-06-06] MEDS: PANTOprazole 40 MG TAB PO SCH (08:03)
[2022-06-06] MEDS: ASPIRIN 81 MG ECTAB PO SCH (08:03)
[2022-06-06] MEDS: dilTIAZem HCL 180 MG CAPCR PO SCH (08:05)
[2022-06-06] MEDS: FUROSEMIDE 40 MG/4 ML VIAL IV SCH (08:05)
--- NOTE | 2022-06-06 12:17 | Hospitalist Progress Note ---
Date of Service June 06, 2022 Assessment & Plan (1) Acute on chronic diastolic CHF (congestive heart failure): (2) Pleural effusion: (3) Pneumonia: (4) COPD exacerbation: (5) Aortic stenosis: Plan: Patient presenting from home with reports of worsening cough, shortness of breath, lower extremity edema x 1 week. CXR shows bilateral pleural effusions with bibasilar opacities. proBNP 2100. Multifactorial cause for shortness of breath; community-acquired pneumonia, COPD exacerbation, acute on chronic diastolic heart failure Leukocytosis present Echo 11/2021-EF 55 to 60%, severe aortic stenosis, mild mitral regurgitation, moderate tricuspid regurgitation Pro-Devin negative Plan; -Improvement in the wheezes noted; change DuoNeb to as needed. Decrease methylprednisolone to 40 mg once daily. Will do 5-day course of steroid Continue ceftriaxone and doxycycline; complete 5-day course. Currently on Lasix 20 mg IV daily; home Lasix doses is 20 mg every other day. Strict input and output -Daily weights -will obtain follow-up x-ray later in the hospitalization to follow up on pleural effusion (6) Chronic atrial fibrillation: Plan: Rate controlled on metoprolol and diltiazem Anticoagulated on Xarelto (7) History of CVA (cerebrovascular accident): Plan: Continue ASA and statin (8) Renal artery stenosis: Plan: Remote history of stenting (9) HTN (hypertension): Plan: BP controlled, continue diltiazem, metoprolol, clonidine, isosorbide DVT prophylaxis On Xarelto Admission and Anticipated Discharge Date Admission Date: June 05, 2022 Subjective Patient seen and examined at bedside. She reports improvement in her shortness of breath. Her BiPAP is weaned off and she is currently on 1.5 L/min of oxygen. Telemetry shows atrial fibrillation with ventricular rate in 100s. Review of Systems Review of Systems: All systems reviewed & are unremarkable except as noted in Subjective Physical Exam Physical Exam: Constitutional: Awake, alert; comfortably sitting up on the bed. Hard of hearing Respiratory: Occasional wheeze heard; no crackles. Cardiovascular: Irregular, no murmur, no edema Vessels: no JVD or carotid bruit Chest: normal inspection of chest Abdomen: normal bowel sounds, soft, nontender, no hepatosplenomegaly Musculoskeletal: Trace pedal edema present in bilateral lower extremity. Skin: no rashes, warm and dry normal turgor Neurologic: Grossly intact Psychiatric: A+Ox3, euthymic affect Lymphatic: no cervical or axillary lymphadenopathy : deferred Results & Data Results & Data ([facility]) Vital Signs (Past 12 Hours) Vital Signs Temp Pulse Pulse Resp BP Pulse Ox O2 Del Method 06/06/22 11:53 36.8 C 93 H 16 102/65 96 Nasal Cannula 06/06/22 07:53 36.6 C 58 L 16 137/81 97 Nasal Cannula 06/06/22 07:39 92 H 20 98 Nasal Cannula 06/06/22 04:19 93 H 16 96 Nasal Cannula 06/06/22 03:42 Nasal Cannula 06/06/22 03:42 36.4 C L 100 H 16 147/79 H 96 Nasal Cannula 06/06/22 01:00 99 H 18 134/67 98 Nasal Cannula O2 Flow Rate 06/06/22 11:53 1.5 06/06/22 07:53 2 06/06/22 07:39 2 06/06/22 04:19 2 06/06/22 03:42 3 06/06/22 03:42 3 06/06/22 01:00 3 Laboratory Results Laboratory Results WBC 8.40 K/ul (4.8-10.8) 06/06/22 03:17 RBC 3.75 M/uL (3.93-5.22) L 06/06/22 03:17 Hgb 12.6 g/dl (12.0-16.0) 06/06/22 03:17 Hct 37.0 % (34.1-44.9) 06/06/22 03:17 MCV 98.7 fL (80.0-100.0) 06/06/22 03:17 MCH 33.6 pg (25.0-34.0) 06/06/22 03:17 MCHC 34.1 g/dL (32.0-36.0) 06/06/22 03:17 RDW Std Deviation 49.8 fL (36.4-46.3) H 06/06/22 03:17 RDW Coeff of Alejandrina 13.9 % (11.5-14.5) 06/06/22 03:17 Plt Count 298 K/uL (130-400) 06/06/22 03:17 MPV 10.7 fL (9.4-12.3) 06/06/22 03:17 Immature Gran % (Auto) 0.6 % 06/05/22 12:13 Neut % (Auto) 81.6 % 06/05/22 12:13 Lymph % (Auto) 7.6 % 06/05/22 12:13 [place] % (Auto) 9.4 % 06/05/22 12:13 Eos % (Auto) 0.4 % 06/05/22 12:13 Baso % (Auto) 0.4 % 06/05/22 12:13 Neut # (Auto) 11.44 K/uL (1.4-6.5) H 06/05/22 12:13 Lymph # (Auto) 1.06 K/uL (1.2-3.4) L 06/05/22 12:13 [place] # (Auto) 1.31 K/uL (0.24-0.82) H 06/05/22 12:13 Eos # (Auto) 0.06 K/uL (0-0.50) 06/05/22 12:13 Baso # (Auto) 0.05 K/uL (0-0.2) 06/05/22 12:13 Immature Gran # (Auto) 0.08 K/uL (0.00-0.02) H 06/05/22 12:13 Absolute Nucleated RBC 0.02 K/uL (0-0) H 06/05/22 12:13 Nucleated RBC % (auto) 0.1 % 06/05/22 12:13 PT 13.8 Seconds (9.0-12.0) H 06/05/22 12:13 INR 1.3 (0.9-1.1) H 06/05/22 12:13 APTT 43.8 Seconds (21.0-31.0) H 06/05/22 12:13 PTT Ratio 1.6 06/05/22 12:13 Sodium 139 mmol/L (136-145) 06/06/22 03:17 Potassium 3.6 mmol/L (3.5-5.1) 06/06/22 03:17 Chloride 99 mmol/L (98-107) 06/06/22 03:17 Carbon Dioxide 26 mmol/L (21-32) 06/06/22 03:17 Anion Gap 14 (3-11) H 06/06/22 03:17 BUN 24 mg/dl (6-23) H 06/06/22 03:17 Creatinine 1.04 mg/dl (0.6-1.2) 06/06/22 03:17 Est Cr Clr Drug Dosing 39.6 ml/min 06/06/22 03:17 Est GFR ( Amer) 57.5 ml/min 06/06/22 03:17 Est GFR (Non-Af Amer) 49.6 ml/min 06/06/22 03:17 BUN/Creatinine Ratio 23.1 (10-20) H 06/06/22 03:17 Glucose 165 mg/dl (70-99(Fasting)) H 06/06/22 03:17 Calcium 9.1 mg/dl (8.5-10.1) 06/06/22 03:17 Magnesium 2.1 mg/dl (1.7-2.4) 06/05/22 12:13 Total Bilirubin 0.9 mg/dl (0.2-1.0) 06/05/22 12:13 AST 28 U/L (13-39) 06/05/22 12:13 ALT 20 U/L (7-52) 06/05/22 12:13 Alkaline Phosphatase 82 U/L (34-104) 06/05/22 12:13 Troponin I High Sens 42.0 pg/ml (0-14) H D 06/06/22 03:17 B-Natriuretic Peptide 2132 pg/ml (0-100) H 06/05/22 19:19 Total Protein 7.0 gm/dl (6.0-8.3) 06/05/22 12:13 Albumin 4.2 gm/dl (3.4-5.0) 06/05/22 12:13 Globulin 2.8 gm/dl (2.5-4.0) 06/05/22 12:13 Albumin/Globulin Ratio 1.5 (0.9-2) 06/05/22 12:13 Procalcitonin < 0.05 ng/ml (0-0.5) 06/05/22 19:19 SARS-CoV-2 (PCR) NEGATIVE (Negative) 06/05/22 12:13 Influenza Type A (PCR) Negative (Neg) 06/05/22 12:13 Influenza Type B (PCR) Negative (Neg) 06/05/22 12:13 RSV (RT-PCR) Negative (Neg) 06/05/22 12:13 Impressions Chest X-Ray 06/05/22 11:53 XR chest 2V PA/lateral CLINICAL HISTORY: Shortness of breath. COMPARISON STUDY: Chest CT December 07, 2021 and chest radiograph December 10, 2021. FINDINGS: There is no pneumothorax. Moderate left and small right pleural effusions have developed since prior chest radiograph. There are associated bibasilar opacities. There is no evidence for pulmonary edema. Cardiomegaly is unchanged. Mediastinal contours are stable. IMPRESSION: 1. Interval development of moderate left and small right pleural effusions with associated bibasilar opacities. 2. Cardiomegaly. No radiographic evidence for pulmonary edema. ACT 112: Negative or not required by law. Electronically signed by: Demarco Tellez M.D. 06/05/2022 12:26 PM
--- NOTE | 2022-06-06 17:31 | Cardiology Consultation ---
Date of Consultation June 06, 2022 Assessment & Plan (1) Acute on chronic diastolic CHF (congestive heart failure): Agree with cautious diuresis, furosemide 20 mg IV daily (2) Aortic stenosis: As noted in patient's most recent outpatient cardiology note from this with Dr. Ford in March,, patient with longstanding preference to avoid invasive intervention for her valvular heart disease. (3) Permanent atrial fibrillation: - Continue diltiazem, metoprolol, Xarelto. History of Present Illness Attending Physician: Clifton Srinivasan MD History of Present Illness Ammy Coyle is an 81 year old female seen in cardiology consultation per the request of KAYLENE Naranjo for the evaluation of congestive heart failure. Patient presented 06/05/2022 with shortness of breath. Onset of symptoms worse over the last week, with shortness of breath and dry nonproductive cough. Chest x-ray revealed small bilateral pleural effusions. Patient notes feeling subtle interval improvement, just there is generalized fatigue. Problem List: 1.Longstanding hypertension with hypertensive heart disease. 2.Renovascular disease, status post prior remote renal artery stenting. 3.Calcific aortic valve disease with severe aortic stenosis. 4.Moderate or greater bilateral carotid artery stenosis. 5.Chronic atrial fibrillation with controlled ventricular response rate. 6.History of left basal ganglion stroke, March 2016. 7.Hyperlipidemia. 8.Chronic iron deficiency anemia Allergies Allergy/AdvReac Type Severity Reaction Status Date / Time sulfamethoxazole AdvReac Photosensit Verified 06/05/22 19:30 [From ivity Sulfamethoxazole-Trimethoprim] trimethoprim AdvReac Photosensit Verified 06/05/22 19:30 [From ivity Sulfamethoxazole-Trimethoprim] Home Medications Medication Instructions Recorded Confirmed Type allopurinol 100 mg tablet 200 mg PO DAILY 08/05/19 06/05/22 History atorvastatin 10 mg tablet 10 mg PO HS 08/05/19 06/05/22 History clonidine HCl 0.1 mg tablet 0.1 mg PO BID 08/05/19 06/05/22 History clotrimazole 1 % topical cream 1 applic topical BID PRN Skin 08/05/19 06/05/22 History Irritation diltiazem HCl 180 mg 180 mg PO QAM 08/05/19 06/05/22 History capsule,extended release 24 hr, controlled (DILT-XR) ferrous sulfate 325 mg (65 mg 65 mg PO QAM 08/05/19 06/05/22 History iron) tablet folic acid 400 mcg tablet 400 mcg PO QDD 08/05/19 06/05/22 History metoprolol tartrate 50 mg tablet 50 mg PO BID 08/05/19 06/05/22 History sscrgnvl-vnp-alxuv acid 0.4 1 tab PO DAILY 08/05/19 06/05/22 History mg-lycopene 300 mcg-lutein 250 mcg tablet (Centrum Silver) rivaroxaban 15 mg tablet (Xarelto) 15 mg PO QDD 08/05/19 06/05/22 History magnesium oxide 400 mg PO DAILY #5 caps 08/11/19 06/05/22 Rx aspirin 81 mg tablet,delayed 162 mg PO DAILY 12/07/21 06/05/22 History release flaxseed oil 1 ea miscellaneous QDD 12/07/21 06/05/22 History nystatin 100,000 unit/gram topical 1 applic topical TID PRN affected 12/07/21 06/05/22 History powder (Nystop) area pantoprazole 20 mg tablet,delayed 20 mg PO QAM 12/07/21 06/05/22 History release triamcinolone acetonide 0.1 % 1 applic topical BID PRN Rash 12/07/21 06/05/22 History topical cream furosemide 20 mg tablet 20 mg PO Q2D@0900 #30 tabs 12/11/21 06/05/22 Rx isosorbide mononitrate 30 mg 30 mg PO QAM #30 tabs 12/11/21 06/05/22 Rx tablet,extended release 24 hr umeclidinium 62.5 mcg-vilanterol 1 ea inhalation QAM 06/05/22 06/05/22 History 25 mcg/actuation powdr for inhalation (Anoro Ellipta) Patient History Medical History Abnormal CT of the chest Tree-in-bud opacity consistent with aspiration pneumonia. No evidence of underlying emphysema. CT scan 12/07/2021 at [facility] Age related osteoporosis Anticoagulated Aortic stenosis ASCVD (arteriosclerotic cardiovascular disease) Asthma DENIES Chronic atrial fibrillation Chronic diastolic CHF (congestive heart failure) Chronic iron deficiency anemia NO KNOWN CURRENT PROBLEMS WITH CKD (chronic kidney disease), stage III DENIES Epiglottitis PT SON REPORTS PT HAS TROUBLE SWALLOWING HER PILLS WITHOUT A SIGNIFICANT AMOUNT OF WATER GERD (gastroesophageal reflux disease) GI bleed HX Gout HX History of CVA (cerebrovascular accident) "MINI STROKES" 2016 - AFFECTED SPEECH AT THAT TIME HLD (hyperlipidemia) HTN (hypertension) Renal artery stenosis NARROWING ARTERIES , KIDNEY STENT PLACED IN 2000 Severe aortic stenosis UNKNOWN, NOT REPORTED BY PT SON UPON PAT INTERVIEW Surgical History History of cataract surgery RT History of colonoscopy History of endoscopy History of hysterectomy History of total left knee replacement BLADDER TAC History of total right knee replacement History of urologic surgery STENT PLACED IN KIDNEY 2000 FOR NARROWING OF ARTERIES Family History Mother Hypertension Social History Smoking Status: Light tobacco smoker Tobacco Type: Cigarettes Cigarettes Per Day: 2-3 CIG; Second Hand Exposure: No; Do You Dip or Chew Tobacco: No; Tobacco Cessation Education Requested by Patient: No Hx Alcohol Use: Yes Alcohol type: wine Hx Substance Use: No Preferred Language: Romansh Communication Ability: 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 Beliefs That Will Affect Care: None marital status: / Current Living Situation: Family Current Living Situation Comment: lives with son Other Information That Helps Us Care for You: No Feels Safe at Home: Yes Safety Concerns: Feels Safe At This Time Assistive Devices: Cane and Walker Review of Systems Review of Systems: Unobtainable due to cognitive status Physical Exam Constitutional: no acute distress Respiratory: Auscultation: + diminished lung sounds (Mildly decreased breath sounds in the bases bilaterally) Cardiovascular: Rate/Rhythm: + irregularly irregular Heart Sounds: + murmur (Grade III/6 systolic murmur) Gastrointestinal (Abdomen): normal bowel sounds, soft, nontender, no hepatosplenomegaly Neurologic: Follows commands, somewhat lethargic Results & Data ([facility]) Vital Signs (Past 12 Hours) Vital Signs Temp Pulse Pulse Resp BP Pulse Ox O2 Del Method 06/06/22 16:35 36.6 C 93 H 16 113/73 94 Nasal Cannula 06/06/22 11:53 36.8 C 93 H 16 102/65 96 Nasal Cannula 06/06/22 07:53 36.6 C 58 L 16 137/81 97 Nasal Cannula 06/06/22 07:39 92 H 20 98 Nasal Cannula O2 Flow Rate 06/06/22 16:35 1.5 06/06/22 11:53 1.5 06/06/22 07:53 2 06/06/22 07:39 2 Laboratory Results Cardiac Enzymes 06/05/22 06/05/22 06/06/22 Range/Units 19:19 19:19 03:17 Troponin I High Sens 24.6 H 42.0 H D (0-14) pg/ml B-Natriuretic Peptide 2132 H (0-100) pg/ml Coagulation 06/05/22 Range/Units 19:19 B-Natriuretic Peptide 2132 H (0-100) pg/ml CBC 06/06/22 Range/Units 03:17 WBC 8.40 (4.8-10.8) K/ul RBC 3.75 L (3.93-5.22) M/uL Hgb 12.6 (12.0-16.0) g/dl Hct 37.0 (34.1-44.9) % Plt Count 298 (130-400) K/uL Comprehensive Metabolic Panel 06/06/22 Range/Units 03:17 Sodium 139 (136-145) mmol/L Potassium 3.6 (3.5-5.1) mmol/L Chloride 99 (98-107) mmol/L Carbon Dioxide 26 (21-32) mmol/L BUN 24 H (6-23) mg/dl Creatinine 1.04 (0.6-1.2) mg/dl Glucose 165 H (70-99(Fasting)) mg/dl Calcium 9.1 (8.5-10.1) mg/dl Intake and Output 06/06/22 06/06/22 06/06/22 06:59 14:59 22:59 Intake Total 120 / 120 Output Total 750 / 750 300 / 300 Balance -750 / -590 -180 / -180 Intake: Oral 120 / 120 Output: Urine Amount (Catheter) 750 / 750 300 / 300 [place]/Indwelling 750 / 750 300 / 300 Other: Other Intake Source sips Weight 75.1 kg Weight Measurement Method Built in [facility] Diagnostic Findings EKG reveals atrial fibrillation 83 bpm, ST-T wave abnormality consistent with inferolateral ischemia. Compared to previous dated 12/07/2021, the lateral ST segment depression is more prominent Echocardiogram performed today, reviewed independently: Severe concentric left ventricular hypertrophy LV EF 55 to 60%, critically severe aortic stenosis with peak continuous-wave Doppler velocity 4.9 m/s, mean gradient 60 mmHg, aortic valve area 0.4 cm, mild to moderate pulmonary hypertension, pulmonary systolic pressure 51 mmHg
[2022-06-06] MEDS: RIVAROXABAN 15 MG TAB PO SCH (18:08)
[2022-06-06] MEDS: FOLIC ACID 400 MCG TAB PO SCH (18:08)
[2022-06-06] MEDS: cefTRIAXone SODIUM 1,000 MG in DEXTROSE 5% AD-VAN 50 ML IV SCH (21:05)
[2022-06-07] MEDS: cloNIDine HCL 0.1 MG TAB PO SCH ×2 (07:28→20:58)
[2022-06-07] MEDS: allopurinoL 100 MG TAB PO SCH (07:28)
[2022-06-07] MEDS: FERROUS SULFATE 325 MG TAB PO SCH (07:28)
[2022-06-07] MEDS: METOPROLOL TARTRATE 50 MG TAB PO SCH ×2 (07:28→21:01)
[2022-06-07] MEDS: ASPIRIN 81 MG ECTAB PO SCH (07:28)
[2022-06-07] MEDS: ISOSORBIDE MONO EXTENDED REL 30 MG TABCR PO SCH (07:29)
[2022-06-07] MEDS: PANTOprazole 40 MG TAB PO SCH (07:29)
[2022-06-07] MEDS: MAGNESIUM OXIDE 400 MG TAB PO SCH (07:29)
[2022-06-07] MEDS: dilTIAZem HCL 180 MG CAPCR PO SCH (07:29)
[2022-06-07] MEDS: guaiFENesin 600 MG TABCR PO SCH ×2 (07:30→21:00)
[2022-06-07] MEDS: UMECLIDINIUM/VILANTEROL 62.5/25MCG 7 PUFFS/INHALER INH SCH (07:30)
[2022-06-07] MEDS: FUROSEMIDE 40 MG/4 ML VIAL IV SCH (07:55)
[2022-06-07 08:06] LABS: Hematocrit (blood only) 34.6 % (34.1-44.9); Hemoglobin 11.6 g/dl (12.0-16.0); Mean Corpuscular Hemoglobin 33.3 pg (25.0-34.0); Mean Corpuscular Hgb Conc 33.5 g/dL (32.0-36.0); Mean Corpuscular Volume 99.4 fL (80.0-100.0); Nucleated RBC # (auto) 0.02 K/uL (0-0); Nucleated RBC % (auto) 0.1 %; Platelet Count 306 K/uL (130-400); RDW Coefficient of Variation 14.1 % (11.5-14.5); RDW Standard Deviation 50.9 fL (36.4-46.3); Red Blood Count 3.48 M/uL (3.93-5.22); White Blood Count 17.43 K/ul (4.8-10.8)
[2022-06-07 08:30] LABS: Basophils # (auto) 0.02 K/uL (0-0.2); Basophils % (auto) 0.1 %; Immature Granulocytes % (auto) 0.6 %; Lymphocytes # (auto) 0.49 K/uL (1.2-3.4); Lymphocytes % (auto) 2.8 %; Monocytes # (auto) 0.92 K/uL (0.24-0.82); Monocytes % (auto) 5.3 %; Neutrophils % (auto) 91.2 %
[2022-06-07] MEDS ORDERED: methylPREDNISolone 40 MG in SYRINGE 0 ML IV SCH (09:00)
[2022-06-07 09:07] LABS: BUN Creatinine Ratio 35.2 (10-20); Calcium 8.7 mg/dl (8.5-10.1); Creatinine Clr Calc Pharmacy 33.5 ml/min; Est GFR (African American) 46.1 ml/min; Est GFR (Non-African American) 39.7 ml/min; Potassium 3.9 mmol/L (3.5-5.1)
--- NOTE | 2022-06-07 13:48 | Hospitalist Progress Note ---
Date of Service June 07, 2022 Assessment & Plan (1) Acute on chronic diastolic CHF (congestive heart failure): Plan: Outpatient oral diuretics have been transition to intravenous Lasix. Given she is preload dependent with severe and her creatinine has trended up to 1.25 intravenous furosemide has been DC'd. Cardiology has resumed furosemide 20 mg every 2 days to start on 06/09. (2) COPD exacerbation: Plan: The patient is a smoker that does not wear oxygen at home. On admission she was noted to have diminished bilateral breath sounds with some tachypnea and scattered expiratory wheezes. As a result she she was put on steroids, nebulized bronchodilator therapy and antibiotics. Today she is better and there is no wheezing present. Although I considered stopping the steroids with her son today and more discussion, will continue giving her a short course of oral prednisone and doxycycline to treat possible underlying COPD exacerbation. Nebulized bronchodilators as needed. Smoking cessation strongly advised. Of note, wheezing may also have been related to her cardiac valvulopathy and heart failure exacerbation. (3) Aortic stenosis: Plan: severe, not interested in valve surgery at this point. Discussed with both cardiology and her son today. She is being optimized medically. Cont low sodium diet and daily weights (4) Pleural effusion: Plan: Bilateral pleural effusion seen on imaging, diuretics will be continued as planned above. (5) Pneumonia: Plan: Pneumonia ruled out. Initial imaging revealed bilateral pleural effusions with possible atelectasis. There was no evidence of coughing or fevers or chills prior to her admission only progressive shortness of breath per son. Procalcitonin on 06/05 was negative. Will DC antibiotics at this time. (6) Chronic atrial fibrillation: Plan: Rate controlled on metoprolol and diltiazem Anticoagulated on Xarelto (7) History of CVA (cerebrovascular accident): Plan: chronic, no residual deficit noted. Continue ASA and statin (8) Renal artery stenosis: Plan: Remote history of stenting (9) HTN (hypertension): Plan: BP controlled, continue diltiazem, metoprolol, clonidine, isosorbide DVT prophylaxis On Xarelto Full Code Dispo-pending PT/OT recommendations. Gabriela Liang DO [facility] Hospitalist Admission and Anticipated Discharge Date Admission Date: June 05, 2022 Subjective 81-year-old female who presented with progressive shortness of breath at home was admitted for acute heart failure exacerbation. She was originally on BiPAP in the ER and is now oxygenating well with minimal supplementation through nasal cannula. She is feeling well and has some memory issues as well as hearing issues though the history is facilitated by her son who is at bedside. The patient does not report any problems with breathing or coughing and denies any chest pain or other issues at this time. Son reports there has been no weight gain at home. We did discuss dietary restrictions with respect to salt. We also discussed the fact that her valve disease is likely contributing to this current clinical picture and will not improve. We can optimize her with medications intermittently but overall, this is a terminal situation. He verbalized understanding and states that her outpatient cardiology suggested the same. Suggested that overall goals of care conversation take place at some point in the next few months. Review of Systems Review of Systems: All systems reviewed negative such as indicated above Physical Exam Physical Exam: CONSTITUTIONAL: WNWD, vitals as above, generally well-yarelis earing, no conversational dyspnea, appears in good spirits and cooperative with exam. EYES: normal conjunctivae, no scleral icterus ENT: external ear and nose normal, MMM NECK: trachea midline RESPIRATORY: coarse crackles at bases bilaterally, no wheezes or rales. CARDIOVASCULAR: regular rate and rhythm, 3/6 [place] across precordium, no peripheral edema CHEST: inspection of chest was normal GASTROINTESTINAL: soft, nontender, ND, no guarding MUSCULOSKELETAL: strength 5/5 throughout, head is normocephalic and atraumatic SKIN: warm and dry NEUROLOGIC: CN 2-12 grossly intact, no sensory deficit, normal cognition, normal speech, no tremor PSYCHIATRIC: alert cooperative and answering questions appropriately Results & Data Results & Data ([facility]) Vital Signs (Past 12 Hours) Vital Signs Temp Pulse Resp BP BP Pulse Ox O2 Del Method 06/07/22 11:43 36.6 C 77 16 113/69 96 Room Air 06/07/22 08:55 Room Air 06/07/22 08:22 36.8 C 92 H 20 142/82 H 92 Room Air 06/07/22 04:06 36.3 C L 95 H 18 117/79 95 Room Air Laboratory Results Short CBC 06/07/22 Range/Units 07:14 WBC 17.43 H (4.8-10.8) K/ul Hgb 11.6 L (12.0-16.0) g/dl Hct 34.6 (34.1-44.9) % Plt Count 306 (130-400) K/uL BMP 06/07/22 07:14 Sodium 137 Potassium 3.9 Chloride 99 Carbon Dioxide 29 BUN 44 H D Creatinine 1.25 H Glucose 123 H Calcium 8.7 Medications Administered Current Inpatient Medications Acetaminophen (Acetaminophen 325 Mg Tab) 650 mg PO Q4H PRN PRN Reason: pain/fever Stop: 07/05/22 21:35 Albuterol (Albut/Ipratrop 3mg/0.5mg Neb 3 Ml Vial) 3 ml NEB Q4R PRN; Protocol PRN Reason: Wheezing Stop: 07/05/22 22:59 Allopurinol (Allopurinol 100 Mg Tab) 200 mg PO DAILY ZACH Stop: 07/06/22 08:59 Last Admin: 06/07/22 07:28 Dose: 200 mg Aspirin (Aspirin 81 Mg Ectab) 162 mg PO DAILY ZACH Stop: 07/06/22 08:59 Last Admin: 06/07/22 07:28 Dose: 162 mg Atorvastatin Calcium (Atorvastatin 10 Mg Tab) 10 mg PO HS [facility]ACH Stop: 07/05/22 21:44 Last Admin: 06/06/22 20:52 Dose: 10 mg Clonidine HCl (Clonidine Hcl 0.1 Mg Tab) 0.1 mg PO BID [facility] Stop: 07/05/22 21:44 Last Admin: 06/07/22 07:28 Dose: 0.1 mg Diltiazem HCl (Diltiazem Hcl 180 Mg Capcr) 180 mg PO QAM [facility] Stop: 07/06/22 08:59 Last Admin: 06/07/22 07:29 Dose: 180 mg Ferrous Sulfate (Ferrous Sulfate 325 Mg Tab) 325 mg PO QAM [facility] Stop: 07/06/22 08:59 Last Admin: 06/07/22 07:28 Dose: 325 mg Folic Acid (Folic Acid 400 Mcg Tab) 400 mcg PO QDD [facility] Stop: 07/06/22 16:29 Last Admin: 06/06/22 18:08 Dose: 400 mcg Furosemide (Furosemide 40 Mg/4 Ml Vial) 20 mg IV DAILY [facility] Stop: 07/06/22 08:59 Last Admin: 06/07/22 07:55 Dose: 20 mg Guaifenesin (Guaifenesin 600 Mg Tabcr) 1,200 mg PO Q12 [facility] Stop: 07/06/22 08:59 Last Admin: 06/07/22 07:30 Dose: 1,200 mg Ceftriaxone Sodium 1,000 mg/ (Dextrose) 50 mls @ 100 mls/hr IV Q24H [facility]; Protocol Stop: 06/12/22 19:59 Last Infusion: 06/06/22 21:40 Dose: Infused Methylprednisolone 40 mg/ (Syringe) 0.64 mls @ 1.5 mls/min IV DAILY [facility] Stop: 07/07/22 08:59 Last Admin: 06/07/22 07:27 Dose: 1.5 mls/min Isosorbide Mononitrate (Isosorbide [place] Extended Rel 30 Mg Tabcr) 30 mg PO QAM [facility] Stop: 07/06/22 08:59 Last Admin: 06/07/22 07:29 Dose: 30 mg Magnesium Oxide (Magnesium Oxide 400 Mg Tab) 400 mg PO DAILY [facility] Stop: 07/06/22 08:59 Last Admin: 06/07/22 07:29 Dose: 400 mg Metoprolol Tartrate (Metoprolol Tartrate 50 Mg Tab) 50 mg PO BID [facility] Stop: 07/05/22 21:59 Last Admin: 06/07/22 07:28 Dose: 50 mg Pantoprazole Sodium (Pantoprazole 40 Mg Tab) 40 mg PO QAM [facility] Stop: 07/06/22 08:59 Last Admin: 06/07/22 07:29 Dose: 40 mg Rivaroxaban (Rivaroxaban 15 Mg Tab) 15 mg PO QDD [facility] Stop: 07/06/22 16:29 Last Admin: 06/06/22 18:08 Dose: 15 mg Umeclidinium/Vilanterol (Umeclidinium/Vilanterol 62.5/25mcg 7 Puffs/Inhaler) 1 puffs INH QAM [facility] Stop: 07/06/22 08:59 Last Admin: 06/07/22 07:30 Dose: 1 puffs
[2022-06-07] MEDS: FOLIC ACID 400 MCG TAB PO SCH (15:51)
[2022-06-07] MEDS: RIVAROXABAN 15 MG TAB PO SCH (15:52)
--- NOTE | 2022-06-07 16:26 | Cardiology Progress Note ---
Date of Service June 07, 2022 Assessment & Plan (1) COPD exacerbation: Plan: -likely culprit of her presentation. -Wheezing resolved -Continue corticosteroids, and rocephin. (2) Acute on chronic diastolic CHF (congestive heart failure): Plan: -Creatinine trended up to 1.25. 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 (3) Aortic stenosis: Plan: -As noted in patient's most recent outpatient cardiology note from this with Dr. Ford in March,, patient with longstanding preference to avoid invasive intervention for her valvular heart disease. -This was again confirmed , per my discussion with her son, 06/07/22. (4) Permanent atrial fibrillation: Plan: - Continue diltiazem, metoprolol, Xarelto. Admission and Anticipated Discharge Date Admission Date: June 05, 2022 Subjective Patient seen in follow up. Hard of hearing. Son is at bedside with her. She is more awake today. Telemetry reveals AF in the 80s. Physical Exam Constitutional: no acute distress Respiratory: Auscultation: lungs clear to auscultation bilaterally; no crackles and no wheezes Cardiovascular: Rate/Rhythm: + irregularly irregular Heart Sounds: + murmur (Grade III/6 systolic murmur) Gastrointestinal (Abdomen): normal bowel sounds, soft, nontender, no hepatosplenomegaly Results & Data ([facility]) Vital Signs (Past 12 Hours) Vital Signs Temp Pulse Pulse Resp BP BP Pulse Ox 06/07/22 15:07 75 06/07/22 11:43 36.6 C 77 16 113/69 96 06/07/22 08:55 06/07/22 08:22 36.8 C 92 H 20 142/82 H 92 O2 Del Method 06/07/22 15:07 06/07/22 11:43 Room Air 06/07/22 08:55 Room Air 06/07/22 08:22 Room Air Laboratory Results CBC 06/07/22 Range/Units 07:14 WBC 17.43 H (4.8-10.8) K/ul RBC 3.48 L (3.93-5.22) M/uL Hgb 11.6 L (12.0-16.0) g/dl Hct 34.6 (34.1-44.9) % Plt Count 306 (130-400) K/uL Neut # (Auto) 15.90 H (1.4-6.5) K/uL Lymph # (Auto) 0.49 L (1.2-3.4) K/uL [place] # (Auto) 0.92 H (0.24-0.82) K/uL Eos # (Auto) 0.00 (0-0.50) K/uL Baso # (Auto) 0.02 (0-0.2) K/uL Comprehensive Metabolic Panel 06/07/22 Range/Units 07:14 Sodium 137 (136-145) mmol/L Potassium 3.9 (3.5-5.1) mmol/L Chloride 99 (98-107) mmol/L Carbon Dioxide 29 (21-32) mmol/L BUN 44 H D (6-23) mg/dl Creatinine 1.25 H (0.6-1.2) mg/dl Glucose 123 H (70-99(Fasting)) mg/dl Calcium 8.7 (8.5-10.1) mg/dl Intake and Output 06/07/22 06/07/22 06/07/22 06:59 14:59 22:59 Intake Total 360 / 360 Balance 360 / 360 Intake: Oral 360 / 360 Other: # Unmeasured Voids 1 1 Weight 76.8 kg Weight Measurement Method Built in [facility]
[2022-06-07] MEDS: ATORVASTATIN 10 MG TAB PO SCH (20:58)
[2022-06-07] MEDS: DOXYCYCLINE HYCLATE 100 MG CAP PO SCH (20:59)
[2022-06-08] MEDS: PANTOprazole 40 MG TAB PO SCH (08:26)
[2022-06-08] MEDS: METOPROLOL TARTRATE 50 MG TAB PO SCH (08:26)
[2022-06-08] MEDS: ASPIRIN 81 MG ECTAB PO SCH (08:27)
[2022-06-08] MEDS: ISOSORBIDE MONO EXTENDED REL 30 MG TABCR PO SCH (08:27)
[2022-06-08] MEDS: allopurinoL 100 MG TAB PO SCH (08:27)
[2022-06-08] MEDS: dilTIAZem HCL 180 MG CAPCR PO SCH (08:27)
[2022-06-08] MEDS: MAGNESIUM OXIDE 400 MG TAB PO SCH (08:27)
[2022-06-08] MEDS: cloNIDine HCL 0.1 MG TAB PO SCH (08:28)
[2022-06-08] MEDS: DOXYCYCLINE HYCLATE 100 MG CAP PO SCH (08:28)
[2022-06-08] MEDS: FERROUS SULFATE 325 MG TAB PO SCH (08:28)
[2022-06-08] MEDS: guaiFENesin 600 MG TABCR PO SCH (08:29)
[2022-06-08] MEDS: UMECLIDINIUM/VILANTEROL 62.5/25MCG 7 PUFFS/INHALER INH SCH (08:29)
[2022-06-08] MEDS ORDERED: predniSONE 20 MG TAB PO SCH (09:00)
[2022-06-08] MEDS ORDERED: FUROSEMIDE 20 MG TAB PO SCH (09:00)
[2022-06-08 10:43] LABS: Basophils # (auto) 0.01 K/uL (0-0.2); Basophils % (auto) 0.1 %; Hematocrit (blood only) 36.5 % (34.1-44.9); Hemoglobin 12.3 g/dl (12.0-16.0); Immature Granulocytes # (auto) 0.12 K/uL (0.00-0.02); Immature Granulocytes % (auto) 0.8 %; Lymphocytes # (auto) 0.57 K/uL (1.2-3.4); Lymphocytes % (auto) 3.9 %; Mean Corpuscular Hemoglobin 33.2 pg (25.0-34.0); Mean Corpuscular Hgb Conc 33.7 g/dL (32.0-36.0); Mean Corpuscular Volume 98.6 fL (80.0-100.0); Mean Platelet Volume 10.9 fL (9.4-12.3); Monocytes # (auto) 1.05 K/uL (0.24-0.82); Monocytes % (auto) 7.3 %; Neutrophils % (auto) 87.9 %; Nucleated RBC # (auto) 0.03 K/uL (0-0); Nucleated RBC % (auto) 0.2 %; Platelet Count 335 K/uL (130-400); RDW Coefficient of Variation 14.2 % (11.5-14.5); RDW Standard Deviation 50.7 fL (36.4-46.3); White Blood Count 14.45 K/ul (4.8-10.8)
[2022-06-08 11:05] LABS: BUN Creatinine Ratio 36.8 (10-20); Creatinine Clr Calc Pharmacy 37.3 ml/min; Est GFR (African American) 51.5 ml/min; Est GFR (Non-African American) 44.4 ml/min; Potassium 3.6 mmol/L (3.5-5.1)
--- NOTE | 2022-06-08 15:15 | Discharge Summary ---
Discharge Summary Date of Service June 08, 2022 Notes For Next Care Provider Cont to encourage smoking cessation Eventual goals of care conversation recommended for severe with heart failure-high morbidity and increased risk of recurrent hospitalization for this which may decrease her overall quality of life. Medication Changes From Visit Doxycycline 100 p.o. twice daily x5 days Prednisone 20 mg p.o. daily x5 days Admission HPI Per Admitting Provider 81-year-old female PMH dyslipidemia, chronic atrial fibrillation anticoagulated on Xarelto, HTN, history of CVA, CKD stage III, chronic diastolic CHF, remote history of renal artery stenosis s/p stenting, aortic stenosis, and other problems listed below who presents the ED for evaluation of cough and shortness of breath. Patient son is the bedside who provides some history. He reports that over the past 1 week, patient has had progressive worsening shortness of breath and cough. Cough has been dry and nonproductive. There is also worsening lower extremity edema. Patient denies chest pain and palpitations. No fevers or chills. Denies lightheadedness, dizziness, diaphoresis, syncopal events. No abdominal pain, nausea, vomiting, diarrhea. Denies urinary symptoms. In the ED, patient is hemodynamically stable. Labs show WBC 14 K, HS troponin 24.6, proBNP 2100. CXR showing bilateral pleural effusions with bibasilar opacities. Patient was given nebulizer treatment, IV doxycycline, IV Solu-Medrol. Principal Dx & Hospital Course #1 = Principal Diagnosis (1) Acute on chronic diastolic CHF (congestive heart failure): (2) COPD exacerbation: (3) Aortic stenosis: (4) Pleural effusion: (5) Chronic atrial fibrillation: Plan Patient is an 81-year-old female who presented with worsening shortness of breath and lower extremity edema x1 week. Work-up revealed bilateral pleural effusions with bibasilar opacities, and elevated BNP to 2100, leukocytosis of 14 K, and some wheezing. She has known severe aortic stenosis for which she is a nonoperative candidate. She has a history of smoking actively 1 to 2 cigarettes a day. She was initially placed on nebulized bronchodilator therapy, IV doxycycline, IV Solu-Medrol, and IV Lasix. Her son reported a cough for only 1 day prior to arrival. However, given the leukocytosis and hypoxia she was given additional empiric ceftriaxone to cover for possible pneumonia. Procalcitonin was negative. Pulmonary toilet efforts with Mucinex, flutter valve, incentive spirometer were continued. Cardiology was consulted and assisted with diuresis. There was a reference to an outpatient visit with her spinner frame, Dr. Ford in March 2022 where the patient had a longstanding preference to avoid invasive intervention for her valvular heart disease. Antibiotics were ultimately stopped after a few days and she continued to improve. Pneumonia was not felt to be part of the cause of hypoxia and was ruled out. Chest x-ray in 4 weeks recommended to ensure complete resolution of effusions and bibasilar opacities. At time of discharge she was oxygenating on room air and PT cleared her for home with home health. She lives with her adult children who help to care for her. She was eating and ambulating and mentating at baseline at time of discharge. There was clear lungs auscultation on discharge exam and no evidence of peripheral edema. Close follow-up with primary care is recommended. Discharge Exam CONSTITUTIONAL: WNWD, vitals as above, generally well-appearing, no conversational dyspnea, appears in good spirits and cooperative with exam. EYES: normal conjunctivae, no scleral icterus ENT: external ear and nose normal, MMM NECK: trachea midline RESPIRATORY: CTA throughout, no wheezes or rales, no increased respiratory effort and oxygenating well on room air. CARDIOVASCULAR: regular rate and rhythm, 3/6 HANNAH across precordium, no peripheral edema CHEST: inspection of chest was normal GASTROINTESTINAL: soft, nontender, ND, no guarding MUSCULOSKELETAL: strength 5/5 throughout, head is normocephalic and atraumatic SKIN: warm and dry NEUROLOGIC: CN 2-12 grossly intact, no sensory deficit, normal cognition, normal speech, no tremor PSYCHIATRIC: alert cooperative and answering questions appropriately Updated Medication List Medication Instructions Recorded Confirmed Type allopurinol 100 mg tablet 200 mg PO DAILY 08/05/19 06/05/22 History atorvastatin 10 mg tablet 10 mg PO HS 08/05/19 06/05/22 History clonidine HCl 0.1 mg tablet 0.1 mg PO BID 08/05/19 06/05/22 History clotrimazole 1 % topical cream 1 applic topical BID PRN Skin 08/05/19 06/05/22 History Irritation diltiazem HCl 180 mg 180 mg PO QAM 08/05/19 06/05/22 History capsule,extended release 24 hr, controlled (DILT-XR) ferrous sulfate 325 mg (65 mg 65 mg PO QAM 08/05/19 06/05/22 History iron) tablet folic acid 400 mcg tablet 400 mcg PO QDD 08/05/19 06/05/22 History metoprolol tartrate 50 mg tablet 50 mg PO BID 08/05/19 06/05/22 History epxtievo-gsw-gbfog acid 0.4 1 tab PO DAILY 08/05/19 06/05/22 History mg-lycopene 300 mcg-lutein 250 mcg tablet (Centrum Silver) rivaroxaban 15 mg tablet (Xarelto) 15 mg PO QDD 08/05/19 06/05/22 History magnesium oxide 400 mg PO DAILY #5 caps 08/11/19 06/05/22 Rx aspirin 81 mg tablet,delayed 162 mg PO DAILY 12/07/21 06/05/22 History release flaxseed oil 1 ea miscellaneous QDD 12/07/21 06/05/22 History nystatin 100,000 unit/gram topical 1 applic topical TID PRN affected 12/07/21 06/05/22 History powder (Nystop) area pantoprazole 20 mg tablet,delayed 20 mg PO QAM 12/07/21 06/05/22 History release triamcinolone acetonide 0.1 % 1 applic topical BID PRN Rash 12/07/21 06/05/22 History topical cream furosemide 20 mg tablet 20 mg PO Q2D@0900 #30 tabs 12/11/21 06/05/22 Rx isosorbide mononitrate 30 mg 30 mg PO QAM #30 tabs 12/11/21 06/05/22 Rx tablet,extended release 24 hr umeclidinium 62.5 mcg-vilanterol 1 ea inhalation QAM 06/05/22 06/05/22 History 25 mcg/actuation powdr for inhalation (Anoro Ellipta) doxycycline hyclate 100 mg capsule 100 mg PO BID #10 caps 06/08/22 Rx prednisone 20 mg tablet 20 mg PO DAILY #5 tabs 06/08/22 Rx Hospital Stay Data Consultations 06/05/22 18:15 ED Decision to Admit Stat 06/05/22 19:31 Consult Cardiology Routine Pending Results Patient Have Any Pending Studies at Discharge: No Discharge Instructions Given to Patient (Per Discharging Provider) Please take all medications as prescribed on discharge list below. It is recommended that you follow-up with your primary care physician in 1-2 weeks to ensure you are doing well since returning home. It is recommended that you continue working with physical and occupational therapists for the next two weeks. They will come to your home for this. You may be a candidate for [facility] program. Please discuss this further with your primary care provider on followup. You will need a repeat chest xray in 4 weeks to ensure resolution of effusions and base opacities seen on both sides. Smoking cessation strongly advised. It was a pleasure taking care of you! Please call if you have any questions or problems. You can reach a [facility] hospitalist on duty at [facility] 24 hours a day by calling [phone]. Take care of yourself. Gabriela Liang, DO [facility] Hospitalist Total Time Total Time Spent Total Time Spent (In Minutes): 60
[2022-06-08] MEDS: FOLIC ACID 400 MCG TAB PO SCH (15:18)
[2022-06-08] MEDS: RIVAROXABAN 15 MG TAB PO SCH (15:18)
[2022-06-09] MEDS ORDERED: FUROSEMIDE 20 MG TAB PO SCH (09:00)
== END 2022-06-08 16:24 | disposition home health service (06) | DRG 291 ==
LOC: ED 10:02 → SUATTDRO 19:07 → EDINP 19:07 → 2N 21:36

== ENCOUNTER 2022-06-22 21:30 | Inpatient (IN) ==
--- NOTE | 2022-06-22 21:51 | Emergency Department Note ---
History of Present Illness General Chief complaint: Shortness of Breath/Dyspnea Stated complaint: SOB Time Seen by Provider: 06/22/22 21:37 History of Present Illness This is an 81-year-old female presenting to the emergency department for evaluation of worsening shortness of breath over the past 2 weeks. Patient is accompanied by her son who assists in the history. Patient has a history of COPD and CHF. She is worse tonight, prompting them to come to the ER. The patient does not report significant chest pain, but is with notable work of breathing. She is on Xarelto and Lasix. There is history of A. fib and aortic stenosis. She rates her discomfort a 5/10. She is very hard of hearing. Patient was seen immediately upon her arrival to the ER room. Home Medications Medication Instructions Recorded Confirmed Type allopurinol 100 mg tablet 200 mg PO QAM 08/05/19 06/22/22 History atorvastatin 10 mg tablet 10 mg PO HS 08/05/19 06/22/22 History clonidine HCl 0.1 mg tablet 0.1 mg PO QAM 08/05/19 06/22/22 History clotrimazole 1 % topical cream 1 applic topical BID PRN Skin 08/05/19 06/22/22 History Irritation diltiazem HCl 180 mg 180 mg PO QAM 08/05/19 06/22/22 History capsule,extended release 24 hr, controlled (DILT-XR) ferrous sulfate 325 mg (65 mg 65 mg PO QAM 08/05/19 06/22/22 History iron) tablet folic acid 400 mcg tablet 400 mcg PO QAM 08/05/19 06/22/22 History metoprolol tartrate 50 mg tablet 50 mg PO BID 08/05/19 06/22/22 History spmimheq-rww-wuyxs acid 0.4 1 tab PO DAILY 08/05/19 06/22/22 History mg-lycopene 300 mcg-lutein 250 mcg tablet (Centrum Silver) rivaroxaban 15 mg tablet (Xarelto) 15 mg PO QDD 08/05/19 06/22/22 History aspirin 81 mg tablet,delayed 81 mg PO QAM 12/07/21 06/22/22 History release flaxseed oil 1 ea miscellaneous QDD 12/07/21 06/22/22 History nystatin 100,000 unit/gram topical 1 applic topical TID PRN affected 12/07/21 0 06/22/22 History powder (Nystop) area pantoprazole 20 mg tablet,delayed 20 mg PO QAM 12/07/21 06/22/22 History release triamcinolone acetonide 0.1 % 1 applic topical BID PRN Rash 12/07/21 06/22/22 History topical cream isosorbide mononitrate 30 mg 30 mg PO QAM #30 tabs 12/11/21 06/22/22 Rx tablet,extended release 24 hr umeclidinium 62.5 mcg-vilanterol 1 ea inhalation QAM 06/05/22 06/22/22 History 25 mcg/actuation powdr for inhalation (Anoro Ellipta) albuterol sulfate 5 mg/mL(0.5 %) 2.5 mg inhalation Q6H PRN 06/22/22 06/22/22 History solution for nebulization Shortness Of Breath Or Wheezing ascorbic acid (vitamin C) 500 mg 500 mg PO DAILY 06/22/22 06/22/22 History tablet (Vitamin C) doxycycline hyclate 100 mg capsule 100 mg PO AMHS 06/22/22 06/22/22 History furosemide 20 mg tablet 20 mg PO Q OTHER DAY 06/22/22 06/22/22 History magnesium oxide 400 mg PO QAM 06/22/22 06/22/22 History Allergies Allergy/AdvReac Type Severity Reaction Status Date / Time sulfamethoxazole AdvReac Photosensit Verified 06/05/22 19:30 [From ivity Sulfamethoxazole-Trimethoprim] trimethoprim AdvReac Photosensit Verified 06/05/22 19:30 [From ivity Sulfamethoxazole-Trimethoprim] Past Med/Surg History Medical History Abnormal CT of the chest Tree-in-bud opacity consistent with aspiration pneumonia. No evidence of underlying emphysema. CT scan 12/07/2021 at [facility] Age related osteoporosis Anticoagulated Aortic stenosis ASCVD (arteriosclerotic cardiovascular disease) Asthma DENIES Chronic atrial fibrillation Chronic diastolic CHF (congestive heart failure) Chronic iron deficiency anemia NO KNOWN CURRENT PROBLEMS WITH CKD (chronic kidney disease), stage III DENIES Epiglottitis PT SON REPORTS PT HAS TROUBLE SWALLOWING HER PILLS WITHOUT A SIGNIFICANT AMOUNT OF WATER GERD (gastroesophageal reflux disease) GI bleed HX Gout HX History of CVA (cerebrovascular accident) "MINI STROKES" 2016 - AFFECTED SPEECH AT THAT TIME HLD (hyperlipidemia) HTN (hypertension) Renal artery stenosis NARROWING ARTERIES , KIDNEY STENT PLACED IN 2000 Severe aortic stenosis UNKNOWN, NOT REPORTED BY PT SON UPON PAT INTERVIEW Surgical History History of cataract surgery RT History of colonoscopy History of endoscopy History of hysterectomy History of total left knee replacement BLADDER TAC History of total right knee replacement History of urologic surgery STENT PLACED IN KIDNEY 2000 FOR NARROWING OF ARTERIES Family History Mother Hypertension Social History Smoking Status: Never smoker Tobacco Type: Cigarettes Cigarettes Per Day: 2-3 CIG; Second Hand Exposure: No; Do You Dip or Chew Tobacco: No; Tobacco Cessation Education Requested by Patient: No Hx Alcohol Use: No Hx Substance Use: No Preferred Language: Chinese Communication Ability: Effective Office Professionals Required: No Beliefs That Will Affect Care: None marital status: / Current Living Situation: Family Current Living Situation Comment: lives with son Other Information That Helps Us Care for You: No Feels Safe at Home: Yes Safety Concerns: Feels Safe At This Time Assistive Devices: None Review of Systems A total of 10 systems reviewed and were otherwise negative Physical Exam Vital Signs Vital Signs - 24 hr 06/22/22 21:34 06/22/22 22:20 06/22/22 22:06 Temperature 36.5 C Temperature Source Temporal Artery Scan Pulse Rate 97 H 102 H Pulse Rate from SpO2 Sensor Respiratory Rate 16 39 H Respiratory Effort / Characteristics Non-Labored Spontaneous Accessory Muscle Use Labored Short of Breath Respiratory Depth Normal Shallow Respiratory Pattern Tachypnea Blood Pressure 154/80 H Blood Pressure Mean 104 Blood Pressure Position Sitting Pulse Oximetry 92 96 96 Oxygen Delivery Method Room Air BiPAP Oxygen Flow Rate Fraction of Inspired Oxygen 40 Sepsis Recent Fever Within 48 Hours No Sepsis New/Unexplained Change in Mental Status N/A Sepsis Action Taken by Nursing No Action Required Oxygen Flow Rate - Titration Pulse Oximetry Post Tiitration 06/22/22 21:30 06/22/22 22:10 06/22/22 22:20 Temperature Temperature Source Pulse Rate 97 H 90 Pulse Rate from SpO2 Sensor 98 H 90 Respiratory Rate 43 H 21 Respiratory Effort / Characteristics Respiratory Depth Respiratory Pattern Blood Pressure Blood Pressure Mean Blood Pressure Position Pulse Oximetry 87 L 94 95 Oxygen Delivery Method Room Air Nasal Cannula Oxygen Flow Rate 0 Fraction of Inspired Oxygen Sepsis Recent Fever Within 48 Hours Sepsis New/Unexplained Change in Mental Status Sepsis Action Taken by Nursing Oxygen Flow Rate - Titration 4 Pulse Oximetry Post Tiitration 92 06/22/22 22:30 06/22/22 22:40 06/22/22 22:50 Temperature Temperature Source Pulse Rate 86 86 81 Pulse Rate from SpO2 Sensor 85 84 79 Respiratory Rate 36 H 32 H 31 H Respiratory Effort / Characteristics Respiratory Depth Respiratory Pattern Blood Pressure Blood Pressure Mean Blood Pressure Position Pulse Oximetry 96 100 100 Oxygen Delivery Method Oxygen Flow Rate Fraction of Inspired Oxygen Sepsis Recent Fever Within 48 Hours Sepsis New/Unexplained Change in Mental Status Sepsis Action Taken by Nursing Oxygen Flow Rate - Titration Pulse Oximetry Post Tiitration 06/22/22 23:00 06/22/22 23:10 06/22/22 23:20 Temperature Temperature Source Pulse Rate 82 80 72 Pulse Rate from SpO2 Sensor 86 80 80 Respiratory Rate 31 H 29 H 33 H Respiratory Effort / Characteristics Respiratory Depth Respiratory Pattern Blood Pressure Blood Pressure Mean Blood Pressure Position Pulse Oximetry 99 99 100 Oxygen Delivery Method Oxygen Flow Rate Fraction of Inspired Oxygen Sepsis Recent Fever Within 48 Hours Sepsis New/Unexplained Change in Mental Status Sepsis Action Taken by Nursing Oxygen Flow Rate - Titration Pulse Oximetry Post Tiitration 06/22/22 23:30 06/22/22 23:40 06/22/22 23:50 Temperature Temperature Source Pulse Rate 80 79 79 Pulse Rate from SpO2 Sensor 79 80 84 Respiratory Rate 20 27 H 29 H Respiratory Effort / Characteristics Respiratory Depth Respiratory Pattern Blood Pressure Blood Pressure Mean Blood Pressure Position Pulse Oximetry 81 L 100 92 Oxygen Delivery Method Oxygen Flow Rate Fraction of Inspired Oxygen Sepsis Recent Fever Within 48 Hours Sepsis New/Unexplained Change in Mental Status Sepsis Action Taken by Nursing Oxygen Flow Rate - Titration Pulse Oximetry Post Tiitration 06/23/22 00:00 06/23/22 00:10 Temperature Temperature Source Pulse Rate 79 82 Pulse Rate from SpO2 Sensor 84 80 Respiratory Rate 24 31 H Respiratory Effort / Characteristics Respiratory Depth Respiratory Pattern Blood Pressure Blood Pressure Mean Blood Pressure Position Pulse Oximetry 96 100 Oxygen Delivery Method Oxygen Flow Rate Fraction of Inspired Oxygen Sepsis Recent Fever Within 48 Hours Sepsis New/Unexplained Change in Mental Status Sepsis Action Taken by Nursing Oxygen Flow Rate - Titration Pulse Oximetry Post Tiitration VITALS: Vitals are noted on the nurse's note and reviewed by myself. Vital signs with tachycardia, tachypnea, and decreased pulse ox GENERAL: Elderly white female who is with significant work of breathing. She a ppears very ill on arrival. HEAD: Normocephalic atraumatic. HEART: Irregularly irregular with systolic murmur LUNGS: Scattered wheezing in the upper [place] with crackles in the left lower ABDOMEN: Positive normal bowel sounds x 4. Soft, nontender, without masses or organomegaly. No guarding or rebound tenderness. MUSCULOSKELETAL: No muscle atrophy, erythema, or edema noted. Full range of mot ion in all extremities. NEURO: Patient was alert and oriented to person place and time. CN II through XII grossly intact. Course Administered Medications Insulin Aspart (Insulin Aspart Per Unit) 0 units SC Q6 ZACH Stop: 07/23/22 01:34 Last Admin: 06/23/22 02:43 Dose: 1 units Documented By: LEXIE Co-signed By: GH Discontinued Medications Albuterol (Albut/Ipratrop 3mg/0.5mg Neb 3 Ml Vial) 3 ml NEB NOW STA; Protocol Stop: 06/22/22 22:20 Last Admin: 06/22/22 22:38 Dose: 3 ml Documented By: ALEXEY Dexamethasone (Dexamethasone Sod Inj 4 Mg/Ml Vial) 6 mg IV ONE STA Stop: 06/22/22 23:32 Last Admin: 06/23/22 00:14 Dose: 6 mg Documented By: ALEXEY Furosemide (Furosemide 40 Mg/4 Ml Vial) 40 mg IV ONE ONE Stop: 06/22/22 22:07 Last Admin: 06/22/22 23:35 Dose: 40 mg Documented By: ALEXEY Albumin Human (Albumin 25% 100 Ml) 25 gm in 100 mls @ 50 mls/hr IV ONE STA Stop: 06/23/22 01:29 Last Infusion: 06/23/22 04:20 Dose: 0 mls/hr Documented By: Admin: 06/23/22 00:14 Dose: 50 mls/hr Documented By: ALEXEY Remdesivir 200 mg/ Sodium (Chloride) 250 mls @ 125 mls/hr IV ONE STA; Protocol Stop: 06/23/22 02:07 Last Admin: 06/23/22 02:28 Dose: 125 mls/hr Documented By: LEXIE Insulin Glargine (Lantus Per Unit Charge) 10 units SQ NOW STA Stop: 06/23/22 02:40 Last Admin: 06/23/22 02:55 Dose: Not Given Documented By: LEXIE Critical Care Time I have personally spent greater than 30 minutes of critical care time in the direct management of this patient. This includes bedside care, interpretation of diagnostic studies, and testing, discussion with consultants, patient, and family members, and other required patient management activities. This 30 minutes is in excess of all separately billable procedures. Medical Decision Making Differential Diagnosis Differential diagnosis includes, but is not limited to: CHF, fluid overload, infection, myocardial infarction, dysrhythmia, pericarditis, pneumothorax, aortic aneurysm/dissection, DVT/PE, anxiety, GERD, PUD, electrolyte imbalance, thyroid disorder, pneumonia, bronchitis, pancreatitis, and others Laboratory Data 06/22/22 21:54 06/22/22 21:54 Lab Results 06/22/22 06/22/22 06/22/22 Range/Units 21:54 21:54 21:54 WBC 11.90 H (4.8-10.8) K/ul RBC 4.02 (3.93-5.22) M/uL Hgb 13.8 (12.0-16.0) g/dl Hct 40.2 (34.1-44.9) % MCV 100.0 (80.0-100.0) fL MCH 34.3 H (25.0-34.0) pg MCHC 34.3 (32.0-36.0) g/dL RDW Std Deviation 51.1 H (36.4-46.3) fL RDW Coeff of Alejandrina 13.9 (11.5-14.5) % Plt Count 279 (130-400) K/uL MPV 11.4 (9.4-12.3) fL Immature Gran % (Auto) 0.8 % Neut % (Auto) 86.6 % Lymph % (Auto) 5.6 % [place] % (Auto) 6.5 % Eos % (Auto) 0.3 % Baso % (Auto) 0.2 % Neut # (Auto) 10.30 H (1.4-6.5) K/uL Lymph # (Auto) 0.67 L (1.2-3.4) K/uL [place] # (Auto) 0.77 (0.24-0.82) K/uL Eos # (Auto) 0.04 (0-0.50) K/uL Baso # (Auto) 0.02 (0-0.2) K/uL Immature Gran # (Auto) 0.10 H (0.00-0.02) K/uL Absolute Nucleated RBC 0.02 H (0-0) K/uL Nucleated RBC % (auto) 0.2 % PT 18.2 H (9.0-12.0) Seconds INR 1.8 H (0.9-1.1) APTT 70.6 H* (21.0-31.0) Seconds PTT Ratio 2.6 VBG pH (7.36-7.41) VBG pCO2 (38-50) mmHg VBG pO2 mmHg VBG HCO3 mmol/L VBG O2 Saturation % VBG Base Excess mEq/L Sodium (136-145) mmol/L Potassium (3.5-5.1) mmol/L Chloride (98-107) mmol/L Carbon Dioxide (21-32) mmol/L Anion Gap (3-11) BUN (6-23) mg/dl Creatinine (0.6-1.2) mg/dl Est Cr Clr Drug Dosing Est GFR ( Amer) ml/min Est GFR (Non-Af Amer) ml/min BUN/Creatinine Ratio (10-20) Glucose (70-99(Fasting)) mg/dl Lactate 4.3 H* (0.4-2.0) mmol/L Calcium (8.5-10.1) mg/dl Magnesium (1.7-2.4) mg/dl Total Bilirubin (0.2-1.0) mg/dl AST (13-39) U/L ALT (7-52) U/L Alkaline Phosphatase (34-104) U/L Troponin I High Sens (0-14) pg/ml B-Natriuretic Peptide (0-100) pg/ml Total Protein (6.0-8.3) gm/dl Albumin (3.4-5.0) gm/dl Globulin (2.5-4.0) gm/dl Albumin/Globulin Ratio (0.9-2) Procalcitonin (0-0.5) ng/ml Urine Color Urine Appearance (Clear) Urine pH (4.5-7.5) Ur Specific [place] (1.000-1.030) Urine Protein (Negative) Urine Glucose (UA) (Negative) Urine Ketones (Negative) Urine Blood (Negative) Urine Nitrite (Negative) Urine Bilirubin (Negative) Urine Urobilinogen (Negative) Ur Leukocyte Esterase (Negative) Urine WBC (Auto) (0-5) /hpf Urine RBC (Auto) (0-4) /hpf U Hyaline Cast (Auto) (0-5) /lpf U Epithel Cells (Auto) (0-5) /lpf Urine Bacteria (Auto) (Negative) SARS-CoV-2 (PCR) (Negative) Influenza Type A (PCR) (Neg) Influenza Type B (PCR) (Neg) RSV (RT-PCR) (Neg) 06/22/22 06/22/22 06/22/22 Range/Units 21:54 21:54 21:54 WBC (4.8-10.8) K/ul RBC (3.93-5.22) M/uL Hgb (12.0-16.0) g/dl Hct (34.1-44.9) % MCV (80.0-100.0) fL MCH (25.0-34.0) pg MCHC (32.0-36.0) g/dL RDW Std Deviation (36.4-46.3) fL RDW Coeff of Alejandrina (11.5-14.5) % Plt Count (130-400) K/uL MPV (9.4-12.3) fL Immature Gran % (Auto) % Neut % (Auto) % Lymph % (Auto) % [place] % (Auto) % Eos % (Auto) % Baso % (Auto) % Neut # (Auto) (1.4-6.5) K/uL Lymph # (Auto) (1.2-3.4) K/uL [place] # (Auto) (0.24-0.82) K/uL Eos # (Auto) (0-0.50) K/uL Baso # (Auto) (0-0.2) K/uL Immature Gran # (Auto) (0.00-0.02) K/uL Absolute Nucleated RBC (0-0) K/uL Nucleated RBC % (auto) % PT (9.0-12.0) Seconds INR (0.9-1.1) APTT (21.0-31.0) Seconds PTT Ratio VBG pH (7.36-7.41) VBG pCO2 (38-50) mmHg VBG pO2 mmHg VBG HCO3 mmol/L VBG O2 Saturation % VBG Base Excess mEq/L Sodium 133 L (136-145) mmol/L Potassium 4.5 (3.5-5.1) mmol/L Chloride 96 L (98-107) mmol/L Carbon Dioxide 25 (21-32) mmol/L Anion Gap 12 H (3-11) BUN 26 H (6-23) mg/dl Creatinine 1.20 (0.6-1.2) mg/dl Est Cr Clr Drug Dosing Not Reportable Est GFR ( Amer) 48.4 ml/min Est GFR (Non-Af Amer) 41.8 ml/min BUN/Creatinine Ratio 21.7 H (10-20) Glucose 227 H (70-99(Fasting)) mg/dl Lactate (0.4-2.0) mmol/L Calcium 9.2 (8.5-10.1) mg/dl Magnesium 2.1 (1.7-2.4) mg/dl Total Bilirubin 0.8 (0.2-1.0) mg/dl AST 30 (13-39) U/L ALT 25 (7-52) U/L Alkaline Phosphatase 82 (34-104) U/L Troponin I High Sens 52.3 H* (0-14) pg/ml B-Natriuretic Peptide 3498 H (0-100) pg/ml Total Protein 7.2 (6.0-8.3) gm/dl Albumin 4.2 (3.4-5.0) gm/dl Globulin 3.0 (2.5-4.0) gm/dl Albumin/Globulin Ratio 1.4 (0.9-2) Procalcitonin < 0.05 (0-0.5) ng/ml Urine Color Urine Appearance (Clear) Urine pH (4.5-7.5) Ur Specific [place] (1.000-1.030) Urine Protein (Negative) Urine Glucose (UA) (Negative) Urine Ketones (Negative) Urine Blood (Negative) Urine Nitrite (Negative) Urine Bilirubin (Negative) Urine Urobilinogen (Negative) Ur Leukocyte Esterase (Negative) Urine WBC (Auto) (0-5) /hpf Urine RBC (Auto) (0-4) /hpf U Hyaline Cast (Auto) (0-5) /lpf U Epithel Cells (Auto) (0-5) /lpf Urine Bacteria (Auto) (Negative) SARS-CoV-2 (PCR) (Negative) Influenza Type A (PCR) (Neg) Influenza Type B (PCR) (Neg) RSV (RT-PCR) (Neg) 06/22/22 06/22/22 06/22/22 Range/Units 21:54 22:36 23:30 WBC (4.8-10.8) K/ul RBC (3.93-5.22) M/uL Hgb (12.0-16.0) g/dl Hct (34.1-44.9) % MCV (80.0-100.0) fL MCH (25.0-34.0) pg MCHC (32.0-36.0) g/dL RDW Std Deviation (36.4-46.3) fL RDW Coeff of Alejandrina (11.5-14.5) % Plt Count (130-400) K/uL MPV (9.4-12.3) fL Immature Gran % (Auto) % Neut % (Auto) % Lymph % (Auto) % [place] % (Auto) % Eos % (Auto) % Baso % (Auto) % Neut # (Auto) (1.4-6.5) K/uL Lymph # (Auto) (1.2-3.4) K/uL [place] # (Auto) (0.24-0.82) K/uL Eos # (Auto) (0-0.50) K/uL Baso # (Auto) (0-0.2) K/uL Immature Gran # (Auto) (0.00-0.02) K/uL Absolute Nucleated RBC (0-0) K/uL Nucleated RBC % (auto) % PT (9.0-12.0) Seconds INR (0.9-1.1) APTT (21.0-31.0) Seconds PTT Ratio VBG pH 7.39 (7.36-7.41) VBG pCO2 41 (38-50) mmHg VBG pO2 32 mmHg VBG HCO3 25 mmol/L VBG O2 Saturation < 60.0 % VBG Base Excess -0.2 mEq/L Sodium (136-145) mmol/L Potassium (3.5-5.1) mmol/L Chloride (98-107) mmol/L Carbon Dioxide (21-32) mmol/L Anion Gap (3-11) BUN (6-23) mg/dl Creatinine (0.6-1.2) mg/dl Est Cr Clr Drug Dosing Est GFR ( Amer) ml/min Est GFR (Non-Af Amer) ml/min BUN/Creatinine Ratio (10-20) Glucose (70-99(Fasting)) mg/dl Lactate (0.4-2.0) mmol/L Calcium (8.5-10.1) mg/dl Magnesium (1.7-2.4) mg/dl Total Bilirubin (0.2-1.0) mg/dl AST (13-39) U/L ALT (7-52) U/L Alkaline Phosphatase (34-104) U/L Troponin I High Sens (0-14) pg/ml B-Natriuretic Peptide (0-100) pg/ml Total Protein (6.0-8.3) gm/dl Albumin (3.4-5.0) gm/dl Globulin (2.5-4.0) gm/dl Albumin/Globulin Ratio (0.9-2) Procalcitonin (0-0.5) ng/ml Urine Color Dark Yellow Urine Appearance Clear (Clear) Urine pH 5.5 (4.5-7.5) Ur Specific [place] 1.028 (1.000-1.030) Urine Protein 3+ H (Negative) Urine Glucose (UA) Negative (Negative) Urine Ketones Trace H (Negative) Urine Blood Negative (Negative) Urine Nitrite Negative (Negative) Urine Bilirubin Negative (Negative) Urine Urobilinogen Negative (Negative) Ur Leukocyte Esterase Negative (Negative) Urine WBC (Auto) 1-5 (0-5) /hpf Urine RBC (Auto) 5-10 H (0-4) /hpf U Hyaline Cast (Auto) 5-10 H (0-5) /lpf U Epithel Cells (Auto) 10-20 H (0-5) /lpf Urine Bacteria (Auto) Negative (Negative) SARS-CoV-2 (PCR) POSITIVE A* (Negative) Influenza Type A (PCR) Negative (Neg) Influenza Type B (PCR) Negative (Neg) RSV (RT-PCR) Negative (Neg) ECG Data Attestation: I personally reviewed and interpreted this ECG as follows: Indication: + SOB/dyspnea Additional Comments: Atrial fibrillation @[address] elevation Possible inferior subendocardial injury Abnormal ECG When compared with ECG of 05-JUN-2022 12:02, No significant change was found MDM Narrative Physical exam and history were performed. Nursing notes, EMR, and Medication List were personally reviewed. No social concerns were identified as barriers to patients care. Patient appears to have significant difficulty breathing bringing her to the ER. On arrival to the room the patient is in the mid to low 80%'s with her O2 saturation. Nasal cannula oxygen did bring her up into the low 90s, however she is quite tachycardic and with significant work of breathing. Case was discussed with my attending who did evaluate the patient at bedside. Patient was transitioned to BiPAP very quickly. IV access was established and labs were obtained. [place]ster catheter was placed and she was given IV Lasix. Chest x-ray was performed. She was given a DuoNeb. An order was placed for continuous cardiac monitoring. The monitor shows a rate of 88 with atrial fibrillation rhythm. Patient's blood work is as above and was reviewed. She does not have a significantly elevated white blood cell count or gross anemia. INR is 1.8. BUN and creatinine are preserved. Glucose is 227. Transaminases are not diagnostic. She does have an elevated troponin, which is likely from demand ischemia. BNP is elevated at nearly 3500. COVID testing is POSITIVE. Lactic is 4 but because of her CHF additional fluids was not immediately provided. The patient vital signs did improve on the BiPAP. Clinically she is doing much better. Case was discussed with the on-call [facility] hospitalist team. We did consider antibiotic use considering her symptoms, but will defer this to the hospitalist team. The patient symptoms are likely related to COVID and chronic lung disease. Please see the hospitalist dictation for further patient course, plan, disposition. The chart was completed utilizing [employer] Speech Voice Recognition Software. Grammatical errors, random word insertions, pronoun errors, and incomplete sentences are an occasional consequence of this system due to software limitations, ambient noise, and hardware issues. Any formal questions or concerns about the content, text, or information contained within the body of this dictation should be directly addressed to the provider for clarification. . Impression & Plan Acute respiratory distress, Acute on chronic diastolic CHF (congestive heart failure), COVID-19, Elevated troponin Discharge Plan Visit Data Chief Complaint: Shortness of Breath/Dyspnea Stated Complaint: SOB ED Provider: Ehsan Gaxiola ED Midlevel Provider: Isidro Miller Discharge Problem: Acute respiratory distress, Acute on chronic diastolic CHF (congestive heart failure), COVID-19, Elevated troponin Patient Disposition: Admitted As Inpatient Discharge Instructions Interventions: ED Discharge Assessment Last Done: 06/23/22 01:20
[2022-06-22] MEDS ORDERED: FUROSEMIDE 40 MG/4 ML VIAL IV ONE (22:06)
[2022-06-22 22:07] LABS: Basophils # (auto) 0.02 K/uL (0-0.2); Basophils % (auto) 0.2 %; Eosinophils # (auto) 0.04 K/uL (0-0.50); Eosinophils % (auto) 0.3 %; Hematocrit (blood only) 40.2 % (34.1-44.9); Hemoglobin 13.8 g/dl (12.0-16.0); Immature Granulocytes % (auto) 0.8 %; Lymphocytes # (auto) 0.67 K/uL (1.2-3.4); Lymphocytes % (auto) 5.6 %; Mean Corpuscular Hemoglobin 34.3 pg (25.0-34.0); Mean Corpuscular Hgb Conc 34.3 g/dL (32.0-36.0); Mean Platelet Volume 11.4 fL (9.4-12.3); Monocytes # (auto) 0.77 K/uL (0.24-0.82); Monocytes % (auto) 6.5 %; Neutrophils % (auto) 86.6 %; Nucleated RBC # (auto) 0.02 K/uL (0-0); Nucleated RBC % (auto) 0.2 %; Platelet Count 279 K/uL (130-400); RDW Coefficient of Variation 13.9 % (11.5-14.5); RDW Standard Deviation 51.1 fL (36.4-46.3); Red Blood Count 4.02 M/uL (3.93-5.22)
[2022-06-22] MEDS ORDERED: ALBUT/IPRATROP 3MG/0.5MG NEB 3 ML VIAL NEB STA (22:19)
[2022-06-22 22:30] LABS: Alanine Aminotransferase 25 U/L (7-52); Albumin Globulin Ratio 1.4 (0.9-2); Albumin Level 4.2 gm/dl (3.4-5.0); Alkaline Phosphatase 82 U/L (34-104); Anion Gap 12 (3-11); Aspartate Aminotransferase 30 U/L (13-39); BUN Creatinine Ratio 21.7 (10-20); Bilirubin,Total 0.8 mg/dl (0.2-1.0); Blood Urea Nitrogen 26 mg/dl (6-23); Calcium 9.2 mg/dl (8.5-10.1); Carbon Dioxide 25 mmol/L (21-32); Chloride 96 mmol/L (98-107); Est GFR (African American) 48.4 ml/min; Est GFR (Non-African American) 41.8 ml/min; Glucose 227 mg/dl (70-99(Fasting)); Magnesium 2.1 mg/dl (1.7-2.4); Potassium 4.5 mmol/L (3.5-5.1); Sodium 133 mmol/L (136-145); Total Protein 7.2 gm/dl (6.0-8.3)
[2022-06-22 22:45] LABS: INR 1.8 (0.9-1.1); Partial Thromboplastin Ratio 2.6; Prothrombin Time 18.2 Seconds (9.0-12.0)
[2022-06-22 22:47] LABS: Influenza A virus by PCR Negative (Neg); Influenza B virus by PCR Negative (Neg); RSV by PCR Negative (Neg)
[2022-06-22 22:53] LABS: Partial Thromboplastin Time 70.6 Seconds (21.0-31.0)
[2022-06-22 22:56] LABS: Base Excess VBG -0.2 mEq/L; HCO3 VBG 25 mmol/L; Oxygen Saturation VBG < 60.0 %; PCO2 VBG 41 mmHg (38-50); PO2 VBG 32 mmHg; pH VBG 7.39 (7.36-7.41)
[2022-06-22 23:06] LABS: SARS CoV2 RNA(COVID-19) Ceph POSITIVE (Negative)
[2022-06-22 23:12] LABS: Troponin I High Sensitivity 52.3 pg/ml (0-14)
[2022-06-22] MEDS ORDERED: dexAMETHasone 6 MG in SYRINGE 0 ML IV ONE (23:21)
[2022-06-22] MEDS ORDERED: ALBUMIN 25% 100 mL 25 GM/100 ML VIAL IV STA (23:30)
[2022-06-22] MEDS ORDERED: DEXAMETHASONE SOD INJ 4 MG/ML VIAL IV STA (23:31)
[2022-06-23 00:01] LABS: Appearance Urine Clear (Clear); Bacteria Urine Automated Negative (Negative); Bilirubin Urine Negative (Negative); Blood Urine Negative (Negative); Color Urine Dark Yellow; Glucose Urine UA Negative (Negative); Ketones Urine Trace (Negative); Leukocyte Esterase Urine Negative (Negative); Nitrite Urine Negative (Negative); Protein Urine 3+ (Negative); Specific Gravity Urine 1.028 (1.000-1.030); Urobilinogen Urine Negative (Negative); pH Urine 5.5 (4.5-7.5)
[2022-06-23] MEDS ORDERED: REMDESIVIR 200 MG in SODIUM CHLORIDE 0.9% 210 ML IV STA (00:08)
--- NOTE | 2022-06-23 00:09 | History & Physical Report ---
Date of Service June 23, 2022 Assessment & Plan (1) Acute hypoxemic respiratory failure: Plan: Multifactorial Recurrent COPD exacerbation secondary to severe COVID-19 pneumonia, underlying pulmonary hypertension Decompensated heart failure secondary to above, underlying severe Troponin elevation secondary to illness A. fib, rate controlled on Eliquis hx PVD hypertension, elevated secondary to illness hyperlipidemia, on statin Rx history CVA Steroid-induced hyperglycemia rule out DM past tobacco abuse PCU BiPAP Decadron, Remdesivir indicated for severe COVID-19 illness Pulmonary consult if without improvement Continue home diuretic Rx Strict I/Os, daily weights, CHF education, fluid restriction Follow troponin Palliative care consultation as per family request to discuss goals of care given recurrent admissions for chronic cardiopulmonary disease. Patient family open to discussion regarding hospice as per son. Basal bolus insulin while on Decadron, check hemoglobin A1c DVT prophylaxis. Eliquis Full code for now as per son. Patient son requesting updates from providers. Mr. Luis Coyle, contact #[phone]. Total critical care time was 40 minutes. Text document was generated using [employer] voice recognition software. It may contain grammatical or spelling errors. Kindly contact undersigned for clarification of any documentation item in question. History of Present Illness Chief Complaint: Worsening shortness of breath Primary Care Provider: Rigo Christine MD History obtained from patient, family, and records. Limited history from patient secondary to marked hearing impairment. Medical history significant for chronic diastolic heart failure (EF 55 to 60%, TTE 2021), A. fib on Eliquis, PVD, valvular heart disease (severe , mild AR, moderate TR), hypertension, hyperlipidemia, history CVA, COPD, pulmonary hypertension, past tobacco abuse. Two confinements last year for CHF/COPD exacerbation. Recent confinement last month. Patient had a longstanding preference to avoid invasive intervention for her valvular heart disease as per records. Patient prescribed outpatient doxycycline steroid course last week for bronchitis symptoms. Few days ago, patient had worsening dry cough symptoms with shortness of breath. No unusual fluid retention, no chest pain. Not sure about sick contacts. Patient has received COVID-19 vaccination without boosters. Patient brought to the ER due to worsening symptoms. O2 sats noted to be 80s at the ER. BiPAP initiated at the ER. Lasix and neb treatment administered at the ER. 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 Allergies Allergy/AdvReac Type Severity Reaction Status Date / Time sulfamethoxazole AdvReac Photosensit Verified 06/05/22 19:30 [From ivity Sulfamethoxazole-Trimethoprim] trimethoprim AdvReac Photosensit Verified 06/05/22 19:30 [From ivity Sulfamethoxazole-Trimethoprim] Home Medications Medication Instructions Recorded Confirmed Type allopurinol 100 mg tablet 200 mg PO QAM 08/05/19 06/22/22 History atorvastatin 10 mg tablet 10 mg PO HS 08/05/19 06/22/22 History clonidine HCl 0.1 mg tablet 0.1 mg PO QAM 08/05/19 06/22/22 History clotrimazole 1 % topical cream 1 applic topical BID PRN Skin 08/05/19 06/22/22 History Irritation diltiazem HCl 180 mg 180 mg PO QAM 08/05/19 06/22/22 History capsule,extended release 24 hr, controlled (DILT-XR) ferrous sulfate 325 mg (65 mg 65 mg PO QAM 08/05/19 06/22/22 History iron) tablet folic acid 400 mcg tablet 400 mcg PO QAM 08/05/19 06/22/22 History metoprolol tartrate 50 mg tablet 50 mg PO BID 08/05/19 06/22/22 History splflaei-mzy-lpplk acid 0.4 1 tab PO DAILY 08/05/19 06/22/22 History mg-lycopene 300 mcg-lutein 250 mcg tablet (Centrum Silver) rivaroxaban 15 mg tablet (Xarelto) 15 mg PO QDD 08/05/19 06/22/22 History aspirin 81 mg tablet,delayed 81 mg PO QAM 12/07/21 06/22/22 History release flaxseed oil 1 ea miscellaneous QDD 12/07/21 06/22/22 History nystatin 100,000 unit/gram topical 1 applic topical TID PRN affected 12/07/21 06/22/22 History powder (Nystop) area pantoprazole 20 mg tablet,delayed 20 mg PO QAM 12/07/21 06/22/22 History release triamcinolone acetonide 0.1 % 1 applic topical BID PRN Rash 12/07/21 06/22/22 History topical cream isosorbide mononitrate 30 mg 30 mg PO QAM #30 tabs 12/11/21 06/22/22 Rx tablet,extended release 24 hr umeclidinium 62.5 mcg-vilanterol 1 ea inhalation QAM 06/05/22 06/22/22 History 25 mcg/actuation powdr for inhalation (Anoro Ellipta) albuterol sulfate 5 mg/mL(0.5 %) 2.5 mg inhalation Q6H PRN 06/22/22 06/22/22 History solution for nebulization Shortness Of Breath Or Wheezing ascorbic acid (vitamin C) 500 mg 500 mg PO DAILY 06/22/22 06/22/22 History tablet (Vitamin C) doxycycline hyclate 100 mg capsule 100 mg PO AMHS 06/22/22 06/22/22 History furosemide 20 mg tablet 20 mg PO Q OTHER DAY 06/22/22 06/22/22 History magnesium oxide 400 mg PO QAM 06/22/22 06/22/22 History Past Med/Surg History Medical History Abnormal CT of the chest Tree-in-bud opacity consistent with aspiration pneumonia. No evidence of underlying emphysema. CT scan 12/07/2021 at [facility] Age related osteoporosis Anticoagulated Aortic stenosis ASCVD (arteriosclerotic cardiovascular disease) Asthma DENIES Chronic atrial fibrillation Chronic diastolic CHF (congestive heart failure) Chronic iron deficiency anemia NO KNOWN CURRENT PROBLEMS WITH CKD (chronic kidney disease), stage III DENIES Epiglottitis PT SON REPORTS PT HAS TROUBLE SWALLOWING HER PILLS WITHOUT A SIGNIFICANT AMOUNT OF WATER GERD (gastroesophageal reflux disease) GI bleed HX Gout HX History of CVA (cerebrovascular accident) "MINI STROKES" 2016 - AFFECTED SPEECH AT THAT TIME HLD (hyperlipidemia) HTN (hypertension) Renal artery stenosis NARROWING ARTERIES , KIDNEY STENT PLACED IN 2000 Severe aortic stenosis UNKNOWN, NOT REPORTED BY PT SON UPON PAT INTERVIEW Surgical History History of cataract surgery RT History of colonoscopy History of endoscopy History of hysterectomy History of total left knee replacement BLADDER TAC History of total right knee replacement History of urologic surgery STENT PLACED IN KIDNEY 2000 FOR NARROWING OF ARTERIES Family History Mother Hypertension Social History Smoking Status: Never smoker Tobacco Type: Cigarettes Cigarettes Per Day: 2-3 CIG; Second Hand Exposure: No; Do You Dip or Chew Tobacco: No; Tobacco Cessation Education Requested by Patient: No Hx Alcohol Use: No Hx Substance Use: No Preferred Language: Tongan Communication Ability: Effective Lead Php Developer Required: No Beliefs That Will Affect Care: None marital status: / Current Living Situation: Family Current Living Situation Comment: lives with son Other Information That Helps Us Care for You: No Feels Safe at Home: Yes Safety Concerns: Feels Safe At This Time Assistive Devices: None Review of Systems Review of Systems: Could not be reliably obtained secondary to marked hearing impairment Physical Exam Physical Exam: GENERAL: uncomfortable, hard of hearing, slightly anxious, respiratory distress SKIN: Normal color, warm HEENT: [place] palpebral conjunctivae, no ptosis, dry buccal mucosa, BiPAP in place NECK : Supple, no tenderness CHEST : Decreased breath sounds, expiratory wheezes, no tenderness HEART : Irregular, systolic murmur best heard on second right intercostal space, obliterated S2 ABDOMEN: Some distention, nontender EXTREMITIES : Minimal LE swelling, no LE tenderness, no other conspicuous deformities noted NEUROLOGIC : Coherent, no facial asymmetry, hard of hearing, gait and stance not assessed Results & Data Results & Data ([facility]) Vital Signs (Past 12 Hours) Vital Signs Temp Pulse Resp BP Pulse Ox O2 Del Method O2 Flow Rate 06/22/22 21:30 87 L Room Air, Nasal Cannula 0 06/22/22 22:06 96 BiPAP 06/22/22 22:20 102 H 39 H 96 06/22/22 21:34 36.5 C 97 H 16 154/80 H 92 Room Air FiO2 06/22/22 21:30 06/22/22 22:06 06/22/22 22:20 40 06/22/22 21:34 Laboratory Results Laboratory Results WBC 11.90 K/ul (4.8-10.8) H 06/22/22 21:54 RBC 4.02 M/uL (3.93-5.22) 06/22/22 21:54 Hgb 13.8 g/dl (12.0-16.0) 06/22/22 21:54 Hct 40.2 % (34.1-44.9) 06/22/22 21:54 MCV 100.0 fL (80.0-100.0) 06/22/22 21:54 MCH 34.3 pg (25.0-34.0) H 06/22/22 21:54 MCHC 34.3 g/dL (32.0-36.0) 06/22/22 21:54 RDW Std Deviation 51.1 fL (36.4-46.3) H 06/22/22 21:54 RDW Coeff of Alejandrina 13.9 % (11.5-14.5) 06/22/22 21:54 Plt Count 279 K/uL (130-400) 06/22/22 21:54 MPV 11.4 fL (9.4-12.3) 06/22/22 21:54 Immature Gran % (Auto) 0.8 % 06/22/22 21:54 Neut % (Auto) 86.6 % 06/22/22 21:54 Lymph % (Auto) 5.6 % 06/22/22 21:54 Foard % (Auto) 6.5 % 06/22/22 21:54 Eos % (Auto) 0.3 % 06/22/22 21:54 Baso % (Auto) 0.2 % 06/22/22 21:54 Neut # (Auto) 10.30 K/uL (1.4-6.5) H 06/22/22 21:54 Lymph # (Auto) 0.67 K/uL (1.2-3.4) L 06/22/22 21:54 Foard # (Auto) 0.77 K/uL (0.24-0.82) 06/22/22 21:54 Eos # (Auto) 0.04 K/uL (0-0.50) 06/22/22 21:54 Baso # (Auto) 0.02 K/uL (0-0.2) 06/22/22 21:54 Immature Gran # (Auto) 0.10 K/uL (0.00-0.02) H 06/22/22 21:54 Absolute Nucleated RBC 0.02 K/uL (0-0) H 06/22/22 21:54 Nucleated RBC % (auto) 0.2 % 06/22/22 21:54 PT 18.2 Seconds (9.0-12.0) H 06/22/22 21:54 INR 1.8 (0.9-1.1) H 06/22/22 21:54 APTT 70.6 Seconds (21.0-31.0) H* 06/22/22 21:54 PTT Ratio 2.6 06/22/22 21:54 VBG pH 7.39 (7.36-7.41) 06/22/22 22:36 VBG pCO2 41 mmHg (38-50) 06/22/22 22:36 VBG pO2 32 mmHg 06/22/22 22:36 VBG HCO3 25 mmol/L 06/22/22 22:36 VBG O2 Saturation < 60.0 % 06/22/22 22:36 VBG Base Excess -0.2 mEq/L 06/22/22 22:36 Sodium 133 mmol/L (136-145) L 06/22/22 21:54 Potassium 4.5 mmol/L (3.5-5.1) 06/22/22 21:54 Chloride 96 mmol/L (98-107) L 06/22/22 21:54 Carbon Dioxide 25 mmol/L (21-32) 06/22/22 21:54 Anion Gap 12 (3-11) H 06/22/22 21:54 BUN 26 mg/dl (6-23) H 06/22/22 21:54 Creatinine 1.20 mg/dl (0.6-1.2) 06/22/22 21:54 Est Cr Clr Drug Dosing Not Reportable 06/22/22 21:54 Est GFR ( Amer) 48.4 ml/min 06/22/22 21:54 Est GFR (Non-Af Amer) 41.8 ml/min 06/22/22 21:54 BUN/Creatinine Ratio 21.7 (10-20) H 06/22/22 21:54 Glucose 227 mg/dl (70-99(Fasting)) H 06/22/22 21:54 Lactate 4.3 mmol/L (0.4-2.0) H* 06/22/22 21:54 Calcium 9.2 mg/dl (8.5-10.1) 06/22/22 21:54 Magnesium 2.1 mg/dl (1.7-2.4) 06/22/22 21:54 Total Bilirubin 0.8 mg/dl (0.2-1.0) 06/22/22 21:54 AST 30 U/L (13-39) 06/22/22 21:54 ALT 25 U/L (7-52) 06/22/22 21:54 Alkaline Phosphatase 82 U/L (34-104) 06/22/22 21:54 Troponin I High Sens 52.3 pg/ml (0-14) H* 06/22/22 21:54 B-Natriuretic Peptide 3498 pg/ml (0-100) H 06/22/22 21:54 Total Protein 7.2 gm/dl (6.0-8.3) 06/22/22 21: Albumin 4.2 gm/dl (3.4-5.0) 06/22/22: Globulin 3.0 gm/dl (2.5-4.0) 06/22/22 21: Albumin/Globulin Ratio 1.4 (0.9-2) 06/22/22 21: Procalcitonin < 0.05 ng/ml (0-0.5) 06/22/22 21:54 Urine Color Dark Yellow 06/22/22 23:30 Urine Appearance Clear (Clear) 06/22/22 23: Urine pH 5.5 (4.5-7.5) 06/22/22 23:30 Ur Specific [place] 1.028 (1.000-1.030) 06/22/22 23:30 Urine Protein 3+ (Negative) H 06/22/22 23:30 Urine Glucose (UA) Negative (Negative) 06/22/22 23: Urine Ketones Trace (Negative) H 06/22/22 23:30 Urine Blood Negative (Negative) 06/22/22 23:30 Urine Nitrite Negative (Negative) 06/22/22 23:30 Urine Bilirubin Negative (Negative) 06/22/22 23: Urine Urobilinogen Negative (Negative) 06/22/22 23:30 Ur Leukocyte Esterase Negative (Negative) 06/22/22 23:30 Urine WBC (Auto) 1-5 /hpf (0-5) 06/22/22 23:30 Urine RBC (Auto) 5-10 /hpf (0-4) H 06/22/22 23:30 U Hyaline Cast (Auto) 5-10 /lpf (0-5) H 06/22/22 23:30 U Epithel Cells (Auto) 10-20 /lpf (0-5) H 06/22/22 23:30 Urine Bacteria (Auto) Negative (Negative) 06/22/22 23:30 SARS-CoV-2 (PCR) POSITIVE (Negative) A* 06/22/22 21:54 Influenza Type A (PCR) Negative (Neg) 06/22/22 21:54 Influenza Type B (PCR) Negative (Neg) 06/22/22 21:54 RSV (RT-PCR) Negative (Neg) 06/22/22 21:54 Diagnostic Findings Chest x-ray as per my interpretation congestion, cardiomegaly, left pleural effusion EKG as per my interpretation : Rate 95, A. fib, normal axis, diffuse T wave abnormalities, ST depression lateral leads, LVH
[2022-06-23] MEDS ORDERED: LANTUS PER UNIT CHARGE SQ STA ×2 (00:10→02:39)
[2022-06-23] MEDS ORDERED: DEXTROSE 50% 50 ML SYRINGE IV PRN (01:35)
[2022-06-23] MEDS ORDERED: GLUCOSE 40% GEL 15 GM TUBE PO PRN (01:35)
[2022-06-23] MEDS ORDERED: PROMETHAZINE HCL 12.5 MG in SODIUM CHLORIDE 0.9% 50 ML IV PRN (01:35)
[2022-06-23] MEDS ORDERED: GLUCAGON FOR INJ 1 MG VIAL SQ PRN (01:35)
[2022-06-23] MEDS ORDERED: CARBOHYDRATES FOR HYPOGLYCEMIA PO PRN (01:35)
[2022-06-23] MEDS ORDERED: GLUCOSE 10 TAB/TUBE PO PRN (01:35)
[2022-06-23] MEDS: INSULIN ASPART PER UNIT SC SCH ×5 (02:43→20:29)
--- NOTE | 2022-06-23 07:15 | XRay Report ---
XR chest 1V portable CLINICAL HISTORY: Shortness of breath. COMPARISON STUDY: Chest CT December 07, 2021 and chest radiograph June 05, 2022. FINDINGS: Cardiomegaly is unchanged. Moderate left and small right pleural effusions are similar to p rior exam. Associated bibasilar opacities are noted. There has been interval development of pulmonary edema since exam of June 05, 2022. A few left midlung airspace opacities are present. IMPRESSION: 1. Interval development of interstitial pulmonary edema. 2. No change in moderate left and small right pleural effusions. A few left mid and lower lung airspa ce opacities which probably reflect atelectasis although an infectious process could appear similar. Radiographic follow-up to ensure resolution is recommended. ACT 112: Negative or not required by law. Electronically signed by: Demarco Tellez M.D. 06/23/2022 7:13 AM
[2022-06-23] MEDS: LEVALBUTEROL 1.25MG/0.5ML NEB INH SCH ×3 (07:16→15:57)
[2022-06-23] MEDS: IPRATROPIUM BROMIDE NEB SOLN 0.02% 2.5 ML VIAL INH SCH ×3 (07:16→15:58)
[2022-06-23 07:29] LABS: Albumin Level 3.9 gm/dl (3.4-5.0); BUN Creatinine Ratio 22.3 (10-20); Bilirubin Direct 0.2 mg/dl (0-0.2); Bilirubin,Total 0.7 mg/dl (0.2-1.0); Calcium 8.5 mg/dl (8.5-10.1); Creatinine Clr Calc Pharmacy 40.2 ml/min; Est GFR (African American) 58.2 ml/min; Est GFR (Non-African American) 50.2 ml/min; Potassium 3.7 mmol/L (3.5-5.1); Total Protein 6.3 gm/dl (6.0-8.3)
[2022-06-23 07:38] LABS: Troponin I High Sensitivity 271.6 pg/ml (0-14)
[2022-06-23 08:15] LABS: Hematocrit (blood only) 32.1 % (34.1-44.9); Immature Granulocytes # (auto) 0.03 K/uL (0.00-0.02); Immature Granulocytes % (auto) 0.8 %; Lymphocytes # (auto) 0.29 K/uL (1.2-3.4); Lymphocytes % (auto) 7.8 %; Mean Corpuscular Hgb Conc 34.3 g/dL (32.0-36.0); Mean Corpuscular Volume 99.1 fL (80.0-100.0); Mean Platelet Volume 11.6 fL (9.4-12.3); Monocytes # (auto) 0.08 K/uL (0.24-0.82); Monocytes % (auto) 2.1 %; Neutrophils # (auto) 3.34 K/uL (1.4-6.5); Neutrophils % (auto) 89.3 %; Platelet Count 177 K/uL (130-400); RDW Coefficient of Variation 13.6 % (11.5-14.5); RDW Standard Deviation 49.5 fL (36.4-46.3); Red Blood Count 3.24 M/uL (3.93-5.22); White Blood Count 3.74 K/ul (4.8-10.8)
[2022-06-23] MEDS ORDERED: PHARMACY GLYCEMIC MGMT CONSULT PRN (08:44)
[2022-06-23] MEDS ORDERED: POTASSIUM CHLORIDE 20 MEQ/15 ML UDC PO ONE (09:00)
[2022-06-23] MEDS ORDERED: XOPENEX/ATROVENT 1.25mg/0.5MG NEB COMBO NEB SCH (09:00)
[2022-06-23 09:12] LABS: Estimated Average Glucose 120 mg/dl; Hemoglobin A1C 5.8 % (4.5-5.6)
[2022-06-23] MEDS: allopurinoL 100 MG TAB PO SCH (09:28)
[2022-06-23] MEDS: ASPIRIN 81 MG ECTAB PO SCH (09:28)
[2022-06-23] MEDS: cloNIDine HCL 0.1 MG TAB PO SCH (09:29)
[2022-06-23] MEDS: dilTIAZem HCL 180 MG CAPCR PO SCH (09:29)
[2022-06-23] MEDS: FERROUS SULFATE 325 MG TAB PO SCH (09:30)
[2022-06-23] MEDS: FOLIC ACID 400 MCG TAB PO SCH (09:30)
[2022-06-23] MEDS: CEROVITE ADV FORMULA TAB PO SCH (09:31)
[2022-06-23] MEDS: ISOSORBIDE MONO EXTENDED REL 30 MG TABCR PO SCH (09:31)
[2022-06-23] MEDS: FUROSEMIDE 20 MG TAB PO SCH (09:31)
[2022-06-23] MEDS: PANTOprazole 40 MG TAB PO SCH (09:32)
--- NOTE | 2022-06-23 12:54 | Palliative Care Consultation ---
Date of Consultation June 23, 2022 Assessment & Plan (1) Dyspnea: Improved. I spoke with her son, Luis, who had concerns about how her dyspnea could be managed at home if she chose not to return to the hospital for further care. We discussed medication to relieve air hunger and anxiety and hospice support to assist with symptom management at home. (2) Palliative care encounter: In my discussion with Luis, he tells me that family had discussed hospice as a possible option prior to this admission. He had questions about hospice including whether his mother would need to be homebound on hospice. She would not have that limitation and could visit other family members or go out from a hospice standpoint, but that would be limited by covid at the moment. Luis was also concerned about whether all her medications would be discontinued on hospice. We discussed review of medications and likely discontinuation of vitamins and statin, but other disease management medications would likely be continued as long as they are benefitting her. I talked with Mrs. Coyle about whether she has fears or worries. She tells me that she knows that she is going to at some point and she does not worry about that. She worries more about how that will affect her children and whether they are worried about her dying. She would prefer to be at home for her dying time. We did discuss hospice not being 24/7 support. Mrs. Coyle tells me that she lives with her son and her da gatitoer helps out as well. In general family appears to be leaning toward hospice care at home after discharge. We also discussed code status and concern that resuscitation would likely not have the desired outcome and is not consistent with her wish to peacefully at home. They are going to discuss further as a family. After further discussion with Mrs. Coyle's son and daughter, they are interested in hospice care for her at discharge. WE discussed prognosis which is likely weeks to months. Per my discussion with Mrs. Coyle and with her family, they request code status change to DNR/DNI which has been changed. History of Present Illness Reason for Consultation: goals of care Requesting Physician: Dr. Fink Attending Physician: Jama Suárez MD History of Present Illness 81 yo lady with history of atrial fibrillation, diastolic heart failure, severe aortic stenosis, COPD and CKD who was discharged on 06/08 after hospitalization for heart failure and COPD exacerbation with shortness of breath. She is readmitted with acute hypoxemic respiratory failure and severe covid-19 pneumonia. She was initially on bipap in the emergency room and is currently on 3L NC. She is currently on remdesivir and dexamethasone. She is awake and alert. She is somewhat confused and very hard of hearing but denies pain, dyspnea or discomfort at this time. Allergies Allergy/AdvReac Type Severity Reaction Status Date / Time sulfamethoxazole AdvReac Photosensit Verified 06/05/22 19:30 [From ivity Sulfamethoxazole-Trimethoprim] trimethoprim AdvReac Photosensit Verified 06/05/22 19:30 [From ivity Sulfamethoxazole-Trimethoprim] Home Medications Medication Instructions Recorded Confirmed Type allopurinol 100 mg tablet 200 mg PO QAM 08/05/19 06/22/22 History atorvastatin 10 mg tablet 10 mg PO HS 08/05/19 06/22/22 History clonidine HCl 0.1 mg tablet 0.1 mg PO QAM 08/05/19 06/22/22 History clotrimazole 1 % topical cream 1 applic topical BID PRN Skin 08/05/19 06/22/22 History Irritation diltiazem HCl 180 mg 180 mg PO QAM 08/05/19 06/22/22 History capsule,extended release 24 hr, controlled (DILT-XR) ferrous sulfate 325 mg (65 mg 65 mg PO QAM 08/05/19 06/22/22 History iron) tablet folic acid 400 mcg tablet 400 mcg PO QAM 08/05/19 06/22/22 History metoprolol tartrate 50 mg tablet 50 mg PO BID 08/05/19 06/22/22 History qbkvsjcg-kne-dzeof acid 0.4 1 tab PO DAILY 08/05/19 06/22/22 History mg-lycopene 300 mcg-lutein 250 mcg tablet (Centrum Silver) rivaroxaban 15 mg tablet (Xarelto) 15 mg PO QDD 08/05/19 06/22/22 History aspirin 81 mg tablet,delayed 81 mg PO QAM 12/07/21 06/22/22 History release flaxseed oil 1 ea miscellaneous QDD 12/07/21 06/22/22 History nystatin 100,000 unit/gram topical 1 applic topical TID PRN affected 12/07/21 History powder (Nystop) area pantoprazole 20 mg tablet,delayed 20 mg PO QAM 12/07/21 06/22/22 History release triamcinolone acetonide 0.1 % 1 applic topical BID PRN Rash 12/07/21 06/22/22 History topical cream isosorbide mononitrate 30 mg 30 mg PO QAM #30 tabs 12/11/21 06/22/22 Rx tablet,extended release 24 hr umeclidinium 62.5 mcg-vilanterol 1 ea inhalation QAM 06/05/22 06/22/22 History 25 mcg/actuation powdr for inhalation (Anoro Ellipta) albuterol sulfate 5 mg/mL(0.5 %) 2.5 mg inhalation Q6H PRN 06/22/22 06/22/22 History solution for nebulization Shortness Of Breath Or Wheezing ascorbic acid (vitamin C) 500 mg 500 mg PO DAILY 06/22/22 06/22/22 History tablet (Vitamin C) doxycycline hyclate 100 mg capsule 100 mg PO AMHS 06/22/22 06/22/22 History furosemide 20 mg tablet 20 mg PO Q OTHER DAY 06/22/22 06/22/22 History magnesium oxide 400 mg PO QAM 06/22/22 06/22/22 History Patient History Medical History Abnormal CT of the chest Tree-in-bud opacity consistent with aspiration pneumonia. No evidence of und erlying emphysema. CT scan 12/07/2021 at [facility] Age related osteoporosis Anticoagulated Aortic stenosis ASCVD (arteriosclerotic cardiovascular disease) Asthma DENIES Chronic atrial fibrillation Chronic diastolic CHF (congestive heart failure) Chronic iron deficiency anemia NO KNOWN CURRENT PROBLEMS WITH CKD (chronic kidney disease), stage III DENIES Epiglottitis PT SON REPORTS PT HAS TROUBLE SWALLOWING HER PILLS WITHOUT A SIGNIFICANT AMOUNT OF WATER GERD (gastroesophageal reflux disease) GI bleed HX Gout HX History of CVA (cerebrovascular accident) "MINI STROKES" 2016 - AFFECTED SPEECH AT THAT TIME HLD (hyperlipidemia) HTN (hypertension) Renal artery stenosis NARROWING ARTERIES , KIDNEY STENT PLACED IN 2000 Severe aortic stenosis UNKNOWN, NOT REPORTED BY PT SON UPON PAT INTERVIEW Surgical History History of cataract surgery RT History of colonoscopy History of endoscopy History of hysterectomy History of total left knee replacement BLADDER TAC History of total right knee replacement History of urologic surgery STENT PLACED IN KIDNEY 2001 FOR NARROWING OF ARTERIES Family History Mother Hypertension Social History Smoking Status: Never smoker Tobacco Type: Cigarettes Cigarettes Per Day: 2-3 CIG; Second Hand Exposure: No; Do You Dip or Chew Tobacco: No; Tobacco Cessation Education Requested by Patient: No Hx Alcohol Use: No Hx Substance Use: No Preferred Language: Slovak Communication Ability: Effective Program Associate Required: No Beliefs That Will Affect Care: None marital status: / Current Living Situation: Family Current Living Situation Comment: lives with son Other Information That Helps Us Care for You: No Feels Safe at Home: Yes Safety Concerns: Feels Safe At This Time Assistive Devices: Cane and Walker Review of Systems Review of Systems: ESAS Pain 0/3 Dyspnea 0/3 Drowsiness 0/3 Anxiety 0/3 Physical Exam Constitutional: no acute distress Respiratory: normal respiratory effort; no labored breathing Cardiovascular: Rate/Rhythm: + irregularly irregular Gastrointestinal (Abdomen): Inspection/Auscultation: abdomen normal to inspection Musculoskeletal: Extremities: extremities normal to inspection Skin: warm and dry Neurologic: moves all extremities; no focal motor deficits Psychiatric: Orientation: oriented to person and oriented to place; + not oriented to time Results & Data ([facility]) Vital Signs (Past 12 Hours) Vital Signs Temp Pulse Pulse Pulse Resp BP Pulse Ox 06/23/22 11:45 97.2 F L 78 18 106/69 99 06/23/22 08:00 90 06/23/22 11:28 77 16 98 06/23/22 11:24 06/23/22 08:00 97.5 F L 88 18 133/78 99 06/23/22 07:17 85 16 99 06/23/22 02:57 06/23/22 02:00 88 22 06/23/22 01:50 86 13 06/23/22 01:40 81 13 06/23/22 01:30 84 25 H 06/23/22 01:26 90 27 H 06/23/22 01:00 83 26 H 06/23/22 00:50 84 27 H 100 06/23/22 01:20 06/23/22 01:47 97.7 F 91 H 18 145/79 H 96 06/23/22 01:29 97.7 F 91 H 18 145/79 H 96 06/23/22 00:59 76 29 H 99 O2 Del Method O2 Flow Rate FiO2 06/23/22 11:45 Nasal Cannula 2 06/23/22 08:00 06/23/22 11:28 Nasal Cannula 3 06/23/22 11:24 Nasal Cannula 3 06/23/22 08:00 Nasal Cannula 3 06/23/22 07:17 Nasal Cannula 5 06/23/22 02:57 BiPAP 06/23/22 02:00 06/23/22 01:50 06/23/22 01:40 06/23/22 01:30 06/23/22 01:26 06/23/22 01:00 06/23/22 00:50 06/23/22 01:20 BiPAP 06/23/22 01:47 BiPAP 06/23/22 01:29 BiPAP 06/23/22 00:59 30 PG Care Time/CCT Total # of Minutes Spent Total Time Spent: 65 Total Time Spent with Patient: Total time spent is greater than 50% in coordination of care (as documented) at patient's floor/unit and/or counseling patient:goals of care, prognosis, hospice, code status Coding Level of Care Code 24369 INT INP/OBS CARE 2/55MIN Diagnoses Dyspnea R06.00 Palliative care encounter Z51.5
--- NOTE | 2022-06-23 13:54 | Pharmacy Report ---
Pharmacy Glycemic Short Note 2 - Date of Service June 23, 2022 - Glycemic Short BSG Results (Last 24 hours): 06/22/22 06/23/22 06/23/22 21:54 02:15 06:00 Glucose 227 H POC Glucose 145 H 166 H 06/23/22 06/23/22 06:38 11:50 Glucose 164 H POC Glucose 166 H OUTPATIENT ANTIDIABETIC REGIMEN: * N/A * A1c 5.8% ASSESSMENT: * Patient admitted with COVID-19 infection, currently on remdesirivr and dexamethasone 6 mg * A1c pre-diabetic, not on any outpatient therapies * BSGs not significantly elevated at this time. Continue to monitor. * Basal intiated with 10 units daily- will continue for now * Clear liquid diet, carb ratio tightened slightly PLAN FOR INPATIENT GLYCEMIC CONTROL: * Hold outpatient oral diabetes medications * Basal insulin * Lantus 10 units SQ HS * Bolus insulin * NovoLog per scale ACHS or Q6hrs while NPO * Goal Range: Low 110 mg/dL - High 140 mg/dL * Correction Factor: 25 mg/dL/unit * Nutritional / Prandial insulin per carb ratio of 1 unit per 12 grams CHO consumed
--- NOTE | 2022-06-23 13:56 | Electrocardiogram Report ---
Test Reason : Blood Pressure : / mmHG Vent. Rate : 093 BPM Atrial Rate : 091 BPM P-R Int : 000 ms QRS Dur : 084 ms QT Int : 366 ms P-R-T Axes : 000 076 257 degrees QTc Int : 455 ms Poor data quality, interpretation may be adversely affected Atrial fibrillation Moderate voltage criteria for LVH, may be normal variant Marked ST abnormality, possible inferior subendocardial injury Abnormal ECG When compared with ECG of 05-JUN-2022 12:02, No significant change was found Confirmed by Eduardo Mcclellan ([id number]) on 06/23/2022 1:55:50 PM Referred By: REFERRED SELF Confirmed By:Eduardo Mcclellan
--- NOTE | 2022-06-23 16:20 | Hospitalist Progress Note ---
Date of Service June 23, 2022 Assessment & Plan (1) Acute hypoxemic respiratory failure: Plan: Acute respiratory failure with hypoxia Multifactorial: Recurrent COPD exacerbation, COVID-19 pneumonia, underlying pulmonary hypertension, Pleural Effusion Acute on chronic diastolic CHF Valvular Heart disease: severe , mild aortic regurgitation, mild mitral regurgitation, moderate tricuspid regurgitation Troponin elevation likely demand ischemia secondary to volume overload, hypoxia, COVID 19 infection --CXR:Interval development of interstitial pulmonary edema. No change in moderate left and small right pleural effusions. A few left mid and lower lung airspace opacities which probably reflect atelectasis although an infectious process could appear similar. Radiographic follow-up to ensure resolution is recommended. --ECHO: Severe concentric LVH, left ventricle wall motion is normal. EF 55 to 60%. Left atrium is severely dilated. Severe arctic stenosis, mild aortic regurgitation, moderate mitral annular calcification, mild mitral regurgitation, moderate tricuspid regurgitation, mild to moderate pulmonary hypertension, PA systolic pressure is estimated to be 51 mmHg. -- Received IV Lasix Continue p.o. Lasix Continue remdesivir, dexamethasone, Nebs Monitor volume status closely Supplemental oxygen as needed Monitor LFTs Wean off of supplemental oxygen to keep saturations 88 to 92%. Hyperglycemia Likely secondary to steroids HbA1c 5.8 On sliding scale insulin Monitor BGs Coagulopathy INR 1.8 No bleeding issues Monitor Atrial fibrillation Continue Cardizem On Xarelto for anticoagulation PVD H/O CVA Continue aspirin, Lipitor Also on Xarelto Hypertension Hyperlipidemia Past tobacco abuse Continue home medications DVT Px: Xarelto Code Status DNI/DNR Palliative care following Disposition PT OT prior to discharge Admission and Anticipated Discharge Date Admission Date: June 23, 2022 Subjective Patient is seen and examined at bedside States feeling better today Poor historian secondary to hearing impairment Denies any chest pain, dyspnea, dizziness, nausea, abdominal pain Reports intermittent cough No other complaints Saturating well on 2-3 L supplemental oxygen Review of Systems Review of Systems: All systems reviewed & are unremarkable except as noted in Subjective Physical Exam Physical Exam: Physical Exam: Vitals signs as noted above General Appearance:Moderately built and nourished, no apparent distress Head: normocephalic, Atraumatic Eyes: normal inspection, EOMI Neck: supple, Trachea midline Respiratory/Chest: Decreased breath sounds, CTA, No accessory muscle use Cardiovascular: Irregularly irregular, +murmur Abdomen/GI:Soft, Non tender, Bowel sounds present Extremities/Musculoskeletal:normal inspection, no edema Neurologic/Psych:AAOX3, grossly no focal neurological deficits, +Hearing impairment Skin: normal color, warm Results & Data Results & Data ([facility]) Vital Signs (Past 12 Hours) Vital Signs Temp Pulse Pulse Pulse Resp BP Pulse Ox 06/23/22 15:58 76 16 95 06/23/22 15:19 72 06/23/22 14:46 36.6 C 85 18 116/74 96 06/23/22 11:45 36.2 C L 78 18 106/69 99 06/23/22 08:00 90 06/23/22 11:28 77 16 98 06/23/22 11:24 06/23/22 08:00 36.4 C L 88 18 133/78 99 06/23/22 07:17 85 16 99 O2 Del Method O2 Flow Rate 06/23/22 15:58 Room Air 06/23/22 15:19 06/23/22 14:46 Nasal Cannula 3 06/23/22 11:45 Nasal Cannula 3 06/23/22 08:00 06/23/22 11:28 Nasal Cannula 3 06/23/22 11:24 Nasal Cannula 3 06/23/22 08:00 Nasal Cannula 3 06/23/22 07:17 Nasal Cannula 5 Laboratory Results Short CBC 06/22/22 06/23/22 Range/Units 21:54 06:38 WBC 11.90 H 3.74 L D (4.8-10.8) K/ul Hgb 13.8 11.0 L (12.0-16.0) g/dl Hct 40.2 32.1 L (34.1-44.9) % Plt Count 279 177 (130-400) K/u[place] [facility] [place]/22/22 06/23/22 21:54 06:38 Sodium 133 L 138 Potassium 4.5 3.7 Chloride 96 L 99 Carbon Dioxide 25 30 BUN 26 H 23 Creatinine 1.20 1.03 Glucose 227 H 164 H Calcium 9.2 8.5 Liver Function 06/22/22 06/23/22 Range/Units 21:54 06:38 Total Bilirubin 0.8 0.7 (0.2-1.0) mg/dl Direct Bilirubin 0.2 (0-0.2) mg/dl AST 30 26 (13-39) U/L ALT 25 19 (7-52) U/L Alkaline Phosphatase 82 59 (34-104) U/L Albumin 4.2 3.9 (3.4-5.0) gm/dl Urine 06/22/22 Range/Units 23:30 Urine Color Dark Yellow Urine Appearance Clear (Clear) Urine pH 5.5 (4.5-7.5) Ur Specific [place] 1.028 (1.000-1.030) Urine Protein 3+ H (Negative) Urine Glucose (UA) Negative (Negative)
[2022-06-23] MEDS: RIVAROXABAN 15 MG TAB PO SCH (17:22)
[2022-06-23] MEDS ORDERED: LEVALBUTEROL 1.25MG/0.5ML NEB INH PRN (17:44)
[2022-06-23] MEDS ORDERED: IPRATROPIUM BROMIDE NEB SOLN 0.02% 2.5 ML VIAL INH PRN (17:44)
[2022-06-23] MEDS: ATORVASTATIN 10 MG TAB PO SCH (20:32)
[2022-06-23] MEDS ORDERED: LANTUS PER UNIT CHARGE SQ SCH (21:00)
[2022-06-24 06:49] LABS: Hemoglobin 10.7 g/dl (12.0-16.0); Mean Corpuscular Hemoglobin 33.3 pg (25.0-34.0); Mean Corpuscular Hgb Conc 34.5 g/dL (32.0-36.0); Mean Corpuscular Volume 96.6 fL (80.0-100.0); Mean Platelet Volume 11.4 fL (9.4-12.3); Platelet Count 194 K/uL (130-400); RDW Coefficient of Variation 13.6 % (11.5-14.5); RDW Standard Deviation 48.2 fL (36.4-46.3); Red Blood Count 3.21 M/uL (3.93-5.22); White Blood Count 8.37 K/ul (4.8-10.8)
[2022-06-24 06:57] LABS: INR 1.6 (0.9-1.1); Prothrombin Time 16.2 Seconds (9.0-12.0)
[2022-06-24 07:23] LABS: Albumin Globulin Ratio 1.7 (0.9-2); Albumin Level 3.6 gm/dl (3.4-5.0); BUN Creatinine Ratio 30.9 (10-20); Bilirubin,Total 0.5 mg/dl (0.2-1.0); Calcium 8.6 mg/dl (8.5-10.1); Creatinine Clr Calc Pharmacy 40.9 ml/min; Est GFR (African American) 53.8 ml/min; Est GFR (Non-African American) 46.4 ml/min; Globulin 2.1 gm/dl (2.5-4.0); Magnesium 1.9 mg/dl (1.7-2.4); Potassium 3.8 mmol/L (3.5-5.1); Total Protein 5.7 gm/dl (6.0-8.3)
[2022-06-24] MEDS: allopurinoL 100 MG TAB PO SCH (08:39)
[2022-06-24] MEDS: cloNIDine HCL 0.1 MG TAB PO SCH (08:39)
[2022-06-24] MEDS: ASPIRIN 81 MG ECTAB PO SCH (08:39)
[2022-06-24] MEDS: dexAMETHasone 6 MG in SYRINGE 0 ML IV SCH (08:40)
[2022-06-24] MEDS: dilTIAZem HCL 180 MG CAPCR PO SCH (08:40)
[2022-06-24] MEDS: FERROUS SULFATE 325 MG TAB PO SCH (08:40)
[2022-06-24] MEDS: FUROSEMIDE 20 MG TAB PO SCH (08:41)
[2022-06-24] MEDS: FOLIC ACID 400 MCG TAB PO SCH (08:41)
[2022-06-24] MEDS: ISOSORBIDE MONO EXTENDED REL 30 MG TABCR PO SCH (08:41)
[2022-06-24] MEDS: PANTOprazole 40 MG TAB PO SCH (08:42)
[2022-06-24] MEDS: CEROVITE ADV FORMULA TAB PO SCH (08:42)
[2022-06-24] MEDS: INSULIN ASPART PER UNIT SC SCH ×4 (08:56→20:25)
[2022-06-24] MEDS: REMDESIVIR 100 MG in SODIUM CHLORIDE 0.9% 230 ML IV SCH (11:54)
--- NOTE | 2022-06-24 15:11 | Hospitalist Progress Note ---
Date of Service June 24, 2022 Assessment & Plan (1) Acute hypoxemic respiratory failure: Plan: Acute respiratory failure with hypoxia Multifactorial: Recurrent COPD exacerbation, COVID-19 pneumonia, underlying pulmonary hypertension, Pleural Effusion Acute on chronic diastolic CHF Valvular Heart disease: severe , mild aortic regurgitation, mild mitral regurgitation, moderate tricuspid regurgitation Troponin elevation likely demand ischemia secondary to volume overload, hypoxia, COVID 19 infection --CXR:Interval development of interstitial pulmonary edema. No change in moderate left and small right pleural effusions. A few left mid and lower lung airspace opacities which probably reflect atelectasis although an infectious process could appear similar. Radiographic follow-up to ensure resolution is recommended. --ECHO: Severe concentric LVH, left ventricle wall motion is normal. EF 55 to 60%. Left atrium is severely dilated. Severe arctic stenosis, mild aortic regurgitation, moderate mitral annular calcification, mild mitral regurgitation, moderate tricuspid regurgitation, mild to moderate pulmonary hypertension, PA systolic pressure is estimated to be 51 mmHg. -- Received IV Lasix Continue p.o. Lasix Continue remdesivir, dexamethasone, Nebs Monitor volume status closely Supplemental oxygen as needed Monitor LFTs Weaned off of supplemental oxygen Saturating well on room air Plan is to transition to home hospice eventually Hyperglycemia Likely secondary to steroids HbA1c 5.8 On sliding scale insulin Monitor BGs Coagulopathy INR 1.8>1.6 No bleeding issues Monitor Atrial fibrillation Continue Cardizem On Xarelto for anticoagulation PVD H/O CVA Continue aspirin, Lipitor Also on Xarelto Hypertension Hyperlipidemia Past tobacco abuse Continue home medications DVT Px: Xarelto Code Status DNI/DNR Palliative care following Disposition Home with Hospice eventually Admission and Anticipated Discharge Date Admission Date: June 23, 2022 Subjective Patient is seen and examined at bedside Poor historian secondary to hearing impairment Sitting in chair comfortably Offers no complaints Saturating well on room air Discussed with patient's daughter at bedside Denies any chest pain, dyspnea, dizziness, nausea, abdominal pain Minimal cough Review of Systems Review of Systems: All systems reviewed & are unremarkable except as noted in Subjective Physical Exam Physical Exam: Physical Exam: Vitals signs as noted above General Appearance:Moderately built and nourished, no apparent distress Head: normocephalic, Atraumatic Eyes: normal inspection, EOMI Neck: supple, Trachea midline Respiratory/Chest: Decreased breath sounds, CTA, No accessory muscle use Cardiovascular: Irregularly irregular, +murmur Abdomen/GI:Soft, Non tender, Bowel sounds present Extremities/Musculoskeletal:normal inspection, no edema Neurologic/Psych:AAOX3, grossly no focal neurological deficits, +Hearing impairment Skin: normal color, warm Results & Data Results & Data ([facility]) Vital Signs (Past 12 Hours) Vital Signs Temp Pulse Pulse Resp BP Pulse Ox Pulse Ox 06/24/22 15:04 88 06/24/22 08:05 99 H 06/24/22 11:23 36.7 C 99 H 17 131/83 95 06/24/22 11:14 06/24/22 08:00 93 06/24/22 06:54 36.6 C 97 H 18 144/74 H 94 06/24/22 03:46 36.7 C 86 18 138/86 94 O2 Del Method O2 Del Method 06/24/22 15:04 06/24/22 08:05 06/24/22 11:23 Room Air 06/24/22 11:14 Room Air 06/24/22 08:00 Room Air 06/24/22 06:54 Room Air 06/24/22 03:46 Room Air Laboratory Results Short CBC 06/24/22 Range/Units 06:00 WBC 8.37 (4.8-10.8) K/ul Hgb 10.7 L (12.0-16.0) g/dl Hct 31.0 L (34.1-44.9) % Plt Count 194 (130-400) K/uL BMP 06/24/22 06:00 Sodium 138 Potassium 3.8 Chloride 101 Carbon Dioxide 30 BUN 34 H Creatinine 1.10 Glucose 118 H Calcium 8.6 Liver Function 06/24/22 Range/Units 06:00 Total Bilirubin 0.5 (0.2-1.0) mg/dl AST 18 (13-39) U/L ALT 16 (7-52) U/L Alkaline Phosphatase 50 (34-104) U/L Albumin 3.6 (3.4-5.0) gm/dl
[2022-06-24] MEDS: RIVAROXABAN 15 MG TAB PO SCH (17:38)
[2022-06-24] MEDS: ATORVASTATIN 10 MG TAB PO SCH (20:18)
[2022-06-25] MEDS ORDERED: hydrOXYzine HCl 10 MG TAB PO STA (03:59)
[2022-06-25] MEDS ORDERED: MAGNESIUM SULFATE / D5W 1 GM/100 ML BAG IV ONE (03:59)
[2022-06-25] MEDS ORDERED: POTASSIUM CHLORIDE PWD 20 MEQ PACK PO STA (03:59)
[2022-06-25] MEDS ORDERED: cloNIDine HCL 0.1 MG TAB PO SCH (04:05)
[2022-06-25] MEDS ORDERED: dilTIAZem HCL 180 MG CAPCR PO SCH (04:05)
[2022-06-25 04:50] LABS: Hematocrit (blood only) 35.6 % (34.1-44.9); Hemoglobin 12.3 g/dl (12.0-16.0); Mean Corpuscular Hemoglobin 33.5 pg (25.0-34.0); Mean Corpuscular Hgb Conc 34.6 g/dL (32.0-36.0); Mean Platelet Volume 11.4 fL (9.4-12.3); Nucleated RBC # (auto) 0.02 K/uL (0-0); Nucleated RBC % (auto) 0.2 %; Platelet Count 280 K/uL (130-400); RDW Coefficient of Variation 13.8 % (11.5-14.5); RDW Standard Deviation 49.3 fL (36.4-46.3); Red Blood Count 3.67 M/uL (3.93-5.22); White Blood Count 13.06 K/ul (4.8-10.8)
[2022-06-25 05:15] LABS: BUN Creatinine Ratio 38.5 (10-20); Calcium 9.1 mg/dl (8.5-10.1); Creatinine Clr Calc Pharmacy 41.3 ml/min; Est GFR (African American) 54.4 ml/min; Est GFR (Non-African American) 46.9 ml/min; Magnesium 1.9 mg/dl (1.7-2.4); Potassium 3.8 mmol/L (3.5-5.1)
[2022-06-25] MEDS: allopurinoL 100 MG TAB PO SCH (08:13)
[2022-06-25] MEDS: ASPIRIN 81 MG ECTAB PO SCH (08:14)
[2022-06-25] MEDS: dexAMETHasone 6 MG in SYRINGE 0 ML IV SCH (08:14)
[2022-06-25] MEDS: FOLIC ACID 400 MCG TAB PO SCH (08:14)
[2022-06-25] MEDS: FERROUS SULFATE 325 MG TAB PO SCH (08:14)
[2022-06-25] MEDS: CEROVITE ADV FORMULA TAB PO SCH (08:15)
[2022-06-25] MEDS: FUROSEMIDE 20 MG TAB PO SCH (08:15)
[2022-06-25] MEDS: PANTOprazole 40 MG TAB PO SCH (08:15)
[2022-06-25] MEDS: ISOSORBIDE MONO EXTENDED REL 30 MG TABCR PO SCH (08:16)
[2022-06-25] MEDS: INSULIN ASPART PER UNIT SC SCH ×2 (08:44→12:48)
--- NOTE | 2022-06-25 11:48 | Hospitalist Progress Note ---
Date of Service June 25, 2022 Assessment & Plan (1) Acute hypoxemic respiratory failure: Plan: Acute respiratory failure with hypoxia Multifactorial: Recurrent COPD exacerbation, COVID-19 pneumonia, underlying pulmonary hypertension, Pleural Effusion Acute on chronic diastolic CHF Valvular Heart disease: severe , mild aortic regurgitation, mild mitral regurgitation, moderate tricuspid regurgitation Troponin elevation likely demand ischemia secondary to volume overload, hypoxia, COVID 19 infection --CXR:Interval development of interstitial pulmonary edema. No change in moderate left and small right pleural effusions. A few left mid and lower lung airspace opacities which probably reflect atelectasis although an infectious process could appear similar. Radiographic follow-up to ensure resolution is recommended. --ECHO: Severe concentric LVH, left ventricle wall motion is normal. EF 55 to 60%. Left atrium is severely dilated. Severe arctic stenosis, mild aortic regurgitation, moderate mitral annular calcification, mild mitral regurgitation, moderate tricuspid regurgitation, mild to moderate pulmonary hypertension, PA systolic pressure is estimated to be 51 mmHg. -- Received IV Lasix Continue p.o. Lasix Received remdesivir, dexamethasone, Nebs Plan to discharge on prednisone taper course Monitor volume status closely Supplemental oxygen as needed Monitor LFTs Weaned off of supplemental oxygen Plan is to transition to home hospice upon discharge Hyperglycemia Likely secondary to steroids HbA1c 5.8 On sliding scale insulin Monitor BGs Coagulopathy INR 1.8>1.6 No bleeding issues Monitor Atrial fibrillation Continue Cardizem On Xarelto for anticoagulation PVD H/O CVA Continue aspirin, Lipitor Also on Xarelto Hypertension Hyperlipidemia Past tobacco abuse Continue home medications DVT Px: Xarelto Code Status DNI/DNR Palliative care following Disposition Home with Hospice Admission and Anticipated Discharge Date Admission Date: June 23, 2022 Subjective Patient is seen and examined at bedside Poor historian secondary to hearing impairment Feels better today No new complaints Denies any chest pain, dyspnea, dizziness, nausea, abdominal pain Has only minimal cough Plan to discharge home today Review of Systems Review of Systems: All systems reviewed & are unremarkable except as noted in Subjective Physical Exam Physical Exam: Physical Exam: Vitals signs as noted above General Appearance:Moderately built and nourished, no apparent distress Head: normocephalic, Atraumatic Eyes: normal inspection, EOMI Neck: supple, Trachea midline Respiratory/Chest: Decreased breath sounds, CTA, No accessory muscle use Cardiovascular: Irregularly irregular, +murmur Abdomen/GI:Soft, Non tender, Bowel sounds present Extremities/Musculoskeletal:normal inspection, no edema Neurologic/Psych:AAOX3, grossly no focal neurological deficits, +Hearing impairment Skin: normal color, warm Results & Data Results & Data ([facility]) Vital Signs (Past 12 Hours) Vital Signs Temp Pulse Pulse Resp BP Pulse Ox Pulse Ox 06/25/22 10:42 06/25/22 10:41 36.3 C L 82 18 126/74 99 06/25/22 07:42 75 06/25/22 07:08 36.5 C 83 18 112/70 99 06/25/22 03:45 135 H 27 H 144/85 H 92 06/25/22 05:41 76 14 96 06/25/22 03:24 36.9 C 100 H 18 144/83 H 95 06/24/22 23:48 36.4 C L 98 H 17 138/89 95 06/24/22 23:51 96 O2 Del Method O2 Del Method O2 Flow Rate 06/25/22 10:42 Room Air 06/25/22 10:41 Nasal Cannula 3.0 06/25/22 07:42 06/25/22 07:08 Room Air 06/25/22 03:45 Room Air 06/25/22 05:41 Nasal Cannula 2 06/25/22 03:24 Room Air 06/24/22 23:48 Room Air 06/24/22 23:51 Room Air Laboratory Results Short CBC 06/25/22 Range/Units 04:17 WBC 13.06 H (4.8-10.8) K/ul Hgb 12.3 (12.0-16.0) g/dl Hct 35.6 (34.1-44.9) % Plt Count 280 (130-400) K/uL BMP 06/25/22 04:17 Sodium 136 Potassium 3.8 Chloride 99 Carbon Dioxide 25 BUN 42 H Creatinine 1.09 Glucose 136 H Calcium 9.1
[2022-06-25] MEDS: REMDESIVIR 100 MG in SODIUM CHLORIDE 0.9% 230 ML IV SCH (12:30)
--- NOTE | 2022-06-25 13:04 | Discharge Summary ---
Date of Service June 25, 2022 Admission HPI Per Admitting Provider History obtained from patient, family, and records. Limited history from patient secondary to marked hearing impairment. Medical history significant for chronic diastolic heart failure (EF 55 to 60%, TTE 2021), A. fib on Eliquis, PVD, valvular heart disease (severe , mild AR, moderate TR), hypertension, hyperlipidemia, history CVA, COPD, pulmonary hypertension, past tobacco abuse. Two confinements last year for CHF/COPD exacerbation. Recent confinement last month. Patient had a longstanding preference to avoid invasive intervention for her valvular heart disease as per records. Patient prescribed outpatient doxycycline steroid course last week for bronchitis symptoms. Few days ago, patient had worsening dry cough symptoms with shortness of breath. No unusual fluid retention, no chest pain. Not sure about sick contacts. Patient has received COVID-19 vaccination without boosters. Patient brought to the ER due to worsening symptoms. O2 sats noted to be 80s at the ER. BiPAP initiated at the ER. Lasix and neb treatment administered at the ER. 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 Admission Exam Per Admitting Provider Physical Exam Physical Exam: GENERAL: uncomfortable, hard of hearing, slightly anxious, respiratory distress SKIN: Normal color, warm HEENT: [place] palpebral conjunctivae, no ptosis, dry buccal mucosa, BiPAP in place NECK : Supple, no tenderness CHEST : Decreased breath sounds, expiratory wheezes, no tenderness HEART : Irregular, systolic murmur best heard on second right intercostal space, obliterated S2 ABDOMEN: Some distention, nontender EXTREMITIES : Minimal LE swelling, no LE tenderness, no other conspicuous deformities noted NEUROLOGIC : Coherent, no facial asymmetry, hard of hearing, gait and stance not assessed Principal Diagnosis Acute respiratory failure with hypoxia COPD exacerbation COVID-19 pneumonia Acute on chronic diastolic CHF Discharge Data Allergies Allergy/AdvReac Type Severity Reaction Status Date / Time sulfamethoxazole AdvReac Photosensit Verified 06/05/22 19:30 [From ivity Sulfamethoxazole-Trimethoprim] trimethoprim AdvReac Photosensit Verified 06/05/22 19:30 [From ivity Sulfamethoxazole-Trimethoprim] Consultations 06/22/22 22:21 ED Decision to Admit Stat 06/23/22 00:18 Consult Palliative Care Routine Procedures Performed Laboratory Results WBC 13.06 K/ul (4.8-10.8) H 06/25/22 04:17 RBC 3.67 M/uL (3.93-5.22) L 06/25/22 04:17 Hgb 12.3 g/dl (12.0-16.0) 06/25/22 04:17 Hct 35.6 % (34.1-44.9) 06/25/22 04:17 MCV 97.0 fL (80.0-100.0) 06/25/22 04:17 MCH 33.5 pg (25.0-34.0) 06/25/22 04:17 MCHC 34.6 g/dL (32.0-36.0) 06/25/22 04:17 RDW Std Deviation 49.3 fL (36.4-46.3) H 06/25/22 04:17 RDW Coeff of Alejandrina 13.8 % (11.5-14.5) 06/25/22 04:17 Plt Count 280 K/uL (130-400) 06/25/22 04:17 MPV 11.4 fL (9.4-12.3) 06/25/22 04:17 Immature Gran % (Auto) 0.8 % 06/23/22 06:38 Neut % (Auto) 89.3 % 06/23/22 06:38 Lymph % (Auto) 7.8 % 06/23/22 06:38 [place] % (Auto) 2.1 % 06/23/22 06:38 Eos % (Auto) 0.0 % 06/23/22 06:38 Baso % (Auto) 0.0 % 06/23/22 06:38 Neut # (Auto) 3.34 K/uL (1.4-6.5) 06/23/22 06:38 Lymph # (Auto) 0.29 K/uL (1.2-3.4) L 06/23/22 06:38 [place] # (Auto) 0.08 K/uL (0.24-0.82) L 06/23/22 06:38 Eos # (Auto) 0.00 K/uL (0-0.50) 06/23/22 06:38 Baso # (Auto) 0.00 K/uL (0-0.2) 06/23/22 06:38 Immature Gran # (Auto) 0.03 K/uL (0.00-0.02) H 06/23/22 06:38 Absolute Nucleated RBC 0.02 K/uL (0-0) H 06/25/22 04:17 Nucleated RBC % (auto) 0.2 % 06/25/22 04:17 PT 16.2 Seconds (9.0-12.0) H 06/24/22 06:00 INR 1.6 (0.9-1.1) H 06/24/22 06:00 APTT 70.6 Seconds (21.0-31.0) H* 06/22/22 21:54 PTT Ratio 2.6 06/22/22 21:54 VBG pH 7.39 (7.36-7.41) 06/22/22 22:36 VBG pCO2 41 mmHg (38-50) 06/22/22 22:36 VBG pO2 32 mmHg 06/22/22 22:36 VBG HCO3 25 mmol/L 06/22/22 22:36 VBG O2 Saturation < 60.0 % 06/22/22 22:36 VBG Base Excess -0.2 mEq/L 06/22/22 22:36 Sodium 136 mmol/L (136-145) 06/25/22 04:17 Potassium 3.8 mmol/L (3.5-5.1) 06/25/22 04:17 Chloride 99 mmol/L (98-107) 06/25/22 04:17 Carbon Dioxide 25 mmol/L (21-32) 06/25/22 04:17 Anion Gap 12 (3-11) H 06/25/22 04:17 BUN 42 mg/dl (6-23) H 06/25/22 04:17 Creatinine 1.09 mg/dl (0.6-1.2) 06/25/22 04:17 Est Cr Clr Drug Dosing 41.3 ml/min 06/25/22 04:17 Est GFR ( Amer) 54.4 ml/min 06/25/22 04:17 Est GFR (Non-Af Amer) 46.9 ml/min 06/25/22 04:17 BUN/Creatinine Ratio 38.5 (10-20) H 06/25/22 04:17 Glucose 136 mg/dl (70-99(Fasting)) H 06/25/22 04:17 POC Glucose 120 mg/dl (70-99) H 06/25/22 11:16 Estimat Average Glucose 120 mg/dl 06/23/22 00:58 Hemoglobin A1c 5.8 % (4.5-5.6) H 06/23/22 00:58 Lactate 1.6 mmol/L (0.4-2.0) 06/23/22 00:59 Calcium 9.1 mg/dl (8.5-10.1) 06/25/22 04:17 Magnesium 1.9 mg/dl (1.7-2.4) 06/25/22 04:17 Total Bilirubin 0.5 mg/dl (0.2-1.0) 06/24/22 06:00 Direct Bilirubin 0.2 mg/dl (0-0.2) 06/23/22 06:38 AST 18 U/L (13-39) 06/24/22 06:00 ALT 16 U/L (7-52) 06/24/22 06:00 Alkaline Phosphatase 50 U/L (34-104) 06/24/22 06:00 Troponin I High Sens 271.6 pg/ml (0-14) H* 06/23/22 06:38 B-Natriuretic Peptide 3498 pg/ml (0-100) H 06/22/22 21:54 Total Protein 5.7 gm/dl (6.0-8.3) L 06/24/22 06:00 Albumin 3.6 gm/dl (3.4-5.0) 06/24/22 06:00 Globulin 2.1 gm/dl (2.5-4.0) L 06/24/22 06:00 Albumin/Globulin Ratio 1.7 (0.9-2) 06/24/22 06:00 Procalcitonin < 0.05 ng/ml (0-0.5) 06/22/22 21:54 Urine Color Dark Yellow 06/22/22 23:30 Urine Appearance Clear (Clear) 06/22/22 23:30 Urine pH 5.5 (4.5-7.5) 06/22/22 23:30 Ur Specific [place] 1.028 (1.000-1.030) 06/22/22 23:30 Urine Protein 3+ (Negative) H 06/22/22 23:30 Urine Glucose (UA) Negative (Negative) 06/22/22 23:30 Urine Ketones Trace (Negative) H 06/22/22 23:30 Urine Blood Negative (Negative) 06/22/22 23:30 Urine Nitrite Negative (Negative) 06/22/22 23:30 Urine Bilirubin Negative (Negative) 06/22/22 23:30 Urine Urobilinogen Negative (Negative) 06/22/22 23:30 Ur Leukocyte Esterase Negative (Negative) 06/22/22 23:30 Urine WBC (Auto) 1-5 /hpf (0-5) 06/22/22 23:30 Urine RBC (Auto) 5-10 /hpf (0-4) H 06/22/22 23: U Hyaline Cast (Auto) 5-10 /lpf (0-5) H 06/22/22 23:30 U Epithel Cells (Auto) 10-20 /lpf (0-5) H 06/22/22 23:30 Urine Bacteria (Auto) Negative (Negative) 06/22/22 23:30 SARS-CoV-2 (PCR) POSITIVE (Negative) A* 06/22/22 21:54 Influenza Type A (PCR) Negative (Neg) 06/22/22 21:54 Influenza Type B (PCR) Negative (Neg) 06/22/22 21:54 RSV (RT-PCR) Negative (Neg) 06/22/22 21:54 Impressions Chest X-Ray 06/22/22 21:44 XR chest 1V portable CLINICAL HISTORY: Shortness of breath. COMPARISON STUDY: Chest CT December 07, 2021 and chest radiograph June 05, 2022. FINDINGS: Cardiomegaly is unchanged. Moderate left and small right pleural effusions are similar to prior exam. Associated bibasilar opacities are noted. There has been interval development of pulmonary edema since exam of May. A few left midlung airspace opacities are present. IMPRESSION: 1. Interval development of interstitial pulmonary edema. 2. No change in moderate left and small right pleural effusions. A few left mid and lower lung airspace opacities which probably reflect atelectasis although an infectious process could appear similar. Radiographic follow-up to ensure resolution is recommended. ACT 112: Negative or not required by law. Electronically signed by: Demarco Tellez M.D. 06/23/2022 7:13 AM Hospital Course (1) Acute hypoxemic respiratory failure: Acute respiratory failure with hypoxia Multifactorial: Recurrent COPD exacerbation, COVID-19 pneumonia, underlying pulmonary hypertension, Pleural Effusion Acute on chronic diastolic CHF Valvular Heart disease: severe , mild aortic regurgitation, mild mitral regurgitation, moderate tricuspid regurgitation Troponin elevation likely demand ischemia secondary to volume overload, hypoxia, COVID 19 infection --CXR:Interval development of interstitial pulmonary edema. No change in moderate left and small right pleural effusions. A few left mid and lower lung airspace opacities which probably reflect atelectasis although an infectious process could appear similar. Radiographic follow-up to ensure resolution is recommended. --ECHO: Severe concentric LVH, left ventricle wall motion is normal. EF 55 to 60%. Left atrium is severely dilated. Severe arctic stenosis, mild aortic regurgitation, moderate mitral annular calcification, mild mitral regurgitation, moderate tricuspid regurgitation, mild to moderate pulmonary hypertension, PA systolic pressure is estimated to be 51 mmHg. -- Received IV Lasix Continue p.o. Lasix Received remdesivir, dexamethasone, Nebs Plan to discharge on prednisone taper course Monitor volume status closely Supplemental oxygen as needed Monitor LFTs Weaned off of supplemental oxygen Plan is to transition to home hospice upon discharge Hyperglycemia Likely secondary to steroids HbA1c 5.8 On sliding scale insulin Monitor BGs Coagulopathy INR 1.8>1.6 No bleeding issues Monitor Atrial fibrillation Continue Cardizem On Xarelto for anticoagulation PVD H/O CVA Continue aspirin, Lipitor Also on Xarelto Hypertension Hyperlipidemia Past tobacco abuse Continue home medications DVT Px: Xarelto Code Status DNI/DNR Palliative care following Disposition Home with Hospice Total Time Total Time Spent Total Time Spent (In Minutes): 46 minutes Discharge Plan Discharge Items Patient Disposition: Hospice - Home Reason For Visit: RESP FAILURE, COVID Discharge Diagnosis: Acute respiratory failure with hypoxia COPD exacerbation COVID-19 pneumonia Acute on chronic diastolic CHF Activity: Per Instructions section Exercise/Sports: Wait until after follow-up appointment Non-emergency contact: Primary Care Provider Call non-emergency contact if: you have any medication questions, your symptoms worsen, your pain is concerning for you and you have a fever Follow-up/Referrals: Rigo Christine MD [Primary Care Provider] - Diet: Carb Consistent or DM2 and Heart Healthy Fluids: 2000ml (8 cups) Addtl Attending Provider Instructions: Follow-up with your primary care physician in 1 week --Complete the prednisone taper course as prescribed Prednisone Taper Course Start taking prednisone 20mg daily for 2 days, then take 10 mg daily for 2 days and stop. Seek immediate medical attention if your symptoms reoccur or worsen Please take all medications as instructed on discharge list below. Please call if you have any questions or problems. You can reach a [facility] hospitalist on duty at [facility] 24 hours a day by calling [phone] Call your Primary Care doctor if any of the following symptoms or problems start or get worse: * Shortness of breath or difficulty breathing * Wake up at night short of breath * Chest pain * Cough * Swelling of your hands, feet, or legs * More fatigued or tired with your normal activity * Palpitations - sudden fast heart beats WEIGHT * Weigh yourself every morning after using the bathroom. * Use the same scale. * Wear the same amount of clothing. * Write your weight down on a chart. * Call your Primary Care doctor if you gain more than 2-3 pounds in 1-2 days. MEDICATIONS * Use this discharge instruction sheet for medication instructions. * Take your medications at the time your doctor ordered. * Do not skip a dose of your medicines. * If you miss a dose of medicine, take it as soon as possible, but DO NOT DOUBLE A DOSE. * Read your medicine information when you get home. * Know all of the side effects of your medicine. If in doubt, ask your pharmacist * Call your Primary Care doctor's office if you have any side effects. * Be sure all of your doctors know what medicine and herbs you take (including cold, flu, and herbal medicine). Take the following with you to your follow-up doctor appointments: * Weight Chart * Medication List * List of questions Do not drink excessive alcohol, beer or wine. Home Isolation COVID-19 Instructions The following information about Home Isolation is from the CDC Website: https://www.cdc.gov/coronavirus/2019-ncov/hcp/rnontrry-bowgynb-opyphm.html Stay home except to get medical care People who are mildly ill with COVID-19 are able to isolate at home during their illness. You should restrict activities outside your home, except for getting medical care. Do not go to work, school, or public areas. Avoid using public transportation, ride-sharing, or taxis. Separate yourself from other people and animals in your home People: As much as possible, you should stay in a specific room and away from other people in your home. Also, you should use a separate bathroom, if available. Animals: You should restrict contact with pets and other animals while you are sick with COVID-19, just like you would around other people. Although there have not been reports of pets or other animals becoming sick with COVID-19, it is still recommended that people sick with COVID-19 limit contact with animals until more information is known about the virus. When possible, have another member of your household care for your animals while you are sick. If you are sick with COVID-19, avoid contact with your pet, including petting, snuggling, being kissed or licked, and sharing food. If you must care for your pet or be around animals while you are sick, wash your hands before and after you interact with pets and wear a face mask. Call ahead before visiting your doctor If you have a medical appointment, call the healthcare provider and tell them that you have or may have COVID-19. This will help the healthcare providers office take steps to keep other people from getting infected or exposed. Wear a face mask You should wear a face mask when you are around other people (e.g., sharing a room or vehicle) or pets and before you enter a healthcare providers office. If you are not able to wear a face mask (for example, because it causes trouble breathing), then people who live with you should not stay in the same room with you, or they should wear a face mask if they enter your room. Cover your coughs and sneezes Cover your mouth and nose with a tissue when you cough or sneeze. Throw used tissues in a lined trash can. Immediately wash your hands with soap and water for at least 20 seconds or, if soap and water are not available, clean your hands with an alcohol-based hand event av operator that contains at least 60% alcohol. Clean your hands often Wash your hands often with soap and water for at least 20 seconds, especially after blowing your nose, coughing, or sneezing; going to the bathroom; and before eating or preparing food. If soap and water are not readily available, use an alcohol-based hand event av operator with at least 60% alcohol, covering all surfaces of your hands and rubbing them together until they feel dry. Soap and water are the best option if hands are visibly dirty. Avoid touching your eyes, nose, and mouth with unwashed hands. Avoid sharing personal household items You should not share dishes, drinking glasses, cups, eating utensils, towels, or bedding with other people or pets in your home. After using these items, they should be washed thoroughly with soap and water. Clean all high-touch surfaces everyday High touch surfaces include counters, tabletops, doorknobs, bathroom fixtures, toilets, phones, keyboards, tablets, and bedside tables. Also, clean any surfaces that may have blood, stool, or body fluids on them. Use a household cleaning spray or wipe, according to the label instructions. Labels contain instructions for safe and effective use of the cleaning product including precautions you should take when applying the product, such as wearing gloves and making sure you have good ventilation during use of the product. Monitor your symptoms Seek prompt medical attention if your illness is worsening (e.g., difficulty breathing).Beforeseeking care, call your healthcare provider and tell them that you have, or are being evaluated for, COVID-19. Put on a face mask before you enter the facility. These steps will help the healthcare providers office to keep other people in the office or waiting room from getting infected or exposed. Ask your healthcare provider to call the local or state health department. Persons who are placed under active monitoring or facilitated self- monitoring should follow instructions provided by their local health department or occupational health professionals, as appropriate. When working with your local health department check their available hours. If you have a medical emergency and need to call 911, notify the dispatch personnel that you have, or are being evaluated for COVID-19. If possible, put on a face mask before emergency medical services arrive. Discontinuing home isolation Patients with confirmed COVID-19 should remain under home isolation precautions until the risk of secondary transmission to others is thought to be low. The decision to discontinue home isolation precautions should be made on a [id number] basis, in consultation with healthcare providers and state and local health departments. Pending Studies at Discharge: No Stand-Alone Forms: [facility] Medications and DC Order Prescriptions: New prednisone 10 mg tablet 10 mg PO UD Qty: 6 0RF Rx Instructions: Start taking prednisone 20mg daily for 2 days, then take 10 mg daily for 2 days and stop. Continued clonidine HCl 0.1 mg tablet 0.1 mg PO QAM Rx Instructions: ordered bid...takes once a day atorvastatin 10 mg tablet 10 mg PO HS allopurinol 100 mg tablet 200 mg PO QAM folic acid 400 mcg Tablet 400 mcg PO QAM ferrous sulfate 325 mg (65 mg iron) tablet 65 mg PO QAM metoprolol tartrate 50 mg tablet 50 mg PO BID clotrimazole 1 % cream 1 applic TOPICAL BID PRN (Reason: Skin Irritation) Rx Instructions: pt to apply small amount to affected area under breasts up to twice per day as needed diltiazem HCl [DILT-XR] 180 mg capsule,ext.rel 24h degradable 180 mg PO QAM Xarelto 15 mg tablet 15 mg PO QDD Rx Instructions: take with supper Centrum Silver 0.4-300-250 mg-mcg-mcg Tablet 1 tab PO DAILY pantoprazole 20 mg tablet,delayed release (DR/EC) 20 mg PO QAM aspirin 81 mg Tablet,Delayed Release (Dr/Ec) 81 mg PO QAM nystatin [Nystop] 100,000 unit/gram Powder 1 applic TOPICAL TID PRN (Reason: affected area) Rx Instructions: apply to under breasts 3 time a day as needed triamcinolone acetonide 0.1 % Cream 1 applic TOPICAL BID PRN (Reason: Rash) Rx Instructions: apply to rash on legs as needed flaxseed oil Oil 1 ea miscellaneous QDD Rx Instructions: 450 mg dose isosorbide mononitrate 30 mg Tablet Extended Release 24 Hr 30 mg PO QAM Qty: 30 0RF Anoro Ellipta 62.5-25 mcg/actuation blister with device 1 ea inhalation QAM magnesium oxide 400 mg magnesium capsule 400 mg PO QAM furosemide 20 mg tablet 20 mg PO Q OTHER DAY Rx Instructions: takes on sunday,sunday,sunday doxycycline hyclate 100 mg capsule 100 mg PO [facility]HS Rx Instructions: start 06/22/22 end 07/02/22 albuterol sulfate 5 mg/mL Solution For Nebulization 2.5 mg INHALATION Q6H PRN (Reason: Shortness Of Breath Or Wheezing) ascorbic acid (vitamin C) [Vitamin C] 500 mg Tablet 500 mg PO DAILY Discharge Orders: Discharge Order (Routine); Ordered 06/25/22 Ordered By: Jama Suárez Admission Data Admit Date/Time: 06/23/22 00:13 Attending Provider: Jama Suárez Admit Provider: Yuan Fink Primary Care Provider: Rigo Christine Other Providers: Yuan Fink ; Lauren Stevenson
== END 2022-06-25 15:04 | disposition home or self-care (01) | DRG 177 ==
LOC: ED 21:30 → 2S 06-23 00:13